=== PATIENT | male | born 1985 | race Caucasian/White ===

== ENCOUNTER 2023-05-26 13:08 | Emergency (ER) | payer BC, SELFPAY ==
[2023-05-26 13:09] VITALS: BP 174/105; PULSE 123; RESP 20; TEMP 36.1; O2SAT 97; BMI 29.5
--- NOTE | 2023-05-26 13:13 | EDS_ITS ---
HPI History of Present Illness Chief Complaint: Chest Pain PFSH PFS Medical History no medical history Allergy/AdvReac Type Severity Reaction Status Date / Time No Known Allergies Allergy Verified 05/26/23 13:09 EXAM Physical Exam Const Vital Signs: 05/26/23 13:09 05/26/23 13:15 05/26/23 13:15 Temperature 97 F L Temperature Source Temporal Pulse Rate 123 H 106 H Respiratory Rate 20 H 26 H Respiratory Effort Normal Non-Labored Blood Pressure 174/105 H 155/91 H Blood Pressure Mean 128 112 Pulse Ox 97 99 Oxygen Delivery Method Room Air Room Air 05/26/23 13:50 05/26/23 14:08 05/26/23 15:00 Temperature Temperature Source Pulse Rate 88 95 Respiratory Rate 16 15 Respiratory Effort Blood Pressure 143/97 H 164/96 H Blood Pressure Mean 112 118 Pulse Ox 98 97 96 Oxygen Delivery Method Room Air Room Air Room Air Heart Score History: Slightly/Non-Suspicious ECG: Normal Age: </= 45 years Risk Factors: No Risk Factors Troponin: </= Normal Limit Score: 0 MDM MDM MDM Narrative Medical decision making narrative: HISTORY OF PRESENT ILLNESS: 52-[id number]-[id number]-year-old male presents with chest pain. Notes intermittent chest pain. Notes left arm pain. States has been ongoing for 1 week. Is not exertional. Is not pleuritic. Denies any recent fever. Denies any sick contacts. No recent cough. Notes 4 weeks ago he had self diagnosed bronchitis. Denies any lower extremity edema. Denies any bleeding diathesis. Denies any vomiting or diarrhea. Denies any personal history of methamphetamine or cocaine abuse. Notes he drinks occasionally had about 4 beers last night. Patient denies sudden onset of pain, no tearing sensation, no migratory symptoms, no new numbness, weakness or loss of sensation. Patient denies family history or personal history of Marfan syndrome or Kenroy-Danlos. The patient denies recent surgery in the last 4 weeks or immobilization in the last 3 days, denies previous diagnosis of DVT or PE, hemoptysis, unilateral leg swelling or malignancy with treatment the last 6 months. No estrogen use noted. REVIEW OF SYSTEMS: All other systems reviewed and are negative except as noted in the history of present illness. At least 10 review of systems reviewed and are negative except as noted in history of present illness. PHYSICAL EXAM: Nursing triage notes reviewed, Vital signs reviewed Constitutional: please see [facility] HENT: MMM Eyes: Pupils equal round and reactive to light, Extraocular muscles intact Neck: No stridor, no JVD, full neck ROM Lungs: Clear to auscultation, No wheezing or rales. No increased work of breathing, no conversational dyspnea, no accessory muscle use, no nasal flaring. No respiratory distress noted Heart: Regular rate and rhythm, No murmurs, No rubs and No gallops, 2+ distal pulses (radial, femoral, posterior tibial) in all extremities Abdomen: Soft, there is no tenderness, rigidity, rebound or guarding, no obvious peritoneal signs, no palpable pulsatile abdominal masses, no auscultated abdominal bruit : No CVAT Extremities: No edema Neuro: No focal neurological deficits, cranial nerves II through XII intact, 5/5 strength in all extremities. Intact sensation to light touch in all extremities, 2+ reflexes bilateral patella tendons. Normal gait. No ataxia. Skin: No rash or lesions noted MEDICAL DECISION MAKING: Chief Complaint: Chest pain External records reviewed: No recent advanced imaging of the chest. No recent echocardiograms, stress test Factors affecting care: None Social determinants of health: Occasional alcohol abuse History obtained from others: Patient's Consults: none [facility] Narrative: Patient is initially tachycardic and hypertensive also tachypneic but afebrile. Exam without friction rub. Pulses were symmetric. No focal lung findings. Patient was treated with aspirin normal saline initially. I considered the following differential diagnosis: ACS, arrhythmia, anemia, pericarditis electrolyte abnormality, pneumonia, pneumothorax, GI etiology, PE ALL IMAGES (IF OBTAINED) HAVE BEEN PERSONALLY REVIEWED AND INTERPRETED BY MYSELF. EKG with normal sinus rhythm, left ax deviation, no intervals, no STEMI, no stigmata of pericarditis, no WPW, ARVD or Brugada syndrome noted CBC without leukocytosis, severe anemia, no thrombocytopenia. BMP without evidence of significant electrolyte abnormalities, no anion gap, no acute kidney injury. High-sensitivity troponin is negative, no evidence of myocardial ischemia x 2 I have personally reviewed the patient's chest x-ray. Chest x-ray is unremarkable for pulmonary edema, pneumothorax, pneumonia or focal cardiopulmonary abnormality. The synthesis of the patient's history, physical exam, labs images are not consistent with an acute life or limb threatening etiology. PE less likely given low risk Wells score. Aortic dissection is thought to be less likely given no sudden ripping or tearing pain, migratory pain, palpable pulse inequalities, no focal neurologic deficits concurrent with chest pain. Chance of dissection less than 07/1999. Pericarditis less likely given no pathognomonic EKG changes (no diffuse ST elevations, OH depressions). GI etiology (i.e. Boerhaave syndrome) less likely given no chest or neck crepitus, no vomiting or forced retching. I completed a HEART Score to screen for Major Adverse Cardiac Event (MACE) in this patient. The evidence indicates that the patient is very low risk for MACE and this is consistent with my clinical intuition. The risk of further workup or hospitalization for MACE is likely higher than the risk of the patient having a MACE. It is, therefore, in the patient?s best interest not to do additional emergent testing or to be hospitalized for MACE at this time. Shared Decision-Making No hospitalization indicated I have discussed with the patient my clinical impression and the result of the HEART Score to screen for MACE, as well as the risks of further testing and hospitalization. The HEART Score shows that the risk for MACE is less than 1%. Although the risk of MACE has not been completely eliminated, the risks of further testing or hospitalization for MACE likely exceed any potential benefit, and the patient agrees with not pursuing further emergent evaluation or hospit alization for MACE at this time. The patient and/or family, caregivers express understanding. The patient and/or family, caregivers agrees with the plan. Total critical care time today provided was at least 0 minutes. This excludes separately billable procedures. Critical care time (if documented) is secondary to the patient having high probability of clinically significant/life threatening deterioration in the patient's condition which required my urgent intervention. Felipe Valera, DO Lab Data Labs: Laboratory Results - last 24 hr 05/26/23 05/26/23 13:25 14:46 WBC 4.6 RBC 4.88 Hgb 14.9 Hct 43.0 MCV 88.1 MCH 30.5 MCHC 34.7 RDW Std Deviation 41.3 RDW Coeff of Nelson 12.9 Plt Count 213 MPV 10.4 Immature Gran % (Auto) 0.600 Neut % (Auto) 65.8 Lymph % (Auto) 24.1 [place] % (Auto) 7.1 Eos % (Auto) 1.5 Baso % (Auto) 0.9 Absolute Neuts (auto) 3.1 Absolute Lymphs (auto) 1.12 Nucleated RBC % 0 Sodium 139 Potassium 3.6 Chloride 105 Carbon Dioxide 27.0 Anion Gap 7 BUN 14 Creatinine 0.98 Estim Creat Clear Calc 113.28 Est GFR (MDRD) Af Amer 110 Est GFR (MDRD) Non-Af 91 BUN/Creatinine Ratio 14.3 Glucose 142 H Calcium 8.8 Troponin I High Sens 6 6 Radiography Diagnostic Testing: Clinical Impression(s) from Imaging Studies Chest X-Ray 05/26/23 13:50 IMPRESSION: Normal x-ray examination of the chest. Electronically Signed: Ari Tabor MD at 14:24 EST Reading Location ID and State: [facility] / [place] , Service support , Discharge Plan Triage Chief Complaint: Chest Pain ED Provider: Felipe Valera Dx/Rx/DC Orders Instructions: Chest Pain [facility] Primary Care Provider: Care Physician,No Primary Referrals: Care Physician,No Primary [Primary Care Provider] - Activity Restrictions/Additional Instructions: Thank you for trusting us with your care today! Please take Tylenol (2 pills, 650 mg), ibuprofen (2 pills, 400 mg) every 6 hours as needed for pain and fever control. Please return to the emergency department if your symptoms change or worsen. Specifically if you lose consciousness, develop chest pain, shortness of breath, exertional chest pain. Please follow with your primary care physician for further outpatient evaluation and management. Disposition Disposition: Home, Self Care
[2023-05-26 13:15] VITALS: BP 155/91; PULSE 106; RESP 26; O2SAT 99
--- NOTE | 2023-05-26 13:41 | ED.RN ---
NO OLD EKG
[2023-05-26 13:42] LABS: Absolute Lymphocyte Count 1.12 X10^3/uL (0.83-4.51); Absolute Neutrophil Count 3.1 X10^3/uL (2.0-7.7); Basophil# 0.04 X10^3/uL; Basophil% 0.9 % (0-1); Eosinophil# 0.07 X10^3/uL; Eosinophils% 1.5 % (0-5); Hemoglobin 14.9 g/dL (13.0-16.5); Lymphocyte # 1.12 X10^3/ul (0.83-4.51); Lymphocyte % 24.1 % (19-41); Mean Corp Hgb Conc 34.7 g/dL (32-36); Mean Corpuscular Hgb 30.5 pg (27.0-32.0); Mean Corpuscular Volume 88.1 fL (80-94); Mean Platelet Vol. 10.4 fl (6.2-12.0); Monocyte# 0.33 X10^3/uL; Monocyte% 7.1 % (0-10); NRBC Flagged by Analyzer 0 % (0-5); Neutrophil # 3.05 X10^3/uL (2.7-7.7); Neutrophil % 65.8 % (47-70); Platelet Count 213 K/mm3 (150-450); RBC Distribution Width CV 12.9 % (11.6-14.6); RBC Distribution Width SD 41.3 fl (35.1-43.9); Red Blood Count 4.88 M/mm3 (4.6-6.2); White Blood Count 4.6 K/mm3 (4.4-11.0)
[2023-05-26 13:50] VITALS: O2SAT 98
--- NOTE | 2023-05-26 13:50 | RAD_ITS ---
STUDY: X-RAY CHEST REASON FOR EXAM: Male, 37 years old. Atypical chest pain TECHNIQUE: Single AP portable view of the chest. COMPARISON: None. FINDINGS: EKG leads overlie the chest The lungs are clear and expanded. There is no demonstrated pleural abnormality. Normal size heart. Normal mediastinum and desirae. Normal visualized pulmonary arteries. Normal visualized aortic arch and descending thoracic aorta. Normal visualized thoracic spine. Normal visualized ribs, clavicles, and shoulders. There is no demonstrated abnormality of the visualized soft tissue structures of the upper abdomen. RAD/Chest 1 View (Portable) IMPRESSION: Normal x-ray examination of the chest. Electronically Signed: Ari Tabor MD at 14:24 EST ,
[2023-05-26 14:02] LABS: Anion Gap 7 (5-15); BUN 14 mg/dL (7-18); BUN/Creat Ratio 14.3 RATIO (10-20); Calcium,Total 8.8 mg/dL (8.5-10.1); Chloride 105 mmol/L (98-107); Creatinine, Serum 0.98 mg/dL (0.70-1.30); EST Glomerular Filtration Rate 91 mL/min (>60); Est Glom Filt Rate - Afr Amer 110 mL/min (>60); Estimated Creatinine Clearance 113.28 ml/min; Glucose 142 mg/dL (74-106); Potassium 3.6 mmol/L (3.5-5.1); Sodium Level 139 mmol/L (136-145); Troponin-I HS 6 pg/mL (3.0-78.0)
[2023-05-26 14:08] VITALS: BP 143/97; PULSE 88; RESP 16; O2SAT 97
[2023-05-26] MEDS: 0.9% Normal Saline (1000mL) 1,000 ML 1000 ML IV (14:16)
[2023-05-26] MEDS: Aspirin 81 MG TAB.CHEW 324 MG PO (14:16)
[2023-05-26 15:00] VITALS: BP 164/96; PULSE 95; RESP 15; O2SAT 96
[2023-05-26 15:08] LABS: Troponin-I HS 6 pg/mL (3.0-78.0)
== END 2023-05-26 15:30 | disposition home or self-care (01) ==
PROVIDERS: Emergency Provider Emergency Medicine; Visit Provider Emergency Medicine
DX: R07.9 Chest pain, unspecified (principal)
CPT/HCPCS: 71045; 80048; 84484; 85025; 93005; 96360; 99284; J7030

== ENCOUNTER 2025-01-15 12:24 | Emergency (ER) | payer BC, SELFPAY ==
[2025-01-15 12:25] VITALS: BP 161/117; PULSE 100; RESP 20; TEMP 36.3; O2SAT 98; BMI 30.9
--- NOTE | 2025-01-15 13:41 | CT_ITS ---
EXAM: CT Head Without Intravenous Contrast CLINICAL INDICATION: INTERMITTENT NUMBNESS TECHNIQUE: Axial computed tomography images of the head/brain without intravenous contrast. This CT exam was performed using one or more of the following dose reduction techniques: automated exposure control, adjustment of the mA and/or kV according to patient size, and/or use of iterative reconstruction technique. COMPARISON: No relevant prior studies available. FINDINGS: BRAIN AND EXTRA-AXIAL SPACES: No acute intracranial hemorrhage, midline shift or mass effect. If symptoms persist, further evaluation with MRI is recommended. No significant white matter disease. BONES/JOINTS: Apparent hyperdensity of the right occipital convexity, likely secondary to overlying skull artifacts. No acute fracture. SOFT TISSUES: Unremarkable. SINUSES: Unremarkable as visualized. No acute sinusitis. MASTOID AIR CELLS: Unremarkable as visualized. No mastoid effusion. CT/Brain/Head without Contrast IMPRESSION: No acute intracranial hemorrhage, midline shift or mass effect. If symptoms per sist, further evaluation with MRI is recommended. Reading Location: [facility]
--- NOTE | 2025-01-15 13:41 | CT_ITS ---
EXAM: CT Head Without Intravenous Contrast CLINICAL INDICATION: INTERMITTENT NUMBNESS TECHNIQUE: Axial computed tomography images of the head/brain without intravenous contrast. This CT exam was performed using one or more of the following dose reduction techniques: automated exposure control, adjustment of the mA and/or kV according to patient size, and/or use of iterative reconstruction technique. COMPARISON: No relevant prior studies available. FINDINGS: BRAIN AND EXTRA-AXIAL SPACES: No acute intracranial hemorrhage, midline shift or mass effect. If symptoms persist, further evaluation with MRI is recommended. No significant white matter disease. BONES/JOINTS: Apparent hyperdensity of the right occipital convexity, likely secondary to overlying skull artifacts. No acute fracture. SOFT TISSUES: Unremarkable. SINUSES: Unremarkable as visualized. No acute sinusitis. MASTOID AIR CELLS: Unremarkable as visualized. No mastoid effusion. CT/Brain/Head without Contrast IMPRESSION: No acute intracranial hemorrhage, midline shift or mass effect. If symptoms per sist, further evaluation with MRI is recommended. Reading Location: [facility]
[2025-01-15 14:17] LABS: Hematocrit 42.0 % (40-54); Hemoglobin 15.1 g/dL (13.0-16.5); Immature Granulocytes Count 0.040 X10^3/uL (0.0-0.0); Mean Corp Hgb Conc 36.0 g/dL (32-36); Mean Corpuscular Volume 86.2 fL (80-94); Mean Platelet Vol. 10.5 fl (6.2-12.0); NRBC Flagged by Analyzer 0 % (0-5); Platelet Count 204 K/mm3 (150-450); RBC Distribution Width CV 12.3 % (11.6-14.6); RBC Distribution Width SD 38.5 fl (35.1-43.9); Red Blood Count 4.87 M/mm3 (4.6-6.2); White Blood Count 4.9 K/mm3 (4.4-11.0)
--- NOTE | 2025-01-15 14:50 | EDS_ITS ---
HPI History of Present Illness Chief Complaint: Numb/Ting Narrative Narrative: Chief complaint and HPI: Episodic and migratory numbness/tingling with headache. 39-year-old male with no significant past medical history presents for evaluation of migratory/episodic numbness/tingling with headache. Patient states he had 2 separate episodes recently of central blurry vision. He was worked up outpatient by his PCP as well as ophthalmology. States he had a bilateral carotid ultrasound that was unremarkable. Had an MRI of the brain that was unremarkable except for a cyst. States that the in process inspector felt that he was having ocular migraines. Patient states that for the past couple weeks he has been having episodic and migratory facial numbness/tingling with headache. He states that it can occur on his left cheek, right cheek, neck. States he often gets a mild headache associated with it. States he called his PCPs office today to follow-up for this and was told by staff to come to the emergency department. He currently is denying any numbness or tingling at this time. He states that his left cheek just feels sore. He denies any headache, fever, chills, shortness of breath, chest pain, URI symptoms, weakness, current numbness/tingling, abdominal pain, nausea, vomiting, vision changes, hearing changes, neurological deficit, difficulty speaking. Review of systems: See HPI Medications: As listed on the chart Allergies: As listed on the chart PFSH: Per chart Vital signs: As listed on the chart. Reviewed. Physical exam: Gen: A&O x3, NAD Head: Normocephalic, atraumatic Eyes: No sclera icterus, conjunctiva clear, PERRL, EOMI ENT: Tympanic membranes clear bilaterally, moist mucous membranes, No facial asymmetry, posterior oropharynx unremarkable, uvula midline, no facial tenderness, no reported numbness or tingling with palpation, no temporal artery tenderness bilaterally Neck: Trachea midline, No JVD, full range of motion, nontender CV: RRR, no murmurs, no peripheral edema Resp: Lungs CTA BL, no w/r/c GI: Abd soft, non-distended, non-tender, no r/r/g Musc: Full ROM, no deformity, strength +5/5 in all extremities, no pronator drift, no ataxia Skin: Warm, dry, intact Neuro: Alert, oriented, grossly intact, sensation intact, no focal deficits Psych: Cooperative, appropriate mood and affect PFSH PFSH Medical History no medical history Allergy/AdvReac Type Severity Reaction Status Date / Time No Known Allergies Allergy Verified 01/15/25 12:27 Family History no significant family his Surgical History no surgical history Social History Smoking Status: Never smoker EXAM Physical Exam Const Vital Signs: 01/15/25 12:25 01/15/25 15:00 Temperature 97.4 F L Temperature Source Temporal Pulse Rate 100 78 Respiratory Rate 20 H Blood Pressure 161/117 H 155/90 H Blood Pressure Mean 131 111 Pulse Ox 98 99 Oxygen Delivery Method Room Air MDM MDM MDM Narrative Medical decision making narrative: 39-year-old male with no significant past medical history presents for evaluation of migratory/episodic numbness/tingling with headache. Patient recently had 2 separate episodes of central blurry vision. Had a workup outpatient with bilateral carotid ultrasound and MRI brain. States his bilater al carotid ultrasound was unremarkable. MRI brain was unremarkable except for cyst. States that his in process inspector diagnosed him with ocular migraines. Patient states since then he has been having episodic and migratory facial numbness/tingling with headache. Can occur on multiple areas of the face including the neck. Wanted to follow-up with PCP for this today and staff told him come to the emergency department. Currently denying any numbness or tingling. States his left cheek just feels sore. States he has been under a lot of stress. Physical exam is unremarkable. On presentation, patient no acute distress. He was hypertensive however repeat blood pressure normal. Differential diagnosis includes but is not limited to ocular migraines, atypical migraines, tension headache, stress reaction, electrolyte abnormality. Not consistent with a CVA. On chart review was unable to find the patient's carotid ultrasound as well as MRI brain. I do have a suspicion for any new intracranial abnormality with recent MRI brain however cannot fully rule this out without imaging. With shared decision making with the patient, will obtain basic labs to assess for electrolyte abnormalities as well as CT brain for any acute pathology. CT of the head shows no acute intracranial abnormality. CBC unremarkable. BMP unremarkable. Magnesium mildly elevated at 2.3. At this point in time, no clear etiology for patient's symptoms. He is currently asymptomatic at this time. May be secondary to ocular versus atypical migraines. Recommend following up with PCP and neurology. Return precautions explained. He confirmed understand the plan. Patient will discharge home. Impression: 1. Episodic and migratory facial numbness/tingling 2. Episodic headaches 3. Recent diagnosis of ocular migraines Lab Data Labs: Laboratory Results - last 24 hr 01/15/25 14:11 WBC 4.9 RBC 4.87 Hgb 15.1 Hct 42.0 MCV 86.2 MCH 31.0 MCHC 36.0 RDW Std Deviation 38.5 RDW Coeff of Nelson 12.3 Plt Count 204 MPV 10.5 Immature Gran % (Auto) 0.800 Neut % (Auto) 74.9 H Lymph % (Auto) 17.6 L [place] % (Auto) 5.5 Eos % (Auto) 0.6 Baso % (Auto) 0.6 Absolute Neuts (auto) 3.7 Absolute Lymphs (auto) 0.86 Nucleated RBC % 0 Sodium 140 Potassium 4.4 Chloride 104 Carbon Dioxide 24.5 Anion Gap 11 BUN 13 Creatinine 0.94 Estim Creat Clear Calc 131.24 Est GFR (MDRD) Non-Af 106 BUN/Creatinine Ratio 13.5 Glucose 120 H Calcium 9.8 Magnesium 2.3 H Radiography Diagnostic Testing: Clinical Impression(s) from Imaging Studies Brain CT 01/15/25 13:41 IMPRESSION: No acute intracranial hemorrhage, midline shift or mass effect. If symptoms persist, further evaluation with MRI is recommended. Reading Location[facility] Discharge Plan Triage Chief Complaint: Numb/Ting ED Provider: Joshua Wright Dx/Rx/DC Orders Primary Care Provider: Esteban Muniz Referrals: Esteban Muniz MD [Primary Care Provider] - Print Language: Malay
[2025-01-15 15:00] VITALS: BP 155/90; PULSE 78; O2SAT 99
[2025-01-15 15:13] LABS: Anion Gap 11 (5-15); BUN 13 mg/dL (4-19); BUN/Creat Ratio 13.5 RATIO (10-20); Calcium,Total 9.8 mg/dL (7.6-11.0); Carbon Dioxide 24.5 mmol/L (21.0-32.0); Chloride 104 mmol/L (98-108); Estimated Creatinine Clearance 131.24 ml/min (50-250); Glucose 120 mg/dL (70-99); Magnesium 2.3 mg/dL (1.5-2.2); Potassium 4.4 mmol/L (3.3-5.1)
[2025-01-15 15:39] VITALS: BP 144/96; PULSE 85; RESP 20; TEMP 36.8; O2SAT 100
--- OUTSIDE RECORDS SUMMARY | 2025-01-15 21:55 | XMS RPT_ITS | CCD ---
Author Organization [facility] Care Team Providers Care Pre Certification Specialist Name Role Phone Alex Muniz MD Primary Care Provider Felipe Valera Attending Unavailable Care Physician, No Primary Primary Care Unava ilable ALEX MUNIZ Primary Care Unavailab le AYDIN, KIM Referring Unavailable JASSON LION Attending Unavailable JASSON LION Admitting Unavailable ALEX MUNIZ Primary Care Unavailab Alex Ivory MD Primary Care Provider VALERIE FRANCO Referring Unavailable ALEX MUNIZ Primary Care Unavailab le Podlogar INSPECTOR POISING.Kim SANDOVAL Unavailable eSsar INSPECTOR POISING.Lashae SANDOVAL Unavailable ALEX MUNIZ Primary Care Unavailab ALEX Ivory Referring Unavailab ALEX Ivory Referring Unavailab ALEX Ivory Primary Care Unavailab JOSE ANTONIO Ruano Attending Unavailable ALEX MUNIZ Referring Unavailab ALEX Ivory Primary Care Unavailab ALEX Ivory Referring Unavailab ALEX Ivory Primary Care Unavailab ALEX Ivory Referring Unavailab ALEX Ivory Primary Care Unavailab ALEX Ivory Referring Unavailab ALEX Ivory Primary Care Unavailab ALEX Ivory Referring Unavailab ALEX Ivory Primary Care Unavailab ALEX Ivory Attending Unavailab ALEX Ivory Primary Care Unavailab ALEX Ivory Referring Unavailab ASHU Ahn Attending Unavailable ALEX MUNIZ Primary Care Unavailab ALEX Ivory Referring Unavailab ALEX Ivory Primary Care Unavailab ALEX Ivory Attending Unavailab ALEX Ivory Primary Care Unavailab ALEX Ivory Attending Unavailab ALEX Ivory Referring Unavailab ALEX Ivory Primary Care Unavailab ALEX Ivory Primary Care Unavailab ALEX Ivory Referring Unavailab ALEX Ivory Primary Care Unavailab ALEX Ivory Primary Care Unavailab le ALLAN FLORES Referring Unavailable ALEX MUNIZ Attending Unavailab ALEX Ivory Primary Care Unavailab ALEX Ivory Attending Unavailab ALEX Ivory Primary Care Unavailab ALEX Ivory Referring Unavailab ALEX Ivory Primary Care Unavailab anneliese CARL, JOSE ANTONIO Attending Unavailable ALEX MUNIZ Primary Care Unavailab ALEX Ivory Referring Unavailab ALEX Ivory Primary Care Unavailab ALEX Ivory Referring Unavailab Dr. Joshua Smith DO Emergency Provider Dr. Esteban Muniz MD Primary Care Provider Medications Current Medications Medication Drug Class(es) Dates Sig (Normalized) Sig (Original) amoxicillin 875 mg / clavulanate 125 mg oral tablet (1 source) Penicillin-class Antibacterial Start: 07-23-2024 End: 07-28-2024 take 1 tablet by mouth twice daily amoxicillin-clavul anate potassium (AUGMENTIN) 875-125 mg per tablet Indications: Bacterial pneumonia Take 1 tablet by mouth two times a day for 5 days. 10 tablet 07/23/2024 07/28/2024 Active azithromycin 250 mg oral tablet (1 source) Macrolide Antimicrobial Start: 07-23-2024 End: 07-28-2024 take 2 tablets by mouth once daily, then take 1 tablet by mouth once daily azithromycin (ZITHROMAX) 250 mg tablet Indications: Bacterial pneumonia Take 2 tablets by mouth once daily for 1 day, THEN 1 tablet once daily for 4 days. 6 tablet 07/23/2024 07/28/2024 Active benoxinate hydrochloride 4 mg/ml / fluorescein sodium 3 mg/ml ophthalmic solution (2 sources) Diagnostic Dye Start: 01-11-2025 End: 01-11-2025 fluorescein-benoxi brock 0.3-0.4 % 1 drop (FLURESS) Start: 01-11-2025 End: 01-11-2025 1 drop, BOTH EYES, DIRECT ED, Starting on Tue01/11/25 at 1100, Until Tue01/11/25 at 2259, Administer for applanation tonometry. In the event of a Fluress shortage, administer Wandy-Fluor 1 drop into both eyes as directed for applanation tonometry Lactobacillus acidophilus (20 sources) Lactobacillus ac idophilus (PROBIOTIC ORAL) Take by mouth. Active Lactobacillus ac idophilus (PROBIOTIC ORAL) Take by mouth. 0 Active Comment on above: Take by mouth. meloxicam 15 mg oral tablet (9 sources) Nonsteroidal Anti-inflammatory Drug Start: 07-16-19 End: 09-15-19 take 1 tablet by mouth once daily at mealtime meloxicam (MOBIC) 15 mg tablet Indications: Chronic upper back pain Take 1 tablet by mouth once daily. With food. 30 tablet 1 07/16/2024 09/14/2024 Active multivit-min/folic/vi t K/lycop (MEN'S MULTIVITAMIN ORAL) (20 sources) multivit-min/fol ic/v it K/lycop (MEN'S MULTIVITAMIN ORAL) Take by mouth. Active multivit-min/fol ic/vit K/lycop (MEN'S MULTIVITAMIN ORAL) Take by mouth. 0 Active naproxen 500 mg oral tablet (1 source) Nonsteroidal Anti-inflammatory Drug Start: 02-09-2024 End: 03-10-2024 take 1 tablet by mouth twice daily as needed naproxen (NAPROSYN) 500 mg tablet Indications: Left flank pain Take 1 tablet by mouth two times a day as needed. Take with food. 60 tablet 0 02/09/2024 03/10/2024 Active omeprazole 40 mg delayed release oral capsule (20 sources) Proton Pump Inhibitor Start: 07-19-2023 End: 07-16-2024 take 1 capsule by mouth once daily in the morning omeprazole (PRILOSEC) 40 mg capsule Take 1 capsule by mouth every morning. 90 capsule 1 07/16/2024 Active Start: 06-29-2023 End: 07-19-2023 take 1 capsule by mouth once daily before breakfast omeprazole (PRILOSEC) 20 mg capsule Take 1 capsule by mouth daily before breakfast. 1/2 hr before meal. 42 capsule 06/29/2023 07/19/2023 Discontinued Comment on above: Take 1 capsule by [facility] once daily. phenylephrine hydrochloride 25 mg/ml ophthalmic solution (2 sources) alpha-1 Adrenergic Agonist Start: 01-11-2025 End: 01-11-2025 PHENYLephrine 2.5 % 1 drop (AK-DILATE, GLENIS-SYNEPHRINE) Start: 01-11-2025 End: 01-11-2025 1 drop, BOTH EYES, DIRECT ED, Starting on Tue01/11/25 at 1100, Until Tue01/11/25 at 2259, Administer for dilation PROTECT FROM LIGHT proparacaine hydrochloride 5 mg/ml ophthalmic solution (2 sources) Local Anesthetic Start: 01-11-2025 End: 01-11-2025 proparacaine 0.5 % 1 drop (ALCAINE) Start: 01-11-2025 End: 01-11-2025 1 drop, BOTH EYES, DIRECT ED, Starting on Tue01/11/25 at 1100, Until Tue01/11/25 at 2259, Administer for pneumo tonometry, tonopen tonometry, or pachymetry. In the event of a proparacaine shortage, administer tetracaine 0.5% ophthalmic drops 1 drop in the left eye as directed for pneumo tonometry, tonopen tonometry, or pachymetry tropicamide 10 mg/ml ophthalmic solution (2 sources) Anticholinergic Start: 01-11-2025 End: 01-11-2025 tropicamide 1 % 1 drop (MYDRIACYL) Start: 01-11-2025 End: 01-11-2025 1 drop, BOTH EYES, DIRECT ED, Starting on Tue01/11/25 at 1100, Until Tue01/11/25 at 2259, Administer for dilation Completed/Discontinued Medications Medication Drug Class(es) Dates Sig (Normalized) Sig (Original) calcium phosphate dibas/vit D3 (VITAMIN D, WITH CALCIUM, ORAL) (10 sources) calcium phosphat e dibas/vit D3 (VITAMIN D, WITH CALCIUM, ORAL) Take by mouth. 0 Active Comment on above: Take by mouth. cholecalciferol 0.05 mg oral tablet (7 sources) Vitamin D End: 12-29-2023 take 1 tablet by mouth once daily cholecalciferol (VITAMIN D-3) 50 mcg (2,000 unit) tablet Take 2,000 Units by mouth once daily. 12/29/2023 Discontinued Comment on above: Take 2,000 Units by mouth once daily. famotidine 20 mg oral tablet (6 sources) Histamine-2 Receptor Antagonist Start: 05-30-2023 take 1 tablet by mouth twice daily famotidine (PEPCID) 20 mg tablet Indications: Chest pain, unspecified type Take 1 tablet by mouth two times a day. 60 tablet 1 05/30/2023 Active Comment on above: Take 1 tablet by justyn th two times a day. perflutren lipid microspheres 1.3 mL in NaCl (PF) 0.9% 10 mL injection (DEFINITY) (1 source) Start: 07-15-2023 End: 07-22-2023 perflutren lipid microspheres 1.3 mL in NaCl (PF) 0.9% 10 mL injection (DEFINITY) 125 ml sodium chloride 9 mg/ml prefilled syringe (1 source) Start: 07-15-2023 End: 07-22-2023 sodium chloride 0.9 % (flush) 10 mL (BD POSIFLUSH) Problems Active Problems Problem Classification Problem Date Documented Da te Episodic/Chronic Alcohol-related disorders (17 sources) Binge drinker; Translations: [Alcohol abuse, uncomplicated] 07-16-2024 Chronic Blindness and vision defects (6 sources) Transient visual loss, bilateral; Translations: [Transient visual loss] Onset: 01-10-2025 Episodic Esophageal disorders (17 sources) Gastroesophageal reflux disease without esophagitis; Translations: [Gastro-esophageal reflux disease without esophagitis] 07-16-2024 Chronic Headache; including migraine (1 source) Headache; Translations: [Headache] 01-15-2025 Episodic Other acquired deformities (1 source) Disorder of finger; Translations: [Unspecified deformity of right finger(s)] Episodic Other acquired deformities (1 source) Deformity of hand; Translations: [Unspecified deformity of right finger(s)] 06-01-2022 Episodic Other circulatory disease (1 source) Elevated blood-pressure reading without diagnosis of hypertension; Translations: [Elevated blood-pressure reading, without diagnosis of hypertension] 08-01-2024 Episodic Other gastrointestinal disorders (4 sources) Diarrhea; Translations: [Diarrhea, unspecified] 08-15-2023 Episodic Other gastrointestinal disorders (3 sources) Abdominal bloating; Translations: [Abdominal distension (gaseous)] 08-16-2023 Episodic Other gastrointestinal disorders (1 source) Stool finding; Translations: [Other fecal abnormalities] 08-23-2023 Episodic Other lower respiratory disease (2 sources) Cough; Translations: [Acute cough] 07-23-2024 Episodic Other male genital disorders (2 sources) Swelling of testicle; Translations: [Other specified disorders of the male genital organs] 12-29-2023 Episodic Other male genital disorders (2 sources) Finding of sensation of testes; Translations: [Testicular pain, unspecified] 12-29-2023 Episodic Other male genital disorders (1 source) Other specified disorders of the male genital organs; Translations: [Testicular swelling, right] Onset: Episodic Other male genital disorders (1 source) Testicular pain, unspecified; Translations: [Testicular discomfort] Onset: 4 Episodic Other nervous system disorders (1 source) Other chronic pain; Translations: [Chronic upper back pain] Onset: Chronic Other nervous system disorders (1 source) Facial paresthesia; Translations: [Paresthesia of skin] 01-15-2025 Episodic Other screening for suspected conditions (not mental disorders or infectious disease) (1 source) Patient encounter status; Translations: [Encounter for screening for lipoid disorders] 05-30-2023 Episodic Other skin disorders (7 sources) Lump on finger; Translations: [Localized swelling, mass and lump, right upper limb] Episodic Pneumonia (except that caused by tuberculosis or sexually transmitted disease) (1 source) Bacterial pneumonia; Translations: [Unspecified bacterial pneumonia] 07-23-2024 Episodic Transient cerebral ischemia (7 sources) Amaurosis fugax; 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] Onset: 5 01-10-2025 Chronic Unclassified (1 source) Acute cough; Translations: [Acute cough] Onset: 5 Urinary tract infections (1 source) Urinary tract infectious disease; Translations: [Urinary tract infection, site not specified] 12-29-2023 Episodic Past or Other Problems Problem Classification Problem Date Documented Da te Episodic/Chronic Abdominal pain (9 sources) Left upper quadrant pain; Translations: [Left upper quadrant pain] Onset: 02-09-2024 08-15-2023 Episodic Genitourinary symptoms and ill-defined conditions (5 sources) Microscopic hematuria; Translations: [Other microscopic hematuria] Onset: 02-22-2024 01-14-2024 Episodic Nonspecific chest pain (9 sources) Chest pain; Translations: [Chest pain, unspecified] Onset: 05-31-2023 05-30-2023 Episodic Other skin disorders (1 source) Localized swelling, mass and lump, right upper limb; Translations: [Mass of finger of right hand] Onset: 03-02-2023 Episodic Spondylosis; intervertebral disc disorders; other back problems (8 sources) Backache; Translations: [Dorsalgia, unspecified] Onset: 02-09-2024 02-09-2024 Episodic Results Test Name Value Interpretation Reference Range Facility Absolute lymphocyte countOrd ered By: Joshua Wright on 01-15-2025 Lymphocytes Auto (Unsp spec) [#/Vol] 0.86 10*3/uL 0.83-4.51 [facility] Absolute neutrophil countOrd ered By: Joshua Wright on 01-15-2025 Neutrophils (Bld) [#/Vol] 3.7 10*3/uL 2.0-7.7 [facility] Anion gap in Serum or Plasma Ordered By: Joshua Wright on 01-15-2025 Anion gap [Moles/Vol] 11 mmol/L 11-15 [facility] Automated lymphocyte count a s percentage of total leukocytesOrdered By: Joshua Wright on 01-15-2025 Lymphocytes/100 WBC Auto (Unsp spec) 17.6 % Low - [facility] BUN/creatinine ratioOrdered By: Joshua Wright on 01-15-2025 Urea nitrogen/Creatinine [Mass ratio] 13.5 mg/mg 10- [facility] Basophil percentageOrdered B y: Joshua Wright on 01-15-2025 Basophils/100 WBC (Bld) 0.6 % 0-1 [facility] Carbon dioxide, total [Moles /volume] in Central venous bloodOrdered By: Joshua Wright on 01-15-2025 CO2 [Moles/Vol] 24.5 mmol/L 21.0-32.0 [facility] Chloride assayOrdered By: Gera Wright on 01-15-2025 Chloride [Moles/Vol] 104 mmol/L 98-108 [facility] Eosinophil percentageOrdered By: Joshua Wright on 01-15-2025 Eosinophils/100 WBC (Bld) 0.6 % 0-5 [facility] Erythrocyte distribution wid th ratioOrdered By: Joshua Wright on 01-15-2025 Erythrocyte distribution width (RBC) [Ratio] 12.3 % 11.6-14.6 [facility] Erythrocyte distribution wid th standard deviationOrdered By: Joshua Beauchamp on 01-15-2025 Erythrocyte distribution width (RBC) [Ratio] 38.5 fl 35.1-43.9 [facility] Glomerular filtration rate ( GFR) estimation/1.73 sq m using serum, plasma, or whole bOrdered By: Joshua Wright on 01-15-2025 GFR/1.73 sq M.predicted among non-blacks MDRD (S/P/Bld) [Vol rate/Area] 106 mL/min/{1.73_m2} >60 [facility] Comment on above: mL/min/1.73m2 CKD-EP I Creatinine Equation (2020) Hematocrit Auto (Bld) [Volum e fraction]Ordered By: Joshua Wright on 01-15-2025 Hematocrit (Bld) [Volume fraction] 42.0 % 40-54 [facility] Hemoglobin measurementOrdere d By: Joshau Wright on 01-15-2025 Hemoglobin (Bld) [Mass/Vol] 15.1 g/dL 13.0-16.5 [facility] Immature granulocytes/100 WB C Auto (Bld)Ordered By: Joshua Wright on 01-15-2025 Immature granulocytes/100 WBC (Bld) 0.800 % 0.0-0.9 [facility] Comment on above: IG% - Immature Granu locytes (promyelocytes, myelocytes and metamyelocytes) > 1% indicates that a LEFT SHIFT is Present. MCV (mean corpuscular volume ) determinationOrdered By: Joshua Wright on 01-15-2025 MCV (RBC) [Entitic vol] 86.2 fL 80-94 [facility] Magnesium measurement (mass/ volume)Ordered By: Joshua Wright on 01-15-2025 Magnesium (Unsp spec) [Mass/Vol] 2.3 mg/dL High 1.5-2.2 [facility] Mean corpuscular hemoglobin (MCH) determinationOrdered By: Joshua Wright on 01-15-2025 MCH (RBC) [Entitic mass] 31.0 pg 27.0-32.0 [facility] Mean corpuscular hemoglobin concentration (MCHC) determinationOrdered By: Joshua Wright on 01-15-2025 MCHC (RBC) [Mass/Vol] 36.0 g/dL 32-36 [facility] Mean platelet volume determi nationOrdered By: Joshua Wright on 01-15-2025 Platelet mean volume (Bld) [Entitic vol] 10.5 fL 6.2-12.0 [facility] Monocyte percentageOrdered B y: Joshua Wright on 01-15-2025 Monocytes/100 WBC (Bld) 5.5 % 0-10 [facility] Neutrophil percentageOrdered By: Joshua Wright on 01-15-2025 Neutrophils/100 WBC (Bld) 74.9 % High 47-70 [facility] Nucleated red blood cell per centageOrdered By: Joshua Wright on 01-15-2025 Nucleated RBC/100 WBC (Bld) [Ratio] 0 % 0-5 [facility] Platelet countOrdered By: Gera Wright on 01-15-2025 Platelets (Bld) [#/Vol] 204 10*3/uL 150-450 [facility] Potassium measurement (mass/ volume)Ordered By: Joshua Wright on 01-15-2025 Potassium (Unsp spec) [Mass/Vol] 4.4 mmol/L 3.3-5.1 [facility] RBC Auto (Bld) [#/Vol]Ordere d By: Joshua Wright on 01-15-2025 RBC (Bld) [#/Vol] 4.87 10*6/uL 4.6-6.2 [facility] Serum creatinine measurement (mass/volume)Ordered By: Joshua Wright on 01-15-2025 Creatinine [Mass/Vol] 0.94 mg/dL 0.70-1.20 [facility] Serum glucose measurement (m ass/volume)Ordered By: Joshua Wright on 01-15-2025 Glucose [Mass/Vol] 120 mg/dL High 70-99 [facility] Serum or plasma calcium cece urement (mass/volume)Ordered By: Joshua Beauchamp on 01-15-2025 Calcium [Mass/Vol] 9.8 mg/dL 7.6-11.0 [facility] Serum or plasma urea nitroge n measurement (mass/volume)Ordered By: Joshua Wright on 01-15-2025 Urea nitrogen [Mass/Vol] 13 mg/dL 4-19 [facility] Sodium levelOrdered By: Evan Wright on 01-15-2025 Sodium [Moles/Vol] 140 mmol/L 133-145 [facility] White blood cell (WBC) count Ordered By: Joshua Wright on 01-15-2025 WBC (Bld) [#/Vol] 4.9 10*3/uL 4.4-11.0 [facility] CBC W Auto Differential pane l (Bld)on 01-11-2025 Basophils (Bld) [#/Vol] 0.05 10*3/uL Normal <0.11 [facility] Comment on above: Order Comment: Speci men Type: BLOOD SPECIMEN Ordering Facility: [facility] Address: [address] [place] [address] Performed By: #### 4 537-7 #### [facility] CLIA [id number] [address] [place] [address] [place] Basophils/100 WBC (Bld) 0.9 % Normal [facility] Comment on above: Order Comment: Speci men Type: BLOOD SPECIMEN Ordering Facility: [facility] Address: [address] [place] [address] Performed By: #### 4 537-7 #### [facility] CLIA [id number] [address] [place] [address] [place] Differential cell count method Nom (Bld) Auto Normal [facility] Comment on above: Order Comment: Speci men Type: BLOOD SPECIMEN Ordering Facility: [facility] Address: [address] [place] [address] Performed By: #### 4 537-7 #### [facility] CLIA [id number] [address] [place] [address] [place] Eosinophils (Bld) [#/Vol] 0.08 10*3/uL Normal <0.46 [facility] Comment on above: Order Comment: Speci men Type: BLOOD SPECIMEN Ordering Facility: [facility] Address: [address] [place] [address] Performed By: #### 4 537-7 #### [facility] CLIA [id number] [address] [place] [address] [place] Eosinophils/100 WBC (Bld) 1.5 % Normal [facility] Comment on above: Order Comment: Speci men Type: BLOOD SPECIMEN Ordering Facility: [facility] Address: [address] [place] [address] Performed By: #### 4 537-7 #### [facility] CLIA [id number] [address] [place] [address] [place] Erythrocyte distribution width (RBC) [Ratio] 12.5 % Normal 11.5-15.0 [facility] Comment on above: Order Comment: Speci men Type: BLOOD SPECIMEN Ordering Facility: [facility] Address: [address] [place] [address] Performed By: #### 4 537-7 #### [facility] CLIA [id number] [address] [place] [address] [place] Hematocrit (Bld) [Volume fraction] 44.0 % Normal 39.0-51.0 [facility] Comment on above: Order Comment: Speci men Type: BLOOD SPECIMEN Ordering Facility: [facility] Address: [address] [place] [address] Performed By: #### 4 537-7 #### [facility] CLIA [id number] [address] [place] [address] [place] Hemoglobin (Bld) [Mass/Vol] 15.2 g/dL Normal 13.0-17.0 [facility] Comment on above: Order Comment: Speci men Type: BLOOD SPECIMEN Ordering Facility: [facility] Address: [address] [place] [address] Performed By: #### 4 537-7 #### [facility] CLIA [id number] [address] [place] [address] [place] Immature granulocytes (Bld) [#/Vol] 0.07 10*3/uL Normal <0.10 [facility] Comment on above: Order Comment: Speci men Type: BLOOD SPECIMEN Ordering Facility: [facility] Address: [address] [place] [address] Performed By: #### 4 537-7 #### [facility] CLIA [id number] [address] [place] [address] [place] Immature granulocytes/100 WBC (Bld) 1.3 % Normal [facility] Comment on above: Order Comment: Speci men Type: BLOOD SPECIMEN Ordering Facility: [facility] Address: [address] [place] [address] Performed By: #### 4 537-7 #### [facility] CLIA [id number] [address] [place] [address] [place] Lymphocytes (Bld) [#/Vol] 1.51 10*3/uL Normal 1.00-4.00 [facility] Comment on above: Order Comment: Speci men Type: BLOOD SPECIMEN Ordering Facility: [facility] Address: [address] [place] [address] Performed By: #### 4 537-7 #### [facility] CLIA [id number] [address] [place] [address] [place] Lymphocytes/100 WBC (Bld) 28.3 % Normal [facility] Comment on above: Order Comment: Speci men Type: BLOOD SPECIMEN Ordering Facility: [facility] Address: [address] [place] [address] Performed By: #### 4 537-7 #### [facility] CLIA [id number] [address] [place] [address] [place] MCH (RBC) [Entitic mass] 30.6 pg Normal 26.0-34.0 [facility] Comment on above: Order Comment: Speci men Type: BLOOD SPECIMEN Ordering Facility: [facility] Address: [address] [place] [address] Performed By: #### 4 537-7 #### [facility] CLIA [id number] [address] [place] [address] [place] MCHC (RBC) [Mass/Vol] 34.5 g/dL Normal 30.5-36.0 [facility] Comment on above: Order Comment: Speci men Type: BLOOD SPECIMEN Ordering Facility: [facility] Address: [address] [place] [address] Performed By: #### 4 537-7 #### [facility] CLIA [id number] [address] [place] [address] [place] MCV (RBC) [Entitic vol] 88.7 fL Normal 80.0-100.0 [facility] Comment on above: Order Comment: Speci men Type: BLOOD SPECIMEN Ordering Facility: [facility] Address: [address] [place] [address] Performed By: #### 4 537-7 #### [facility] CLIA [id number] [address] [place] [address] [place] Monocytes (Bld) [#/Vol] 0.36 10*3/uL Normal <0.87 [facility] Comment on above: Order Comment: Speci men Type: BLOOD SPECIMEN Ordering Facility: [facility] Address: [address] [place] [address] Performed By: #### 4 537-7 #### [facility] CLIA [id number] [address] [place] [address] [place] Monocytes/100 WBC (Bld) 6.7 % Normal [facility] Comment on above: Order Comment: Speci men Type: BLOOD SPECIMEN Ordering Facility: [facility] Address: [address] [place] [address] Performed By: #### 4 537-7 #### [facility] CLIA [id number] [address] [place] [address] [place] Neutrophils (Bld) [#/Vol] 3.27 10*3/uL Normal 1.45-7.50 [facility] Comment on above: Order Comment: Speci men Type: BLOOD SPECIMEN Ordering Facility: [facility] Address: [address] [place] [address] Performed By: #### 4 537-7 #### [facility] CLIA [id number] [address] [place] [address] [place] [place] Neutrophils/100 WBC (Bld) 61.3 % Normal [facility] Comment on above: Order Comment: Speci men Type: BLOOD SPECIMEN Ordering Facility: [facility] Address: [address] [place] [address] Performed By: #### 4 537-7 #### [facility] CLIA [id number] [address] [place] [address] [place] Nucleated RBC (Bld) [#/Vol] 10*3/uL Normal <0.01 [facility] Comment on above: Order Comment: Speci men Type: BLOOD SPECIMEN Ordering Facility: [facility] Address: [address] [place] [address] Performed By: #### 4 537-7 #### [facility] CLIA [id number] [address] [place] [address] [place] Nucleated RBC/100 WBC (Bld) [Ratio] 0.0 /100 WBC Normal [facility] Comment on above: Order Comment: Speci men Type: BLOOD SPECIMEN Ordering Facility: [facility] Address: [address] [place] [address] Performed By: #### 4 537-7 #### [facility] CLIA [id number] [address] [place] [address] [place] Platelet mean volume (Bld) [Entitic vol] 11.9 fL Normal 9.0-12.7 [facility] Comment on above: Order Comment: Speci men Type: BLOOD SPECIMEN Ordering Facility: [facility] Address: [address] [place] [address] Performed By: #### 4 537-7 #### [facility] CLIA [id number] [address] [place] [address] [place] Platelets (Bld) [#/Vol] 205 10*3/uL Normal 150-400 [facility] Comment on above: Order Comment: Speci men Type: BLOOD SPECIMEN Ordering Facility: [facility] Address: [address] [place] [address] Performed By: #### 4 537-7 #### [facility] CLIA [id number] [address] [place] [address] [place] RBC (Bld) [#/Vol] 4.96 10*6/uL Normal 4.20-6.00 [facility] Comment on above: Order Comment: Speci men Type: BLOOD SPECIMEN Ordering Facility: [facility] Address: [address] [place] [address] Performed By: #### 4 537-7 #### [facility] CLIA [id number] [address] [place] [address] [place] WBC (Bld) [#/Vol] 5.34 10*3/uL Normal 3.70-11.00 [facility] Comment on above: Order Comment: Speci men Type: BLOOD SPECIMEN Ordering Facility: [facility] Address: [address] [place] [address] Performed By: #### 4 537-7 #### [facility] CLIA [id number] [address] [place] [address] [place] Comprehensive metabolic 2000 panelon 01-11-2025 Albumin [Mass/Vol] 4.7 g/dL Normal 3.9-4.9 [facility] Comment on above: Order Comment: Speci men Type: BLOOD SPECIMEN Ordering Facility: [facility] Address: [address] [place] [address] Performed By: #### 2 4323-8 #### [facility] CLIA [id number] [address] [place] [address] [place] ALP [Catalytic activity/Vol] 66 U/L Normal 38-113 [facility] Comment on above: Order Comment: Speci men Type: BLOOD SPECIMEN Ordering Facility: [facility] Address: [address] [place] [address] Performed By: #### 2 4323-8 #### [facility] CLIA [id number] [address] [place] [address] [place] ALT [Catalytic activity/Vol] 38 U/L Normal 10-54 [facility] Comment on above: Order Comment: Speci men Type: BLOOD SPECIMEN Ordering Facility: [facility] Address: [address] [place] [address] Performed By: #### 2 4323-8 #### [facility] CLIA [id number] [address] [place] [address] [place] Anion gap [Moles/Vol] 14 mmol/L Normal 8-15 [facility] Comment on above: Order Comment: Speci men Type: BLOOD SPECIMEN Ordering Facility: [facility] Address: [address] [place] [address] Performed By: #### 2 4323-8 #### [facility] CLIA [id number] [address] [place] [address] [place] AST [Catalytic activity/Vol] 27 U/L Normal 14-40 [facility] Comment on above: Order Comment: Speci men Type: BLOOD SPECIMEN Ordering Facility: [facility] Address: [address] [place] [address] Performed By: #### 2 4323-8 #### [facility] CLIA [id number] [address] [place] [address] [place] Bilirubin [Mass/Vol] 0.7 mg/dL Normal 0.2-1.3 [facility] Comment on above: Order Comment: Speci men Type: BLOOD SPECIMEN Ordering Facility: [facility] Address: [address] [place], [place] [id number] Performed By: #### 2 4323-8 #### [facility] CLIA [id number] [address] [place], [place] [id number] [place] Calcium [Mass/Vol] 9.6 mg/dL Normal 8.5-10.2 [facility] Comment on above: Order Comment: Speci men Type: BLOOD SPECIMEN Ordering Facility: [facility] Address: [address] [place], [place] [id number] Performed By: #### 2 4323-8 #### [facility] CLIA [id number] [address] [place] [address] [place] Chloride [Moles/Vol] 103 mmol/L Normal 98-107 [facility] Comment on above: Order Comment: Speci men Type: BLOOD SPECIMEN Ordering Facility: [facility] Address: [address] [place] [address] Performed By: #### 2 4323-8 #### [facility] CLIA [id number] [address] [place] [address] [place] CO2 [Moles/Vol] 23 mmol/L Normal 22-30 [facility] Comment on above: Order Comment: Speci men Type: BLOOD SPECIMEN Ordering Facility: [facility] Address: [address] [place] [address] Performed By: #### 2 4323-8 #### [facility] CLIA [id number] [address] [place] [address] [place] Creatinine [Mass/Vol] 0.86 mg/dL Normal 0.73-1.22 [facility] Comment on above: Order Comment: Speci men Type: BLOOD SPECIMEN Ordering Facility: [facility] Address: [address] [place] [address] Performed By: #### 2 4323-8 #### [facility] CLIA [id number] [address] [place] [address] [place] [facility] [place] Creatinine and Glomerular filtration rate.predicted panel (S/P/Bld) 113 mL/min/1.73m??? Normal >=60 [facility] Comment on above: Order Comment: Speci men Type: BLOOD SPECIMEN Ordering Facility: [facility] Address: [address] [place] [address] Result Comment: Olinda mated Glomerular Filtration Rate (eGFR) is calculated using the 2020 CKD-EPI creatinine equation. This equation utilizes serum creatinine, sex, and age as parameters. The creatinine assay has traceable calibration to isotope dilution-mass spectrometry. Refer to KDIGO guidelines for clinical interpretation. In patients with unstable renal function, e.g. those with acute kidney injury, the eGFR may not accurately reflect actual GFR. Performed By: #### 2 4323-8 #### [facility] CLIA [id number] [address] [place] [address] [place] Glucose [Mass/Vol] 116 mg/dL High 74-99 [facility] Comment on above: Order Comment: Yulia belcher Type: BLOOD SPECIMEN Ordering Facility: [facility] Address: [address] [place] [address] Result Comment: The [place] Diabetes Association (ADA) provides guidance for cutoff values for fasting glucose and random glucose. The ADA defines fasting as no caloric intake for at least 8 hours. Fasting plasma glucose results between 100 to 125 mg/dL indicate increased risk for diabetes (prediabetes). Fasting plasma glucose results greater than or equal to 126 mg/dL meet the criteria for diagnosis of diabetes. In the absence of unequivocal hyperglycemia, results should be confirmed by repeat testing. In a patient with classic symptoms of hyperglycemia or hyperglycemic crisis, random plasma glucose results greater than or equal to 200 mg/dL meet the criteria for diagnosis of diabetes. Reference: Standards of Medical Care in Diabetes 2016, [place] Diabetes Association. Diabetes Care. 2016.39(Suppl 1). Performed By: #### 2 4323-8 #### [facility] CLIA [id number] [address] [place] [address] [place] Potassium [Moles/Vol] 3.9 mmol/L Normal 3.7-5.1 [facility] Comment on above: Order Comment: Yulia belcher Type: BLOOD SPECIMEN Ordering Facility: [facility] Address: [address] [place] [address] Performed By: #### 2 4323-8 #### [facility] CLIA [id number] [address] [place] [address] [place] Protein [Mass/Vol] 7.1 g/dL Normal 6.3-8.0 [facility] Comment on above: Order Comment: Yulia belcher Type: BLOOD SPECIMEN Ordering Facility: [facility] Address: [address] [place] [address] Performed By: #### 2 4323-8 #### [facility] CLIA [id number] [address] [place] [address] [place] Sodium [Moles/Vol] 140 mmol/L Normal 136-144 [facility] Comment on above: Order Comment: Speci men Type: BLOOD SPECIMEN Ordering Facility: [facility] Address: [address] [place] [address] Performed By: #### 2 4323-8 #### [facility] CLIA [id number] [address] [place] [address] [place] Urea nitrogen [Mass/Vol] 12 mg/dL Normal 9-24 [facility] Comment on above: Order Comment: Speci men Type: BLOOD SPECIMEN Ordering Facility: [facility] Address: [address] [place] [address] Performed By: #### 2 4323-8 #### [facility] CLIA [id number] [address] [place] [address] [place] OCT MACULA CIRRUS OU (BOTH E YES)on 01-11-2025 [facility] Radiology Study observation (narrative) Juan amaya [facility] CNOVon 01-10-2025 CNOV Office Visit (FAMPWS ) TORREY CAMPOS ([id number]) 1985 M Date Time Provider Department 01/10/25 8:20 AM ALEX MUNIZWS During your visit today, we recorded the following information about you: Pulse Blood pressure Weight Height 91/minute 131/85 105.7 kg 1.822 m Alex Muniz MD 01/10/2025 9:19 AM Addendum Chief Complaint Patient presents with: Sudden Vision Loss Both Eyes: Two episodes in the last month. Last episode was about a week ago. Denies any other symptoms. No headaches. Episodes last about 10-15 minutes. Still has peripheral vision. Looses focus in center of eye and can see streaks or wavy lines. Refers to looking like he's looking through a Kaleidoscope. Recording using [employer] software for draft documentation of the visit was discussed with the patient/authorized sales representative sales manager; all questions welcomed and answered. Patient/authorized sales representative sales manager agreed to proceed HPI Torrey Campos is a 39 year old male who presents here today for Above Complaints. Visual Disturbances: - Two episodes of transient central blurred vision over the past month. - Describes vision loss as like a finger coming from the center going up with a light spot with a bunch of triangles in it. - Episodes lasted 10-15 minutes, with preserved peripheral vision. - First episode occurred while showering; second episode occurred while walking in a museum. - Affected both eyes, more pronounced in the left eye. - No associated headaches, slurred speech, facial droop, numbness, or tingling. - No chest pain or palpitations during episodes. - No eye pain, redness, or drainage today. - Denies pain with eye movement. - Denies pain over the temples. - History of capillary leakage in the left eye under high stress, managed with rest and self-care. - Torrey has not seen an eye doctor recently. Past medical history, appointments, medications, allergies reviewed. 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 Infectious mononucleosis 2006 w/Hepatitis Overweight (BMI 25.0-29.9) Vitamin D deficiency Previous Surgical History PAST SURGICAL HISTORY Procedure Laterality Date COLONOSCOPY 07/15/2023 Diverticulosis, tubular adenoma EGD W/O BRSH SPEC VARICIES INJ 07/15/2023 Normal EXC LESION TDN SHTH/JT CAPSL HAND/FNGR Right 03/02/2023 Excision ganglion cyst right middle finger HYDROCELE RIGHT, FLUID Right 2002 Family History FAMILY HISTORY Problem Relation Age of Onset Hypertension Mother Hyperlipidemia Mother Heart Father arrhythmia No Known Problems Daughter Colon Cancer No Family History Patient Allergies ALLERGIES No Known Allergies Current Medications Current Outpatient Medications on File Prior to Visit Medication Sig omeprazole (PRILOSEC) 40 mg capsule Take 1 capsule by mouth every morning. multivit-min/folic/vi t K/lycop (MEN'S MULTIVITAMIN ORAL) Take by mouth. Lactobacillus acidophilus (PROBIOTIC ORAL) Take by mouth. No current facility-administered medications on file prior to visit. Social History Social History Tobacco Use Smoking status: Never Smokeless tobacco: Never Vaping Use Vaping status: Never Used Substance Use Topics Alcohol use: Yes Alcohol/week: 10.0 standard drinks of alcohol Types: 10 Cans of Beer (12oz) per week Comment: 2-3 times per week, varies- admits to binge drinking Drug use: Not Currently Comment: history of marijuana use in college Review of Symptoms REVIEW OF SYSTEMS See HPI EXAM: BP 131/85 Pulse 91 Ht 182.2 cm (5' 11.75) Wt 105.7 kg (233 lb) BMI 31.82 kg/m? General Appearance: Well appearing, alert, in no acute distress, well-hydrated, well nourished.. Skin: Skin color, texture, turgor normal, no suspicious rashes or lesions. Eyes: PERRLA, EOMI. Fundoscopic exam grossly normal without dilation. Neck: Supple, no adenopathy; thyroid symmetric, normal size, no bruits. Lungs: Lungs clear to auscultation. No wheezing, rhonchi, rales.. Heart: RRR without murmur, gallop, or rubs. No ectopy. Neurologic: Negative findings: speech normal, mental status intact, cranial nerves 2-12 intact, muscle tone normal, muscle strength normal, sensation to light touch and pinprick normal, reflexes normal and symmetric. Health Maintenance List Depression Screening Never done Anxiety Screening due on 07/16/2025 Influenza Vaccine(1) due on 03/04/2025 DTaP,Tdap,Td Vaccine(2 - Td or Tdap) due on 03/27/2028 Colorectal Cancer Screening due on 07/15/2028 Lipid Screening due on 07/16/2029 Hepatitis C Screening Completed Covid-19 Vaccine Completed Hepatitis B Vaccine Discontinued HIV Screen (more content not included)... Normal [facility] MR Brain WO contraston 01-10 IMPRESSION: No acute intracranial process. Mild chronic changes slightly greater than expected given patient's age, as detailed. Hris Manager: RANDY Transcribe Date/Time: Jan 10 2025 12:44P Dictated by : VICTORIANO MCMILLAN MD This examination was interpreted and the report reviewed and electronically signed by: VICTORIANO MCMILLAN MD on Jan 10 2025 12:46PM [facility] DIVISION OF RADIOLOGY * * *Final Report* * * DATE OF EXAM: Jan 10 2025 12:35PM [facility] 0294 - MRI BRAIN WO IVCON / PROCEDURE REASON: Amaurosis fugax * * * * Physician Interpretation * * * * EXAMINATION: MRI BRAIN WO IVCON CLINICAL HISTORY: Amaurosis fugax - 2 EPISODES OF CENTRAL VISION LOSS TECHNIQUE: Routine noncontrast MRI protocol including diffusion images. MQ: MRBWO_2 COMPARISON: None. RESULT: Limitations: Evaluation limited secondary to motion artifact. Acute Change: There is no evidence of restricted diffusion to suggest an acute infarct. Hemorrhage: No evidence of prior parenchymal hemorrhage on the susceptibility weighted images. Mass Lesion/ Mass Effect: No evidence of an intracranial mass or extra-axial fluid collection. No significant mass effect. Chronic Change: Scattered punctate foci of increased T2 and FLAIR signal are noted in the supratentorial white matter which is a nonspecific finding, but likely represents minimal chronic microvascular ischemia. Parenchyma: No significant volume loss for age. The brain parenchyma is otherwise within normal limits of signal intensity and morphology. Ventricles: Normal caliber and morphology. Skull Base: Hypothalamic and pituitary region are grossly normal. Craniocervical junction is normal. No significant marrow replacement process. Vasculature: Major intracranial arterial structures, and dural venous sinuses show typical flow void, suggesting patency by spin echo criteria. Other: Mucous retention cyst in the inferior LEFT maxillary sinus. Scattered mild mucosal thickening in the ethmoidal air cells. Mastoid air cells appear clear. The orbits appear unremarkable. The skull base appears unremarkable. Extracranial soft tissues appear within normal limits. DIVISION OF RADIOLOGY Provider, [facility] Abimael [facility] - 01/10/2025 * * *Final Report* * * DATE OF EXAM: Jan 10 2025 12:35PM [facility] 0294 - MRI BRAIN WO IVCON / PROCEDURE REASON: Amaurosis fugax * * * * Physician Interpretation * * * * EXAMINATION: MRI BRAIN WO IVCON CLINICAL HISTORY: Amaurosis fugax - 2 EPISODES OF CENTRAL VISION LOSS TECHNIQUE: Routine noncontrast MRI protocol including diffusion images. MQ: MRBWO_2 COMPARISON: None. RESULT: Limitations: Evaluation limited secondary to motion artifact. Acute Change: There is no evidence of restricted diffusion to suggest an acute infarct. Hemorrhage: No evidence of prior parenchymal hemorrhage on the susceptibility weighted images. Mass Lesion/ Mass Effect: No evidence of an intracranial mass or extra-axial fluid collection. No significant mass effect. Chronic Change: Scattered punctate foci of increased T2 and FLAIR signal are noted in the supratentorial white matter which is a nonspecific finding, but likely represents minimal chronic microvascular ischemia. Parenchyma: No significant volume loss for age. The brain parenchyma is otherwise within normal limits of signal intensity and morphology. Ventricles: Normal caliber and morphology. Skull Base: Hypothalamic and pituitary region are grossly normal. Craniocervical junction is normal. No significant marrow replacement process. Vasculature: Major intracranial arterial structures, and dural venous sinuses show typical flow void, suggesting patency by spin echo criteria. Other: Mucous retention cyst in the inferior LEFT maxillary sinus. Scattered mild mucosal thickening in the ethmoidal air cells. Mastoid air cells appear clear. The orbits appear unremarkable. The skull base appears unremarkable. Extracranial soft tissues appear within normal limits. IMPRESSION IMPRESSION: No acute intracranial process. Mild chronic changes slightly greater than expected given patient's age, as detailed. Hris Manager: RANDY Transcribe Date/Time: Jan 10 2025 12:44P Dictated by : VICTORIANO MCMILLAN MD This examination was interpreted and the report reviewed and electronically signed by: VICTORIANO MCMILLAN MD on Jan 10 2025 12:46PM [facility] Radiology Study observation (narrative) [facility] MR Brain WO contrastOrdered By: [facility] Provider on 01-10-2025 [facility] MRI BRAIN WO IVCONon 025 MRI BRAIN WO IVCON * * *Final Report* * * DATE OF EXAM: Jan 10 2025 12:35PM [facility] 0294 - MRI BRAIN WO IVCON / PROCEDURE REASON: Amaurosis fugax * * * * Physician Interpretation * * * * EXAMINATION: MRI BRAIN WO IVCON CLINICAL HISTORY: Amaurosis fugax - 2 EPISODES OF CENTRAL VISION LOSS TECHNIQUE: Routine noncontrast MRI protocol including diffusion images. MQ: MRBWO_2 COMPARISON: None. RESULT: Limitations: Evaluation limited secondary to motion artifact. Acute Change: There is no evidence of restricted diffusion to suggest an acute infarct. Hemorrhage: No evidence of prior parenchymal hemorrhage on the susceptibility weighted images. Mass Lesion/ Mass Effect: No evidence of an intracranial mass or extra-axial fluid collection. No significant mass effect. Chronic Change: Scattered punctate foci of increased T2 and FLAIR signal are noted in the supratentorial white matter which is a nonspecific finding, but likely represents minimal chronic microvascular ischemia. Parenchyma: No significant volume loss for age. The brain parenchyma is otherwise within normal limits of signal intensity and morphology. Ventricles: Normal caliber and morphology. Skull Base: Hypothalamic and pituitary region are grossly normal. Craniocervical junction is normal. No significant marrow replacement process. Vasculature: Major intracranial arterial structures, and dural venous sinuses show typical flow void, suggesting patency by spin echo criteria. Other: Mucous retention cyst in the inferior LEFT maxillary sinus. Scattered mild mucosal thickening in the ethmoidal air cells. Mastoid air cells appear clear. The orbits appear unremarkable. The skull base appears unremarkable. Extracranial soft tissues appear within normal limits. IMPRESSION: No acute intracranial process. Mild chronic changes slightly greater than expected given patient's age, as detailed. Hris Manager: PSCB Transcribe Date/Time: Jan 10 2025 12:44P Dictated by : VICTORIANO MCMILLAN MD This examination was interpreted and the report reviewed and electronically signed by: VICTORIANO MCMILLAN MD on Jan 10 2025 12:46PM EST [id number] Normal [facility] CAROTID ARTERIES [facility] LABon 01-10-2025 [facility] CAROTID ARTERIES [facility] Non-Invasive Vascular Laboratory [facility] Carotid Duplex Bilateral/Complete Date of service/time: 01/10/2025 10:40:38 AM Name: MR. TORREY CAMPOS Date of : 1985 Age: 39 years Gender: M Clinical Indication Transient loss of vision. TECHNIQUE -------- A carotid duplex ultrasound examination was performed, including grayscale imaging and color Doppler and spectral Doppler examination of the below mentioned arteries. FINDINGS -------- RIGHT SIDE Common carotid artery: Origin: PSV: 169 cm/s. EDV: 40 cm/s. Proximal: PSV: 149 cm/s. EDV: 38 cm/s. Mid: PSV: 148 cm/s. EDV: 33 cm/s. Distal: PSV: 112 cm/s. EDV: 25 cm/s. Internal carotid artery: Origin: PSV: 70 cm/s. EDV: 26 cm/s. Proximal: PSV: 81 cm/s. EDV: 32 cm/s. Mid: PSV: 106 cm/s. EDV: 44 cm/s. Distal: PSV: 78 cm/s. EDV: 40 cm/s. ICA/CCA Ratio: 0.7 External carotid artery: Proximal: PSV: 129 cm/s. EDV: 35 cm/s. Subclavian artery: Proximal: PSV: 143 cm/s. EDV: 13 cm/s. Innominate artery: PSV: 111 cm/s. EDV: 13 cm/s. Vertebral artery: PSV: 52 cm/s. EDV: 22 cm/s. LEFT SIDE Common carotid artery: Proximal: PSV: 147 cm/s. EDV: 33 cm/s. Mid: PSV: 135 cm/s. EDV: 34 cm/s. Distal: PSV: 135 cm/s. EDV: 36 cm/s. Internal carotid artery: Origin: PSV: 118 cm/s. EDV: 32 cm/s. Proximal: PSV: 101 cm/s. EDV: 36 cm/s. Mid: PSV: 107 cm/s. EDV: 42 cm/s. Distal: PSV: 101 cm/s. EDV: 45 cm/s. ICA/CCA Ratio: 0.9 External carotid artery: Proximal: PSV: 146 cm/s. EDV: 31 cm/s. Subclavian artery: Proximal: PSV: 338 cm/s. EDV: 22 cm/s. Vertebral artery: PSV: 61 cm/s. EDV: 19 cm/s. IMPRESSION Please note: the new carotid interpretation criteria are used as recommended by Intersocietal Accreditation Commission. RIGHT SIDE Common carotid artery: Patent. Internal carotid artery: Normal study. External carotid artery: Patent. Vertebral artery: Patent and antegrade flow noted. Innominate artery: Patent. Subclavian artery: Patent. LEFT SIDE Common carotid artery: Patent. Internal carotid artery: Normal study. External carotid artery: Patent. Vertebral artery: Patent and antegrade flow noted. Subclavian artery: Patent. Technologist: Michelle Mcgraw T Ordering physician: ALEX MUNIZ Interpreting physician: KEDAR Sequeira MD Final CC [employer] [facility] Image : [id number] amicsSISUID See Link below for Image Normal [facility] Carotid arteries - darek eckert 01-10-2025 Non-Invasive Vascular Laboratory [facility] Carotid Duplex Bilateral/Complete Date of service/time: 01/10/2025 10:40:38 AM Name: MR. TORREY CAMPOS Date of : 1985 Age: 39 years Gender: M Clinical Indication Transient loss of vision. TECHNIQUE -------- A carotid duplex ultrasound examination was performed, including grayscale imaging and color Doppler and spectral Doppler examination of the below mentioned arteries. FINDINGS -------- RIGHT SIDE Common carotid artery: Origin: PSV: 169 cm/s. EDV: 40 cm/s. Proximal: PSV: 149 cm/s. EDV: 38 cm/s. Mid: PSV: 148 cm/s. EDV: 33 cm/s. Distal: PSV: 112 cm/s. EDV: 25 cm/s. Internal carotid artery: Origin: PSV: 70 cm/s. EDV: 26 cm/s. Proximal: PSV: 81 cm/s. EDV: 32 cm/s. Mid: PSV: 106 cm/s. EDV: 44 cm/s. Distal: PSV: 78 cm/s. EDV: 40 cm/s. ICA/CCA Ratio: 0.7 External carotid artery: Proximal: PSV: 129 cm/s. EDV: 35 cm/s. Subclavian artery: Proximal: PSV: 143 cm/s. EDV: 13 cm/s. Innominate artery: PSV: 111 cm/s. EDV: 13 cm/s. Vertebral artery: PSV: 52 cm/s. EDV: 22 cm/s. LEFT SIDE Common carotid artery: Proximal: PSV: 147 cm/s. EDV: 33 cm/s. Mid: PSV: 135 cm/s. EDV: 34 cm/s. Distal: PSV: 135 cm/s. EDV: 36 cm/s. Internal carotid artery: Origin: PSV: 118 cm/s. EDV: 32 cm/s. Proximal: PSV: 101 cm/s. EDV: 36 cm/s. Mid: PSV: 107 cm/s. EDV: 42 cm/s. Distal: PSV: 101 cm/s. EDV: 45 cm/s. ICA/CCA Ratio: 0.9 External carotid artery: Proximal: PSV: 146 cm/s. EDV: 31 cm/s. Subclavian artery: Proximal: PSV: 338 cm/s. EDV: 22 cm/s. Vertebral artery: PSV: 61 cm/s. EDV: 19 cm/s. IMPRESSION Please note: the new carotid interpretation criteria are used as recommended by Intersocietal Accreditation Commission. RIGHT SIDE Common carotid artery: Patent. Internal carotid artery: Normal study. External carotid artery: Patent. Vertebral artery: Patent and antegrade flow noted. Innominate artery: Patent. Subclavian artery: Patent. LEFT SIDE Common carotid artery: Patent. Internal carotid artery: Normal study. External carotid artery: Patent. Vertebral artery: Patent and antegrade flow noted. Subclavian artery: Patent. Technologist: Michelle Mcgraw T Ordering physician: ALEX MUNIZ Interpreting physician: KEDAR Sequeira MD Final See Link below [facility] Image [facility] CNTHERAPYon 08-27-2024 CNTHERAPY OT/PT/Speech Visit (PTWS) BETHAMBIKAS Stan ([id number]) 1985 M Date Time Provider Department 08/27/24 7:45 AM JOSE ANTONIO CARL PTWS Date Time Provider Department Center 08/27/2024 7:45 AM [id number], BRENT PTWS Rowan Ding Reason for Visit: Physical Therapy [503] PT Discharge [752] Primary Visit Diagnosis:Chronic upper back pain [M54.9, G89.29] Allergies As of Date: 08/27/2024 (No Known Allergies) Date Reviewed: 08/01/2024 Reviewed by: Emma Mccracken LPN - Fully Assessed Prescriptions as of 08/27/2024 - omeprazole (PRILOSEC) 40 mg capsule Take 1 capsule by mouth every morning. - meloxicam (MOBIC) 15 mg tablet Take 1 tablet by mouth once daily. With food. - multivit-min/folic/vi t K/lycop (MEN'S MULTIVITAMIN ORAL) Take by mouth. - Lactobacillus acidophilus (PROBIOTIC ORAL) Take by mouth. Boom Operator: Therapy (PT/OT/Speech/Resp) ID: [id number] 08/27/2024 8:16 AM Author: JOSE ANTONIO CARL Signed by JOSE ANTONIO CARL PT on 08/27/2024 at 8:16 AM Document text: Program_ID:[id number] Access Code: [email or web address] URL: [email or web address] Date: 08-27-2024 Prepared By: Jose Antonio Carl Program Notes Exercises - Corner Pec Major Stretch - 3 x daily - 7 x weekly - sets - 3 reps - Doorway Rhomboid Stretch - 2-3 x daily - 7 x weekly - sets - 3 reps - Scapular Retraction with Resistance - 2 x daily - 7 x weekly - 2 sets - 10 reps - Standing Shoulder Horizontal Abduction with Resistance - 2 x daily - 7 x weekly - 2 sets - 10 reps - Shoulder External Rotation and Scapular Retraction with Resistance - 2 x daily - 7 x weekly - 2 sets - 10 reps - Seated Thoracic Extension with Hands Behind Neck - 2 x daily - 7 x weekly - 2 sets - 10 reps - Latissimus Dorsi Stretch at Wall - 2 x daily - 7 x weekly - sets - 3 reps Patient Education - cc Posture Training Slouch Overcorrect ----- Normal [facility] THERAPY NTon 08-27-2024 THERAPY NT HNO ID: [id number] Author: JOSE ANTONIO CARL PT Service: ? Author Type: Physical Therapist Type: Therapy (PT/OT/Speech/Resp) Filed: 08/27/2024 08:16 Note Text: Program_ID:[id number] Access Code: [email or web address] URL: [email or web address] Date: 08-27-2024 Prepared By: Jose Antonio Carl Program Notes Exercises - Corner Pec Major Stretch - 3 x daily - 7 x weekly - sets - 3 reps - Doorway Rhomboid Stretch - 2-3 x daily - 7 x weekly - sets - 3 reps - Scapular Retraction with Resistance - 2 x daily - 7 x weekly - 2 sets - 10 reps - Standing Shoulder Horizontal Abduction with Resistance - 2 x daily - 7 x weekly - 2 sets - 10 reps - Shoulder External Rotation and Scapular Retraction with Resistance - 2 x daily - 7 x weekly - 2 sets - 10 reps - Seated Thoracic Extension with Hands Behind Neck - 2 x daily - 7 x weekly - 2 sets - 10 reps - Latissimus Dorsi Stretch at Wall - 2 x daily - 7 x weekly - sets - 3 reps Patient Education - cc Posture Training Slouch Overcorrect Normal [facility] CNTHERAPYon 08-13-2024 CNTHERAPY OT/PT/Speech Visit (PTWS) TORREY CAMPOS ([id number]) 1985 M Date Time Provider Department 08/13/24 9:30 AM YOLANDA ALVES PTWS Date Time Provider Department Center 08/13/2024 9:30 AM [id number], MARIAH PTWS Rowan Ding Reason for Visit: Physical Therapy [503] Primary Visit Diagnosis:Chronic upper back pain [M54.9, G89.29] Allergies As of Date: 08/13/2024 (No Known Allergies) Date Reviewed: 08/01/2024 Reviewed by: Emma Mccracken LPN - Fully Assessed Prescriptions as of 08/13/2024 - omeprazole (PRILOSEC) 40 mg capsule Take 1 capsule by mouth every morning. - meloxicam (MOBIC) 15 mg tablet Take 1 tablet by mouth once daily. With food. - multivit-min/folic/vi t K/lycop (MEN'S MULTIVITAMIN ORAL) Take by mouth. - Lactobacillus acidophilus (PROBIOTIC ORAL) Take by mouth. Boom Operator: Therapy (PT/OT/Speech/Resp) ID: [id number] 08/13/2024 10:01 AM Author: YOLANDA ALVES Signed by YOLANDA ALVES [employer] on 08/13/2024 at 10:01 AM Document text: Program_ID:[id number] Access Code: [email or web address] URL: [email or web address] Date: 08-13-2024 Prepared By: Jose Antonio Carl Program Notes Exercises - Corner Pec Major Stretch - 3 x daily - 7 x weekly - sets - 3 reps - Doorway Rhomboid Stretch - 2-3 x daily - 7 x weekly - sets - 3 reps - Scapular Retraction with Resistance - 2 x daily - 7 x weekly - 2 sets - 10 reps - Standing Shoulder Horizontal Abduction with Resistance - 2 x daily - 7 x weekly - 2 sets - 10 reps - Shoulder External Rotation and Scapular Retraction with Resistance - 2 x daily - 7 x weekly - 2 sets - 10 reps Patient Education - cc Posture Training Slouch Overcorrect ----- Normal [facility] THERAPY NTon 08-13-2024 THERAPY NT HNO ID: [id number] Author: YOLANDA ALVES PTA Service: ? Author Type: Bicycle Fitter Type: Therapy (PT/OT/Speech/Resp) Filed: 08/13/2024 10:01 Note Text: Program_ID:[id number] Access Code: [email or web address] URL: [email or web address] Date: 08-13-2024 Prepared By: Jose Antonio Carl Program Notes Exercises - Corner Pec Major Stretch - 3 x daily - 7 x weekly - sets - 3 reps - Doorway Rhomboid Stretch - 2-3 x daily - 7 x weekly - sets - 3 reps - Scapular Retraction with Resistance - 2 x daily - 7 x weekly - 2 sets - 10 reps - Standing Shoulder Horizontal Abduction with Resistance - 2 x daily - 7 x weekly - 2 sets - 10 reps - Shoulder External Rotation and Scapular Retraction with Resistance - 2 x daily - 7 x weekly - 2 sets - 10 reps Patient Education - cc Posture Training Slouch Overcorrect Normal [facility] CNTHERAPYon 08-06-2024 CNTHERAPY OT/PT/Speech Visit (PTWS) TORREY CAMPOS ([id number]) 1985 M Date Time Provider Department 2/3/25 8:00 AM YOLANDA ALVES PTWS Date Time Provider Department Center 08/06/2024 8:00 AM [id number], MARIAH PTJUAN Ding Reason for Visit: Physical Therapy [503] Primary Visit Diagnosis:Chronic upper back pain [M54.9, G89.29] Allergies As of Date: 08/06/2024 (No Known Allergies) Date Reviewed: 08/01/2024 Reviewed by: Emma Mccracken LPN - Fully Assessed Prescriptions as of 08/06/2024 - omeprazole (PRILOSEC) 40 mg capsule Take 1 capsule by mouth every morning. - meloxicam (MOBIC) 15 mg tablet Take 1 tablet by mouth once daily. With food. - multivit-min/folic/vi t K/lycop (MEN'S MULTIVITAMIN ORAL) Take by mouth. - Lactobacillus acidophilus (PROBIOTIC ORAL) Take by mouth. Normal [facility] CNOVon 08-01-2024 CNOV Office Visit (FAMPWS ) TORREY CAMPOS ([id number]) 1985 M Date Time Provider Department 08/01/24 7:20 AM ALEX MUNIZ During your visit today, we recorded the following information about you: Pulse Respiration Blood pressure Weight 104/minute 16/minute 114/78 99.1 kg Alex Muniz MD 08/05/2024 1:55 PM Signed Chief Complaint Patient presents with: Blood Pressure HPI Torrey Pierce Beth is a 39 year old male who presents here today for Above Complaints.. Patient notes that his blood pressure was high at physical therapy 153/108 and was 160/100 at home last night. Notes that he has had pneumonia starting 07/23 which he is being treated for. Was nervous at PT. Has been under more stress being back at work. Had 2 diet cokes yesterday. Limits his sodium intake. Past medical history, appointments, medications, allergies reviewed. 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 Infectious mononucleosis 2006 w/Hepatitis Overweight (BMI 25.0-29.9) Vitamin D deficiency Previous Surgical History PAST SURGICAL HISTORY Procedure Laterality Date COLONOSCOPY 07/15/2023 Diverticulosis, tubular adenoma EGD W/O BRSH SPEC VARICIES INJ 07/15/2023 Normal EXC LESION TDN SHTH/JT CAPSL HAND/FNGR Right 03/02/2023 Excision ganglion cyst right middle finger HYDROCELE RIGHT, FLUID Right 2002 Family History FAMILY HISTORY Problem Relation Age of Onset Hypertension Mother Hyperlipidemia Mother Heart Father arrhythmia No Known Problems Daughter Colon Cancer No Family History Patient Allergies ALLERGIES No Known Allergies Current Medications Current Outpatient Medications on File Prior to Visit Medication Sig omeprazole (PRILOSEC) 40 mg capsule Take 1 capsule by mouth every morning. meloxicam (MOBIC) 15 mg tablet Take 1 tablet by mouth once daily. With food. multivit-min/folic/vi t K/lycop (MEN'S MULTIVITAMIN ORAL) Take by mouth. Lactobacillus acidophilus (PROBIOTIC ORAL) Take by mouth. No current facility-administered medications on file prior to visit. Social History Social History Tobacco Use Smoking status: Never Smokeless tobacco: Never Vaping Use Vaping status: Never Used Substance Use Topics Alcohol use: Yes Alcohol/week: 10.0 standard drinks of alcohol Types: 10 Cans of Beer (12oz) per week Comment: 2-3 times per week, varies- admits to binge drinking Drug use: Not Currently Comment: history of marijuana use in college Review of Symptoms REVIEW OF SYSTEMS GENERAL: No weight loss, malaise or fevers RESPIRATORY: Negative for cough, hemoptysis, wheezing, COPD, dyspnea or shortness of breath CARDIOVASCULAR: Negative for chest pain, leg swelling, hypertension, CHF or palpitations GI: No nausea, vomiting, or diarrhea SKIN: Negative for lesions, rash, and itching EXAM: BP 114/78 Pulse 104 Resp 16 Wt 99.1 kg (218 lb 6.4 oz) SpO2 98% BMI 29.83 kg/m? General Appearance: Well appearing, alert, in no acute distress, well-hydrated, well nourished.. Skin: Skin color, texture, turgor normal, no suspicious rashes or lesions. Lungs: Lungs clear to auscultation. No wheezing, rhonchi, rales.. Heart: RRR without murmur, gallop, or rubs. No ectopy. Abdomen: Normal abdominal exam, Abdomen soft, non-tender. Bowel sounds normal. No masses, organomegaly. Extremities: No deformities, edema, skin discoloration, clubbing or cyanosis. Good capillary refill. Health Maintenance List Depression Screening Never done Anxiety Screening due on 07/16/2025 DTaP,Tdap,Td Vaccine(2 - Td or Tdap) due on 03/27/2028 Colorectal Cancer Screening due on 07/15/2028 Lipid Screening due on 07/16/2029 Influenza Vaccine Completed Hepatitis C Screening Completed Covid-19 Vaccine Completed HPV Vaccine Aged Out Hepatitis B Vaccine Discontinued HIV Screening Discontinued ASSESSMENT/PLAN: 1. Elevated BP without diagnosis of hypertension - ICD9: 796.2, ICD10: R03.0 - Encouraged dietary sodium restriction/DASH diet - Recommended regular aerobic exercise. - Recommend home blood pressure monitoring, to bring results in on next visit - Goal of BP <140/90 Alex Muniz MD Allergies As of Date: 08/01/2024 (No Known Allergies) Date Reviewed: 08/01/2024 Reviewed by: Emma Mccracken LPN - Fully Assessed Reason for Visit: Blood Pressure [15] Primary Visit Diagnosis:Elevated BP without diagnosis of hypertension [R03.0] Prescriptions as of 08/05/2024 - omeprazole (PRILOSEC) 40 mg capsule Take 1 capsule by mouth every morning. - meloxicam (MOBIC) 15 mg tablet Take 1 tablet by mouth once daily. With food. - multivit-min/folic/vi t K/lyc (more content not included)... Normal [facility] CNTHERAPYon 07-30-2024 CNTHERAPY OT/PT/Speech Visit (PTWS) TORREY CAMPOS ([id number]) 1985 M Date Time Provider Department 07/30/24 8:30 AM JOSE ANTONIO CARL PTWS Date Time Provider Department Center 07/30/2024 8:30 AM [id number], BRENT PTWS Rowan Ding Reason for Visit: PT Eval [747] Physical Therapy [503] Visit Diagnosis:Chronic upper back pain [M54.9, G89.29] Allergies As of Date: 07/30/2024 (No Known Allergies) Date Reviewed: 07/23/2024 Reviewed by: Kay Merlos MA - Fully Assessed Prescriptions as of 07/30/2024 - omeprazole (PRILOSEC) 40 mg capsule Take 1 capsule by mouth every morning. - meloxicam (MOBIC) 15 mg tablet Take 1 tablet by mouth once daily. With food. - multivit-min/folic/vi t K/lycop (MEN'S MULTIVITAMIN ORAL) Take by mouth. - Lactobacillus acidophilus (PROBIOTIC ORAL) Take by mouth. Boom Operator: Therapy (PT/OT/Speech/Resp) ID: [id number] 07/30/2024 9:10 AM Author: JOSE ANTONIO CARL Signed by JOSE ANTONIO CARL PT on 07/30/2024 at 9:10 AM Document text: Program_ID:[id number] Access Code: [email or web address] URL: [email or web address] Date: 07-30-2024 Prepared By: Jose Antonio Carl Program Notes Exercises - Corner Pec Major Stretch - 3 x daily - 7 x weekly - sets - 3 reps - Doorway Rhomboid Stretch - 2-3 x daily - 7 x weekly - sets - 3 reps Patient Education - cc Posture Training Slouch Overcorrect ----- Normal [facility] THERAPY NTon 07-30-2024 THERAPY NT HNO ID: [id number] Author: JOSE ANTONIO CARL PT Service: ? Author Type: Physical Therapist Type: Therapy (PT/OT/Speech/Resp) Filed: 07/30/2024 09:10 Note Text: Program_ID:[id number] Access Code: [email or web address] URL: [email or web address]/ Date: 07-30-2024 Prepared By: Jose Antonio Carl Program Notes Exercises - Corner Pec Major Stretch - 3 x daily - 7 x weekly - sets - 3 reps - Doorway Rhomboid Stretch - 2-3 x daily - 7 x weekly - sets - 3 reps Patient Education - cc Posture Training Slouch Overcorrect Normal [facility] CNOVon 07-23-2024 CNOV Office Visit (UCWSTR ) BETHTORREY Stan ([id number]) 1985 M Date Time Provider Department 07/23/24 11:30 AM [facility] During your visit today, we recorded the following information about you: Temperature Pulse Respiration Blood pressure 98.6 degrees 102/minute 16/minute 142/74 Weight 99.6 kg Flores Beltran, RIANA.AERODYNAMIC CONSULTANT 07/23/2024 12:15 PM Signed Subjective Nasal Congestion Associated symptoms include congestion, coughing, headaches, shortness of breath and a sore throat. Pertinent negatives include no chills or ear pain. Torrey Campos is a 39 year old male who presents with cough, nasal congestion, body aches, fever for the past 4 days. Cough is productive and he has had some shortness of breath. Had a fever at home of 101.5-102 degrees F. He has been taking Mobic due to chronic pain and fever was present despite using Mobic. Review of Systems Constitutional: Positive for fever. Negative for chills and malaise/fatigue. HENT: Positive for congestion and sore throat. Negative for ear pain. Respiratory: Positive for cough, sputum production and shortness of breath. Cardiovascular: Negative for chest pain. Gastrointestinal: Negative for diarrhea, nausea and vomiting. Musculoskeletal: Positive for myalgias. Neurological: Positive for headaches. BP 142/74 Pulse 102 Temp 37 ?C (98.6 ?F) Resp 16 Wt 99.6 kg (219 lb 9.3 oz) SpO2 96% BMI 29.99 kg/m? 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 MEDICATIONS omeprazole (PRILOSEC) 40 mg capsule Take 1 capsule by mouth every morning. meloxicam (MOBIC) 15 mg tablet Take 1 tablet by mouth once daily. With food. multivit-min/folic/vi t K/lycop (MEN'S MULTIVITAMIN ORAL) Take by mouth. Lactobacillus acidophilus (PROBIOTIC ORAL) Take by mouth. FAMILY HISTORY Problem Relation Age of Onset Hypertension Mother Hyperlipidemia Mother Heart Father arrhythmia No Known Problems Daughter Colon Cancer No Family History Social History Tobacco Use Smoking status: Never Smokeless tobacco: Never Vaping Use Vaping status: Never Used Substance Use Topics Alcohol use: Yes Alcohol/week: 10.0 standard drinks of alcohol Types: 10 Cans of Beer (12oz) per week Comment: 2-3 times per week, varies- admits to binge drinking Drug use: Not Currently Comment: history of marijuana use in college Objective Physical Exam Vitals and nursing note reviewed. HENT: Right Ear: Tympanic membrane, ear canal and external ear normal. Left Ear: Tympanic membrane, ear canal and external ear normal. Nose: Nose normal. Mouth/Throat: Pharynx: Uvula midline. No oropharyngeal exudate or posterior oropharyngeal erythema. Cardiovascular: Rate and Rhythm: Normal rate and regular rhythm. Heart sounds: Normal heart sounds. Pulmonary: Effort: Pulmonary effort is normal. No respiratory distress. Breath sounds: Normal breath sounds. No wheezing or rales. Musculoskeletal: Cervical back: Neck supple. Lymphadenopathy: Cervical: No cervical adenopathy. Skin: General: Skin is warm and dry. Findings: No erythema or rash. Neurological: Mental Status: He is alert. ASSESSMENT/PLAN: 1. Acute cough - ICD9: 786.2, ICD10: R05.1 (primary diagnosis) - XR CHEST 2V FRONTAL/LAT IMPRESSION: Right upper lobe pneumonia Hris Manager: RANDY Transcribe Date/Time: Jul 23 2024 11:55A Dictated by : WOLF DHALIWAL MD 2. Bacterial pneumonia - ICD9: 482.9, ICD10: J15.9 - AZITHROMYCIN 250 MG TABLET - AMOXICILLIN 875 MG-POTASSIUM CLAVULANATE 125 MG TABLET - Follow-up with your PCP in 3-5 days if symptoms have not improved or sooner if symptoms worsen - Discussed red flags and need for immediate medical evaluation if any occur. - Discussed supportive care treatment with fluids, rest and analgesia. - Discussed expected course of illness Flores Beltran APRN.Flores Clark APRN.CNP 07/23/2024 12:15 PM Addendum ASSESSMENT/PLAN: 1. Acute cough - ICD9: 786.2, ICD10: R05.1 (primary diagnosis) - XR CHEST 2V FRONTAL/LAT IMPRESSION: Right upper lobe pneumonia Hris Manager: RANDY Transcribe Date/Time: Jul 23 2024 11:55A Dictated by : WOLF DHALIWAL MD 2. Bacterial pneumonia - ICD9: 482.9, ICD10: J15.9 - LYNETTE (more content not included)... Normal [facility] XR CHEST 2V FRONTAL/LATon XR CHEST 2V FRONTAL/LAT * * *Final Repor t* * * DATE OF EXAM: Jul 23 2024 11:46AM WOX [id number] - XR CHEST 2V FRONTAL/LAT / PROCEDURE REASON: Acute cough * * * * Physician Interpretation * * * * EXAMINATION: CHEST RADIOGRAPH (2 VIEW FRONTAL and LATERAL) CLINICAL HISTORY: Acute cough MQ: XC2_6 EXAM DATE/TIME: 07/23/2024 11:46 AM COMPARISON: No relevant prior studies available. RESULT: Lines, tubes, and devices: None. Lungs and pleura: Patchy reticulonodular opacity in the right upper lobe. No pleural effusion. No pneumothorax. Cardiomediastinal silhouette: Normal cardiomediastinal silhouette. Bones and soft tissues: Unremarkable. IMPRESSION: Right upper lobe pneumonia Hris Manager: PSCB Transcribe Date/Time: Jul 23 2024 11:55A Dictated by : WOLF DHALIWAL MD This examination was interpreted and the report reviewed and electronically signed by: WOLF DHALIWAL MD on Jul 23 2024 11:56AM EST [id number] Normal [facility] XR Chest PA and Lateralon IMPRESSION: Right upper lobe pneumonia Hris Manager: PSC Transcribe Date/Time: Jul 23 2024 11:55A Dictated by : WOLF DHALIWAL MD This examination was interpreted and the report reviewed and electronically signed by: WOLF DHALIWAL MD on Jul 23 2024 11:56AM EST DIVISION OF RADIOLOGY * * *Final Report* * * DATE OF EXAM: Jul 23 2024 11:46AM WOX [id number] - XR CHEST 2V FRONTAL/LAT / PROCEDURE REASON: Acute cough * * * * Physician Interpretation * * * * EXAMINATION: CHEST RADIOGRAPH (2 VIEW FRONTAL & LATERAL) CLINICAL HISTORY: Acute cough MQ: XC2_6 EXAM DATE/TIME: 07/23/2024 11:46 AM COMPARISON: No relevant prior studies available. RESULT: Lines, tubes, and devices: None. Lungs and pleura: Patchy reticulonodular opacity in the right upper lobe. No pleural effusion. No pneumothorax. Cardiomediastinal silhouette: Normal cardiomediastinal silhouette. Bones and soft tissues: Unremarkable. DIVISION OF RADIOLOGY Provider, [facility] - 07/23/2024 * * *Final Report* * * DATE OF EXAM: Jul 23 2024 11:46AM WOX [id number] - XR CHEST 2V FRONTAL/LAT / PROCEDURE REASON: Acute cough * * * * Physician Interpretation * * * * EXAMINATION: CHEST RADIOGRAPH (2 VIEW FRONTAL & LATERAL) CLINICAL HISTORY: Acute cough MQ: XC2_6 EXAM DATE/TIME: 07/23/2024 11:46 AM COMPARISON: No relevant prior studies available. RESULT: Lines, tubes, and devices: None. Lungs and pleura: Patchy reticulonodular opacity in the right upper lobe. No pleural effusion. No pneumothorax. Cardiomediastinal silhouette: Normal cardiomediastinal silhouette. Bones and soft tissues: Unremarkable. IMPRESSION IMPRESSION: Right upper lobe pneumonia Hris Manager: PSCB Transcribe Date/Time: Jul 23 2024 11:55A Dictated by : WOLF DHALIWAL MD This examination was interpreted and the report reviewed and electronically signed by: WOLF DHALIWAL MD on Jul 23 2024 11:56AM EST [facility] Radiology Study observation (narrative) Juan amaya [facility] XR Chest PA and LateralOrder ed By: Ccf Provider on 07-23-2024 [facility] 07-17-2024 [facility] Telephone (FAMPWS) TORREY CAMPOS ([id number]) 1985 M Date Time Provider Department 07/17/24 [facility] During your visit today, we recorded the following information about you: Emma Mccracken LPN 07/17/2024 7:40 AM Signed ----- Message from Alex Muniz MD sent at 07/17/2024 7:03 AM EST ----- Normal labs. No change in regimen. Allergies As of Date: 07/17/2024 (No Known Allergies) Date Reviewed: 07/16/2024 Reviewed by: Emma Mccracken LPN - Fully Assessed Reason for Visit: Results [95] Prescriptions as of 07/24/2024 - azithromycin (ZITHROMAX) 250 mg tablet Take 2 tablets by mouth once daily for 1 day, THEN 1 tablet once daily for 4 days. - amoxicillin-clavulana te potassium (AUGMENTIN) 875-125 mg per tablet Take 1 tablet by mouth two times a day for 5 days. - omeprazole (PRILOSEC) 40 mg capsule Take 1 capsule by mouth every morning. - meloxicam (MOBIC) 15 mg tablet Take 1 tablet by mouth once daily. With food. - multivit-min/folic/vi t K/lycop (MEN'S MULTIVITAMIN ORAL) Take by mouth. - Lactobacillus acidophilus (PROBIOTIC ORAL) Take by mouth. Problem List As Of Date 07/17/2024 Noted Resolved Alcohol consumption binge drinking [F10.10] GERD (gastroesophageal reflux disease) [K21.9] Encounter Status:Closed by EMMA MCCRACKEN on 07/24/24 Normal [facility] CBC W Auto Differential pane l (Bld)on 07-16-2024 Basophils (Bld) [#/Vol] 0.04 10*3/uL Normal <0.11 [facility] Comment on above: Order Comment: Speci men Type: BLOOD SPECIMENOrdering Facility: [facility] Address: [address] [place] [address] Performed By: #### 5 7021-8 ####[facility] LABCLIA [id number] [place] [address] [place] Basophils/100 WBC (Bld) 1.0 % Normal [facility] Comment on above: Order Comment: Speci men Type: BLOOD SPECIMENOrdering Facility: [facility] Address: [address] [place] [address] Performed By: #### 5 7021-8 ####[facility] LABCLIA [id number] [place] [address] [place] Differential cell count method Nom (Bld) Auto Normal [facility] Comment on above: Order Comment: Speci men Type: BLOOD SPECIMENOrdering Facility: [facility] Address: [address] [place] [address] Performed By: #### 5 7021-8 ####[facility] LABCLIA [id number] [place] [address] [place] Eosinophils (Bld) [#/Vol] 0.09 10*3/uL Normal <0.46 [facility] Comment on above: Order Comment: Speci men Type: BLOOD SPECIMENOrdering Facility: [facility] Address: [address] [place] [address] Performed By: #### 5 7021-8 ####[facility] LABCLIA [id number] [place] [address] [place] Eosinophils/100 WBC (Bld) 2.2 % Normal [facility] Comment on above: Order Comment: Speci men Type: BLOOD SPECIMENOrdering Facility: [facility] Address: [address] [place] [address] Performed By: #### 5 7021-8 ####[facility] LABIA [id number] [place] [address] [place] Erythrocyte distribution width (RBC) [Ratio] 12.3 % Normal 11.5-15.0 [facility] Comment on above: Order Comment: Speci men Type: BLOOD SPECIMENOrdering Facility: [facility] Address: [address] [place] [address] Performed By: #### 5 7021-8 ####[facility] LABIA [id number] [place] [address] [place] Hematocrit (Bld) [Volume fraction] 43.9 % Normal 39.0-51.0 [facility] Comment on above: Order Comment: Speci men Type: BLOOD SPECIMENOrdering Facility: [facility] Address: [address] [place] [address] Performed By: #### 5 7021-8 ####[facility] LABCLIA [id number] [place] [address] [place] Hemoglobin (Bld) [Mass/Vol] 15.2 g/dL Normal 13.0-17.0 [facility] Comment on above: Order Comment: Speci men Type: BLOOD SPECIMENOrdering Facility: [facility] Address: [address] [place] [address] Performed By: #### 5 7021-8 ####[facility] LABCLIA [id number] [place] [address] [place] Immature granulocytes (Bld) [#/Vol] 0.03 10*3/uL Normal <0.10 [facility] Comment on above: Order Comment: Speci men Type: BLOOD SPECIMENOrdering Facility: [facility] Address: [address] [place] [address] Performed By: #### 5 7021-8 ####[facility] LABCLIA [id number] [place] [address] [place] Immature granulocytes/100 WBC (Bld) 0.7 % Normal [facility] Comment on above: Order Comment: Speci men Type: BLOOD SPECIMENOrdering Facility: [facility] Address: [address] [place] [address] Performed By: #### 5 7021-8 ####[facility] LABCLIA [id number] [place] [address] [place] Lymphocytes (Bld) [#/Vol] 1.34 10*3/uL Normal 1.00-4.00 [facility] Comment on above: Order Comment: Speci men Type: BLOOD SPECIMENOrdering Facility: [facility] Address: [address] [place] [address] Performed By: #### 5 7021-8 ####[facility] LABCLIA [id number] [place] [address] [place] Lymphocytes/100 WBC (Bld) 32.3 % Normal [facility] Comment on above: Order Comment: Speci men Type: BLOOD SPECIMENOrdering Facility: [facility] Address: [address] [place] [address] Performed By: #### 5 7021-8 ####[facility] [id number] [place] [address] [place] MCH (RBC) [Entitic mass] 30.7 pg Normal 26.0-34.0 [facility] Comment on above: Order Comment: Speci men Type: BLOOD SPECIMENOrdering Facility: [facility] Address: [address] [place] [address] Performed By: #### 5 7021-8 ####[facility] [id number] [place] [address] [place] MCHC (RBC) [Mass/Vol] 34.6 g/dL Normal 30.5-36.0 [facility] Comment on above: Order Comment: Speci men Type: BLOOD SPECIMENOrdering Facility: [facility] Address: [address] [place] [address] Performed By: #### 5 7021-8 ####[facility] [id number] [place] [address] [place] MCV (RBC) [Entitic vol] 88.7 fL Normal 80.0-100.0 [facility] Comment on above: Order Comment: Speci men Type: BLOOD SPECIMENOrdering Facility: [facility] Address: [address] [place] [address] Performed By: #### 5 7021-8 ####[facility] [id number] [place] [address] [place] Monocytes (Bld) [#/Vol] 0.28 10*3/uL Normal <0.87 [facility] Comment on above: Order Comment: Speci men Type: BLOOD SPECIMENOrdering Facility: [facility] Address: [address] [place] [address] Performed By: #### 5 7021-8 ####[facility] [id number] [id number] [address] [place] Monocytes/100 WBC (Bld) 6.7 % Normal [facility] Comment on above: Order Comment: Speci men Type: BLOOD SPECIMENOrdering Facility: [facility] Address: [address] [place] [address] Performed By: #### 5 7021-8 ####[facility] LABCLIA [id number] [place] [address] [place] Neutrophils (Bld) [#/Vol] 2.37 10*3/uL Normal 1.45-7.50 [facility] Comment on above: Order Comment: Speci men Type: BLOOD SPECIMENOrdering Facility: [facility] Address: [address] [place] [address] Performed By: #### 5 7021-8 ####[facility] LABCLIA [id number] [place] [address] [place] Neutrophils/100 WBC (Bld) 57.1 % Normal [facility] Comment on above: Order Comment: Speci men Type: BLOOD SPECIMENOrdering Facility: [facility] Address: [address] [place] [address] Performed By: #### 5 7021-8 ####[facility] LABCLIA [id number] [place] [address] [place] Nucleated RBC (Bld) [#/Vol] 10*3/uL Normal <0.01 [facility] Comment on above: Order Comment: Speci men Type: BLOOD SPECIMENOrdering Facility: [facility] Address: [address] [place] [address] Performed By: #### 5 7021-8 ####[facility] LABCLIA [id number] [place] [address] [place] Nucleated RBC/100 WBC (Bld) [Ratio] 0.0 /100 WBC Normal [facility] Comment on above: Order Comment: Speci men Type: BLOOD SPECIMENOrdering Facility: [facility] Address: [address] [place] [address] Performed By: #### 5 7021-8 ####[facility] LABCLIA [id number] [place] [address] [place] Platelet mean volume (Bld) [Entitic vol] 11.3 fL Normal 9.0-12.7 [facility] Comment on above: Order Comment: Speci men Type: BLOOD SPECIMENOrdering Facility: [facility] Address: [address] [place] [address] Performed By: #### 5 7021-8 ####[facility] LABCLIA [id number] [place] [address] [place] Platelets (Bld) [#/Vol] 206 10*3/uL Normal 150-400 [facility] Comment on above: Order Comment: Speci men Type: BLOOD SPECIMENOrdering Facility: [facility] Address: [address] [place] [address] Performed By: #### 5 7021-8 ####[facility] LABCLIA [id number] [place] [address] [place] RBC (Bld) [#/Vol] 4.95 10*6/uL Normal 4.20-6.00 [facility] Comment on above: Order Comment: Speci men Type: BLOOD SPECIMENOrdering Facility: [facility] Address: [address] [place] [address] Performed By: #### 5 7021-8 ####[facility] LABCLIA [id number] [place] [address] [place] WBC (Bld) [#/Vol] 4.15 10*3/uL Normal 3.70-11.00 [facility] Comment on above: Order Comment: Speci men Type: BLOOD SPECIMENOrdering Facility: [facility] Address: [address] [place] [address] Performed By: #### 5 7021-8 ####[facility] LABCLIA [id number] [address] [address] [place] [facility] CNOVon 07-16-2024 CNOV Office Visit (FAMPWS ) AMBIKA CAMPOSS Stan ([id number]) 1985 M Date Time Provider Department 07/16/24 8:00 AM [facility] During your visit today, we recorded the following information about you: Pulse Respiration Blood pressure Weight 85/minute 16/minute 130/72 99.8 kg Alex Muniz MD 07/16/2024 8:43 AM Signed Chief Complaint Patient presents with: Physical HPI Torrey Pierce Beth is a 39 year old male who presents here today for Above Complaints. Patient states that he continues to get some left flank, upper back, and chest pain for more than 1 year now. Described as constant sharp pain, currently 1/10. Exacerbated with lying down. Not taking anything OTC for pain. Tried naproxen briefly for pain but did not help. Has had previous cardiac workup for this which was negative. Also evaluated for kidney stones and autoimmune disease which was negative. Denies fall/injury, fever/chills, dysuria, hematuria, frequency, urgency, nausea, vomiting, diarrhea, constipation, hematochezia, melena, saddle anesthesia, LE weakness, loss of bowel/bladder control. Drinking 2 times per week with up to 6-8 drinks at a time. We have discussed binge drinking and he is aware of the risks. Not wanting help with cessation at this time. Needs refill on omeprazole for GERD. Taking daily without side effects. Symptoms well controlled. Past medical history, appointments, medications, allergies reviewed. 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 Infectious mononucleosis 2006 w/Hepatitis Overweight (BMI 25.0-29.9) Vitamin D deficiency Previous Surgical History PAST SURGICAL HISTORY Procedure Laterality Date COLONOSCOPY 07/15/2023 Diverticulosis, tubular adenoma EGD W/O BRSH SPEC VARICIES INJ 07/15/2023 Normal EXC LESION TDN SHTH/JT CAPSL HAND/FNGR Right 03/02/2023 Excision ganglion cyst right middle finger HYDROCELE RIGHT, FLUID Right 2002 Family History FAMILY HISTORY Problem Relation Age of Onset Hypertension Mother Hyperlipidemia Mother Heart Father arrhythmia Colon Cancer No Family History Patient Allergies ALLERGIES No Known Allergies Current Medications Current Outpatient Medications on File Prior to Visit Medication Sig omeprazole (PRILOSEC) 40 mg capsule take 1 capsule by mouth every morning multivit-min/folic/vi t K/lycop (MEN'S MULTIVITAMIN ORAL) Take by mouth. Lactobacillus acidophilus (PROBIOTIC ORAL) Take by mouth. No current facility-administered medications on file prior to visit. Social History Social History Tobacco Use Smoking status: Never Smokeless tobacco: Never Vaping Use Vaping status: Never Used Substance Use Topics Alcohol use: Yes Alcohol/week: 10.0 standard drinks of alcohol Types: 10 Cans of Beer (12oz) per week Comment: 2-3 times per week, varies- admits to binge drinking Drug use: Not Currently Comment: history of marijuana use in [employer] Review of Symptoms REVIEW OF SYSTEMS GENERAL: No weight loss, malaise or fevers HEENT: Negative for frequent or significant headaches, No changes in hearing or vision, no nose bleeds or other nasal problems NECK: Negative for lumps, goiter, pain and significant neck swelling RESPIRATORY: Negative for cough, hemoptysis, wheezing, COPD, dyspnea or shortness of breath CARDIOVASCULAR: Negative for chest pain, leg swelling, hypertension, CHF or palpitations GI: No nausea, vomiting, or diarrhea : See HPI MUSCULOSKELETAL: See HPI SKIN: Negative for lesions, rash, and itching PSYCH: Negative for sleep disturbance, mood disorder and recent psychosocial stressors HEMATOLOGY/LYMPHOLOGY : Negative for prolonged bleeding, bruising easily or swollen nodes ENDOCRINE: Negative for cold or heat intolerance, polyuria, polydipsia and goiter NEURO: No history of headaches, syncope, paralysis, seizures or tremors EXAM: BP 130/72 Pulse 85 Resp 16 Wt 99.8 kg (220 lb) SpO2 99% BMI 30.05 kg/m? General Appearance: Well appearing, alert, in no acute distress, well-hydrated, well nourished.. Skin: Skin color, texture, turgor normal, no suspicious rashes or lesions. Head: Normocephalic, no masses, lesions, tenderness or abnormalities. Eyes: Anicteric sclera. Pupils are equally round and reactive to light. Extraocular movements are intact. . Ears: External ears normal, canals clear. Nose/Sinuses: Nares normal, septum midline, mucosa normal, no drainage or sinus tenderness. Oropharynx: Lips, mucosa, and tongue normal, teeth and gums normal, oropharynx normal. Neck: Supple, no adenopathy; thyroid symmetric, normal size, no bruits. Back:no pain to palpation of vertebrae, good flexion and extension, good range of motion, no muscle tenderness, no evidence of s (more content not included)... Normal [facility] Comprehensive metabolic 2000 panelon 07-16-2024 Albumin [Mass/Vol] 4.6 g/dL Normal 3.9-4.9 [facility] Comment on above: Order Comment: Speci men Type: BLOOD SPECIMENOrdering Facility: [facility] Address: [address] [place] [address] Performed By: #### 3 016-3, , ####[facility] LABCLIA [id number] [place] [address] [place] ALP [Catalytic activity/Vol] 65 U/L Normal 38-113 [facility] Comment on above: Order Comment: Speci men Type: BLOOD SPECIMENOrdering Facility: [facility] Address: [address] [place] [address] Performed By: #### 3 016-3, 86437-2, ####[facility] LABCLIA [id number] [place] [id number] [place] ALT [Catalytic activity/Vol] 23 U/L Normal 10-54 [facility] Comment on above: Order Comment: Speci men Type: BLOOD SPECIMENOrdering Facility: [facility] Address: [address] [place] [address] Performed By: #### 3 016-3, 17191-2, 92831-0 ####[facility] LABCLIA [id number] [place] [id number] [place] Anion gap [Moles/Vol] 12 mmol/L Normal 8-15 [facility] Comment on above: Order Comment: Speci men Type: BLOOD SPECIMENOrdering Facility: [facility] Address: [address] [place] [address] Performed By: #### 3 016-3, 85621-6, 78114-9 ####[facility] LABCLIA [id number] [place] [address] [place] AST [Catalytic activity/Vol] 19 U/L Normal 14-40 [facility] Comment on above: Order Comment: Speci men Type: BLOOD SPECIMENOrdering Facility: [facility] Address: [address] [place] [address] Performed By: #### 3 016-3, 50853-3, 11004-3 ####[facility] LABCLIA [id number] [place] [address] [place] Bilirubin [Mass/Vol] 0.8 mg/dL Normal 0.2-1.3 [facility] Comment on above: Order Comment: Speci men Type: BLOOD SPECIMENOrdering Facility: [facility] Address: [address] [place] [address] Performed By: #### 3 016-3, 02999-7, 29889-9 ####[facility] LABCLIA [id number] [place] [address] [place] Calcium [Mass/Vol] 9.7 mg/dL Normal 8.5-10.2 [facility] Comment on above: Order Comment: Speci men Type: BLOOD SPECIMENOrdering Facility: [facility] Address: [address] [place] [address] Performed By: #### 3 016-3, 21153-0, 87399-2 ####[facility] LABCLIA [id number] [place] [address] [place] Chloride [Moles/Vol] 106 mmol/L Normal 98-107 [facility] Comment on above: Order Comment: Speci men Type: BLOOD SPECIMENOrdering Facility: [facility] Address: [address] [place] [address] Performed By: #### 3 016-3, 85937-3, 47900-7 ####[facility] LABIA [id number] [place] [address] [place] CO2 [Moles/Vol] 25 mmol/L Normal 22-30 [facility] Comment on above: Order Comment: Speci men Type: BLOOD SPECIMENOrdering Facility: [facility] Address: [address] [place] [address] Performed By: #### 3 016-3, 89890-8, 82724-5 ####[facility] LABIA [id number] [place] [address] [place] Creatinine [Mass/Vol] 0.91 mg/dL Normal 0.73-1.22 [facility] Comment on above: Order Comment: Speci men Type: BLOOD SPECIMENOrdering Facility: [facility] Address: [address] [place] [address] Performed By: #### 3 016-3, 07000-9, 31377-4 ####[facility] LABIA [id number] [place] [address] [place] Creatinine and Glomerular filtration rate.predicted panel (S/P/Bld) 110 mL/min/1.73m??? Normal >=60 [facility] Comment on above: Order Comment: Speci men Type: BLOOD SPECIMENOrdering Facility: [facility] Address: [address] [place] [address] Result Comment: Olinda mated Glomerular Filtration Rate (eGFR) is calculated using the 2020 CKD-EPI creatinine equation. This equation utilizes serum creatinine, sex, and age as parameters. The creatinine assay has traceable calibration to isotope dilution-mass spectrometry. Refer to KDIGO guidelines for clinical interpretation. In patients with unstable renal function, e.g. those with acute kidney injury, the eGFR may not accurately reflect actual GFR. Performed By: #### 3 016-3, 04873-9, ####[facility] LABCLIA [id number] [address] [address] [place] Glucose [Mass/Vol] 98 mg/dL Normal 74-99 [facility] Comment on above: Order Comment: Speci men Type: BLOOD SPECIMENOrdering Facility: [facility] Address: [address] [place] [address] Result Comment: The [place] Diabetes Association (ADA) provides guidance for cutoff values for fasting glucose and random glucose. The ADA defines fasting as no caloric intake for at least 8 hours. Fasting plasma glucose results between 100 to 125 mg/dL indicate increased risk for diabetes (prediabetes). Fasting plasma glucose results greater than or equal to 126 mg/dL meet the criteria for diagnosis of diabetes. In the absence of unequivocal hyperglycemia, results should be confirmed by repeat testing. In a patient with classic symptoms of hyperglycemia or hyperglycemic crisis, random plasma glucose results greater than or equal to 200 mg/dL meet the criteria for diagnosis of diabetes. Reference: Standards of Medical Care in Diabetes 2016, [place] Diabetes Association. Diabetes Care. 2016.39(Suppl 1). Performed By: #### 3 016-3, , ####[facility] LABCLIA [id number] [place] [id number] [place] Potassium [Moles/Vol] 3.8 mmol/L Normal 3.7-5.1 [facility] Comment on above: Order Comment: Speci men Type: BLOOD SPECIMENOrdering Facility: [facility] Address: [address] [place] [address] Performed By: #### 3 016-3, 46497-5, ####[facility] LABCLIA [id number] [address] [address] [place] Protein [Mass/Vol] 7.3 g/dL Normal 6.3-8.0 [facility] Comment on above: Order Comment: Speci men Type: BLOOD SPECIMENOrdering Facility: [facility] Address: [address] [place] [address] Performed By: #### 3 016-3, 32821-2, ####[facility] LABCLIA [id number] [address] [address] [place] Sodium [Moles/Vol] 143 mmol/L Normal 136-144 [facility] Comment on above: Order Comment: Speci men Type: BLOOD SPECIMENOrdering Facility: [facility] Address: [address] [place] [address] Performed By: #### 3 016-3, 00031-6, ####[facility] LABIA [id number] [place] [address] [place] Urea nitrogen [Mass/Vol] 13 mg/dL Normal 9-24 [facility] Comment on above: Order Comment: Speci men Type: BLOOD SPECIMENOrdering Facility: [facility] Address: [address] [place] [address] Performed By: #### 3 016-3, 94260-4, ####[facility] LABIA [id number] [place] [address] [place] HbA1c (Bld)on 07-16-2024 Average glucose Estimated from glycated hemoglobin (Bld) [Mass/Vol] 77 mg/dL Normal [facility] Comment on above: Order Comment: Speci men Type: BLOOD SPECIMENOrdering Facility: [facility] Address: [address] [place] [address] Result Comment: eAG: (Estimated average glucose) is a calculated value from HgbA1c and is sales representative sales manager of the average blood glucose level in the last 2-3 month period. Performed By: #### 5 5454-3 ####[facility] LABIA [id number] [place] [address] [place] HbA1c (Bld) [Mass fraction] 4.3 % Normal 4.3-5.6 [facility] Comment on above: Order Comment: Yulia ye Type: BLOOD SPECIMENOrdering Facility: [facility] Address: [address] [place] [address] Result Comment: [place] Diabetes Association guidelines indicate that patients with HgbA1c in the range 5.7-6.4% are at increased risk for development of diabetes, and intervention by lifestyle modification may be beneficial. HgbA1c greater or equal to 6.5% is considered diagnostic of diabetes. Performed By: #### 5 5454-3 ####[facility] LABCLIA [id number] [place] [address] [place] Lipid 1996 panelon 5 Cholesterol [Mass/Vol] 182 mg/dL Normal <200 [facility] Comment on above: Order Comment: Yulia ye Type: BLOOD SPECIMENOrdering Facility: [facility] Address: [address] [place] [address] Result Comment: <200 mg/dL, Desirable 200-239 mg/dL, Borderline high >239 mg/dL, High Performed By: #### 3 016-3, 59748-8, 55145-2 ####[facility] LABCLIA [id number] [address] [place] Cholesterol in HDL [Mass/Vol] 42 mg/dL Normal >39 [facility] Comment on above: Order Comment: Yulia ye Type: BLOOD SPECIMENOrdering Facility: [facility] Address: [address] [place] [address] Result Comment: 40-5 9 mg/dL, Acceptable >59 mg/dL, High: Negative risk factor for coronary heart disease <40 mg/dL, Low: Positive risk factor for coronary heart disease Performed By: #### 3 016-3, 32925-5, 93506-9 ####[facility] LABCLIA [id number] [address] [place] Cholesterol in LDL [Mass/Vol] 124 mg/dL High <100 [facility] Comment on above: Order Comment: Speci men Type: BLOOD SPECIMENOrdering Facility: [facility] Address: [address] [place] [address] Result Comment: <100 mg/dL, Optimal 100-129 mg/dL, Near optimal/above optimal 130-159 mg/dL, Borderline high 160-189 mg/dL, High >189 mg/dL, Very high Secondary prevention optimal LDL Cholesterol levels are recommended to be < 70 mg/dL Performed By: #### 3 016-3, 46768-1, ####[facility] LABCLIA [id number] [place] [address] [place] Cholesterol in LDL/Cholesterol in HDL [Mass ratio] 2.95 {ratio} High <2.54 [facility] Comment on above: Order Comment: Yulia men Type: BLOOD SPECIMENOrdering Facility: [facility] Address: [address] [place] [address] Result Comment: Aida fritz: 1. National Cholesterol Education Program ATP III Guideline At-A-Glance Quick Desk Reference: National Heart, Lung, and Blood [place]. National Institutes of Health. 2001: NIH Publication No. 01-3305. 2. An International Atherosclerosis Society position paper: global recommendations for the management of dyslipidemia: executive summary, Atherosclerosis. 2014: 232(2):410-413. Performed By: #### 3 016-3, 86178-2, ####[facility] LABCLIA [id number] [place] [address] [place] Cholesterol in VLDL [Mass/Vol] 16 mg/dL Normal <30 [facility] Comment on above: Order Comment: Raji ye Type: BLOOD SPECIMENOrdering Facility: [facility] Address: [address] [place] [address] Performed By: #### 3 016-3, 30749-3, ####[facility] LABCLIA [id number] [address] [address] [place] Cholesterol non HDL [Mass/Vol] 140 mg/dL High <130 [facility] Comment on above: Order Comment: Speci men Type: BLOOD SPECIMENOrdering Facility: [facility] Address: [address] [place] [address] Result Comment: <130 mg/dL, Optimal 130-159 mg/dL, Near optimal/above optimal 160-189 mg/dL, Borderline high 190-219 mg/dL, High >219 mg/dL, Very high Secondary prevention optimal non HDL Cholesterol levels are recommended to be <100 mg/dL Performed By: #### 3 016-3, 45777-1, ####[facility] LABCLIA [id number] [place] [address] [place] Cholesterol.total/Choles terol in HDL [Mass ratio] 4.33 {ratio} Normal <5.10 [facility] Comment on above: Order Comment: Speci men Type: BLOOD SPECIMENOrdering Facility: [facility] Address: [address] [place] [address] Performed By: #### 3 016-3, 93828-5, ####[facility] LABCLIA [id number] [place] [address] [place] FASTING TIME 10 hrs Normal [facility] Comment on above: Order Comment: Speci men Type: BLOOD SPECIMENOrdering Facility: [facility] Address: [address] [place] [address] Performed By: #### 3 016-3, 66426-3, ####[facility] LABCLIA [id number] [place] [address] [place] Triglyceride [Mass/Vol] 82 mg/dL Normal <150 [facility] Comment on above: Order Comment: Speci men Type: BLOOD SPECIMENOrdering Facility: [facility] Address: [address] [place] [address] Result Comment: <150 mg/dL, Normal 150-199 mg/dL, Borderline high 200-499 mg/dL, High >499 mg/dL, Very high Performed By: #### 3 016-3, 17439-0, ####[facility] LABCLIA [id number] [place] [id number] [place] TSH SerPl-aCncon 07-16-2024 TSH Qn 2.180 m[IU]/L Normal 0.270-4.200 [facility] Comment on above: Order Comment: Speci men Type: BLOOD SPECIMENOrdering Facility: [facility] Address: [address] [place] [address] Performed By: #### 3 016-3, 45692-9, 03992-1 ####[facility] LABIA [id number] [address] [place] Jose 06-11-2024 [facility] TORREY CAMPOS ([id number]) 1985 Date Time Provider Department 06/11/24 ALEX MUNIZ [facility] During your visit today, we recorded the following information about you: Allergies As of Date: 06/11/2024 (No Known Allergies) Date Reviewed: 02/09/2024 Reviewed by: Emma Mccracken LPN - Fully Assessed Prescriptions as of 07/24/2024 - azithromycin (ZITHROMAX) 250 mg tablet Take 2 tablets by mouth once daily for 1 day, THEN 1 tablet once daily for 4 days. - amoxicillin-clavulana te potassium (AUGMENTIN) 875-125 mg per tablet Take 1 tablet by mouth two times a day for 5 days. - omeprazole (PRILOSEC) 40 mg capsule Take 1 capsule by mouth every morning. - meloxicam (MOBIC) 15 mg tablet Take 1 tablet by mouth once daily. With food. - multivit-min/folic/vi t K/lycop (MEN'S MULTIVITAMIN ORAL) Take by mouth. - Lactobacillus acidophilus (PROBIOTIC ORAL) Take by mouth. Problem List As Of Date: 06/11/2024 (None) Encounter Status:Closed by EMMA MCCRACKEN on 07/24/24 [facility] Telephone ([facility]) TORREY CAMPOS ([id number]) 1985 M Date Time Provider Department 02/23/24 ALEX MUNIZ [facility] During your visit today, we recorded the following information about you: Emma Mccracken LPN 02/23/2024 12:59 PM Signed ----- Message from Alex Muniz MD sent at 02/23/2024 10:20 AM EDT ----- Repeat UA normal. Protein has cleared up. Emma Mccracken LPN 02/23/2024 12:59 PM Signed ----- Message from Alex Muniz MD sent at 02/23/2024 10:20 AM EDT ----- No further workup needed. Emma Mccracken LPN 02/23/2024 1:00 PM Signed Please review both messages with patient. Emma Mccracken LPN Allergies As of Date: 02/23/2024 (No Known Allergies) Date Reviewed: 02/09/2024 Reviewed by: Emma Mccracken LPN - Fully Assessed Reason for Visit: Results [95] Prescriptions as of 07/24/2024 - azithromycin (ZITHROMAX) 250 mg tablet Take 2 tablets by mouth once daily for 1 day, THEN 1 tablet once daily for 4 days. - amoxicillin-clavulana te potassium (AUGMENTIN) 875-125 mg per tablet Take 1 tablet by mouth two times a day for 5 days. - omeprazole (PRILOSEC) 40 mg capsule Take 1 capsule by mouth every morning. - meloxicam (MOBIC) 15 mg tablet Take 1 tablet by mouth once daily. With food. - multivit-min/folic/vi t K/lycop (MEN'S MULTIVITAMIN ORAL) Take by mouth. - Lactobacillus acidophilus (PROBIOTIC ORAL) Take by mouth. Problem List As Of Date: 02/23/2024 (None) Encounter Status:Closed by EMMA MCCRACKEN on 07/24/24 Normal [facility] Urinalysis complete panel (U )on 02-22-2024 Bacteria LM.HPF (Urine sed) [#/Area] Negative Normal Negative [facility] Comment on above: Order Comment: Speci men Type: URINE SPECIMENOrdering Facility: [facility] Address: [address] [place] [address] Performed By: #### 2 4356-8 ####[facility] LABCLIA [id number] [place] [address] [place] Bilirubin Ql (U) Negative Normal Negative [facility] Comment on above: Order Comment: Speci men Type: URINE SPECIMENOrdering Facility: [facility] Address: [address] [place] [address] Performed By: #### 2 4356-8 ####[facility] LABCLIA [id number] [place] [address] [place] Clarity (Unsp spec) Clear Normal Clear [facility] Comment on above: Order Comment: Speci men Type: URINE SPECIMENOrdering Facility: [facility] Address: [address] [place] [address] Performed By: #### 2 4356-8 ####[facility] LABCLIA [id number] [place] [address] [place] Color (U) Yellow Normal Yellow [facility] Comment on above: Order Comment: Speci men Type: URINE SPECIMENOrdering Facility: [facility] Address: [address] [place] [address] Performed By: #### 2 4356-8 ####[facility] LABCLIA [id number] [place] [address] [place] Epithelial cells LM.HPF (Urine sed) [#/Area] None Seen Normal [facility] Comment on above: Order Comment: Speci men Type: URINE SPECIMENOrdering Facility: [facility] Address: [address] [place] [address] Performed By: #### 2 4356-8 ####[facility] LABCLIA [id number] [place] [address] [place] Glucose Test strip (U) [Mass/Vol] Negative Normal Negative [facility] Comment on above: Order Comment: Speci men Type: URINE SPECIMENOrdering Facility: [facility] Address: [address] [place] [address] Performed By: #### 2 4356-8 ####[facility] LABCLIA [id number] [place] [address] [place] Hemoglobin Ql (U) Negative Normal Negative [facility] Comment on above: Order Comment: Speci men Type: URINE SPECIMENOrdering Facility: [facility] Address: [address] [place] [address] Performed By: #### 2 4356-8 ####[facility] LABCLIA [id number] [place] [address] [place] Hyaline casts (Urine sed) [#/Area] 0 /[LPF] Normal 0 /LPF [facility] Comment on above: Order Comment: Speci men Type: URINE SPECIMENOrdering Facility: [facility] Address: [address] [place] [address] Performed By: #### 2 4356-8 ####[facility] LABCLIA [id number] [place] [address] [place] Ketones Ql (U) Negative Normal Negative [facility] Comment on above: Order Comment: Speci men Type: URINE SPECIMENOrdering Facility: [facility] Address: [address] [place] [address] Performed By: #### 2 4356-8 ####[facility] LABCLIA [id number] [place] [address] [place] Leukocyte esterase Test strip Ql (U) Negative Normal Negative [facility] Comment on above: Order Comment: Speci men Type: URINE SPECIMENOrdering Facility: [facility] Address: [address] [place] [address] Performed By: #### 2 4356-8 ####[facility] LABCLIA [id number] [place] [address] [place] Nitrite Ql (U) Negative Normal Negative [facility] Comment on above: Order Comment: Speci men Type: URINE SPECIMENOrdering Facility: [facility] Address: [address] [place] [address] Performed By: #### 2 4356-8 ####[facility] LABCLIA [id number] [place] [address] [place] pH (U) 6.5 [pH] Normal <8.5 [facility] Comment on above: Order Comment: Speci men Type: URINE SPECIMENOrdering Facility: [facility] Address: [address] [place] [address] Performed By: #### 2 4356-8 ####[facility] LABCLIA [id number] [place] [address] [place] Protein (U) [Mass/Vol] Negative Normal Negative [facility] Comment on above: Order Comment: Speci men Type: URINE SPECIMENOrdering Facility: [facility] Address: [address] [place] [address] Performed By: #### 2 4356-8 ####[facility] LABCLIA [id number] [place] [address] [place] RBC LM.HPF (Urine sed) [#/Area] 0-2 /HPF Normal 0-2 /HPF [facility] Comment on above: Order Comment: Speci men Type: URINE SPECIMENOrdering Facility: [facility] Address: [address] [place] [address] Performed By: #### 2 4356-8 ####[facility] [id number] [place] [address] [place] Specific gravity (U) [Rel density] 1.010 Normal 1.005-1.030 [facility] Comment on above: Order Comment: Speci men Type: URINE SPECIMENOrdering Facility: [facility] Address: [address] [place] [address] Performed By: #### 2 4356-8 ####[facility] [id number] [place] [address] [place] Urobilinogen Ql (U) 0.2 EU/dL Normal 0.2-1.0 EU/dL Cl [facility] Comment on above: Order Comment: Speci men Type: URINE SPECIMENOrdering Facility: [facility] Address: [address] [place] [address] Performed By: #### 2 4356-8 ####[facility] [id number] [place] [address] [place] WBC LM.HPF (Urine sed) [#/Area] 0-5 /HPF Normal 0-5 /HPF [facility] Comment on above: Order Comment: Speci men Type: URINE SPECIMENOrdering Facility: [facility] Address: [address] [place] [address] Performed By: #### 2 4356-8 ####[facility] [id number] [place] [address] [place] CNOVon 02-09-2024 CNOV Office Visit ([facility] ) TORREY CAMPOS ([id number]) 1985 M Date Time Provider Department 02/09/24 8:40 AM ALEX MUNIZ During your visit today, we recorded the following information about you: Temperature Pulse Respiration Blood pressure 97.8 degrees 91/minute 16/minute 132/74 Weight 96.5 kg Alex Muniz MD 02/09/2024 9:30 AM Signed Chief Complaint Patient presents with: Pain: Left sided pain- patient following up to see where to go from here. Additional testing? HPI Torrey Campos is a 38 year old male who presents here today for Above Complaints. Patient evaluated about 3 weeks ago for complaint of episode of gross hematuria without recurrence and occasional pain in his flanks without other urinary symptoms. CBC and CMP obtained which were normal. Renal US normal. Has repeat UA to recheck for hematuria to be completed in 1-2 weeks. Today, he complains of intermittent sharp pain which can occur over his left flank, chest, axilla, back or abdomen. Right now, pain is on the left flank and is tender to palpation. Usually pain is 1-2/10. This has been going on for several months and he has had workup including CT abd/pelvis, exercise stress test, echo, EGD and colonoscopy which has been normal. CXR in the ER in June for chest pain was normal. Stool studies obtained by GI were also normal. Not taking anything OTC for his pain. No exacerbating factors. Chest pain relieved with belching. Denies fever/chills, erythema, bruising, swelling, fall/injury, joint pain or swelling. 02/08/2024 1309 Last Filed Value NESHA-7 - over the last 2 weeks... Feeling nervous, anxious, or on edge Not at allFeeling nervous, anxious, or on edge. Not at all. Patient-Reported. Taken on 02/08/24 1309 Not at allFeeling nervous, anxious, or on edge. Not at all. Patient-Reported. Last Filed Value Not being able to stop or control worrying Not at allNot being able to stop or control worrying. Not at all. Patient-Reported. Taken on 02/08/24 130 Not at allNot being able to stop or control worrying. Not at all. Patient-Reported. Last Filed Value Worrying too much about different things Not at allWorrying too much about different things. Not at all. Patient-Reported. Taken on 02/08/24 130 Not at allWorrying too much about different things. Not at all. Patient-Reported. Last Filed Value Trouble relaxing Not at allTrouble relaxing. Not at all. Patient-Reported. Taken on 02/08/24 130 Not at allTrouble relaxing. Not at all. Patient-Reported. Last Filed Value Being so restless that it is hard to sit still Not at allBeing so restless that it is hard to sit still. Not at all. Patient-Reported. Taken on 02/08/24 130 Not at allBeing so restless that it is hard to sit still. Not at all. Patient-Reported. Last Filed Value Becoming easily annoyed or irritable Several daysBecoming easily annoyed or irritable. Several days. Patient-Reported. Taken on 02/08/24 130 Several daysBecoming easily annoyed or irritable. Several days. Patient-Reported. Last Filed Value Feeling afraid, as if something awful might happen Not at allFeeling afraid, as if something awful might happen. Not at all. Patient-Reported. Taken on 02/08/24 130 Not at allFeeling afraid, as if something awful might happen. Not at all. Patient-Reported. Last Filed Value How difficult to do work, care for home, get along with people -- -- NESHA-2 Total Score 0 0 NESHA-7 Total Score 1 1 NESHA-7 Score 1 1 02/08/2024 1308 Last Filed Value PHQ-9 Little interest or pleasure in doing things Not at allLittle interest or pleasure in doing things. Not at all. Patient-Reported. Taken on 02/08/24 130 Not at allLittle interest or pleasure in doing things. Not at all. Patient-Reported. Last Filed Value Feeling down, depressed, or hopeless Not at allFeeling down, depressed, or hopeless. Not at all. Patient-Reported. Taken on 02/08/24 1308 Not at allFeeling down, depressed, or hopeless. Not at all. Patient-Reported. Last Filed Value Trouble falling or staying asleep, or sleeping too much More than half the daysTrouble falling or staying asleep, or sleeping too much. More than half the days. Patient-Reported. Taken on 02/08/24 1308 More than half the daysTrouble falling or staying asleep, or sleeping too much. More than half the days. Patient-Reported. Last Filed Value Feeling tired or having little energy Several daysFeeling tired or having little energy. Several days. Patient-Reported. Taken on 02/08/24 1308 Several daysFeeling tired or having little energy. Several days. Patient-Reported. Last Filed Value Poor appetite or overeating Not at allPoor appetite or overeating. Not at all. Patient-Reported. Taken on 02/08/24 1308 Not at allPoor appetite or overeating. Not at all. Patient-Reported. Last Filed Value Feeling bad about yourself - or that you are a f (more content not included)... Normal [facility] CRP [Mass/Vol] 0.6 mg/dL Normal <0.9 [facility] Comment on above: Order Comment: Speci men Type: BLOOD SPECIMENOrdering Facility: [facility] Address: [address] [place] [address] Performed By: #### 1 988-5 ####[facility] LABCLIA [id number] [place] [address] [place] ESR Westergren method (Bld) [Velocity]on 02-09-2024 ESR (Bld) [Velocity] 2 mm/h Normal 0[facility]15 [facility] Comment on above: Order Comment: Speci men Type: BLOOD SPECIMEN Ordering Facility: [facility] Address: [address] [place] [address] Performed By: #### 4 537-7 #### [facility] LAB CLIA [id number] [address] [place] [address] [place] Nuclear Ab IA Ql (S)on 02-08 DEVIN SCR QUAL Negative Normal Negative [facility] Comment on above: Order Comment: Speci men Type: BLOOD SPECIMENOrdering Facility: [facility] Address: [address] [place] [address] Result Comment: The qualitative antinuclear antibody screen test performed using the following antigens: dsDNA, Chromatin, Ribosomal P, SS-A 60, SS-A 52, SS-B, Sm, SmRNP, EVENTS AND PROMOTIONS ASSISTANT A, EVENTS AND PROMOTIONS ASSISTANT 68, Scl-70, Maryan-1, and Centromere B. Methodology: Multiplex flow immunoassay. Performed By: #### 4 7383-5 ####[facility] LABCLIA [id number] [place] [address] [place] CNPNon 01-20-2024 CNPN Telephone ([employer]) TORREY CAMPOS ([id number]) 1985 Date Time Provider Department 01/20/24 ALEX MUNIZ During your visit today, we recorded the following information about you: Briseida Montaño MA 01/20/2024 9:12 AM Signed ----- Message from Alex Muniz MD sent at 01/20/2024 8:05 AM EDT ----- Normal labs to work up blood in the urine. Normal ultrasound of the kidneys and bladder. Recheck UA in 1 month as ordered. Call with recurrent blood in urine. Briseida Montaño MA 01/20/2024 9:13 AM Signed Pt notified of results via [employer]. Briseida Montaño Ma Allergies As of Date: 01/20/2024 (No Known Allergies) Date Reviewed: 01/19/2024 Reviewed by: Laughery, Emma, PLASTICS WORKER - Fully Assessed Reason for Visit: Results [95] Prescriptions as of 01/20/2024 - omeprazole (PRILOSEC) 40 mg capsule take 1 capsule by mouth every morning - multivit-min/folic/vi t K/lycop (MEN'S MULTIVITAMIN ORAL) Take by mouth. - Lactobacillus acidophilus (PROBIOTIC ORAL) Take by mouth. Problem List As Of Date: 01/20/2024 (None) Encounter Status:Closed by BRISEIDA MONTAÑO on 01/20/24 Normal [facility] CBC W Auto Differential pane l (Bld)on 01-19-2024 Basophils (Bld) [#/Vol] 0.03 10*3/uL Normal <0.11 [facility] Comment on above: Order Comment: Speci men Type: BLOOD SPECIMENOrdering Facility: [facility] Address: [address] [place] [address] Performed By: #### 5 7021-8 ####[facility] LABCLIA [id number] [place] [address] [place] Basophils/100 WBC (Bld) 0.7 % Normal [facility] Comment on above: Order Comment: Speci men Type: BLOOD SPECIMENOrdering Facility: [facility] Address: [address] [place] [address] Performed By: #### 5 7021-8 ####[facility] LABCLIA [id number] [place] [address] [place] Differential cell count method Nom (Bld) Auto Normal [facility] Comment on above: Order Comment: Speci men Type: BLOOD SPECIMENOrdering Facility: [facility] Address: [address] [place] [address] Performed By: #### 5 7021-8 ####[facility] LABCLIA [id number] [place] [address] [place] Eosinophils (Bld) [#/Vol] 0.05 10*3/uL Normal <0.46 [facility] Comment on above: Order Comment: Speci men Type: BLOOD SPECIMENOrdering Facility: [facility] Address: [address] [place] [address] Performed By: #### 5 7021-8 ####[facility] LABCLIA [id number] [place] [address] [place] Eosinophils/100 WBC (Bld) 1.2 % Normal [facility] Comment on above: Order Comment: Speci men Type: BLOOD SPECIMENOrdering Facility: [facility] Address: [address] [place] [address] Performed By: #### 5 7021-8 ####[facility] LABCLIA [id number] [place] [address] [place] Erythrocyte distribution width (RBC) [Ratio] 12.2 % Normal 11.5-15.0 [facility] Comment on above: Order Comment: Speci men Type: BLOOD SPECIMENOrdering Facility: [facility] Address: [address] [place] [address] Performed By: #### 5 7021-8 ####[facility] LABIA [id number] [place] [address] [place] Hematocrit (Bld) [Volume fraction] 44.1 % Normal 39.0-51.0 [facility] Comment on above: Order Comment: Speci men Type: BLOOD SPECIMENOrdering Facility: [facility] Address: [address] [place] [address] Performed By: #### 5 7021-8 ####[facility] LABCLIA [id number] [place] [address] [place] Hemoglobin (Bld) [Mass/Vol] 15.5 g/dL Normal 13.0-17.0 [facility] Comment on above: Order Comment: Speci men Type: BLOOD SPECIMENOrdering Facility: [facility] Address: [address] [place] [address] Performed By: #### 5 7021-8 ####[facility] LABCLIA [id number] [place] [address] [place] Immature granulocytes (Bld) [#/Vol] 0.03 10*3/uL Normal <0.10 [facility] Comment on above: Order Comment: Speci men Type: BLOOD SPECIMENOrdering Facility: [facility] Address: [address] [place] [address] Performed By: #### 5 7021-8 ####[facility] LABCLIA [id number] [place] [address] [place] Immature granulocytes/100 WBC (Bld) 0.7 % Normal [facility] Comment on above: Order Comment: Speci men Type: BLOOD SPECIMENOrdering Facility: [facility] Address: [address] [place] [address] Performed By: #### 5 7021-8 ####[facility] LABCLIA [id number] [place] [address] [place] Lymphocytes (Bld) [#/Vol] 1.18 10*3/uL Normal 1.00-4.00 [facility] Comment on above: Order Comment: Speci men Type: BLOOD SPECIMENOrdering Facility: [facility] Address: [address] [place] [address] Performed By: #### 5 7021-8 ####[facility] LABCLIA [id number] [place] [address] [place] Lymphocytes/100 WBC (Bld) 28.6 % Normal [facility] Comment on above: Order Comment: Speci men Type: BLOOD SPECIMENOrdering Facility: [facility] Address: [address] [place] [address] Performed By: #### 5 7021-8 ####[facility] LABCLIA [id number] [place] [address] [place] MCH (RBC) [Entitic mass] 30.8 pg Normal 26.0-34.0 [facility] Comment on above: Order Comment: Speci men Type: BLOOD SPECIMENOrdering Facility: [facility] Address: [address] [place] [address] Performed By: #### 5 7021-8 ####[facility] LABCLIA [id number] [place] [address] [place] MCHC (RBC) [Mass/Vol] 35.1 g/dL Normal 30.5-36.0 [facility] Comment on above: Order Comment: Speci men Type: BLOOD SPECIMENOrdering Facility: [facility] Address: [address] [place] [address] Performed By: #### 5 7021-8 ####[facility] LABCLIA [id number] [place] [address] [place] MCV (RBC) [Entitic vol] 87.7 fL Normal 80.0-100.0 [facility] Comment on above: Order Comment: Speci men Type: BLOOD SPECIMENOrdering Facility: [facility] Address: [address] [place] [address] Performed By: #### 5 7021-8 ####[facility] LABCLIA [id number] [place] [address] [place] Monocytes (Bld) [#/Vol] 0.27 10*3/uL Normal <0.87 [facility] Comment on above: Order Comment: Speci men Type: BLOOD SPECIMENOrdering Facility: [facility] Address: [address] [place] [address] Performed By: #### 5 7021-8 ####[facility] LABCLIA [id number] [place] [address] [place] Monocytes/100 WBC (Bld) 6.6 % Normal [facility] Comment on above: Order Comment: Speci men Type: BLOOD SPECIMENOrdering Facility: [facility] Address: [address] [place] [address] Performed By: #### 5 7021-8 ####[facility] LABCLIA [id number] [place] [address] [place] Neutrophils (Bld) [#/Vol] 2.56 10*3/uL Normal 1.45-7.50 [facility] Comment on above: Order Comment: Speci men Type: BLOOD SPECIMENOrdering Facility: [facility] Address: [address] [place] [address] Performed By: #### 5 7021-8 ####[facility] LABCLIA [id number] [place] [address] [place] Neutrophils/100 WBC (Bld) 62.2 % Normal [facility] Comment on above: Order Comment: Speci men Type: BLOOD SPECIMENOrdering Facility: [facility] Address: [address] [place] [address] Performed By: #### 5 7021-8 ####[facility] LABCLIA [id number] [place] [address] [place] Nucleated RBC (Bld) [#/Vol] 10*3/uL Normal <0.01 [facility] Comment on above: Order Comment: Speci men Type: BLOOD SPECIMENOrdering Facility: [facility] Address: [address] [place] [address] Performed By: #### 5 7021-8 ####[facility] LABCLIA [id number] [place] [address] [place] Nucleated RBC/100 WBC (Bld) [Ratio] 0.0 /100 WBC Normal [facility] Comment on above: Order Comment: Speci men Type: BLOOD SPECIMENOrdering Facility: [facility] Address: [address] [place] [address] Performed By: #### 5 7021-8 ####[facility] LABCLIA [id number] [place] [address] [place] Platelet mean volume (Bld) [Entitic vol] 11.2 fL Normal 9.0-12.7 [facility] Comment on above: Order Comment: Speci men Type: BLOOD SPECIMENOrdering Facility: [facility] Address: [address] [place] [address] Performed By: #### 5 7021-8 ####[facility] LABIA [id number] [place] [address] [place] Platelets (Bld) [#/Vol] 204 10*3/uL Normal 150-400 [facility] Comment on above: Order Comment: Speci men Type: BLOOD SPECIMENOrdering Facility: [facility] Address: [address] [place] [address] Performed By: #### 5 7021-8 ####[facility] LABIA [id number] [place] [address] [place] RBC (Bld) [#/Vol] 5.03 10*6/uL Normal 4.20-6.00 [facility] Comment on above: Order Comment: Speci men Type: BLOOD SPECIMENOrdering Facility: [facility] Address: [address] [place] [address] Performed By: #### 5 7021-8 ####[facility] LABIA [id number] [place] [address] [place] WBC (Bld) [#/Vol] 4.12 10*3/uL Normal 3.70-11.00 [facility] Comment on above: Order Comment: Speci men Type: BLOOD SPECIMENOrdering Facility: [facility] Address: [address] [place] [address] Performed By: #### 5 7021-8 ####[facility] LABIA [id number] [place] [address] [place] CNOVon 01-19-2024 CNOV Office Visit (FAMPWS ) TORREY CAMPOS ([id number]) 1985 M Date Time Provider Department 01/19/24 8:20 AM ALEX MUNIZ During your visit today, we recorded the following information about you: Pulse Respiration Blood pressure Weight 86/minute 16/minute 132/82 98 kg Alex Muniz MD 01/19/2024 9:11 AM Signed Chief Complaint Patient presents with: Follow Up: EC 01/14/24 HPI Torrey Campos is a 38 year old male who presents here today for Above Complaints.. Patient here today for EC f/u from 01/13 with following HPI: HPI Torrey Campos is a 38 year old male who presents today for CC of blood in urine and burning with urination. This started today. Has tried nothing for relief. Symptoms are worsened by nothing. Denies concerns for std. Recently seen urology for testicular pain/subsided now. Denies rash, back pain, n/v/d. .Patient presents with: Urinary Problem: States he has had some Left side pain and blood in urine 30 mins ago UA in the EC showed trace blood, but was normal otherwise. Culture obtained which was negative for infection. Discharged home with recommendation to f/u with our office. Today, he states that he has not had any recurrent gross blood in his urine. Admits to some occasional pain in his flanks and occasional urgency. Denies dysuria, frequency, penile discharge, testicular pain, swelling, rash, urinary hesitancy. Past medical history, appointments, medications, allergies reviewed. 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 Infectious mononucleosis 2006 w/Hepatitis Overweight (BMI 25.0-29.9) Vitamin D deficiency Previous Surgical History PAST SURGICAL HISTORY Procedure Laterality Date COLONOSCOPY 07/15/2023 Diverticulosis, tubular adenoma EGD W/O BRSH SPEC VARICIES INJ 07/15/2023 Normal EXC LESION TDN SHTH/JT CAPSL HAND/FNGR Right 03/02/2023 Excision ganglion cyst right middle finger HYDROCELE RIGHT, FLUID Right 2002 Family History FAMILY HISTORY Problem Relation Age of Onset Hypertension Mother Hyperlipidemia Mother Heart Father arrhythmia Colon Cancer No Family History Patient Allergies ALLERGIES No Known Allergies Current Medications Current Outpatient Medications on File Prior to Visit Medication Sig omeprazole (PRILOSEC) 40 mg capsule take 1 capsule by mouth every morning multivit-min/folic/vi t K/lycop (MEN'S MULTIVITAMIN ORAL) Take by mouth. Lactobacillus acidophilus (PROBIOTIC ORAL) Take by mouth. No current facility-administered medications on file prior to visit. Social History Social History Tobacco Use Smoking status: Never Smokeless tobacco: Never Vaping Use Vaping Use: Never used Substance Use Topics Alcohol use: Yes Alcohol/week: 10.0 standard drinks of alcohol Types: 10 Cans of Beer (12oz) per week Comment: 2-3 times per week, varies- admits to binge drinking Drug use: Not Currently Comment: history of marijuana use in college Review of Symptoms REVIEW OF SYSTEMS See HPI EXAM: BP 140/80 Pulse 86 Resp 16 Wt 98 kg (216 lb) SpO2 97% BMI 29.50 kg/m? General Appearance: Well appearing, alert, in no acute distress, well-hydrated, well nourished.. Skin: Skin color, texture, turgor normal, no suspicious rashes or lesions. Abdomen: Abdomen soft, non-tender. Bowel sounds normal. No masses, organomegaly, Negative CVA tenderness. Health Maintenance List HIV Screening Never done Hepatitis B Vaccine(1 of 3 - 19+ 3-dose series) Never done Behavioral Health Screening Never done Influenza Vaccine(1) due on 03/04/2024 DTaP,Tdap,Td Vaccine(2 - Td or Tdap) due on 03/27/2028 Lipid Screening due on 06/01/2028 Colorectal Cancer Screening due on 07/15/2028 Hepatitis C Screening Completed Covid-19 Vaccine Completed HPV Vaccine Aged Out ASSESSMENT/PLAN: 1. Gross hematuria - ICD9: 599.71, ICD10: R31.0 No recurrent symptoms. Check labs and US of kidneys and bladder to rule out nephrolithiasis and bladder mass. Repeat UA in 1 month. Push PO fluids. Red flags for re-assessment reviewed with patient in detail. - US KIDNEY/BLADDER - URINALYSIS, WITH MICROSCOPIC - COMPLETE BLOOD COUNT AND DIFFERENTIAL - COMPREHENSIVE METABOLIC PANEL Alex Muniz MD Allergies As of Date: 01/19/2024 (No Known Allergies) Date Reviewed: 01/19/2024 Reviewed by: Emma Mccracken LPN - Fully Assessed Reason for Visit: Follow Up [171] Cmt: EC 01/14/24 Primary Visit Diagnosis:Gross hematuria [R31.0] Order(s): KIDNEY/BLADDER [[id number]] Order #: [id number] FUTURE URINALYSIS, WITH MICROSCOPIC [SQUAWMIC] Order #: [id number] FUTURE COMPLETE BLOOD COUNT AND DIFFERENTIAL [SQCBCDIF] Order #: [id number] FUTURE COMPREHENSIVE METABOLIC PANEL [SQCMP] Order #: [id number] (more content not included)... Normal [facility] Comprehensive metabolic 2000 panelon 01-19-2024 Albumin [Mass/Vol] 4.8 g/dL Normal 3.9-4.9 [facility] Comment on above: Order Comment: Speci men Type: BLOOD SPECIMEN [facility]ing Facility: [facility] Address: [address] [place] [address] Performed By: #### 4 537-7 #### [facility] LAB CLIA [id number] [address] [place] [address] [place] ALP [Catalytic activity/Vol] 68 U/L Normal 38-113 [facility] Comment on above: Order Comment: Speci men Type: BLOOD SPECIMEN Ordering Facility: [facility] Address: [address] [place] [address] Performed By: #### 4 537-7 #### [facility] CLIA [id number] [address] [place] [address] [place] ALT [Catalytic activity/Vol] 31 U/L Normal 10-54 [facility] Comment on above: Order Comment: Speci men Type: BLOOD SPECIMEN Ordering Facility: [facility] Address: [address] [place] [address] Performed By: #### 4 537-7 #### [facility] CLIA [id number] [address] [place] [address] [place] Anion gap [Moles/Vol] 11 mmol/L Normal 8-15 [facility] Comment on above: Order Comment: Speci men Type: BLOOD SPECIMEN Ordering Facility: [facility] Address: [address] [place] [address] Performed By: #### 4 537-7 #### [facility] CLIA [id number] [address] [place] [address] [place] AST [Catalytic activity/Vol] 23 U/L Normal 14-40 [facility] Comment on above: Order Comment: Speci men Type: BLOOD SPECIMEN Ordering Facility: [facility] Address: [address] [place] [address] Performed By: #### 4 537-7 #### [facility] CLIA [id number] [address] [place] [address] [place] Bilirubin [Mass/Vol] 0.8 mg/dL Normal 0.2-1.3 [facility] Comment on above: Order Comment: Speci men Type: BLOOD SPECIMEN Ordering Facility: [facility] Address: [address] [place] [address] Performed By: #### 4 537-7 #### [facility] CLIA [id number] [address] [place] [address] [place] Calcium [Mass/Vol] 9.8 mg/dL Normal 8.5-10.2 [facility] Comment on above: Order Comment: Speci men Type: BLOOD SPECIMEN Ordering Facility: [facility] Address: [address] [place] [address] Performed By: #### 4 537-7 #### [facility] CLIA [id number] [address] [place] [address] [place] Chloride [Moles/Vol] 102 mmol/L Normal 98-107 [facility] Comment on above: Order Comment: Speci men Type: BLOOD SPECIMEN Ordering Facility: [facility] Address: [address] [place] [address] Performed By: #### 4 537-7 #### [facility] CLIA [id number] [address] [place] [address] [place] CO2 [Moles/Vol] 25 mmol/L Normal 22-30 [facility] Comment on above: Order Comment: Speci men Type: BLOOD SPECIMEN Ordering Facility: [facility] Address: [address] [place] [address] Performed By: #### 4 537-7 #### [facility] CLIA [id number] [address] [place] [address] [place] Creatinine [Mass/Vol] 0.91 mg/dL Normal 0.73-1.22 [facility] Comment on above: Order Comment: Speci men Type: BLOOD SPECIMEN Ordering Facility: [facility] Address: [address] [place] [address] Performed By: #### 4 537-7 #### [facility] CLIA [id number] [address] [place] [address] [place] Creatinine and Glomerular filtration rate.predicted panel (S/P/Bld) 111 mL/min/1.73m??? Normal >=60 [facility] Comment on above: Order Comment: Speci men Type: BLOOD SPECIMEN Ordering Facility: [facility] Address: [address] [place] [address] Result Comment: Olinda mated Glomerular Filtration Rate (eGFR) is calculated using the 2020 CKD-EPI creatinine equation. This equation utilizes serum creatinine, sex, and age as parameters. The creatinine assay has traceable calibration to isotope dilution-mass spectrometry. Refer to KDIGO guidelines for clinical interpretation. In patients with unstable renal function, e.g. those with acute kidney injury, the eGFR may not accurately reflect actual GFR. Performed By: #### 4 537-7 #### [facility] CLIA [id number] [address] [place] [address] [place] Glucose [Mass/Vol] 90 mg/dL Normal 74-99 [facility] Comment on above: Order Comment: Speci men Type: BLOOD SPECIMEN Ordering Facility: [facility] Address: [address] [place] [address] Result Comment: The [place] Diabetes Association (ADA) provides guidance for cutoff values for fasting glucose and random glucose. The ADA defines fasting as no caloric intake for at least 8 hours. Fasting plasma glucose results between 100 to 125 mg/dL indicate increased risk for diabetes (prediabetes). Fasting plasma glucose results greater than or equal to 126 mg/dL meet the criteria for diagnosis of diabetes. In the absence of unequivocal hyperglycemia, results should be confirmed by repeat testing. In a patient with classic symptoms of hyperglycemia or hyperglycemic crisis, random plasma glucose results greater than or equal to 200 mg/dL meet the criteria for diagnosis of diabetes. Reference: Standards of Medical Care in Diabetes 2016, [place] Diabetes Association. Diabetes Care. 2016.39(Suppl 1). Performed By: #### 4 537-7 #### [facility] CLIA [id number] [address] [place] [address] [place] Potassium [Moles/Vol] 3.9 mmol/L Normal 3.7-5.1 [facility] Comment on above: Order Comment: Speci men Type: BLOOD SPECIMEN Ordering Facility: [facility] Address: [address] [place] [address] Performed By: #### 4 537-7 #### [facility] CLIA [id number] [address] [place] [address] [place] Protein [Mass/Vol] 7.3 g/dL Normal 6.3-8.0 [facility] Comment on above: Order Comment: Speci men Type: BLOOD SPECIMEN Ordering Facility: [facility] Address: [address] [place] [address] Performed By: #### 4 537-7 #### [facility] CLIA [id number] [address] [place] [address] [place] Sodium [Moles/Vol] 138 mmol/L Normal 136-144 [facility] Comment on above: Order Comment: Speci men Type: BLOOD SPECIMEN Ordering Facility: [facility] Address: [address] [place] [address] Performed By: #### 4 537-7 #### [facility] CLIA [id number] [address] [place] [address] [place] Urea nitrogen [Mass/Vol] 12 mg/dL Normal 9-24 [facility] Comment on above: Order Comment: Speci men Type: BLOOD SPECIMEN Ordering Facility: [facility] Address: [address] [place] [address] Performed By: #### 4 537-7 #### [facility] CLIA [id number] [address] [place] [address] [place] US KIDNEY/BLADDERon 01-19-20 US KIDNEY/BLADDER * * *Final Report* * * DATE OF EXAM: Jan 19 2024 1:55PM [id number] - US KIDNEY/BLADDER / PROCEDURE REASON: Gross hematuria * * * * Physician Interpretation * * * * EXAMINATION: ULTRASOUND KIDNEYS/BLADDER CLINICAL HISTORY: Grossly hematuria. TECHNIQUE: Sonography of the kidneys and urinary bladder was performed. Images were obtained and stored in a permanent archive. MQ: UR_1 COMPARISON: CT abdomen pelvis on 07/27/2023 RESULT: Limitations: Large amount of bowel gas. Right Kidney: -Renal length: 12.5 cm -Parenchyma: Normal parenchymal echogenicity. Normal parenchymal thickness. -Collecting system: No hydronephrosis. -Calculus: No echogenic, shadowing calculus. -Lesion: None. Left Kidney: -Renal length: 10.7 cm -Parenchyma: Normal parenchymal echogenicity. Normal parenchymal thickness. -Collecting system: No hydronephrosis. -Calculus: No echogenic, shadowing calculus. -Lesion: None. Bladder: Distended urinary bladder without mass lesion seen. Prevoid volume 249 cc and postvoid volume 30 cc. The bilateral ureter jets were visualized. IMPRESSION: Unremarkable sonographic exam of the kidneys and bladder. Hris Manager: RANDY Transcribe Date/Time: Jan 19 2024 5:03P Dictated by : SOFY PRIETO MD This examination was interpreted and the report reviewed and electronically signed by: SOFY PRIETO MD on Jan 19 2024 5:05PM EST [id number] Normal [facility] US Kidney - bilateral and Ur inary bladderon 01-19-2024 IMPRESSION: Unremarkable sonographic exam of the kidneys and bladder. Hris Manager: RANDY Transcribe Date/Time: Jan 19 2024 5:03P Dictated by : SOFY PRIETO MD This examination was interpreted and the report reviewed and electronically signed by: SOFY PRIETO MD on Jan 19 2024 5:05PM [facility] OF RADIOLOGY * * *Final Report* * * DATE OF EXAM: Jan 19 2024 1:55PM [place] [id number] - US KIDNEY/BLADDER / PROCEDURE REASON: Gross hematuria * * * * Physician Interpretation * * * * EXAMINATION: ULTRASOUND KIDNEYS/BLADDER CLINICAL HISTORY: Grossly hematuria. TECHNIQUE: Sonography of the kidneys and urinary bladder was performed. Images were obtained and stored in a permanent archive. MQ: UR_1 COMPARISON: CT abdomen pelvis on 07/27/2023 RESULT: Limitations: Large amount of bowel gas. Right Kidney: -Renal length: 12.5 cm -Parenchyma: Normal parenchymal echogenicity. Normal parenchymal thickness. -Collecting system: No hydronephrosis. -Calculus: No echogenic, shadowing calculus. -Lesion: None. Left Kidney: -Renal length: 10.7 cm -Parenchyma: Normal parenchymal echogenicity. Normal parenchymal thickness. -Collecting system: No hydronephrosis. -Calculus: No echogenic, shadowing calculus. -Lesion: None. Bladder: Distended urinary bladder without mass lesion seen. Prevoid volume 249 cc and postvoid volume 30 cc. The bilateral ureter jets were visualized. DIVISION OF RADIOLOGY Provider, [facility] - 01/19/2024 * * *Final Report* * * DATE OF EXAM: Jan 19 2024 1:55PM [facility] 1055 - US KIDNEY/BLADDER / PROCEDURE REASON: Gross hematuria * * * * Physician Interpretation * * * * EXAMINATION: ULTRASOUND KIDNEYS/BLADDER CLINICAL HISTORY: Grossly hematuria. TECHNIQUE: Sonography of the kidneys and urinary bladder was performed. Images were obtained and stored in a permanent archive. MQ: UR_1 COMPARISON: CT abdomen pelvis on 07/27/2023 RESULT: Limitations: Large amount of bowel gas. Right Kidney: -Renal length: 12.5 cm -Parenchyma: Normal parenchymal echogenicity. Normal parenchymal thickness. -Collecting system: No hydronephrosis. -Calculus: No echogenic, shadowing calculus. -Lesion: None. Left Kidney: -Renal length: 10.7 cm -Parenchyma: Normal parenchymal echogenicity. Normal parenchymal thickness. -Collecting system: No hydronephrosis. -Calculus: No echogenic, shadowing calculus. -Lesion: None. Bladder: Distended urinary bladder without mass lesion seen. Prevoid volume 249 cc and postvoid volume 30 cc. The bilateral ureter jets were visualized. IMPRESSION IMPRESSION: Unremarkable sonographic exam of the kidneys and bladder. Hris Manager: RANDY Transcribe Date/Time: Jan 19 2024 5:03P Dictated by : SOFY PRIETO MD This examination was interpreted and the report reviewed and electronically signed by: SOFY PRIETO MD on Jan 19 2024 5:05PM EST [facility] Radiology Study observation (narrative) [facility] US Kidney - bilateral and Ur inary bladderOrdered By: Ccf Provider on 01-19-2024 [facility] UA DIP, URINE (POC)on 2023 BILIRUBIN UA (POCT) Negative Negative [facility] CLARITY UA (POCT) Clear [facility] COLOR UA (POCT) Yellow [facility] GLUCOSE UA (POCT) Negative Negative mg/dL [facility] Hemoglobin Ql (U) Trace-intact Abnormal Negative [facility] Interpretation and review of laboratory results Abnormal [facility] KETONE UA (POCT) Negative Negative mg/dL [facility] LEUKOCYTES UA (POCT) Negative [facility] NITRITE UA (POCT) Negative Negative [facility] PH UA (POCT) 6.0 4.5 - 8.0 [facility] Protein Ql (U) Negative Negative mg/dL [facility] SPECIFIC GRAVITY UA (POCT) <=1.005 Abnormal 1.005 - 1.030 [facility] UROBILINOGEN UA (POCT) 0.2 Jeannette l E.U./dL [facility] Location:[address], [place], [place], [id number] [place] [address] POINT OF CARE [facility] US DOPPLER COMPLETEon 2023 US DOPPLER COMPLETE * * *Final Report* * * DATE OF EXAM: Dec 30 2023 4:16PM [facility] 1033 - US DOPPLER COMPLETE / PROCEDURE REASON: multiple diagnoses * * * * Physician Interpretation * * * * EXAMINATION: SCROTAL ULTRASOUND WITH DOPPLER IMAGING CLINICAL HISTORY: Testicular swelling, right Testicular discomfort TECHNIQUE: Sonography of the scrotal contents with color flow and spectral Doppler imaging of the testicular vasculature was performed. Images were obtained and stored in a permanent archive. M: USC_2 COMPARISON: None RESULT: RIGHT SCROTUM: Right testis: 3.6 x 2.8 x 2.2 cm. Homogeneous with no calcifications or mass. Normal intratesticular arterial and venous flow with normal spectral waveforms. Epididymis: 6 mm epididymal cyst. Vascular flow on Color Doppler is symmetric to the contralateral side. Hydrocele: none Varicocele: absent LEFT SCROTUM: Left testis: 3.6 x 3.1 x 2.3 cm. Homogeneous with no calcifications or mass. Normal intratesticular arterial and venous flow with normal spectral waveforms. Epididymis: Normal. Vascular flow on Color Doppler is symmetric to the contralateral side. Hydrocele: none Varicocele: present IMPRESSION: Small left varicocele. Tiny right epididymal cyst. Hris Manager: [facility] Transcribe Date/Time: Jan 01 2024 5:55P Dictated by : ENMANUEL RODRIGUEZ MD This examination was interpreted and the report reviewed and electronically signed by: ENMANUEL RODRIGUEZ MD on Jan 01 2024 5:56PM EST [id number] Normal [facility] US SCROTUM AND CONTENTSon US SCROTUM AND CONTENTS * * *Final Repor t* * * DATE OF EXAM: Dec 30 2023 4:16PM [facility] 1063 - US SCROTUM AND CONTENTS / PROCEDURE REASON: multiple diagnoses * * * * Physician Interpretation * * * * EXAMINATION: SCROTAL ULTRASOUND WITH DOPPLER IMAGING CLINICAL HISTORY: Testicular swelling, right Testicular discomfort TECHNIQUE: Sonography of the scrotal contents with color flow and spectral Doppler imaging of the testicular vasculature was performed. Images were obtained and stored in a permanent archive. M: USC_2 COMPARISON: None RESULT: RIGHT SCROTUM: Right testis: 3.6 x 2.8 x 2.2 cm. Homogeneous with no calcifications or mass. Normal intratesticular arterial and venous flow with normal spectral waveforms. Epididymis: 6 mm epididymal cyst. Vascular flow on Color Doppler is symmetric to the contralateral side. Hydrocele: none Varicocele: absent LEFT SCROTUM: Left testis: 3.6 x 3.1 x 2.3 cm. Homogeneous with no calcifications or mass. Normal intratesticular arterial and venous flow with normal spectral waveforms. Epididymis: Normal. Vascular flow on Color Doppler is symmetric to the contralateral side. Hydrocele: none Varicocele: present IMPRESSION: Small left varicocele. Tiny right epididymal cyst. Hris Manager: [facility] Transcribe Date/Time: Jan 01 2024 5:55P Dictated by : ENMANUEL RODRIGUEZ MD This examination was interpreted and the report reviewed and electronically signed by: ENMANUEL RODRIGUEZ MD on Jan 01 2024 5:56PM EST [id number] Normal [facility] SURGICAL PATHOLOGYOrdered By : Rayshawn Quinn on 07-18-2023 Case Report Surgical Pathology Report Case: [id number] Authorizing Provider: Ashley Melgoza MD Collected: 07/15/2023 01:42 PM Ordering Location: Ambulatory Surgery Received: 07/15/2023 07:53 PM Pathologist: Rayshawn Quinn MD Specimens: A) - DUODENUM BIOPSY, r/o celiac B) - STOMACH BIOPSY, r/o H-pylori C) - ESOPHAGOGASTRIC JUNCTION BIOPSY D) - COLON RIGHT BIOPSY E) - ASCENDING COLON POLYP F) - COLON LEFT BIOPSY [facility] Work Phone: Diagnosis Comment g0sgkUZdURGxmAGfNMVg N DmoarSmQIAzvVViK1Vrjx hsBIwpLA3mDR6sbQzsqDY nbJSmNXTbWcGvs9hql690 yXBre5foXYAQqnhktJl6u XknU05el5T6UbzlQ51peN HrPVL7PPVxHSQzbWCcAMC gYDM7KFRdmRFfW2byGSTl DS1fenytXUdvPDpnFGElr ZK7WTDyyWHoJ0ZxOCCmQP mtCBRdcfi8XwLkJz5kzDC yeTcyMFxwYXJkXHBsYWlu UTZeBlXvRz0pEu5eiRzah j9qpqoaholesFMdjR8umT ittE1gwMBexNx2SZEkqJB vqLrgiRPcj1l2fIYCGMwc C78xNRB1AWVvALgrm2RsR Difm7Ibw1CiIF5dd79oUY FyZSBpZGVudGlmaWVkIGJ 5RXWjpFWllnQbIIHPPHY8 QPwdHTWyh8CymIjnhwRbM HBhciBELEYuIFRoZXJlIG bqFR2vCSO5cCLyrrWgAZ4 kBRPhlCNqRY2lFULlsg7i lLXkD28fbSHpaqirjD6gm FClqF1gTBf8fFLzx2Z7jJ jhYY9kAXVreFiiD5Avo2B tSBLrtNr9fVS0MN0iV3J6 aXZlIGZvciBkeXNwbGFza YIaz8CioKJbxZscIO9afD 5ccGFyfQ== [facility] Work Phone: FINAL DIAGNOSIS v4bduYVqNSMdpSAqNKLn N FbslnRrKAEbrKWwH5Twko ulUHzmRF8iHD4olRftlZG juXHkOLZaPaBsc1qed667 rESvi7gaECHNbtpfvEa1r ObjV35ir8K2TnreG39xsX HsHQX4TYUiJGVipHEaOOD qNGR3GQOeqBPsR8tmJVBj RM1jtnprAWpeHPciLFEcn TA3GSAdyMOjC8XyDQJhVH vfNCJcmrb9WuVhBj5imHI yeTcyMFxwYXJkXHBsYWlu BMXrMvDjGC1xQOK0j4Vsm yOcKCBlmH9bx1p7GQLydc FwDOC4b3JalgKuEF05G46 oMDP5gUByPR3cHSRjtAgr mZ0smCPtZZvsN69hv2GtQ eYbRr4yqh9zhOe4fOqzwe QaGSGzjyDzPh7hEYFceVs hYyBkaXNlYXNlLCBncmFu uHkjuJLkZN0qFJY2c8MzW LNnMT4quUMcPLVmcoUSPi EeM5QmlORpqCkhVtseaZT 1TtguLTHuFGSRRYI9peux HNO1ahJxGsG7sSAwHZ31U 33fPZP7gQGpOV8qUIOebM ejkV0naAEnAAdhN01cq5H xZuOwSe8fjt5ezLg9dFmj u3ApMSXxqS0srrOhFOGho avgABSxLk8zZPQtv0IiQX qdG6FvmFMhLlOfoK7ssJo efdpwBxrpgKZ9VsqbMMTg IKTQnXXqgP28jaDamuKkZ 1QqlMAsVyBncJAny9Jip8 p2vDYdemEtAXLnu8cvH2u pXOIeSBxaw8I5bSKuBDBq e1OdZRvnhYb3XT6fI4A4w XZlIGZvciBpbnRyYWVwaX RkNTsnCSvgNU7qpL2qcSz pbHMsIGludGVzdGluYWwg wSL6DLBxEIAcTNPspgRyl XNwbGFzaWEuXHBhclxwYX YpDL8dQFSruV8kIIUzxRb kwJuxSjrtiXP7AwfzGQAl MKLKx8karlwbWC16G78sS OV4sQFnEK4aZHNjjQcxpH 0muYGvEKsnD32fe0RpQxJ vOg8neo9syHj9cSypq1Cv EEWacW0ehrQdXPGfcvdcF AWoGW8zMWCkW1AdCMtyNm Wus9dkjlMmn5x3aRgpQhg ucRW3RolpOUYeKKFFsZB8 jEBaTLWqPF6qmXBwEEDge dudSJMuLt8hIQZrnO3eQH LpTEJ5MZYcfP7uh0f8PDE tvtFsDWYcrG6lgRNwcFVc n7IrRWrrvJbvrf1lpBF4f F8ps5glSuUdpFIqbr5vkC idLMYcuy2tlTHliKK8ThA dXOYiC19ysTUrsE0izNFp fQ== [facility] Work Phone: Gross Description z2zqgOCzKZVdzVFDRVQ8 M GKuKD2ofThupTk2tRboXX GzkmN3iZJpAPjwx1zbORA 7d7ozerQDKmfpQZCeXQ0m NJgpIUDaXF1tBwTjSRPiZ mYxXHBhcGVydzEyMjQwXH UdgDMfmOI7QULgIT9zdud dLUxhORgrPZSadaH2IPSg hUNwF8TmITNbOX0sgxjpC FV4KBLJTunwIt8cgXHnsG tcZjFcZmNoYXJzZXQwXGZ gkSezVCCkTMo0jJ0HYmcg XQP7PWIPQplfAlutyTuxv 2VjdCBcXHNnIFxcaWQgNT EwMDAgXFxkYiBPVlIgIiA 6KvRlJZU6ATAtEHz0YQwu RiCJEAUmGEydZAE5IEs1Q Xs4DFpfhfjfMEg5HKXuCT jeqBLeEY9ipJkiCjbhvGv zx4WrbMKzVSJqKFybrEHh NTEwMDIgXFxkYiBPVlIgI rI6RuGvJQS7OZLbBZu9YU jgT1NKDJVtPVF7URQuHss 0LcL4LQl8YLCSWh7hCPW2 CSnbJTIuBUarFFC3UCUiM Kw0IHDpIZsdnbMxTYqzNn dqXPyzB73ovGOpVWTQKgl wbGFpblxmczIyIEEuIERV B1RHAnAVFUGNJ6FBWSywl HJjaFxwYXIgDQpccGFyZC ANClxwbGFpblxsdHJjaFx zwwSkNPAlwGDTOIZ9ET1b KOQBDqefxMKmZHPbd7FrF FxlcGljWHNhMzAgDQpcZn MyMCBSZWNlaXZlZCBpbiB hb5LmDFhnlrHbftUfyVPl lSinfXYphPszI6TnBQ3tO MXykh6dui44bhqop54huB R7yILgdUMfEJibwhZlCAQ nigifrN2gNP0mQRczWJ2u VRizNM5wBZFyWjFBt2Vbr Sz8SPA0Gv6myVRtXYGcpm QlalTpM8Xid3I2kNDsDMz lFOQtZ72as9YGw8Hch8ik tVqpk9HprTEkVL8xeLMwT A1Ev6avBSMkqWBqJAB5GC uax5fuBUvtEXP0QOHgQuO xPJYkAM0BFtJcQTDvMKO8 GMb5XiN1QKy4DCYZNuYpF rTeBWM3EVW5OVbyVNk5CF p9EBvEZpYyFJc7ZpL8NSO 5SLT7KTK8MVPwRXIeZmYx DJNlGNHkIEwdiKPgQD6zj WvoEFBeVBUqLRN4CJLzqH QEy7AiLJRhEKueSaVsAyC PRfSPZJ4YENNNCZIYK7XJ WVxwYXIgDQpccGFyZCANC lxwbGFpblxsdHJjaFxmcz VcFQTveRTLVON5CU2sUNS AVmlgaZRwWBQkj4WgYHtc qHlkJPUjReAaj9LdQWers GljWHNhMzAgDQpcZnMyMC TPGNHzaDJyAWDbgvXmd5U tYWxpbiBhcmUgbXVsdGlw gAOszIxfE3UtUC7kVESds mnxg88glYY7qGKhwULdPH qaooDoDTNnzncaiF8wPb9 vDVqiIQ2fMQuqGH3oUTBg JqNUg9CkfPe9WYT2Cc6dm EGvESYwrvLktxGfW6Acx7 J6sFTdBGfvJBKpA20pf3E Iy5Myr8qunTfld0TicXMv DQ7uqNTyXB0Sm4tvLAZik QQlJZG9VCssd6wvAKxjSS N6AZUxKhPsPMBaQP4AWeZ sSRVzZJF0XYa6OeL1CEw7 YBJFGuYvGeEfSGQ4LDL2U dAsXRa0KId1XNmSJjNoVD w1KrU2OQT2VEH3AYH7UFU cXHQgMiBcXHNzIDMgXFxm kUYrET4oyBgwFWPwQZSlA SO6PZSzuPEAq2OqFPXlYF ywEqNiZeCEXrPEG53AHBC DJ2kTM9POIFZeQrTZE2KP W92iHesCSOFQEOSgkkAGD ndaFTIiHU7OTUZxMOhjDN e9beIfBKHiZqJjMLWiZ02 zq4KUp0TuMM2GBJu5ssYc dskvLnMcXEDimPVPb2BfX YqcVCMqMHOixZZAa2RfWS KZCpkmmpUvOQXnL3HdopW eWYkcNISari0tmKqsMJyz ED1sUTIxrXIqNHElFgW7S R2lw2uamEFgSIRlTmTzvQ gwl2MuIC9dGNH8fereNcL wLjUgeCAwLjIgeCAwLjIg C73kGUNkqVDxdNhbw1Fnx Vu5yMElTRwgBJ0oVKKqSU YcJDX7FG1CXwuqtNkuYiG zcWUmEeZ7CQNcyOXjRYX0 HA9roHavJLNjBPw0DUwcU EMxM5EeV9VdVPpyYbZdUG wjEHUaYBVeBWbhYHHwK2M LJCXtSPKiIYm4WYKfNQj3 OOl9CP3VZxSrOFQ1QFEbU wDuHcBlKOf4IJlvWJ7TCL YdPGV0XNR8ZxE6SSF5Pjt gAMkwoTPySNfqv4NtPvUx ELFuBZhlelT9VVEyoiTqj 4WgXRRvXLZjX5wlWcSwIR ANClxmczIyIEQuIENPTE9 TSJGCV6vMZKPZO8ZTHRon YXIgDQpccGFyZCANClxwb GFpblxsdHJjaFxmczIyXG GeqPEJJMP7TH5wOVPURjm heKGtTOTry0NuOWadcCas NGRhWeNfr7YgAZfxlMvyQ HNhMzAgDQpcZnMyMCBSZW QtsLUcCXBbatFcr3HqZUe pbiBhcmUgbXVsdGlwbGUg eHgwV5HnPN2tQFUvioltm 64fuJI8wXRvqSHfZSdnbn UnXAVbcdrlkV0kMK82BDw zFB39JAdwOG4qXPFsTrPO j2TcqRr6NBF9Nf7lxFQwZ QZqzrB2k55dX8Qbq8O5jY RpZr8RCXTelQHAZJJ4UP2 qKIjmCLLoQ3NsV1ZjsyT7 XHBhciANCntcKlxlcGljc 2VjdCBcXHNnIFxcaWQgNT EwMDIgXFxkYiBPVlIgIiA 1SkUoBKS6WBDiGGp0UVrx D4SUUURaTNU5PKIoBiTrF oE4YGh0GJMCPo1mAMA5FA frAYX3KiYmNFA8XCKuXTo 0IDIgXFxzcyAzIFxcZmwg IKuiR09bmWPlJMnvMuXtL MfouGyiUJAhUGC8AA2CTI TxNeFoXW5bVOALLA6JXG3 VPXWYKJ6YYTTXHTuAQILm gmNZDhpjLJZxCY9AVGEvA MorCIu0zgEhJGHkImDgML ZbD18pl4QCh7YvHZ8KBVf 0cnBhclxzYjMwXGVwaWNY e2IkOTqjTBQzTWIxhEDJt 9TdHRDOIebancNdJVAnT6 DuowShREsmCAFrjj4xhEc pPCeqYT7zFXTkjCNwXJDx FzF8CS0tXSKcViGsjMpbp 9RxDE2tPDM6ujxnBcMxFr BgfJOkKpVgnVOwIcKaT63 wUESbyPZtnEufa1RnlOy6 lYEiLGiyFD1dZHLlNBXuQ BI0FX0EQviyzYepFlOybI LsCrG1YPMtmXNfBYY6YU9 ipIjmCKPiGIa8IOnqKUBw H2OoL1OjJQasUrOwFBvlE VYnQHHrJSypEWGdM5IKKQ UiALNbIJy2ZPEwGVm2BZx 5VM9IHuDrALY1BHTnLzm5 UVGtRWe9OAalWD3QVAAkE NP1LQF9RmcwJYO9FrfxWZ tyuUVnRVzsg4ChQmQrMSU eRWlqiaP0ASSlozGfq6Uf QHJfDVNpO8krGlFmHJDDU hwdgtRmNFToITFRWB9FOI xFRlQgQklPUFNZXHBhciA QSrhzWSQkQL3CNMAhFJey DMy7fvQlTEBaVdFiGGBaF 13xp5TYc0NxPG4BZQq0uc TqpomkZdXtHSNjhKQIr7I iCQQGYsqxwiWwYMUoV0Gm aeHwRXwfEYLsix2lsLjyU EMdCMQguCx4iARwAGPxrV HdKAMuu9WzeLFkDWAhf1N 8MAYuz7R5LPGbV7alXFmv dOcmOmJ2utAzGthawBRmK qKstFNgNmXwK90pXZImcC IfoHnjs5TgwCv3jVSwKTj jEZ2xPFSlEQYbTZM2ZN6t SPHgagFWLvauQNPeNVd8x nBhciANClxwYXIgDQpHcm 4hweZprYUtzE7tlDhdzaR iPWVmi6HmKKEhIAJiD0hc mtFzZH5jBNIngO7vHnexU TUwMCBFdWNsaWQgQXZlLi tbY5kahaPtCF6sWSUNIHG 7MPM0PTiaAAHzDKxccGHd WG2VGhYlOWUcOIChQtPjR HN2VbJkCKCJYCCcolYIJk znKPPeWUWewMVSu7QhPGU NClxlcGljTmVzdERvYzB7 NQDzwYObSJI1MJ9aoTmmJ TAjC5PnK7IdayO2OUWako RINhvhZJFlTM0ZGKQeKqV gDQp9 [facility] Work Phone: Performing Lab l7icwSZdHEZplPHgBoZe M NWmTSWjr2gaCVUqzZAtSm EwMzNcZnRuYmpcdWMxXGR mDmUcl1arv073oKZbp3db GGBmMzZ9wPXkOIMrwYAaS 626BWGxSKxfl0okz4KeVM YwwXNtf5G1SOSIyytqcEk 7bGlcQ54ct3K3SewgW4qb SWIkARLdY6KbTO9hODFvI nm5DML4WON2ZBRvKZReK1 GhUZ9wRFNbpJOzCMd4x2f czPozNQVmXKJ4e7owPOpi kpSsEV3jbp5naVc7u6vka zEgRGVmYXVsdCBQYXJhZ3 QtrFsgRi0okPk1zObeFjp vIEY3Jjl6QF5sip26oxh0 yPhtDOFxuoggXiR2UThlF NRsmjahKJs0RZqhTKYwtN Z5NHNghBIxP3JkUCZnUL8 tmvb0IZC4SKbbECVqSsO0 NDBcaGVhZGVyeTcyMFxmb 637KNB4PaBeXR5tD2Sja3 N5iW7mcNUkPCIxzZRgKsE jCMXvxb4kxKTjEHaac4Oa XYM0fpF7dYRtjSQaLPBwN P14Ppuxt5JsLpsxg5KqF6 5xtTJ4WBjvo8mrVQ6dVvC 1mwPnJQrhq5pkpK8pWiG0 UZdqMK7iSL9hFTCyuW5lv mxjXHBnYnJkcmhlYWRccG gglwHlCa6uqDwmKIE7ZDi fY4lqgL2eIuZ2HUadV9gh uN7nXTd8FJwseWC4JCOjs B3oGR1bhfmln3ubZJolZD ntTUPtrpI2dcO1LFFhyUF rS9SmoL1wOZHaWA2cyuuu o2amVKT8BFtzAOPbMPE6M eMhWSWpp2Buelq2UbHvx7 FetVYkPTdqX12zk919RQP fwvCkU1djsYWibyxxeIBq zbwzWCsowuH1VMOzZDMvB WluXGYxXGZzMjJcbGFuZz EwMzNcaGljaFxmMVxkYmN vEIShROcdN7rcUlHtEvDu DjRXkGWxdi6efHmnUKwqq JOozAFtzRZ9oW8kVQCrly Bkrv3mRPRwlSXUiIN6VSr ljwCfL0fhscqlXIJpnODm HQDgwT89RUEUn9WdmQHut CwgMjAwMDAgSGFydmFyZC trE1FbmfRqc5JfkKgjWAq 4kfAPWAD1OXVeHeEbTQNV CAvJXiYuIdDqQlD4LqLbO HBhclxwYXJccGFyZFxwbG OaodydHNazkuN0XVDwAHu uXGYxXGZzMjJcbGFuZzEw MzNcaGljaFxmMVxkYmNoX LXwNKziE4wcDxGnR7XyHJ MdZfFwcLGsE9iuWIAkk1H pxF6pkYCibKrrvO4oOyDf KlQaWpvuPL5lWTGhY3nfk JLyJQIqUEXbI4ypGePctS 9jaFxmMVxmczIyIERpcmV uoS8tWtBUKCPpsFgqM3K9 cmFraWFuLCBNLkQuXHBhc n0= [facility] Work Phone: [facility] Work Phone: EGD Study observation Narrat judah 07-15-2023 [facility] Gastrointestinal Endoscopy Patient Name: Torrey Campos Procedure Date: 07/15/2023 1:29 PM Date of : 1985 Admit Type: Outpatient Age: 38 Room: [place] [address] Gender: Male Note Status: Finalized Attending MD: Ashley Melgoza MD, [id number] Procedure: Upper GI endoscopy Indications: Epigastric abdominal pain Providers: Ashley Melgoza MD Patient Profile: Refer to note in patient chart for documentation of history and physical. Referring Physician: Hansa Miller (Referring MD) Medicines: Monitored Anesthesia Care Complications: No immediate complications. Requesting Provider: Procedure: Pre-Anesthesia Assessment: - Prior to the procedure, a History and Physical was performed, and patient medications and allergies were reviewed. The patient is competent. The risks and benefits of the procedure and the sedation options and risks were discussed with the patient. All questions were answered and informed consent was obtained. Patient identification and proposed procedure were verified by the physician. Mental Status Examination: alert and oriented. Airway Examination: normal oropharyngeal airway and neck mobility. Respiratory Examination: clear to auscultation. CV Examination: normal. Prophylactic Antibiotics: The patient does not require prophylactic antibiotics. Prior Anticoagulants: The patient has taken no anticoagulant or antiplatelet agents. ASA Grade Assessment: I - A normal, healthy patient. After reviewing the risks and benefits, the patient was deemed in satisfactory condition to undergo the procedure. The anesthesia plan was to use monitored anesthesia care (MAC). Immediately prior to administration of medications, the patient was re-assessed for adequacy to receive sedatives. The heart rate, respiratory rate, oxygen saturations, blood pressure, adequacy of pulmonary ventilation, and response to care were monitored throughout the procedure. The physical status of the patient was re-assessed after the procedure. After obtaining informed consent, the endoscope was passed under direct vision. Throughout the procedure, the patient's blood pressure, pulse, and oxygen saturations were monitored continuously. The Endoscope was introduced through the mouth, and advanced to the third part of duodenum. I was present and participated during the entire procedure, including non-chicas portions, and during the administration and monitoring of Moderate Sedation. The upper GI endoscopy was accomplished without difficulty. The patient tolerated the procedure well. Moderate Sedation: MAC anesthesia was administered by the anesthesia team. Findings: The Z-line was irregular and was found 40 cm from the incisors. Biopsies were taken with a cold forceps for histology. The esophagus was normal. The stomach was normal. Biopsies were taken with a cold forceps for histology. The examined duodenum was normal. Biopsies were taken with a cold forceps for histology. Impression: - Z-line irregular, 40 cm from the incisors. Biopsied. - Normal esophagus. - Normal stomach. Biopsied. - Normal examined duodenum. Biopsied. Recommendation: - Patient has a contact number available for emergencies. The signs and symptoms of potential delayed complications were discussed with the patient. Return to normal activities tomorrow. Written discharge instructions were provided to the patient. - Await pathology resu (more content not included)... PROVATION [facility] Radiology Study observation (narrative) [facility] Flexible sigmoidoscopy study on 07-15-2023 [facility] Patient Name: Torrey Campos Procedure Date: 07/15/2023 1:29 PM Date of : 1985 Admit Type: Outpatient Age: 38 Room: [place] [address] Gender: Male Note Status: Finalized Attending MD: Ashley Melgoza MD, [id number] Procedure: Colonoscopy Indications: Change in bowel habits Providers: Ashley Melgoza MD Patient Profile: Refer to note in patient chart for documentation of history and physical. Last Colonoscopy: none. The patient's first colonoscopy is today. Referring Physician: Hansa Miller (Referring MD) Medicines: Monitored Anesthesia Care Complications: No immediate complications. Requesting Provider: Procedure: Pre-Anesthesia Assessment: - Prior to the procedure, a History and Physical was performed, and patient medications and allergies were reviewed. The patient is competent. The risks and benefits of the procedure and the sedation options and risks were discussed with the patient. All questions were answered and informed consent was obtained. Patient identification and proposed procedure were verified by the physician and the nurse. Mental Status Examination: alert and oriented. Airway Examination: normal oropharyngeal airway and neck mobility. Respiratory Examination: clear to auscultation. CV Examination: normal. Prophylactic Antibiotics: The patient does not require prophylactic antibiotics. Prior Anticoagulants: The patient has taken no anticoagulant or antiplatelet agents. ASA Grade Assessment: I - A normal, healthy patient. After reviewing the risks and benefits, the patient was deemed in satisfactory condition to undergo the procedure. The anesthesia plan was to use monitored anesthesia care (MAC). Immediately prior to administration of medications, the patient was re-assessed for adequacy to receive sedatives. The heart rate, respiratory rate, oxygen saturations, blood pressure, adequacy of pulmonary ventilation, and response to care were monitored throughout the procedure. The physical status of the patient was re-assessed after the procedure. After I obtained informed consent, the scope was passed under direct vision. Throughout the procedure, the patient's blood pressure, pulse, and oxygen saturations were monitored continuously. The Colonoscope was introduced through the anus and advanced to the terminal ileum. I was present and participated during the entire procedure, including non-chicas portions, and during the administration and monitoring of Moderate Sedation. The colonoscopy was performed without difficulty. The patient tolerated the procedure well. The quality of the bowel preparation was excellent. The terminal ileum, ileocecal valve, appendiceal orifice, and rectum were photographed. Moderate Sedation: MAC anesthesia was administered by the anesthesia team. MAC anesthesia was administered by the anesthesia team. Findings: The perianal and digital rectal examinations were normal. The terminal ileum appeared normal. A 3 mm polyp was found in the ascending colon. The polyp was sessile. The polyp was removed with a cold biopsy forceps. Resection and retrieval were complete. A few diverticula were found in the entire colon. The exam was otherwise without abnormality on direct and retroflexion views. Biopsies for histology were taken with a cold forceps from the right colon and left colon for evaluation of microscopic colitis. Impression: - The examined portion of the ileum was normal. - One 3 mm polyp in the ascending colon, removed (more content not included)... PR[facility] Radiology Study observation (narrative) [facility] EXERCISE STRESS ECG (WITHOUT IMAGING)on 06-09-2023 EXERCISE STRESS ECG (WITHOUT IMAGING) Stress Manager Bank Report: Exercise Stress ECG (without Imaging) [facility] Date of service: 06/09/2023 12:32:26 PM Supervising physician: Vargas Thakkar DO PATIENT: Name: MR. TORREY CAMPOS Age: 37 years Gender: M The supervising physician was in the department and immediately available. Final -------- Stress ECG Report: Exercise Stress ECG (without Imaging) [facility] Date of service: 06/09/2023 12:32:26 PM Ordering physician: KIM CESPEDES online banking specialist: Svitlana Ferreira Sexual Assault Counsellor: Opal Carey Interpreting physician: Fernando Granados MD Patient name: MR. TORREY CAMPOS Age: 37 years Gender: M Indication: Chest pressure / Chest tightness Stress ECG Conclusion: Conclusion: Normal Stress ECG Summary: The patient's resting heart rate was 98 bpm and blood pressure was 140/92 mmHg. The patient exercised according to the Samm protocol. The estimated end-exercise MET level achieved using the FRIEND equation was 9.8, which is within the 10th to 25th percentile for age and sex. The estimated end-exercise MET level achieved using the previous ACSM equation was 12.4. The test was terminated due to end of protocol and the total exercise time was 11 minutes and 0 seconds. Other symptoms during the test included SOB. The maximum heart rate was 171 bpm, which is 94% of the predicted heart rate for age. Peak blood pressure was 184/84 mmHg. The double product achieved [place] [address]. Medications: Last Used PEPCID Resting ECG: Normal Sinus Rhythm Symptoms at rest: Chest Discomfort Exercise Protocol: Samm Stress Exercise Table: +-----+ +-- ------+ +--- +---+---+----+----+ Stage Speed (MPH) Grade(%) Time (min) HR SYS GERARD RPE METS +-----+ +-- ------+ +--- +---+---+----+----+ 1 1.7 10.0 3.0 137 160 86 13.0 4.2 +-----+ +-- ------+ +--- +---+---+----+----+ 2 2.5 12.0 6.0 146 170 86 13.0 6.1 +-----+ +-- ------+ +--- +---+---+----+----+ 3 3.4 14.0 9.0 160 182 90 15.0 8.3 +-----+ +-- ------+ +--- +---+---+----+----+ +-----+ +-- -------+ +-- -+---+---+----+----+ Speed (MPH) Grade (%) Time (min) HR SYS GERARD RPE METS +-----+ +-- -------+ +-- -+---+---+----+----+ Final 4.2 16.0 11.00 171 184 84 18.0 9.8 +-----+ +-- -------+ +-- -+---+---+----+----+ Recovery Table: +------+ +-- -+---+---+ Stage Time (min) HR SYS GERARD +------+ +-- -+---+---+ 1 1.0 151 176 82 +------+ +-- -+---+---+ 2 2.0 131 148 86 +------+ +-- -+---+---+ 3 3.0 123 142 80 +------+ +-- -+---+---+ 4 5.0 113 136 86 +------+ +-- -+---+---+ Stress Observations: Resting HR: 98 bpm Peak HR: 171 bpm (94% MPHR) Resting BP: 140 / 92 mmHg Peak BP: 184 / 84 mmHg Total Exercise Time: 11 minutes 0 seconds METS achieved: 9.8 Chronotropic response index (CRI): 0.87 Heart rate recovery (HRR): 20 bpm Rate Pressure Product (RPP): 67459 Campbell Treadmill Score: 11.0 Stress Exercise Observations: Reason for test termination: end of protocol, Symptoms during test: Other symptoms during the test included SOB, Heart rate response: Normal CRI (>0.8 Not on B Grant) and Normal HRR (>12 or >[address]/EC), Blood pressure response: Normal BP response, ST segment and T wave changes: No ST changes, Campbell Treadmill Score: Normal Campbell Treadmill Score (>=5) and Arrhythmias: No arrhythmias Comments: Patient started with Chest Tightness of 2 which remained constant throughout stress test. IMPORTANT NOTE REGARDING ESTIMATED MET VALUES: Effective 04/20/2020, the reference equation for determining estimated MET values for [facility] stress tests changed. Comparison of test results before and after that date may show a change in estimated MET values for peak/max exercise despite a test duration that is similar in length. The validity of the new FRIEND equation for exercise METS is endorsed by the [place] Heart Association. Mar P, Keith LA, Teo R, Jose J, Carmela Perez. New Generalized Equation for Predicting Maximal Oxygen Uptake (from the Fitness Registry and the Importance of Exercise National Database). The [place] Journal of Cardiology. 2017;120(4):688-692). Final CC [employer] Medical Image : [id number]. [id number] [id number] See Link below for Image Normal [facility] CNPKatelyn 06-08-2023 CNPN Telephone (CDLBME) TORREY CAMPOS ([id number]) 1985 M Date Time Provider Department 06/08/23 OPAL CAREY CDLBME During your visit today, we recorded the following information about you: Opal Carey RN 06/08/2023 2:07 PM Signed Spoke with patient regarding reminder for stress test tomorrow and given instructions. Allergies As of Date: 06/08/2023 (No Known Allergies) Date Reviewed: 05/30/2023 Reviewed by: Lucia Salgado OCCA - Fully Assessed Reason for Visit: Reminder Call [[id number]] Prescriptions as of 06/08/2023 - famotidine (PEPCID) 20 mg tablet Take 1 tablet by mouth two times a day. - calcium phosphate dibas/vit D3 (VITAMIN D, WITH CALCIUM, ORAL) Take by mouth. Problem List As Of Date: 06/08/2023 (None) Encounter Status:Closed by OPAL CAREY on 06/08/23 [facility] Absolute lymphocyte countOrd ered By: Felipe Valera on 05-26-2023 Lymphocytes Auto (Unsp spec) [#/Vol] 1.12 10*3/uL 0.83-4.51 [facility] Basic Metabolic Profile (BMP )on 05-26-2023 BUN/CRE 14.3 RATIO Normal - [facility] Comment on above: Order Comment: 'TROP ' Serial specimen #1, #2 or #3: 1 Performed By: #### L 501.4020, L100.0100, L500.2500 #### [facility] [address] [place], [address] CA,Total 8.8 mg/dL Normal 8.5-10.1 [facility] Comment on above: Order Comment: 'TROP ' Serial specimen #1, #2 or #3: 1 Performed By: #### L 501.4020, L100.0100, L500.2500 #### [facility] [address] [place], [address] Chloride [Moles/Vol] 105 mmol/L Normal 98-107 [facility] Comment on above: Order Comment: 'TROP ' Serial specimen #1, #2 or #3: 1 Performed By: #### L 501.4020, L100.0100, L500.2500 #### [facility] [address] [place], [address] CO2 [Moles/Vol] 27.0 mmol/L Normal 21.0-32.0 [facility] Comment on above: Order Comment: 'TROP ' Serial specimen #1, #2 or #3: 1 Performed By: #### L 501.4020, L100.0100, L500.2500 #### [facility] [facility] [address] [place], [address] Creatinine [Mass/Vol] 0.98 mg/dL Normal 0.70-1.30 [facility] Comment on above: Order Comment: 'TROP ' Serial specimen #1, #2 or #3: 1 Result Comment: The validity of the calculated GFR GFRAA in patients over 70 years has not been determined. Clinical correlation is essential. Performed By: #### L 501.4020, L100.0100, L500.2500 #### [facility] [address] [place], [address] ECRCL 113.28 ml/min Normal [facility] Comment on above: Order Comment: 'TROP ' Serial specimen #1, #2 or #3: 1 Performed By: #### L 501.4020, L100.0100, L500.2500 #### [facility] [address] [place], [address] EST GFR - AA 110 mL/min Normal >60 [facility] Comment on above: Order Comment: 'TROP ' Serial specimen #1, #2 or #3: 1 Result Comment: Afri can [place] GFR Calc Performed By: #### L 501.4020, L100.0100, L500.2500 #### [facility] [address] [place], [address] GAP 7 Normal 5-15 [facility] Comment on above: Order Comment: 'TROP ' Serial specimen #1, #2 or #3: 1 Performed By: #### L 501.4020, L100.0100, L500.2500 #### [facility] [address] [place], [address] GFR/1.73 sq M.predicted among non-blacks MDRD (S/P/Bld) [Vol rate/Area] 91 mL/min/{1.73_m2} Normal >60 [facility] Comment on above: Order Comment: 'TROP ' Serial specimen #1, #2 or #3: 1 Result Comment: Non- GFR Calc Performed By: #### L 501.4020, L100.0100, L500.2500 #### [facility] [address] [place], [address] Glucose [Mass/Vol] 142 mg/dL High 74-106 [facility] Comment on above: Order Comment: 'TROP ' Serial specimen #1, #2 or #3: 1 Result Comment: Fast ing Glucose result greater than or equal to 126 mg/dL suggests DIABETES MELLITUS per A.D.A. criteria. Performed By: #### L 501.4020, L100.0100, L500.2500 #### [facility] [address] [place], [address] Potassium [Moles/Vol] 3.6 mmol/L Normal 3.5-5.1 [facility] Comment on above: Order Comment: 'TROP ' Serial specimen #1, #2 or #3: 1 Performed By: #### L 501.4020, L100.0100, L500.2500 #### [facility] [address] [place], [address] Sodium [Moles/Vol] 139 mmol/L Normal 136-145 [facility] Comment on above: Order Comment: 'TROP ' Serial specimen #1, #2 or #3: 1 Performed By: #### L 501.4020, L100.0100, L500.2500 #### [facility] [address] [place], [address] Urea nitrogen [Mass/Vol] 14 mg/dL Normal 7-18 [facility] Comment on above: Order Comment: 'TROP ' Serial specimen #1, #2 or #3: 1 Performed By: #### L 501.4020, L100.0100, L500.2500 #### [facility] [address] [place], [address] Basophil percentageOrdered B y: Felipe Valera on 05-26-2023 Basophils/100 WBC (Bld) 0.9 % 0-1 [facility] Chloride [Moles/Vol] 105 mmol/L 98-107 [facility] Eosinophils/100 WBC (Bld) 1.5 % 0-5 [facility] Glucose [Mass/Vol] 142 mg/dL 74-106 [facility] Comment on above: Fasting Glucose resu lt greater than or equal to 126 mg/dL suggests DIABETES MELLITUS per A.D.A. criteria. Neutrophils (Bld) [#/Vol] 3.1 10*3/uL 2.0-7.7 [facility] Neutrophils/100 WBC (Bld) 65.8 % 47-70 [facility] Potassium [Moles/Vol] 3.6 mmol/L 3.5-5.1 [facility] Sodium [Moles/Vol] 139 mmol/L 136-145 [facility] WBC (Bld) [#/Vol] 4.6 10*3/uL 4.4-11.0 [facility] Blood erythrocytes count (nu mber/volume)Ordered By: Felipe Valera on 05-26-2023 RBC (Bld) [#/Vol] 4.88 10*6/uL 4.6-6.2 [facility] Blood hemoglobin measurement (mass/volume)Ordered By: Felipe Valera on 05-26-2023 Hemoglobin (Bld) [Mass/Vol] 14.9 g/dL 13.0-16.5 [facility] Blood lymphocytes/100 leukoc ytesOrdered By: Felipe Valera on 05-26-2023 Lymphocytes/100 WBC (Bld) 24.1 % 19-41 [facility] Blood monocytes/100 leukocyt esOrdered By: Felipe Valera on 05-26-2023 Monocytes/100 WBC (Bld) 7.1 % 0-10 [facility] Blood platelet mean volumeOr dered By: Felipe Valera on 05-26-2023 Platelet mean volume (Bld) [Entitic vol] 10.4 fL 6.2-12.0 [facility] CBC W/Diff, Automatedon 05-05 Absolute Lymph 1.12 X10 3/uL Normal 0.83-4.51 [facility] Comment on above: Performed By: #### L 501.4020, L100.0100, L500.2500 #### [facility] [address] [place], [address] Absolute Neut 3.1 X10 3/uL Normal 2.0-7.7 [facility] Comment on above: Performed By: #### L 501.4020, L100.0100, L500.2500 #### [facility] [address] [place], [address] Basophils/100 WBC (Bld) 0.9 % Normal 0-1 [facility] Comment on above: Performed By: #### L 501.4020, L100.0100, L500.2500 #### [facility] [address] [place], [address] Eosinophils/100 WBC (Bld) 1.5 % Normal 0-5 [facility] Comment on above: Performed By: #### L 501.4020, L100.0100, L500.2500 #### [facility] [address] [place], [address] Erythrocyte distribution width (RBC) [Ratio] 12.9 % Normal 11.6-14.6 [facility] Comment on above: Performed By: #### L 501.4020, L100.0100, L500.2500 #### [facility] [address] [place], [address] Hematocrit (Bld) [Volume fraction] 43.0 % Normal 40-54 [facility] Comment on above: Performed By: #### L 501.4020, L100.0100, L500.2500 #### [facility] [address] [place], [address] Hemoglobin (Bld) [Mass/Vol] 14.9 g/dL Normal 13.0-16.5 [facility] Comment on above: Performed By: #### L 501.4020, L100.0100, L500.2500 #### [facility] [address] [place], [address] IG% 0.600 Normal 0.0-0.9 [facility] Comment on above: Result Comment: IG% - Immature Granulocytes (promyelocytes, myelocytes and metamyelocytes) > 1% indicates that a LEFT SHIFT is Present. Performed By: #### L 501.4020, L100.0100, L500.2500 #### [facility] [address] [place], [address] Lymphocytes/100 WBC (Bld) 24.1 % Normal 19-41 [facility] Comment on above: Performed By: #### L 501.4020, L100.0100, L500.2500 #### [facility] [address] [place], [address] MCH (RBC) [Entitic mass] 30.5 pg Normal 27.0-32.0 [facility] Comment on above: Performed By: #### L 501.4020, L100.0100, L500.2500 #### [facility] [address] [place], [address] MCHC (RBC) [Mass/Vol] 34.7 g/dL Normal 32-36 [facility] Comment on above: Performed By: #### L 501.4020, L100.0100, L500.2500 #### [facility] [address] [place], [address] MCV (RBC) [Entitic vol] 88.1 fL Normal 80-94 [facility] Comment on above: Performed By: #### L 501.4020, L100.0100, L500.2500 #### [facility] [address] [place], [address] Monocytes/100 WBC (Bld) 7.1 % Normal 0-10 [facility] Comment on above: Performed By: #### L 501.4020, L100.0100, L500.2500 #### [facility] [address] [place], [address] Neutrophils/100 WBC (Bld) 65.8 % Normal 47-70 [facility] Comment on above: Performed By: #### L 501.4020, L100.0100, L500.2500 #### [facility] [address] [place], [address] Nucleated RBC (Bld) [#/Vol] 0 10*3/uL Normal 0-5 [facility] Comment on above: Performed By: #### L 501.4020, L100.0100, L500.2500 #### [facility] [address] [place], [address] Platelet mean volume (Bld) [Entitic vol] 10.4 fL Normal 6.2-12.0 [facility] Comment on above: Performed By: #### L 501.4020, L100.0100, L500.2500 #### [facility] [address] [place], [address] Platelets (Bld) [#/Vol] 213 10*3/uL Normal 150-450 [facility] Comment on above: Performed By: #### L 501.4020, L100.0100, L500.2500 #### [facility] [address] [place], [address] RBC (Bld) [#/Vol] 4.88 10*6/uL Normal 4.6-6.2 [facility] Comment on above: Performed By: #### L 501.4020, L100.0100, L500.2500 #### [facility] [address] [place], [address] RDW SD 41.3 fl Normal 35.1-43.9 [facility] Comment on above: Performed By: #### L 501.4020, L100.0100, L500.2500 #### [facility] [address] [place], [address] WBC (Bld) [#/Vol] 4.6 10*3/uL Normal 4.4-11.0 [facility] Comment on above: Performed By: #### L 501.4020, L100.0100, L500.2500 #### [facility] [address] [place], [address] Chest 1 View (Portable)on Chest 1 View (Portable) [facility] [address] [place] [address] Chest 1 View (Portable) MR#: [id number] Acct: [id number] Name: TORREY CAMPOS Rep #: [id number] : 1985 M 37 From: Barak Tabor MD PCP: Care Physician,No Primary Status: REG ER Study: Chest 1 View (Portable) Date of Exam: 05/26/23 Exam# [id number] Ordering Dr: Felipe Valera DO [id number] STUDY: X-RAY CHEST REASON FOR EXAM: Male, 37 years old. Atypical chest pain TECHNIQUE: Single AP portable view of the chest. COMPARISON: None. FINDINGS: EKG leads overlie the chest The lungs are clear and expanded. There is no demonstrated pleural abnormality. Normal size heart. Normal mediastinum and desirae. Normal visualized pulmonary arteries. Normal visualized aortic arch and descending thoracic aorta. Normal visualized thoracic spine. Normal visualized ribs, clavicles, and shoulders. There is no demonstrated abnormality of the visualized soft tissue structures of the upper abdomen. RAD/Chest 1 View (Portable) IMPRESSION: Normal x-ray examination of the chest. Electronically Signed: Ari Tabor MD at 14:24 EST , CC: Dr. Felipe Valera, DO; No Primary Care Physician Hris Manager: Signed Normal [facility] Determination of erythrocyte mean corpuscular volume (MCV)Ordered By: Felipe Valera on 05-26-2023 MCV (RBC) [Entitic vol] 88.1 fL 80-94 [facility] Emergency Department Summary on 05-26-2023 Emergency Department Summary [facility] Medical Records Department [address] [place] [address] Emergency Department Summary 05/26/23 MR#: [id number] Acct: [id number] Name: TORREY CAMPOS Rep #: [id number] : 1985 37 From: Felipe Valera DO PCP: Care Physician,No Primary Status:REG ER Location: ED HPI History of Present Illness Chief Complaint: Chest Pain PFSH PFSH Medical History no medical history Allergy/AdvReac Type Severity Reaction Status Date / Time No Known Allergies Allergy Verified 05/26/23 13:09 EXAM Physical Exam Const Vital Signs: 05/26/23 13:09 05/26/23 13:15 05/26/23 13:15 Temperature 97 F L Temperature Source Temporal Pulse Rate 123 H 106 H Respiratory Rate 20 H 26 H Respiratory Effort Normal Non-Labored Blood Pressure 174/105 H 155/91 H Blood Pressure Mean 128 112 Pulse Ox 97 99 Oxygen Delivery Method Room Air Room Air 05/26/23 13:50 05/26/23 14:08 05/26/23 15:00 Temperature Temperature Source Pulse Rate 88 95 Respiratory Rate 16 15 Respiratory Effort Blood Pressure 143/97 H 164/96 H Blood Pressure Mean 112 118 Pulse Ox 98 97 96 Oxygen Delivery Method Room Air Room Air Room Air Heart Score History: Slightly/Non-Suspicio us ECG: Normal Age: Risk Factors: No Risk Factors Troponin: Score: 0 MDM MDM MDM Narrative Medical decision making narrative: HISTORY OF PRESENT ILLNESS: 60-hvft-mpi-year-old male presents with chest pain. Notes intermittent chest pain. Notes left arm pain. States has been ongoing for 1 week. Is not exertional. Is not pleuritic. Denies any recent fever. Denies any sick contacts. No recent cough. Notes 4 weeks ago he had self diagnosed bronchitis. Denies any lower extremity edema. Denies any bleeding diathesis. Denies any vomiting or diarrhea. Denies any personal history of methamphetamine or cocaine abuse. Notes he drinks occasionally had about 4 beers last night. Patient denies sudden onset of pain, no tearing sensation, no migratory symptoms, no new numbness, weakness or loss of sensation. Patient denies family history or personal history of Marfan syndrome or Kenroy-Danlos. The patient denies recent surgery in the last 4 weeks or immobilization in the last 3 days, denies previous diagnosis of DVT or PE, hemoptysis, unilateral leg swelling or malignancy with treatment the last 6 months. No estrogen use noted. REVIEW OF SYSTEMS: All other systems reviewed and are negative except as noted in the history of present illness. At least 10 review of systems reviewed and are negative except as noted in history of present illness. PHYSICAL EXAM: Nursing triage notes reviewed, Vital signs reviewed Constitutional: please see mdm HENT: MMM Eyes: Pupils equal round and reactive to light, Extraocular muscles intact Neck: No stridor, no JVD, full neck ROM Lungs: Clear to auscultation, No wheezing or rales. No increased work of breathing, no conversational dyspnea, no accessory muscle use, no nasal flaring. No respiratory distress noted Heart: Regular rate and rhythm, No murmurs, No rubs and No gallops, 2+ distal pulses (radial, femoral, posterior tibial) in all extremities Abdomen: Soft, there is no tenderness, rigidity, rebound or guarding, no obvious peritoneal signs, no palpable pulsatile abdominal masses, no auscultated abdominal bruit : No CVAT Extremities: No edema Neuro: No focal neurological deficits, cranial nerves II through XII intact, 5/5 strength in all extremities. Intact sensation to light touch in all extremities, 2+ reflexes bilateral patella tendons. Normal gait. No ataxia. Skin: No rash or lesions noted MEDICAL DECISION MAKING: Chief Complaint: Chest pain External records reviewed: No recent advanced imaging of the chest. No recent echocardiograms, stress test Factors affecting care: None Social determinants of health: Occasional alcohol abuse History obtained from others: Patient's Consults: none MDM Narrative: Patient is initially tachycardic and hypertensive also tachypneic but afebrile. Exam without friction rub. Pulses were symmetric. No focal lung findings. Patient was treated with aspirin normal saline initially. I considered the following differential diagnosis: ACS, arrhythmia, anemia, pericarditis electrolyte abnormality, pneumonia, pneumothorax, GI etiology, PE ALL IMAGES (IF OBTAINED) HAVE BEEN PERSONALLY REVIEWED AND INTERPRETED BY MYSELF. EKG with normal sinus rhythm, left ax deviation, no intervals, no STEMI, no stigmata of pericarditis, no WPW, ARVD or Brugada syndrome noted CBC without leukocytosis, severe anemia, no thrombocytopenia. BMP without evidence of significant electrolyte abnormalities, no anion gap, no acute kidney injury. High-sensit (more content not included)... Normal [facility] Hematocrit Auto (Bld) [Volum e fraction]Ordered By: Felipe Valera on 05-26-2023 Hematocrit (Bld) [Volume fraction] 43.0 % 40-54 [facility] L501.4020on 05-26-2023 TROPONIN-I HS 6 pg/mL Normal 3.0-78.0 [facility] Comment on above: Order Comment: 'TROP ' Serial specimen #1, #2 or #3: 2 Result Comment: Plea se Note: New Test Units and Gender Specific Reference Ranges. For more information see Policy Stat Procedure [place] High Sensitivity Troponin (TNIH) and attachments. Performed By: #### L 501.4020 #### [facility] [address] [place], [place], [address] TROPONIN-I HS 6 pg/mL Normal 3.0-78.0 [facility] Comment on above: Order Comment: 'TROP ' Serial specimen #1, #2 or #3: 1 Result Comment: Plea se Note: New Test Units and Gender Specific Reference Ranges. For more information see Policy Stat Procedure [place] High Sensitivity Troponin (TNIH) and attachments. Performed By: #### L 501.4020, L100.0100, L500.2500 #### [facility] [address] [place], [address] Laboratory - Chemistry and C hemistry - challengeOrdered By: Felipe Valera on 05-26-2023 CO2 [Moles/Vol] 27.0 mmol/L 21.0-32.0 [facility] Urea nitrogen/Creatinine [Mass ratio] 14.3 mg/mg 10-20 [facility] - Hematology and Cell countsOrdered By: Felipe Valera on 05-26-2023 Erythrocyte distribution width (RBC) [Entitic vol] 41.3 fL 35.1-43.9 [facility] Erythrocyte distribution width (RBC) [Ratio] 12.9 % 11.6-14.6 [facility] Immature granulocytes/100 WBC (Bld) 0.600 % 0.0-0.9 [facility] Comment on above: IG% - Immature Granu locytes (promyelocytes, myelocytes and metamyelocytes) > 1% indicates that a LEFT SHIFT is Present. MCH (RBC) [Entitic mass] 30.5 pg 27.0-32.0 [facility] Nucleated RBC/100 WBC (Bld) [Ratio] 0 % 0-5 [facility] MCHC Auto (RBC) [Mass/Vol]Or dered By: Felipe Valera on 05-26-2023 MCHC (RBC) [Mass/Vol] 34.7 g/dL 32-36 [facility] No Panel InformationOrdered By: Felipe Valera on 05-26-2023 Troponin I High Sensitivity 6 pg/mL 3.0-78.0 [facility] Comment on above: Please Note: New Jaida t Units and Gender Specific Reference Ranges. For more information see Policy Stat Procedure [place] High Sensitivity Troponin (TNIH) and attachments. Estimated Creatinine Clearance Calc 113.28 ml/min [facility] Estimated GFR (MDRD) Amer 110 mL/min >60 [facility] Comment on above: GFR Calc Estimated GFR (MDRD) Non-Af Amer 91 mL/min >60 [facility] Comment on above: Non- GFR Calc Platelets bldOrdered By: Radha Valera on 05-26-2023 Platelets (Bld) [#/Vol] 213 10*3/uL 150-450 [facility] Serum or plasma calcium cece urement (mass/volume)Ordered By: Felipe Valera on 05-26-2023 Calcium [Mass/Vol] 8.8 mg/dL 8.5-10.1 [facility] Serum or plasma creatinine m easurement (mass/volume)Ordered By: Felipe Valera on 05-26-2023 Creatinine [Mass/Vol] 0.98 mg/dL 0.70-1.30 [facility] Comment on above: The validity of the calculated GFR & GFRAA in patients over 70 years has not been determined. Clinical correlation is essential. Serum or plasma urea nitroge n measurement (mass/volume)Ordered By: Felipe Valera on 05-26-2023 Urea nitrogen [Mass/Vol] 14 mg/dL 7-18 [facility] Thin prep Papanicolaou smear with manual screeningOrdered By: Felipe Valera on 05-26-2023 Thin prep Papanicolaou smear with manual screening 7 5-15 [facility] NURSING PROGon 03-02-2023 NURSING PROG HNO ID: [id number] Author: Jaycee Tavera RN Service: Nursing Author Type: Registered Nurse Type: Nursing Progress Note Filed: 03/02/2023 2:01 PM Note Text: Dr. Lion at bedside for right middle finger local injection. RN at bedside, pt monitored throughout, BP 151/92 Temp 36.8 ?C (98.2 ?F) (Temporal Artery) Resp 18 SpO2 97% .Pt tolerated procedure without difficulty. [facility] OPERATIVE NOon 03-02-2023 OPERATIVE NO HNO ID: [id number] Author: Jasson Lion MD Service: Orthopaedic Surgery Author Type: Physician Type: Operative Report Filed: 03/11/2023 5:57 PM Note Text: OPERATIVE/PROCEDURE REPORT LOG ID: [id number] SURGERY/PROCEDURE DATE: 03/02/2023 INCISION/PROCEDURE START TIME: 1:58 PM INCISION CLOSE/PROCEDURE END TIME: 2:06 PM SURGEON(S)/PROCEDURAL IST(S) AND RETAIL SHIFT SUPERVISOR(S): Surgeon(s) and Role: * Jasson Lion MD - Primary Physician Sexual Assault Counsellor: Kaylee Soria PA-C Registered Nurse Machine Package Sealer: Ines Bal RN SURGERY/PROCEDURE(S): Excision soft tissue mass, right middle finger. ANESTHESIA: Local SURGERY/PROCEDURE DETAILS: Patient was clearly identified in the preoperative area marked accordingly on the right middle finger by myself. He received 2 and half cc of 1% lidocaine with 1-200,000 epinephrine for local block. No perioperative antibiotics were necessary due to a minor soft tissue procedure. Once the anesthetic was in effect, he was taken the operative suite and placed in a supine position with an armboard on the right. All other bony landmarks were appropriately padded in standard fashion. The right upper extremity was then sterilely prepped and draped in standard fashion. An appropriate timeout was conducted and all in the room were in agreement, signed consent form was on the chart. A turnicot was applied and an incision was made with a 15 blade superficially through the dermis in a longitudinal fashion directly over the soft tissue mass. 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 I was able to bluntly dissect around it to its base and remove it en bloc. Tissue was sent for pathology. Size was approximately 0.6 cm x 0.5 10.5. The turnicot was removed and hemostasis was observed with bipolar electrocautery. Closure was completed with 3-0 nylons in interrupted fashion. Xeroform gauze, a light gauze and Jonas with Coban for final bandages. There were no complications during the procedure. PRE-OP/PRE-PROCEDURE DIAGNOSIS: Right middle finger, soft tissue mass POST-OP/POST-PROCEDUR E DIAGNOSIS: Same as Preop ESTIMATED BLOOD LOSS: 0 ml SPECIMENS: Sent for permanent IMPLANTABLE DEVICES: NONE DRAINS: None COMPLICATIONS: None CLOSURE TECHNIQUE: Primary PARTICIPATION IN SURGERY/PROCEDURE: I/primary surgeon/proceduralist performed the entire procedure. SIGNATURE: Jasson Lion MD PATIENT NAME: Torrey Campos DATE: March 11, 2023 TIME: 5:53 PM [facility] SURGICAL PATHOLOGYon 023 CASE REPORT [facility] Comment on above: Order Comment: Speci men Type: TISSUE SPECIMEN Ordering Facility: [facility] Address: [address] [place] [id number] Result Comment: Surg ica Pathology Report Case: [id number] Authorizing Provider: Jasson Lion MD Collected: 03/02/2023 02:00 PM Ordering Location: [facility] Surgery Received: 03/02/2023 03:04 PM Pathologist: Maria Alejandra Sands MD Specimen: SOFT TISSUE MASS RESECTION, 1. right middle finger mass Performed By: #### S #### [facility] CLIA [id number] [address] [place] [address] [place] CLINICAL HISTORY Normal [facility] Comment on above: Order Comment: Speci men Type: TISSUE SPECIMEN Ordering Facility: [facility] Address: [address] [place] [address] Result Comment: Pre- op diagnosis: Mass of finger of right hand [R22.31] Performed By: #### S #### [facility] CLIA [id number] [address] [place] [address] [place] FINAL DIAGNOSIS Normal [facility] Comment on above: Order Comment: Speci men Type: TISSUE SPECIMEN Ordering Facility: [facility] Address: [address] [place] [address] Result Comment: A. S oft tissue, right middle finger, excision: - Tenosynovial giant cell tumor. Performed By: #### S #### [facility] CLIA [id number] [address] [place] [address] [place] FINAL PERFORMING LAB Normal [facility] Comment on above: Order Comment: Speci men Type: TISSUE SPECIMEN Ordering Facility: [facility] Address: [address] [place] [address] Result Comment: Diag nostic interpretation performed at [facility], [facility] [place] [address] CLIA# [id number] Heater Room Helper: Romel Bess M.D. Performed By: #### S #### [facility] CLIA [id number] [address] [place] [address] [place] GROSS DESCRIPTION Normal [facility] Comment on above: Order Comment: Speci men Type: TISSUE SPECIMEN Ordering Facility: [facility] Address: [address] [place] [address] Result Comment: A. S OFT TISSUE MASS RESECTION Received in formalin designated right middle finger mass is a infante-white nodule measuring 0.6 x 0.5 x 0.4 cm. The specimen is bisected revealing a solid cut surface. The specimen is totally submitted in 1 cassette. BF March 03, 2023 9:54 AM Gross examination performed at [facility], [facility] [place] [address] Performed By: #### S #### [facility] CLIA [id number] [address] [place] [address] [id number] XR Hand - right PA and Later al and Obliqueon 06-01-2022 IMPRESSION: Unremarkable right hand Hris Manager: RANDY Transcribe Date/Time: Jun 01 2022 1:38P Dictated by : VICTORIANO OMALLEY MD This examination was interpreted and the report reviewed and electronically signed by: VICTORIANO OMALLEY MD on Jun 01 2022 1:39PM [facility] DIVISION OF RADIOLOGY * * *Final Report* * * DATE OF EXAM: Jun 01 2022 1:37PM WOX [id number] - XR HAND 3V PA/LAT/OBL RT / PROCEDURE REASON: Deformity of finger of right hand * * * * Physician Interpretation * * * * PROCEDURE: Right hand INDICATION: Deformity of finger of right hand .Right middle finger DIP pain with a lump x several months without injury TECHNIQUE: XR HAND 3V PA/LAT/OBL RT COMPARISON: None FINDINGS: No acute fracture or dislocation. No osseous lesion. Joint spaces are maintained. No focal soft tissue abnormality. DIVISION OF RADIOLOGY Provider, [facility] - 06/01/2022 * * *Final Report* * * DATE OF EXAM: Jun 01 2022 1:37PM WOX [id number] - XR HAND 3V PA/LAT/OBL RT / PROCEDURE REASON: Deformity of finger of right hand * * * * Physician Interpretation * * * * PROCEDURE: Right hand INDICATION: Deformity of finger of right hand .Right middle finger DIP pain with a lump x several months without injury TECHNIQUE: XR HAND 3V PA/LAT/OBL RT COMPARISON: None FINDINGS: No acute fracture or dislocation. No osseous lesion. Joint spaces are maintained. No focal soft tissue abnormality. IMPRESSION IMPRESSION: Unremarkable right hand Hris Manager: PSCB Transcribe Date/Time: Jun 01 2022 1:38P Dictated by : VICTORIANO OMALLEY MD This examination was interpreted and the report reviewed and electronically signed by: VICTORIANO OMALLEY MD on Jun 01 2022 1:39PM EST [facility] Radiology Study [facility] (narrative[facility] XR Hand - right PA and Later al and ObliqueOrdered By: [facility] Provider on 06-01-2022 [facility] Fructose challenge (hydrogen breath test) panel (Exhl gas) [facility] Vital Signs Date Time Vital Sign Value Performing Clinician Facility 01-15-2025 15:39-0400 Body temperature 98.2 [degF] Dr. Joshua Wright DO Work Phone: [facility] 01-15-2025 15:39-0400 Diastolic blood pressure 96 mm[Hg] Dr. Joshua Wright DO Work Phone: [facility] 01-15-2025 15:39-0400 Heart rate 85 /min Dr. Joshua Wright DO Work Phone: [facility] 01-15-2025 15:39-0400 Respiratory rate 20 /min Dr. Joshua Wright DO Work Phone: [facility] 01-15-2025 15:39-0400 SaO2% (BldA) [Mass fraction] 100 % Dr. Joshua Wright DO Work Phone: [facility] 01-15-2025 15:39-0400 Systolic blood pressure 144 mm[Hg] Dr. Joshua Wright DO Work Phone: [facility] 01-15-2025 12:25-0400 Body height 182.[address] Joshua Wright DO Work Phone: [facility] 01-15-2025 12:25-0400 Body mass index (BMI) [Ratio] 30.9 kg/m2 Dr. Joshua Wright DO Work Phone: [facility] 01-15-2025 12:25-0400 Body weight 103.[address] Joshua Wright DO Work Phone: [facility] 01-10-2025 08:46-0400 Diastolic blood pressure 85 mm[Hg] Alex Muniz MD Work Phone: [facility] 01-10-2025 08:46-0400 Systolic blood pressure 131 mm[Hg] Alex Muniz MD Work Phone: [facility] 01-10-2025 08:04-0400 Body height 182.2 cm Alex Muniz MD Work Phone: [facility] 01-10-2025 08:04-0400 Body mass index (BMI) [Ratio] 31.82 kg/m2 Alex Muniz MD Work Phone: [facility] 01-10-2025 08:04-0400 Body weight 105.69 kg Alex Muniz MD Work Phone: [facility] 01-10-2025 08:04-0400 Heart rate 91 /min Alex Muniz MD Work Phone: [facility] 08-01-2024 08:06-0500 Diastolic blood pressure 78 mm[Hg] Alex Muniz MD Work Phone: [facility] Comment on above: Ernesto BP 08-01-2024 08:06-0500 Systolic blood pressure 114 mm[Hg] Alex Muniz MD Work Phone: [facility] Comment on above: Ernesto BP 08-01-2024 07:22-0500 Body mass index (BMI) [Ratio] 29.83 kg/m2 Alex Muniz MD Work Phone: [facility] 08-01-2024 07:22-0500 Body weight 99.07 kg Alex Muniz MD Work Phone: [facility] 08-01-2024 07:22-0500 Heart rate 104 /min Alex Muniz MD Work Phone: [facility] 08-01-2024 07:22-0500 Respiratory rate 16 /min Alex Muniz MD Work Phone: [facility] 08-01-2024 07:22-0500 SaO2% (BldA) [Mass fraction] 98 % Alex Muniz MD Work Phone: [facility] 07-30-2024 08:00-0500 Diastolic blood pressure 108 mm[Hg] Jose Antonio Golias PT Work Phone: [facility] 07-30-2024 08:00-0500 Heart rate 79 /min Jose Antonio Golias PT Work Phone: [facility] 07-30-2024 08:00-0500 Systolic blood pressure 153 mm[Hg] Jose Antonio Golias PT Work Phone: [facility] 07-23-2024 11:31-0500 Body mass index (BMI) [Ratio] 29.99 kg/m2 Flores Praisler-Wood INSPECTOR POISING.AERODYNAMIC CONSULTANT Work Phone: [facility] 07-23-2024 11:31-0500 Body temperature 98.6 [degF] Flores Praisler-Wood INSPECTOR POISING.AERODYNAMIC CONSULTANT Work Phone: [facility] 07-23-2024 11:31-0500 Body weight 99.6 kg Flores Praisler-Wood INSPECTOR POISING.AERODYNAMIC CONSULTANT Work Phone: [facility] 07-23-2024 11:31-0500 Diastolic blood pressure 74 mm[Hg] Flores Praisler-Wood INSPECTOR POISING.AERODYNAMIC CONSULTANT Work Phone: [facility] 07-23-2024 11:31-0500 Heart rate 102 /min Flores Praisler-Wood INSPECTOR POISING.AERODYNAMIC CONSULTANT Work Phone: [facility] 07-23-2024 11:31-0500 Respiratory rate 16 /min Flores Praisler-Wood INSPECTOR POISING.AERODYNAMIC CONSULTANT Work Phone: [facility] 07-23-2024 11:31-0500 SaO2% (BldA) [Mass fraction] 96 % Floresnomi Beltran INSPECTOR POISING.AERODYNAMIC CONSULTANT Work Phone: [facility] 07-23-2024 11:31-0500 Systolic blood pressure 142 mm[Hg] Flores Beltran INSPECTOR POISING.AERODYNAMIC CONSULTANT Work Phone: [facility] 07-16-2024 07:55-0500 Body mass index (BMI) [Ratio] 30.05 kg/m2 Alex Muniz MD Work Phone: [facility] 07-16-2024 07:55-0500 Body weight 99.79 kg Alex Muniz MD Work Phone: [facility] 07-16-2024 07:55-0500 Diastolic blood pressure 72 mm[Hg] Alex Muniz MD Work Phone: [facility] 07-16-2024 07:55-0500 Heart rate 85 /min Alex Muinz MD Work Phone: [facility] 07-16-2024 07:55-0500 Respiratory rate 16 /min Alex Muniz MD Work Phone: [facility] 07-16-2024 07:55-0500 SaO2% (BldA) [Mass fraction] 99 % Alex Muniz MD Work Phone: [facility] 07-16-2024 07:55-0500 Systolic blood pressure 130 mm[Hg] Alex Muniz MD Work Phone: [facility] 02-09-2024 08:26-0400 Body mass index (BMI) [Ratio] 29.05 kg/m2 Alex Muniz MD Work Phone: [facility] 02-09-2024 08:26-0400 Body temperature 97.81 [degF] Alex Muniz MD Work Phone: [facility] 02-09-2024 08:26-0400 Body weight 96.5 kg Alex Muniz MD Work Phone: [facility] 02-09-2024 08:26-0400 Diastolic blood pressure 74 mm[Hg] Aelx Muniz MD Work Phone: [facility] 02-09-2024 08:26-0400 Heart rate 91 /min Alex Muniz MD Work Phone: [facility] 02-09-2024 08:26-0400 Respiratory rate 16 /min Alex Muniz MD Work Phone: [facility] 02-09-2024 08:26-0400 SaO2% (BldA) [Mass fraction] 97 % Alex Muniz MD Work Phone: [facility] 02-09-2024 08:26-0400 Systolic blood pressure 132 mm[Hg] Alex Muniz MD Work Phone: [facility] 01-19-2024 08:59-0400 Diastolic blood pressure 82 mm[Hg] Alex Muniz MD Work Phone: [facility] Comment on above: recheck 01-19-2024 08:59-0400 Systolic blood pressure 132 mm[Hg] Alex Muniz MD Work Phone: [facility] Comment on above: recheck 01-19-2024 08:05-0400 Body mass index (BMI) [Ratio] 29.5 kg/m2 Alex Muniz MD Work Phone: [facility] 01-19-2024 08:05-0400 Body weight 97.98 kg Alex Muniz MD Work Phone: [facility] 01-19-2024 08:05-0400 Heart rate 86 /min Alex Muniz MD Work Phone: [facility] 01-19-2024 08:05-0400 Respiratory rate 16 /min Alex Muniz MD Work Phone: [facility] 01-19-2024 08:05-0400 SaO2% (BldA) [Mass fraction] 97 % Alex Muniz MD Work Phone: [facility] 01-14-2024 12:19-0400 Body mass index (BMI) [Ratio] 29.81 kg/m2 Ad Pollard APRN.AERODYNAMIC CONSULTANT Work Phone: [facility] 01-14-2024 12:19-0400 Body temperature 98.6 [degF] Ad Pollard INSPECTOR POISING.AERODYNAMIC CONSULTANT Work Phone: [facility] 01-14-2024 12:19-0400 Body weight 99 kg Adcarlos Pollard INSPECTOR POISING.AERODYNAMIC CONSULTANT Work Phone: [facility] 01-14-2024 12:19-0400 Diastolic blood pressure 104 mm[Hg] Ad Pollard INSPECTOR POISING.AERODYNAMIC CONSULTANT Work Phone: [facility] Comment on above: checked x 2 whit coat 01-14-2024 12:19-0400 Heart rate 119 /min Ad Pollard INSPECTOR POISING.AERODYNAMIC CONSULTANT Work Phone: [facility] 01-14-2024 12:19-0400 Respiratory rate 20 /min Ad Pollard INSPECTOR POISING.AERODYNAMIC CONSULTANT Work Phone: [facility] 01-14-2024 12:19-0400 SaO2% (BldA) [Mass fraction] 99 % Ad Pollard INSPECTOR POISING.AERODYNAMIC CONSULTANT Work Phone: [facility] 01-14-2024 12:19-0400 Systolic blood pressure 148 mm[Hg] Ad Pollard INSPECTOR POISING.AERODYNAMIC CONSULTANT Work Phone: [facility] Comment on above: checked x 2 whit coat 12-29-2023 14:46-0400 Body mass index (BMI) [Ratio] 28.99 kg/m2 Valerie Franco INSPECTOR POISING.AERODYNAMIC CONSULTANT Work Phone: [facility] 12-29-2023 14:46-0400 Body weight 96.3 kg Valerie Franco INSPECTOR POISING.AERODYNAMIC CONSULTANT Work Phone: [facility] 12-29-2023 14:46-0400 Diastolic blood pressure 97 mm[Hg] Valerie Franco INSPECTOR POISING.AERODYNAMIC CONSULTANT Work Phone: [facility] 12-29-2023 14:46-0400 Heart rate 93 /min Valerie Franoc INSPECTOR POISING.AERODYNAMIC CONSULTANT Work Phone: [facility] 12-29-2023 14:46-0400 Systolic blood pressure 145 mm[Hg] Valerie Franco INSPECTOR POISING.AERODYNAMIC CONSULTANT Work Phone: [facility] 07-15-2023 14:24-0500 Diastolic blood pressure 81 mm[Hg] Ashley Melgoza MD Work Phone: [facility] 07-15-2023 14:24-0500 Heart rate 75 /min Ashley Melgoza MD Work Phone: [facility] 07-15-2023 14:24-0500 Respiratory rate 16 /min Ashley Melgoza MD Work Phone: [facility] 07-15-2023 14:24-0500 SaO2% (BldA) [Mass fraction] 96 % Ashley Melgoza MD Work Phone: [facility] 07-15-2023 14:24-0500 Systolic blood pressure 130 mm[Hg] Ashley Melgoza MD Work Phone: [facility] 07-15-2023 14:10-0500 Body temperature 97.5 [degF] Ashley Melgoza MD Work Phone: [facility] 07-15-2023 13:15-0500 Body height 182.2 cm Ashley Melgoza MD Work Phone: [facility] 07-15-2023 13:15-0500 Body mass index (BMI) [Ratio] 28.68 kg/m2 Ashley Melgoza MD Work Phone: [facility] 07-15-2023 13:15-0500 Body weight 95.25 kg Ashley Melgoza MD Work Phone: [facility] 05-30-2023 08:48-0500 Body weight 96.53 kg Kim Cespedes INSPECTOR POISING.AERODYNAMIC CONSULTANT Work Phone: [facility] 05-30-2023 08:48-0500 Diastolic blood pressure 88 mm[Hg] Kim Podlogar INSPECTOR POISING.AERODYNAMIC CONSULTANT Work Phone: [facility] 05-30-2023 08:48-0500 Heart rate 86 /min Kim Podlogar INSPECTOR POISING.AERODYNAMIC CONSULTANT Work Phone: [facility] 05-30-2023 08:48-0500 Respiratory rate 18 /min Kim Podlogar INSPECTOR POISING.AERODYNAMIC CONSULTANT Work Phone: [facility] 05-30-2023 08:48-0500 SaO2% (BldA) [Mass fraction] 99 % Kim Podlogar INSPECTOR POISING.AERODYNAMIC CONSULTANT Work Phone: [facility] 05-30-2023 08:48-0500 Systolic blood pressure 133 mm[Hg] Kim Podlogar INSPECTOR POISING.AERODYNAMIC CONSULTANT Work Phone: [facility] 05-26-2023 15:00-0500 Diastolic blood pressure 96 mm[Hg] [facility] 05-26-2023 15:00-0500 Heart rate 95 /min [facility] 05-26-2023 15:00-0500 Respiratory rate 15 /min [facility] 05-26-2023 15:00-0500 SaO2% (BldA) [Mass fraction] 96 % [facility] 05-26-2023 15:00-0500 Systolic blood pressure 164 mm[Hg] [facility] 05-26-2023 13:09-0500 Body height 182.88 cm [facility] 05-26-2023 13:09-0500 Body mass index (BMI) [Ratio] 29.5 kg/m2 [facility] 05-26-2023 13:09-0500 Body temperature 97 [degF] [facility] 05-26-2023 13:09-0500 Body weight 98.56 kg [facility] Encounters Encounter Date Encounter Type Care Provider Facility Start: 01-15-2025 End: 01-15-2025 Emergency department patient visit Dr. Joshua Wright DO Work Phone: -Emergency Department Work Phone: Start: 01-14-2025 End: 01-14-2025 ambulatory Alex Muniz MD Work Phone: [facility] Comment on above: making sense of test s results Start: 01-11-2025 End: 01-11-2025 Patient encounter procedure Ashu Eden Mckeer OD Work Phone: Ophthalmology Comment on above: Blurred vision (Prim daljit Dx); Subjective visual disturbance Start: 01-11-2025 End: 01-11-2025 ambulatory ALEX MUNIZ Facility:[facility] Start: 01-10-2025 End: 01-10-2025 Follow-up encounter Alex Muniz MD Work Phone: [facility] Start: 01-10-2025 End: 01-10-2025 ambulatory ALEX MUNIZ Facility:[facility] Start: 01-10-2025 End: 01-10-2025 Subsequent hospital visit by physician [facility] (I-Stat/1.5t) Work Phone: Radiology Comment on above: Amaurosis fugax [G45 .3] Start: 01-10-2025 End: 01-10-2025 Patient encounter procedure Alex Muniz MD Work Phone: [facility] Comment on above: Amaurosis fugax (Alysa jacques Dx); Transient visual loss of both eyes Start: 01-10-2025 End: 01-10-2025 ambulatory ALEX MUNIZ Facility:[facility] Start: 08-27-2024 End: 08-27-2024 ambulatory Jose Antonio Carl PT Work Phone: [facility] Comment on above: Chronic upper back p ain (Primary Dx) Start: 08-13-2024 End: 08-13-2024 ambulatory Yolanda Kashuba [employer] Work Phone: [facility] Comment on above: Chronic upper back p ain (Primary Dx) Start: 08-06-2024 End: 08-06-2024 ambulatory Yolanda Kashuba [employer] Work Phone: [facility] Comment on above: Chronic upper back p ain (Primary Dx) Start: 08-01-2024 End: 08-01-2024 ambulatory ALEX MUNIZ Facility:[facility] Start: 08-01-2024 End: 08-01-2024 Patient encounter procedure Alex Muniz MD Work Phone: [facility] Comment on above: Elevated BP without diagnosis of hypertension (Primary Dx) Start: 07-30-2024 End: 07-30-2024 ambulatory Jose Antonio Carl PT Work Phone: [facility] Comment on above: Chronic upper back p ain Start: 07-23-2024 End: 07-23-2024 Subsequent hospital visit by physician [facility] Work Phone: Radiology Comment on above: Acute cough [R05.1] Start: 07-23-2024 End: 07-23-2024 ambulatory ALEX MUNIZ Facility:[facility] Start: 07-23-2024 End: 07-23-2024 Patient encounter procedure Flores Beltran APRN.CNP Work Phone: [facility] Comment on above: Acute cough (Primary Dx); Bacterial pneumonia Start: 07-17-2024 End: 07-24-2024 Telephone encounter Alex Muniz MD Work Phone: [facility] Comment on above: Results Start: 07-16-2024 End: 07-16-2024 ambulatory ALEX MUNIZ Facility:[facility] Start: 07-16-2024 End: 07-16-2024 Patient encounter procedure Alex Muniz MD Work Phone: [facility] Comment on above: Annual physical exam (Primary Dx); Chronic upper back pain; Gastroesophageal reflux disease without esophagitis; Alcohol consumption binge drinking Start: 07-05-2024 End: 07-05-2024 Refill Hansa Delaney PA-C Work Phone: [facility] Comment on above: Refill Request Start: 06-11-2024 End: 07-24-2024 Telephone encounter Alex Muniz MD Work Phone: [facility] Start: 02-23-2024 End: 07-24-2024 Telephone encounter Alex Muniz MD Work Phone: [facility] Comment on above: Results Start: 02-22-2024 End: 02-22-2024 ambulatory ALEX MUNIZ Facility:[facility] Start: 02-09-2024 End: 02-09-2024 Patient encounter procedure Alex Muniz MD Work Phone: [facility] [place] Comment on above: Left flank pain (Alysa jacques Dx); Upper back pain; Other chest pain; Generalized abdominal pain; Gross hematuria Start: 02-09-2024 End: 02-09-2024 ambulatory ALEX MUNIZ Facility:[facility] Start: 01-20-2024 Telephone encounter Esteban Muniz MD Work Phone: [facility] [place] Comment on above: Results Start: 01-19-2024 End: 01-19-2024 ambulatory ALEX MUNIZ Facility:[facility] Start: 01-19-2024 End: 01-19-2024 Subsequent hospital visit by physician [facility] Work Phone: Radiology Comment on above: Gross hematuria [R31 .0] Start: 01-19-2024 End: 01-19-2024 ambulatory ALEX MUNIZ Facility:[facility] Start: 01-19-2024 End: 01-19-2024 Patient encounter procedure Alex Muniz MD Work Phone: [facility] [place] Comment on above: Gross hematuria (Alysa jacques Dx) Start: 01-19-2024 End: 01-19-2024 ambulatory ALEX MUNIZ Facility:[facility] Start: 01-15-2024 Telephone encounter Logan Francis PA Work Phone: [facility] Comment on above: Results Start: 01-14-2024 End: 01-14-2024 Patient encounter procedure Ad Pollard APRN.CNP Work Phone: [facility] Comment on above: Microscopic hematuri a (Primary Dx) Start: 01-01-2024 Refill Hansa Sourav on PA-C Work Phone: [facility] Comment on above: Refill Request Start: 12-30-2023 ambulatory VALERIEDavid CHOISON Facilit y:[facility] Start: 12-30-2023 End: 12-30-2023 Subsequent hospital visit by physician [facility] Comment on above: Testicular swelling, right [N50.89] Start: 12-29-2023 End: 12-29-2023 Patient encounter procedure Valerie Franco INSPECTOR POISING.AERODYNAMIC CONSULTANT Work Phone: Urology Comment on above: Testicular swelling, right (Primary Dx); Testicular discomfort; Urinary tract infection without hematuria, site unspecified Start: 08-23-2023 End: 08-23-2023 Patient encounter procedure Stoney Farias MD Work Phone: [facility] Start: 08-23-2023 End: 08-23-2023 ambulatory Stoney Farias MD Work Phone: Gastroenterology Comment on above: Gas retest of calprotect in and other tests Start: 08-22-2023 End: 08-22-2023 Nursing evaluation of patient and report Nurse [employer] Work Phone: [facility] Comment on above: LUQ pain; Diarrhea, unspecified type Start: 08-16-2023 End: 08-16-2023 ambulatory Stoney Farias MD Work Phone: Gastroenterology Comment on above: Gas Start: 08-16-2023 End: 08-16-2023 Patient encounter procedure Stoney Farias MD Work Phone: [facility] Start: 08-15-2023 End: 08-15-2023 Nursing evaluation of patient and report Nurse [employer] Work Phone: [facility] Comment on above: LUQ pain; Diarrhea, unspecified type Start: 07-15-2023 End: 07-15-2023 Subsequent hospital visit by physician Ashley Melgoza MD Work Phone: Ambulatory Surgery Comment on above: Other chest pain [R0 7.89] Start: 06-10-2023 Telephone encounter Kim skaggs APRN.AERODYNAMIC CONSULTANT Work Phone: [facility] Comment on above: Patient Update Start: 06-09-2023 ambulatory ALEX MUNIZ Facility:[facility] Start: 06-09-2023 End: 06-09-2023 Subsequent hospital visit by physician [facility] 2 [facility] Work Phone: Cardiology Lab Comment on above: Chest pain, unspecif ied type [R07.9] Start: 06-08-2023 Telephone encounter Opal honeycutt medical practice manager Lab Comment on above: Reminder Call Start: 06-03-2023 ambulatory Kim Cespedes APRN.AERODYNAMIC CONSULTANT Work Phone: [facility] Comment on above: echo test result que stion Start: 06-02-2023 Telephone encounter Esteban Muniz MD Work Phone: [facility] Start: 05-30-2023 End: 05-30-2023 Patient encounter procedure Kim Cespedes APRN.AERODYNAMIC CONSULTANT Work Phone: [facility] Comment on above: Chest pain, unspecif ied type (Primary Dx); Screening for hyperlipidemia Start: 05-26-2023 End: 05-26-2023 Emergency department patient visit Felipe Soto Facility:[facility] Start: 05-26-2023 End: 05-26-2023 Emergency department patient visit [facility] Department Work Phone: Start: 04-11-2023 End: 04-11-2023 Patient encounter procedure Jasson Lion MD Work Phone: Orthopaedics Comment on above: Mass of finger of ri ght hand (Primary Dx) Start: 03-14-2023 End: 03-14-2023 Patient encounter procedure Kaylee Soria PA-C Work Phone: Orthopaedics Comment on above: Mass of finger of ri ght hand (Primary Dx) Start: 03-02-2023 End: 03-02-2023 ambulatory JASSON LION Facility:[facility] Start: 02-21-2023 Telephone encounter Jasson knox MD Work Phone: Orthopaedics Comment on above: Schedule Surgery Start: 02-21-2023 End: 02-21-2023 Patient encounter procedure Jasson Lion MD Work Phone: Orthopaedics Comment on above: Finger mass, right ( Primary Dx) Start: 12-15-2022 End: 12-15-2022 Subsequent hospital visit by physician Kendra Dickerson (1.5t) [facility] Comment on above: Finger mass, right [ R22.31] Start: 12-02-2022 End: 12-02-2022 Patient encounter procedure Codi Dolanmaria luisaermias DO Work Phone: Orthopaedics Comment on above: Finger mass, right Start: 11-30-2022 Telephone encounter Lashae valerio APRN.AERODYNAMIC CONSULTANT Work Phone: Family [facility] [place] Comment on above: Consult Start: 06-27-2022 [facility] (Vis it Summary) Citizen Of [place] [facility] Provider External-Non[facility] Comment on above: COVID-19 Start: 06-27-2022 External Contact Citizen Of [place] [facility] Provider EXTERNAL-NON [facility] Start: 06-11-2022 Telephone encounter Lashae valerio APRN.AERODYNAMIC CONSULTANT Work Phone: Family [facility] [place] Comment on above: Results Start: 06-08-2022 End: 06-08-2022 Subsequent hospital visit by physician [facility] Comment on above: Deformity of finger of right hand [M20.001] Start: 06-01-2022 End: 06-01-2022 Subsequent hospital visit by physician [facility] [place] Work Phone: Radiology Comment on above: Deformity of finger of right hand [M20.001] Procedures Date Procedure Procedure Detail Performing Clinician Start: 01-15-[address] Joshua Wright DO Work Phone: Start: 01-15-2025 CT of head without contrast Dr. Joshua Wright DO Work Phone: Start: 01-11-2025 Computerized ophthalmic imaging retina Ashu Dupree OD Work Phone: Start: 01-10-2025 Mri brain brain stem w/o contrast material Alex Muniz MD Work Phone: Start: 07-23-2024 Radiologic exam chest 2 views Flores Espino INSPECTOR POISING.AERODYNAMIC CONSULTANT Work Phone: Start: 07-16-2024 Lipid 1996 panel - Serum or Plasma Flores Beltran INSPECTOR POISING.AERODYNAMIC CONSULTANT Work Phone: Start: 01-19-2024 Us retroperitoneal real time w/image complete Alex Muniz MD Work Phone: Start: 01-14-2024 Urnls dip stick/tablet rgnt auto w/o microscopy Ad Pollard INSPECTOR POISING.AERODYNAMIC CONSULTANT Work Phone: Start: 08-22-2023 Breath hydrogen/methane test Hansa lai PA-C Work Phone: Start: 08-16-2023 Breath hydrogen/methane test Hansa lai PA-C Work Phone: Start: 07-15-2023 Level iv surg pathology gross&microscopic exam Ashley Melgoza MD Work Phone: Start: 07-15-2023 Esophagogastroduodenoscopy transoral diagnostic Hansa Delaney PA-C Work Phone: Start: 07-15-2023 Colonoscopy flx dx w/collj spec when pfrmd Hansa Delaney PA-C Work Phone: Start: 07-15-2023 Colonoscopy Nurse [facility] Work Phone: Start: 06-09-2023 Cv strs tst xers&/or rx cont ecg trcg only Kim Cespedes INSPECTOR POISING.AERODYNAMIC CONSULTANT Work Phone: Start: 06-01-2023 Lipid 1996 panel - Serum or Plasma Tyrone Muniz MD Work Phone: Start: 05-26-2023 Plain chest X-ray Start: 06-01-2022 Radex hand minimum 3 views Lashae coy APRN.AERODYNAMIC CONSULTANT Work Phone: Plan of Treatment Date Care Activity Detail Author Start: 07-15-2030 Screening for malignant neoplasm of colon [facility] Start: 07-16-2029 Lipid panel Lipid Screening [facility] Start: 07-15-2028 Screening for malignant neoplasm of colon [facility] Start: 06-01-2028 Lipid 1996 panel - Serum or Plasma Lipid Screening [facility] Start: 06-01-2028 Lipid panel Lipid Screening [facility] Start: 03-27-2028 Urine microalbumin profile [facility] Start: 01-13-2026 End: 01-13-2026 Patient encounter procedure 01/13/2026 10:15 AM EDT Office Visit [facility] [address] [place] [address] Ashu Dupree, OD [address] [place] [address] Diagnostics, [facility] [address] [address] 1 yr-complete eye exam. Ophthalmology Comment on above: 1 yr-complete eye exam. Start: 07-16-2025 Anxiety Screening Anxiety Screening [facility] Comment on above: Postponed from 2003 (Declined at t his time) Start: 03-04-2025 Influenza vaccination Influenza Vaccine (#[facility]) [facility] Start: 01-15-2025 [facility] Start: 01-11-2025 End: 01-11-2025 Patient encounter procedure 01/11/2025 10:30 AM EDT Office Visit [facility] [address] [place] [address] Ashu Dupree, OD [address] [place] [address] Diagnostics, [facility] [address] [address] complete eye exam Ophthalmology Comment on above: complete eye exam Start: 01-11-2025 End: 01-11-2025 ambulatory 01/11/2025 9:30 AM EDT Results Only [facility] [address] [place] [address] [facility] Start: 01-10-2025 End: 04-11-2025 CBC W Auto Differential panel - Blood COMPLETE BLOOD COUNT AND DIFFERENTIAL Lab Routine Amaurosis fugax Expected: 01/10/2025, Expires: 04/11/2025 [facility] Work Phone: Comment on above: Expected: 01/10/2025, Expires: Start: 01-10-2025 End: 04-11-2025 Comprehensive metabolic 2000 panel - Serum or Plasma COMPREHENSIVE METABOLIC PANEL Lab Routine Amaurosis fugax Expected: 01/10/2025, Expires: 04/11/2025 [facility] Comment on above: Expected: 01/10/2025, Expires: Start: 08-27-2024 End: 08-27-2024 ambulatory 08/27/2024 7:45 AM EST OT/PT/Speech Visit [facility] [address] [place] [address] Golias, Jose Antonio, PT [address] [place] [address] Chronic upper back pain [M54.9, G89.29] [facility] Comment on above: Chronic upper back pain [M54.9, G89.29] Start: 08-20-2024 End: 08-20-2024 ambulatory 08/20/2024 7:45 AM EST OT/PT/Speech Visit [facility] [address] [place] [address] Golias, Jose Antonio, PT [address] [place] [address] Chronic upper back pain [M54.9, G89.29] [facility] Comment on above: Chronic upper back pain [M54.9, G89.29] Start: 08-13-2024 End: 08-13-2024 ambulatory 08/13/2024 9:30 AM EST OT/PT/Speech Visit [facility] [address] [place] [address] Yolanda Alves, [employer] [address] [place] [address] Chronic upper back pain [M54.9, G89.29] [facility] Comment on above: Chronic upper back pain [M54.9, G89.29] Start: 08-06-2024 End: 08-06-2024 ambulatory 08/06/2024 8:00 AM EST OT/PT/Speech Visit [facility] [address] [place] [address] Yolanda Alves, [employer] [address] [place] [address] Chronic upper back pain [M54.9, G89.29] [facility] Comment on above: Chronic upper back pain [M54.9, G89.29] Start: 07-30-2024 End: 07-30-2024 ambulatory 07/30/2024 8:30 AM EST OT/PT/Speech Visit [facility] [address] [place] [address] Jose Antonio Cral, PT [address] [place] [address] Chronic upper back pain [M54.9, G89.29] [facility] Comment on above: Chronic upper back pain [M54.9, G89.29] Start: 07-16-2024 End: 10-15-2024 CBC W Auto Differential panel - Blood [facility] Comment on above: Expected: 07/16/2024, Expires: Start: 07-16-2024 End: 10-15-2024 Comprehensive metabolic 2000 panel - Serum or Plasma [facility] Work Phone: Comment on above: Expected: 07/16/2024, Expires: Start: 07-16-2024 Depression Screening Depression Screening [facility] Comment on above: Postponed from 2003 (Declined at t his time) Start: 07-16-2024 End: 10-15-2024 Hemoglobin A1c in Blood [facility] Comment on above: Expected: 07/16/2024, Expires: Start: 07-16-2024 End: 10-15-2024 Lipid 1996 panel - Serum or Plasma [facility] Comment on above: Expected: 07/16/2024, Expires: Start: 07-16-2024 End: 10-15-2024 Thyrotropin [Units/volume] in Serum or Plasma [facility] Comment on above: Expected: 07/16/2024, Expires: Start: 07-09-2024 End: 07-09-2024 Patient encounter procedure 07/09/2024 11:20 AM EST Office Visit [facility] [place] [address] [place] [id number] Alex Muniz MD [address] [place] [address] Physical [facility] [place] Comment on above: Physical Start: 06-11-2024 End: 06-11-2024 Patient encounter procedure 06/11/2024 8:40 AM EST Office Visit [facility] [place] [address] [place] [address] Alex Muniz MD [address] [place], [place] [id number] annual physical [facility] [place] Comment on above: annual physical Start: 03-04-2024 Covid-19 Vaccine ( season) Covid-19 Vaccine () [facility] Start: 03-04-2024 Influenza vaccination Influenza Vaccine (#1) [facility] Start: 02-19-2024 End: 04-19-2024 Urinalysis complete panel - Urine URINALYSIS, WITH MICROSCOPIC Lab Routine Gross hematuria Expected: 02/19/2024, Expires: 04/19/2024 [facility] Comment on above: Expected: 02/19/2024, Expires: Start: 02-09-2024 End: 05-10-2024 C reactive protein [Mass/volume] in Serum or Plasma [facility] Comment on above: Expected: 02/09/2024, Expires: Start: 02-09-2024 End: 05-10-2024 Erythrocyte sedimentation rate [facility] Work Phone: Comment on above: Expected: 02/09/2024, Expires: Start: 02-09-2024 End: 05-10-2024 Nuclear Ab [Presence] in Serum by Immunoassay [facility] Comment on above: Expected: 02/09/2024, Expires: Start: 02-09-2024 End: 02-09-2024 Patient encounter procedure 02/09/2024 8:40 AM EDT Office Visit [facility] [place] [address] [facility] [address] Alex Muniz MD [address] [facility] [place] [address] follow up [facility] [place] Comment on above: follow up Start: 01-19-2024 End: 04-19-2024 CBC W Auto Differential panel - Blood [facility] Comment on above: Expected: 01/19/2024, Expires: Start: 01-19-2024 End: 04-19-2024 Comprehensive metabolic 2000 panel - Serum or Plasma [facility] Comment on above: Expected: 01/19/2024, Expires: Start: 01-19-2024 End: 01-19-2024 Patient encounter procedure 01/19/2024 8:20 AM EDT Office Visit [facility] [place] [address] [facility] [address] Alex Muniz MD [address] [facility] [place] [address] er follow up [facility] [place] Comment on above: er follow up Start: 01-06-2024 End: 01-06-2024 Follow-up encounter 01/06/2024 8:[address] [facility] [address] [place] [address] Valerie Franco, INSPECTOR POISING.AERODYNAMIC CONSULTANT [address] [place] [address] follow up Urology Comment on above: follow up Start: 12-30-2023 End: 12-30-2023 Patient encounter procedure 12/30/2023 4:00 PM EDT Appointment [facility] [address] [place] [address] Testicular swelling, right [N50.89] [facility] Comment on above: Testicular swelling, right [N50.89] Start: 12-29-2023 End: 03-29-2024 Bacteria identified in Urine by Culture URINE CULTURE Microbiology Routine Testicular swelling, right Testicular discomfort Urinary tract infection without hematuria, site unspecified Expected: 12/29/2023, Expires: 03/29/2024 [facility] Comment on above: Expected: 12/29/2023, Expires: Start: 12-29-2023 End: 03-29-2024 Urinalysis complete panel - Urine URINALYSIS, WITH MICROSCOPIC Lab Routine Testicular swelling, right Testicular discomfort Urinary tract infection without hematuria, site unspecified Expected: 12/29/2023, Expires: 03/29/2024 [facility] Comment on above: Expected: 12/29/2023, Expires: Start: 08-23-2023 End: 11-22-2023 BILE ACIDS, TOTAL BILE ACIDS, TOTAL Lab Routine Bloating Diarrhea, unspecified type Elevated fecal calprotectin Expected: 08/23/2023, Expires: 11/22/2023 [facility] Work Phone: Comment on above: Expected: 08/23/2023, Expires: 4 Start: 07-04-2023 Behavioral Health Screening Behavioral Health Screening [facility] Start: 07-04-2023 Depression Assessment Depression Assessment [facility] Start: 05-30-2023 End: 08-29-2023 Lipid 1996 panel - Serum or Plasma LIPID PANEL BASIC Lab Routine Screening for hyperlipidemia Expected: 05/30/2023, Expires: 08/29/2023 [facility] Work Phone: Comment on above: Expected: 05/30/2023, Expires: Start: 05-26-2023 [facility] Start: 05-26-2023 [facility] Start: 03-04-2023 Covid-19 Vaccine () Covid-19 Vaccine () [facility] Start: 03-04-2023 Influenza vaccination [facility] Start: 07-04-2022 DEPRESSION ASSESSMENT DEPRESSION ASSESSMENT [facility] Start: 07-04-2021 DEPRESSION ASSESSMENT DEPRESSION ASSESSMENT [facility] Start: 2020 Lipid 1996 panel - Serum or Plasma Lipid Screening [facility] Start: 2020 LIPID SCREEN LIPID SCREEN [facility] Start: 2004 Hepatitis B Vaccine (1 of 3 - 19+ 3-dose series) Hepatitis B Vaccine (1 of 3 - 19+ 3-dose series) [facility] Start: 2003 Anxiety Screening Anxiety Screening [facility] Start: 2003 Depression Screening Depression Screening [facility] Start: 2003 HIV SCREENING HIV SCREENING [facility] Start: 2003 HIV screening HIV Screening [facility] Start: 1985 HEPATITIS B (1 of 3 - 3-dose series) HEPATITIS B (1 of 3 - 3-dose series) [facility] Start: 1985 Hepatitis B Vaccine (1 of 3 - 3-dose series) Hepatitis B Vaccine (1 of 3 - 3-dose series) [facility] Start: 1985 Screening for malignant neoplasm of colon [facility] Bacteria identified in Urine by Culture URINE CULTURE Microbiology Routine Microscopic hematuria Ordered: 01/14/2024 [facility] Work Phone: Comment on above: Ordered: 01/14/2024 Breath hydrogen/meth ane test BREATH TEST - LACTULOSE Procedures Routine LUQ pain Diarrhea, unspecified type 08/22/2023 4:40 PM EST [facility] Work Phone: Calprotectin [Mass/m ass] in Stool CALPROTECTIN,FECAL Lab Routine Bloating Diarrhea, unspecified type Elevated fecal calprotectin Ordered: 08/23/2023 [facility] Work Phone: Comment on above: Ordered: 08/23/2023 End: 05-30-2024 Echocardiography ECHO Cardiology Routine Chest pain, unspecified type 1 Occurrences starting 05/30/2023 until 05/30/2024 [facility] Work Phone: Comment on above: 1 Occurrences starting 05/30/2023 until 05/30/2024 End: 05-30-2024 EXERCISE STRESS ECG (WITHOUT IMAGING) EXERCISE STRESS ECG (WITHOUT IMAGING) Cardiology Routine Chest pain, unspecified type 1 Occurrences starting 05/30/2023 until 05/30/2024 [facility] Work Phone: Comment on above: 1 Occurrences starting 05/30/2023 until 05/30/2024 FAT, FECAL QUAL FAT, FECAL QUAL Lab Routine Bloating Diarrhea, unspecified type Elevated fecal calprotectin Ordered: 08/23/2023 [facility] Work Phone: Comment on above: Ordered: 08/23/2023 End: 01-01-2024 MRI HAND WO IVCON RIGHT MRI HAND WO IVCON RIGHT Radiology Routine Finger mass, right 1 Occurrences starting 12/02/2022 until 01/01/2024 [facility] Work Phone: Comment on above: 1 Occurrences starting 12/02/2022 until 01/01/2024 End: 12-15-2022 MRI HAND WO IVCON RIGHT [facility] Work Phone: Comment on above: 1 Occurrences starting 12/15/2022 until 12/15/2022 Patient Education [facility] Work Phone: Patient referral [facility] Work Phone: End: 02-17-2025 US Kidney - bilateral and Urinary bladder US KIDNEY/BLADDER Radiology Routine Gross hematuria 1 Occurrences starting 01/19/2024 until 02/17/2025 [facility] Work Phone: Comment on above: 1 Occurrences starting 01/19/2024 until 02/17/2025 US Kidney - bilatera l and Urinary bladder US KIDNEY/BLADDER Radiology Routine Gross hematuria 01/19/2024 1:23 PM EDT [facility] End: 06-08-2022 Us lmtd joint/oth nonvasc xtr strux r-t w/img [facility] Work Phone: Comment on above: 1 Occurrences starting 06/08/2022 until 06/08/2022 End: 01-27-2025 US.doppler Scrotum and testicle US SCROTUM AND CONTENTS Radiology Routine Testicular swelling, right Testicular discomfort 1 Occurrences starting 12/29/2023 until 01/27/2025 [facility] Work Phone: Comment on above: 1 Occurrences starting 12/29/2023 until 01/27/2025 US.doppler Scrotum a nd testicle US SCROTUM AND CONTENTS Radiology Routine Testicular swelling, right Testicular discomfort 12/30/2023 4:17 PM EDT [facility] Work Phone: End: 01-27-2025 US.doppler Unspecified body region US DOPPLER COMPLETE Radiology Routine Testicular swelling, right Testicular discomfort 1 Occurrences starting 12/29/2023 until 01/27/2025 [facility] Comment on above: 1 Occurrences starting 12/29/2023 until 01/27/2025 US.doppler Unspecifi ed body region US DOPPLER COMPLETE Radiology Routine Testicular swelling, right Testicular discomfort 12/30/2023 4:17 PM EDT [facility] Immunizations Immunization Date Immunization Notes Care Provider Leticia carlson 05-18-2024 COVID-19 vaccine, ag e 12+ yr (MODERNA) Alex Muniz MD Work Phone: [facility] 05-18-2024 influenza, injectabl e, madin robin canine kidney, preservative free Alex Muniz MD Work Phone: [facility] 05-18-2024 influenza virus vaccine, unspecified formulation Alex Muniz MD Work Phone: [facility] 06-13-2023 COVID-19 vaccine, ag e 12+ yr, season ([email or web address]) Nurse [facility] Work Phone: [facility] 06-13-2023 influenza, injectabl e, quadrivalent, contains preservative Nurse [facility] Work Phone: [facility] 06-13-2023 influenza virus vaccine, unspecified formulation Hansa Delaney PA-C Work Phone: [facility] 04-16-2022 Influenza, injectabl e, Madin Waverly Canine Kidney, preservative free, quadrivalent Alex Muniz MD Work Phone: [facility] 04-16-2022 influenza virus vaccine, unspecified formulation Jasson Lion MD Work Phone: [facility] 03-27-2018 tetanus toxoid, redu shena diphtheria toxoid, and acellular pertussis vaccine, adsorbed [facility] Payers Date Payer Category Payer Self-pay 2021 [employer] [facility] BLUE ACCE PPO [id number] 2021 Unknown ZEINA FABIAN ACCE PPO [id number] 2021-Present [phone] [place], [place] [id number] PPO [id number] 2021 Unknown [id number] Unknown [id number] Social History Date Type Detail Facility Start: 10-19-2017 End: 01-15-2025 Tobacco smoking status NHIS Never smoked tobacco [facility] Start: 10-19-2017 End: 03-14-2023 Tobacco use and exposure Smokeless tobacco non-user [facility] Start: 06-01-2022 End: 01-11-2025 Alcohol intake Current drinker of alcohol (finding) [facility] Start: 06-01-2022 End: 12-02-2022 Alcohol intake [facility] Start: 06-01-2022 History SDOH Alcohol Frequency 4 [facility] Start: 06-01-2022 History SDOH Alcohol Std Drinks 2 [facility] Start: 06-01-2022 History SDOH Alcohol Binge 3 [facility] Start: 06-01-2022 History SDOH Social Connections [facility] 1 [facility] Start: 03-27-2018 Alcohol Comment 2-3 cans at a time [facility] Start: 1985 Sex Assigned At Male [facility] Start: 06-01-2022 End: 12-02-2022 Social connection and isolation panel [facility] Do you belong to any clubs or organizations such as uatsdin groups, unions, fraternal or athletic groups, or school groups? No [facility] Are you now , , , , never or living with a partner? [facility] How often to you hav e a drink containing alcohol? 2-3 time sa week [facility] How many standard dr inks containing alcohol do you have on a typical day? 3 or 4 [facility] How often do you hav e 6 or more drinks on 1 occasion? Monthly [facility] Adult Depression Screening Assessment 0 [facility] Do you feel stress - tense, restless, nervous, or anxious, or unable to sleep at night because your mind is troubled all the time - these days [OSQ] To some extent [facility] (I/We) worried wheth er (my/our) food would run out before (I/we) got money to buy more. Never true [facility] Start: 05-29-2022 Gender identity Identifies as male gender (finding) [facility] How often do you hav e 6 or more drinks on 1 occasion? Monthly [facility] Start: 05-26-2023 Tobacco smoking stat us NHIS Unknown if ever smoked [facility] Do you feel stress - tense, restless, nervous, or anxious, or unable to sleep at night because your mind is troubled all the time - these days [OSQ] Not at all [facility] Start: 06-29-2023 Alcohol Comment 2-3 times per week, varies- admits to binge drinking [facility] Do you feel stress - tense, restless, nervous, or anxious, or unable to sleep at night because your mind is troubled all the time - these days [OSQ] Only a little [facility] Mental Status Date Assessment Result Facility 01-15-2025 Cognitive function Awake;Alert;A ppropriate;Fol lows Commands [facility] Work Phone: 05-26-2023 Cognitive function Awake;Alert;Appropriat e [facility] Work Phone: Clinical Notes 06-01-2022 to 01-15-2025 Note Date & Type Note Facility 01-15-2025 Discharge summary [facility] 01-15-2025 Radiology Diagnostic study note [facility] Imaging Services [address] [place], [place] [address] Brain/Head without Contrast MR#: [id number] Acct: [id number] Name: TORREY CAMPOS Rep #: [id number] : 1985 M 39 From: Dejah Coy MD PCP: Dr. Esteban Muniz MD Status: REG ER Study:Brain/Head without Contrast Date of Exa m: 01/15/25 Exam# [id number] Ordering Dr: Joshua Taylor DO EXAM: CT Head Without Intravenous Contrast CLINICAL INDICATION: INTERMITTENT NUMBNESS TECHNIQUE: Axial computed tomography images of the head/brain without intravenous contrast. This CT exam was performed using one or more of the following dose reduction techniques: automated exposure control, adjustment of the mA and/or kV according to patient size, and/or use of iterative reconstruction technique. COMPARISON: No relevant prior studies available. FINDINGS: BRAIN AND EXTRA-AXIAL SPACES: No acute intracranial hemorrhage, midline shift or mass effect. If symptoms persist, further evaluation with MRI is recommended. No significant white matter disease. BONES/JOINTS: Apparent hyperdensity of the right occipital convexity, likely secondary to overlying skull artifacts. No acute fracture. SOFT TISSUES: Unremarkable. SINUSES: Unremarkable as visualized. No acute sinusitis. MASTOID AIR CELLS: Unremarkable as visualized. No mastoid effusion. CT/Brain/Head without Contrast IMPRESSION: No acute intracranial hemorrhage, midline shift or mass effect. If symptoms persist, further evaluation with MRI is recommended. Reading Location: [facility] CC: Dr. Joshua Wright DO; Dr. Esteban Muniz MD ~ Hris Manager: Signed [facility] 01-15-2025 Discharge summary Note Date/Time January 15, 2025 3:19pm [facility] Medical Records Department [address] [place] [address] Emergency Department Summary 01/15/25 MR#: [id number] Acct: [id number] Name: TORREY CAMPOS Rep #:[id number] : 1985 39 From: Joshua zavala DO PCP: Dr. Esteban Muniz MD Status :REG ER Location: ED HPI History of Present Illness Chief Complaint: Numb/Ting Narrative Narrative: Chief complaint and HPI: Episodic and migratory numbness/tingling with headache. 39-year-old male with no significant past medical history presents for evaluation of migratory/episodic numbness/tingling with headache. Patient states he had 2 separate episodes recently of central blurry vision. He was worked up outpatient by his PCP as well as ophthalmology. States he had a bilateral carotid ultrasound that was unremarkable. Had an MRI of the brain that was unremarkable except for a cyst. 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 Patient states that for the past couple weeks he has been having episodic and migratory facial numbness/tingling with headache. He states that it can occur on his left cheek, right cheek, neck. States he often gets a mild headache associated with it. States he called his PCPs office today to follow-up for this and was told by staff to come to the emergency department. He currently is denying any numbness or tingling at this time. He states that his left cheek just feels sore. He denies any headache, fever, chills, shortness of breath, chest pain, URI symptoms, weakness, current numbness/tingling, abdominal pain, nausea, vomiting, vision changes, hearing changes, neurological deficit, difficulty speaking. Review of systems: See HPI Medications: As listed on the chart Allergies: As listed on the chart PFSH: Per chart Vital signs: As listed on the chart. Reviewed. Physical exam: Gen: A&O x3, NAD Head: Normocephalic, atraumatic Eyes: No sclera icterus, conjunctiva clear, PERRL, EOMI ENT: Tympanic membranes clear bilaterally, moist mucous membranes, No facial asymmetry, posterior oropharynx unremarkable, uvula midline, no facial tenderness, no reported numbness or tingling with palpation, no temporal artery tenderness bilaterally Neck: Trachea midline, No JVD, full range of motion, nontender CV: RRR, no murmurs, no peripheral edema Resp: Lungs CTA BL, no w/r/c GI: Abd soft, non-distended, non-tender, no r/r/g Musc: Full ROM, no deformity, strength +5/5 in all extremities, no pronator drift, no ataxia Skin: Warm, dry, intact Neuro: Alert, oriented, grossly intact, sensation intact, no focal deficits Psych: Cooperative, appropriate mood and affect PFS PFS Medical History no medical history Allergy/AdvReac Type Severity Reaction Status Date / Time No Known Allergies Allergy Verified 01/15/25 12:27 Family History no significant family his Surgical History no surgical history Social History Smoking Status: Never smoker EXAM Physical Exam Const Vital Signs: 01/15/25 12:25 01/15/25 15:00 Temperature 97.4 F L Temperature Source Temporal Pulse Rate 100 78 Respiratory Rate 20 H Blood Pressure 161/117 H 155/90 H Blood Pressure Mean 131 111 Pulse Ox 98 99 Oxygen Delivery Method Room Air MDM MDM MDM Narrative Medical decision making narrative: 39-year-old male with no significant past medical history presents for evaluation of migratory/episodic numbness/tingling with headache. Patient recently had 2 separate episodes of central blurry vision. Had a workup outpatient with bilateral carotid ultrasound and MRI brain. States his bilateral carotid ultrasound was unremarkable. MRI brain was unremarkable except for cyst. States that his mule rider diagnosed him with ocular migraines. Patient states since then he has been having episodic and migratory facial numbness/tingling with headache. Can occur on multiple areas of the faceincluding the neck. Wanted to follow-up with PCP for this today and staff told him come to the emergency department. Currently denying any numbness or tingling. States his left cheek just feels sore. States he has been under a lot of stress. Physical exam is unremarkable. On presentation, patient no acute distress. He was hypertensive however repeat blood pressure normal. Differential diagnosis includes but is not limited to ocular migraines, atypicalmigraines, tension headache, stress reaction, electrolyte abnormality. Not consistent with a CVA. On chart review was unable to find the patient's carotidultrasound as well as MRI brain. I do have a suspicion for any new intracranial abnormality with recent MRI brain however cannot fully rule this out without imaging. With shared decision making with the patient, will obtain basic labs to assess for electrolyte abnormalities as well as CT brain for any acute pathology. CT of the head shows no acute intracranial abnormality. CBC unremarkable. BMP unremarkable. Magnesium mildly elevated at 2.3. At this point in time, no clear etiology for patient's symptoms. He is currently asymptomatic at this time. May be secondary to ocular versus atypical migraines. Recommend following up with PCP and neurology. Return precautions explained. He confirmed understand the plan. Patient will discharge home. Impression: 1. Episodic and migratory facial numbness/tingling 2. Episodic headaches 3. Recent diagnosis of ocular migraines Lab Data Labs: Laboratory Results - last 24 hr 01/15/25 14:11 WBC 4.9 RBC 4.87 Hgb 15.1 Hct 42.0 MCV 86.2 MCH 31.0 MCHC 36.0 RDW Std Deviation 38.5 RDW Coeff of Nelson 12.3 Plt Count 204 MPV 10.5 Immature Gran % (Auto) 0.800 Neut % (Auto) 74.9 H Lymph % (Auto) 17.6 L Bland % (Auto) 5.5 Eos % (Auto) 0.6 Baso % (Auto) 0.6 Absolute Neuts (auto) 3.7 Absolute Lymphs (auto) 0.86 Nucleated RBC % 0 Sodium 140 Potassium 4.4 Chloride 104 Carbon Dioxide 24.5 Anion Gap 11 BUN 13 Creatinine 0.94 Estim Creat Clear Calc 131.24 Est GFR (MDRD) Non-Af 106 BUN/Creatinine Ratio 13.5 Glucose 120 H Calcium 9.8 Magnesium 2.3 H Radiography Diagnostic Testing: Clinical Impression(s) from Imaging Studies Brain CT 01/15/25 13:41 IMPRESSION: No acute intracranial hemorrhage, midline shift or mass effect. If symptoms persist, further evaluation with MRI is recommended. Reading Location: [facility] Discharge Plan Triage Chief Complaint: Numb/Ting ED Provider: Joshua Wright Dx/Rx/DC Orders Primary Care Provider: Esteban Muniz Referrals: Esteban Muniz MD [Primary Care Provider] - Print Language: Swedish What to do if you have Problems For any increased pain, shortness of breath, bleeding, nausea or vomiting, chestpain, or any unexpected problems, contact your Primary Care Provider. Call [facility] ([phone]) or report to the closest Emergency Room. Call 911 if necessary. 01/15/25 [id number] <Electronically signed by Joshua Wright DO> Cosigner Signature (if applicable): CC: Dr. Esteban Muniz MD ~ Signed [facility] Work Phone: [phone]) 881-669307-11-2025 NoteDate of Procedure 01/11/2025. Tanker Service Attendant Information Senior Clinician: BP. Start time: 11:06 AM. OCT Macula Interpretation Right Eye Normal without fluid. Left Eye Normal without fluid. Interval Change Right Eye Initial. Left Eye Initial.[id number] NoteHNO ID: [id number] Author: ASHU DUPREE, OD Service: ? Author Type: HYDRO SPRAYER OPERATOR Type: Progress Notes Filed: 01/11/2025 13:33 Note Text: 1. Blurred vision (Primary) 2. Subjective visual disturbance Good ocular health upon dilated exam Normal Mac OCT (no edema) - +hx of possible [employer] OS (patient notes foveal edema which resolved in past and he has some pigment clumping left eye and a very small blind spot per patient) Normal OCT nerve (no edema, no plaques) Symptoms consistent with ocular migraine with aura, no headache as opposed to amaurosis fugax Patient had MRI done yesterday which showed no acute abnormalities Recommended continue follow-up with PCP Follow-up with me as needed for any new or worsening problem or yearly I have confirmed and edited as necessary the relevant HPI, ophthalmic history, ROS, and the neuro exam findings as obtained by others. I have seen and examined Torrey Campos. I have discussed the case and the management of this patient's care with the Resident/Fellow, if applicable. I also have reviewed and agree with the assessment and plan as stated above and agree with all of its relevant components. Ashu Dupree, AYDIN January 11, 2025 1:27 [facility]07-11-2025 History of Present illness Narrative* Ashu Dupree, OD - 01/11/2025 1:27 PM EDT 1. Blurred vision (Primary) 2. Subjective visual disturbance Good ocular health upon dilated exam Normal Mac OCT (no edema) - +hx of possible [employer] OS (patient notes foveal edema which resolved in past and he has some pigment clumping left eye and a very small blind spot per patient) Normal OCT nerve (no edema, no plaques) Symptoms consistent with ocular migraine with aura, no headache as opposed to amaurosis fugax Patient had MRI done yesterday which showed no acute abnormalities Recommended continue follow-up with PCP Follow-up with me as needed for any new or worsening problem or yearly I have confirmed and edited as necessary the relevant HPI, ophthalmic history, ROS, and the neuro exam findings as obtained by others. I have seen and examined Torrey Campos. I have discussed the case and the management of this patient's care with the Resident/Fellow, if applicable. I also have reviewed and agree with the assessment and plan as stated above and agree withall of its relevant components. Ashu Dupree OD January 11, 2025 1:27 PM documented in [facility] Telephone encounter Note * Telephone Encounter - Fabiola Deng MA - 01/10/2025 1:46 PM EDT ----- Message from Alex Muniz MD sent at 01/10/2025 11:23 AM EDT ----- Patient's carotids are normal bilaterally. [facility]07-10-2025 Miscellaneous Notes* Telephone Encounter - Fabiola Deng MA - 01/10/2025 1:46 PM EDT ----- Message from Alex Muniz MD sent at 01/10/2025 11:23 AM EDT ----- Patient's carotids are normal bilaterally. documented in this encounterK[facility] History of Present illness Narrative* Helena Way RT(Marvin) - 01/10/2025 12:00 PM EDT Radiology Service Progress Note PATIENT NAME: Torrey Campos DATE OF SERVICE: January 10, 2025 TIME: 12:26 PM PATIENT IDENTITY VERIFICATION COMPLETED USING TWO (2) IDENTIFIERS: Name and Date of confirmedby patient verbally. FALL SCREENING: Has the patient had 2 falls in the last year or 1 fall with injury or currently using an Ambulatory Assistive Device (Walker, Cane, Wheelchair, Crutches, etc.)? No PATIENT GENDER DATA: Assigned male at PATIENT RELEVANT IMPLANT DATA REVIEWED: Yes PATIENT PRESENTS WITH AN IMPLANTABLE OR ATTACHED DIRECTOR OF EDUCATION: No RADIOLOGY DEPARTMENT: MR; Exam(s) Completed: Head: Routine Brain. Aromatherapy Administered: No PERIPHERAL IV DATA: Not applicable SIGNED BY: RT Gordo(Marvin) January 10, 2025 12:26 PM documented in this encounterK[facility]07-10-2025 NoteHNO ID: [id number] Author: HELENA WAY RT(R) Service: ? Author Type: Technologist Type: Progress Notes Filed: 01/10/2025 12:26 Note Text: Radiology Service Progress Note PATIENT NAME: Torrey Campos DATE OF SERVICE: January 10, 2025 TIME: 12:26 PM PATIENT IDENTITY VERIFICATION COMPLETED USING TWO (2) IDENTIFIERS: Name and Date of confirmed by patient verbally. FALL SCREENING: Has the patient had 2 falls in the last year or 1 fall with injury or currently using an Ambulatory Assistive Device (Walker, Cane, Wheelchair, Crutches, etc.)? No PATIENT GENDER DATA: Assigned male at PATIENT RELEVANT IMPLANT DATA REVIEWED: Yes PATIENT PRESENTS WITH AN IMPLANTABLE OR ATTACHED DIRECTOR OF EDUCATION: No RADIOLOGY DEPARTMENT: MR; Exam(s) Completed: Head: Routine Brain. Aromatherapy Administered: No PERIPHERAL IV DATA: Not applicable SIGNED BY: CARMINE Caro) January 10, 2025 12:26 [facility]07-10-2025 Instructions* Patient Instructions* Alex Muniz MD - 01/10/2025 8:42 AM EDT - You have a referral for an ophthalmology evaluation at [facility] [address]; pleaseschedule this as soon as possible. - Get a stat carotid ultrasound to check for any narrowing in your neck arteries. - Obtain a stat brain MRI to look for any areas of concern. - Have blood drawn for a complete blood count and platelet check; you may complete this tomorrow. - If you experience another episode of vision change or develop any stroke-like symptoms (severe headache, slurred speech, facial droop, numbness, tingling, or weakness), go to the emergency department immediately. documented in this encounterK[facility]07-10-2025 NoteHNO ID: [id number] Author: ALEX MUNIZ MD Service: ? Author Type: Physician Type: Progress Notes Filed: 01/10/2025 09:19 Note Text: Chief Complaint Patient presents with: Sudden Vision Loss Both Eyes: Two episodes in the last month. Last episode was about a week ago. Denies any other symptoms. No headaches. Episodes last about 10-15 minutes. Still has peripheral vision. Looses focus in center of eye and can see streaks or wavy lines. Refers to looking like he's looking through a Kaleidoscope. Recording using [employer] software for draft documentation of the visit was discussed with the patient/authorized sales representative sales manager; all questions welcomed and answered. Patient/authorized sales representative sales manager agreed to proceed HPI Torrey Campos is a 39 year old male who presents here today for Above Complaints. Visual Disturbances: - Two episodes of transient central blurred vision over the past month. - Describes vision loss as like a finger coming from the center going up with a light spot with a bunch of triangles in it. - Episodes lasted 10-15 minutes, with preserved peripheral vision. - First episode occurred while showering; second episode occurred while walking in a museum. - Affected both eyes, more pronounced in the left eye. - No associated headaches, slurred speech, facial droop, numbness, or tingling. - No chest pain or palpitations during episodes. - No eye pain, redness, or drainage today. - Denies pain with eye movement. - Denies pain over the temples. - History of capillary leakage in the left eye under high stress, managed with rest and self-care. - Torrey has not seen an eye doctor recently. Past medical history, appointments, medications, allergies reviewed. 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 Infectious mononucleosis 2007 w/Hepatitis Overweight (BMI 25.0-29.9) Vitamin D deficiency Previous Surgical History PAST SURGICAL HISTORY Procedure Laterality Date COLONOSCOPY 07/15/2023 Diverticulosis, tubular adenoma EGD W/O BRSH SPEC VARICIES INJ 07/15/2023 Normal EXC LESION TDN SHTH/JT CAPSL HAND/FNGR Right 03/02/2023 Excision ganglion cyst right middle finger HYDROCELE RIGHT, FLUID Right 2002 Family History FAMILY HISTORY Problem Relation Age of Onset Hypertension Mother Hyperlipidemia Mother Heart Father arrhythmia No Known Problems Daughter Colon Cancer No Family History Patient Allergies ALLERGIES No Known Allergies Current Medications Current Outpatient Medications on File Prior to Visit Medication Sig omeprazole (PRILOSEC) 40 mg capsule Take 1 capsule by mouth every morning. multivit-min/folic/vit K/lycop (MEN'S MULTIVITAMIN ORAL) Take by mouth. Lactobacillus acidophilus (PROBIOTIC ORAL) Take by mouth. No current facility-administered medications on file prior to visit. Social History Social History Tobacco Use Smoking status: Never Smokeless tobacco: Never Vaping Use Vaping status: Never Used Substance Use Topics Alcohol use: Yes Alcohol/week: 10.0 standard drinks of alcohol Types: 10 Cans of Beer (12oz) per week Comment: 2-3 times per week, varies- admits to binge drinking Drug use: Not Currently Comment: history of marijuana use in college Review of Symptoms REVIEW OF SYSTEMS See HPI EXAM: BP 131/85 Pulse 91 Ht 182.2 cm (5' 11.75) Wt 105.7 kg (233 lb) BMI 31.82 kg/m? General Appearance: Well appearing, alert, in no acute distress, well-hydrated, well nourished.. Skin: Skin color, texture, turgor normal, no suspicious rashes or lesions. Eyes: PERRLA, EOMI. Fundoscopic exam grossly normal without dilation. Neck: Supple, no adenopathy; thyroid symmetric, normal size, no bruits. Lungs: Lungs clear to auscultation. No wheezing, rhonchi, rales.. Heart: RRR without murmur, gallop, or rubs. No ectopy. Neurologic: Negative findings: speech normal, mental status intact, cranial nerves 2-12 intact, muscle tone normal, muscle strength normal, sensation to light touch and pinprick normal, reflexes normal and symmetric. Health Maintenance List Depression Screening Never done Anxiety Screening due on 07/16/2025 Influenza Vaccine(1) due on 03/04/2025 DTaP,Tdap,Td Vaccine(2 - Td or Tdap) due on 03/27/2028 Colorectal Cancer Screening due on 07/15/2028 Lipid Screening due on 07/16/2029 Hepatitis C Screening Completed Covid-19 Vaccine Completed Hepatitis B Vaccine Discontinued HIV Screening Discontinued 1. Amaurosis fugax (G45.3) 2. Transient visual loss of both eyes (H53.123) - Patient experienced two episodes of transient central blurred vision in both eyes, lasting 10-15 minutes, without complete vision loss. No associated headaches, slurred speech, (more content not included)...[facility]07-10-2025 History of Present illness Narrative* Alex Muniz MD - 01/10/2025 8:07 AM EDT Chief Complaint Patient presents with: Sudden Vision Loss Both Eyes: Two episodes in the last month. Last episode was about a week ago. Denies any other symptoms. No headaches. Episodes last about 10-15 minutes. Still has peripheral vision. Looses focus in center of eye and can see streaks or wavy lines. Refers to looking like he's looking through a Kaleidoscope. Recording using [employer] software for draft documentation of the visit was discussed with the patient/authorized sales representative sales manager; all questions welcomed and answered. Patient/authorized sales representative sales manager agreed to proceed HPI Torrey Campos is a 39 year old male who presents here today for Above Complaints. Visual Disturbances: - Two episodes of transient central blurred vision over the past month. - Describes vision loss as like a finger coming from the center going up with a light spot with a bunch of triangles in it. - Episodes lasted 10-15 minutes, with preserved peripheral vision. - First episode occurred while showering; second episode occurred while walking in a museum. - Affected both eyes, more pronounced in the left eye. - No associated headaches, slurred speech, facial droop, numbness, or tingling. - No chest pain or palpitations during episodes. - No eye pain, redness, or drainage today. - Denies pain with eye movement. - Denies pain over the temples. - History of capillary leakage in the left eye under high stress, managed with rest and self-care. - Torrey has not seen an eye doctor recently. Past medical history, appointments, medications, allergies reviewed. 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 Infectious mononucleosis 2006 w/Hepatitis Overweight (BMI 25.0-29.9) Vitamin D deficiency Previous Surgical History PAST SURGICAL HISTORY Procedure Laterality Date COLONOSCOPY 07/15/2023 Diverticulosis, tubular adenoma EGD W/O BRSH SPEC VARICIES INJ 07/15/2023 Normal EXC LESION TDN SHTH/JT CAPSL HAND/FNGR Right 03/02/2023 Excision ganglion cyst right middle finger HYDROCELE RIGHT, FLUID Right 2002 Family History FAMILY HISTORY Problem Relation Age of Onset Hypertension Mother Hyperlipidemia Mother Heart Father arrhythmia No Known Problems Daughter Colon Cancer No Family History Patient Allergies ALLERGIES No Known Allergies Current Medications Current Outpatient Medications on File Prior to Visit Medication Sig omeprazole (PRILOSEC) 40 mg capsule Take 1 capsule by mouth every morning. multivit-min/folic/vit K/lycop (MEN'S MULTIVITAMIN ORAL) Take by mouth. Lactobacillus acidophilus (PROBIOTIC ORAL) Take by mouth. No current facility-administered medications on file prior to visit. Social History Social History Tobacco Use Smoking status: Never Smokeless tobacco: Never Vaping Use Vaping status: Never Used Substance Use Topics Alcohol use: Yes Alcohol/week: 10.0 standard drinks of alcohol Types: 10 Cans of Beer (12oz) per week Comment: 2-3 times per week, varies- admits to binge drinking Drug use: Not Currently Comment: history of marijuana use in college Review of Symptoms REVIEW OF SYSTEMS See HPI EXAM: BP 131/85 Pulse 91 Ht 182.2 cm (5' 11.75) Wt 105.7 kg (233 lb) BMI 31.82 kg/m General Appearance: Well appearing, alert, in no acute distress, well-hydrated, well nourished.. Skin: Skin color, texture, turgor normal, no suspicious rashes or lesions. Eyes: PERRLA, EOMI. Fundoscopic exam grossly normal without dilation. Neck: Supple, no adenopathy; thyroid symmetric, normal size, no bruits. Lungs: Lungs clear to auscultation. No wheezing, rhonchi, rales.. Heart: RRR without murmur, gallop, or rubs. No ectopy. Neurologic: Negative findings: speech normal, mental status intact, cranial nerves 2-12 intact, muscle tone normal, muscle strength normal, sensation to light touch and pinprick normal, reflexes normal and symmetric. Health Maintenance List Depression Screening Never done Anxiety Screening due on 07/16/2025 Influenza Vaccine(1) due on 03/04/2025 DTaP,Tdap,Td Vaccine(2 - Td or Tdap) due on 03/27/2028 Colorectal Cancer Screening due on 07/15/2028 Lipid Screening due on 07/16/2029 Hepatitis C Screening Completed Covid-19 Vaccine Completed Hepatitis B Vaccine Discontinued HIV Screening Discontinued 1. Amaurosis fugax (G45.3) 2. Transient visual loss of both eyes (H53.123) - Patient experienced two episodes of transient central blurred vision in both eyes, lasting 10-15 minutes, without complete vision loss. No associated headaches, slurred speech, facial droop, or unilateral numbness/tingling. - Neurological exam, including strength, reflexes, and sensation, is normal. Eye exam is unremarkable, but limited without dilation. - Differential diagnosis includes ocular migraines, but no accompanying headache, nausea, or photophobia reported. - Ordered stat MRI of the brain and carotid ultrasound to rule out vascular causes. - Referral to ophthalmology for comprehensive eye examination. - Ordered blood work to evaluate blood counts and platelets. - Advised patient to seek emergency care if episodes recur or if signs of stroke (severe headache, slurred speech, facial droop, unilateral weakness) develop. Alex Muniz MD documented [facility]25 NoteHNO ID: [id number] Author: JOSE ANTONIO CARL PT Service: ? Author Type: Physical Therapist Type: Progress Notes Filed: 08/27/2024 08:35 Note Text: Episode Visit Count: 4 Therapist That Will Accept/Oversee The Plan Of Care: Jose Antonio Carl PT Start of Care Date: 07/30/24 Onset Date: 05/30/23 Patient Identified by Name and Date of : Yes REHABILITATION AND SPORTS THERAPY PHYSICAL THERAPY DISCONTINUANCE OF CARE PLAN OF CARE UPDATE: Assessment: Torrey Campos is discontinued from Physical Therapy services due to goal achievement and maximal benefit. and Patient/Clinician mutual decision to discontinue current plan of care.. Patient was seen for 4 visits from Start of Care Date: 07/30/24 to 08/27/2024 and treatment included: Therapeutic exercise, Manual therapy, Self-senior care management, Patient/Family/Caregiver Education, and Body mechanics training. Updated: 08/27/24 Goals for Episode of Care: established 07/30/24 Independent in home exercises. - MET Patient will decrease pain to 0/10 at rest and with functional activities to allow patient to improve exercise and sleeping. - Mostly MET Sleep through night without pain/symptoms. - MET Patient will be able to tolerate exercise and all work tasks without increased symptoms. - Partially MET Patient will be able to correct postural deviations independently in order to improve postural alignment of trunk during sitting, allow for normal mechanics, to decrease current pain , and prevent future recurrence. - Partially MET Patient will increase strength of postural muscles to WFL to allow for improved postural maintenance at work. - Partially MET Patient Goals: eliminate pain without medication - Partially MET SUBJECTIVE: Pt reports that overall he is feeling better than he did at evaluation. He reports that he has not taken pain medication for 3 weeks. He reports that his pain is not gone but decreased, even without medication. He reports slight pain currently at lateral border of L scapula. He reports compliance with HEP 2x day. He reports intermittent pain in the mornings but that overall he is sleeping better. He reports that he has not fully tested his tolerance for exercising. He reports increased postural awareness but that it is still poor. He is confident that he can continue with HEP independently and does not require attendance in PT. Pain: Pain Pain Level: (1-2/10) Pain Location: Shoulder - Left, Scapula - Left, Thoracic Spine - Left, Chest - Left Description: Sharp Frequency: Intermittent (varies in location) PROMIS Scales 08/26/2024 08/05/2024 07/29/2024 Higher is Better Phys Func - T Score 51 (within normal limits) Phys Func - Percentile 54 Self-Eff Symptom - T Score 48 (Average) 41 (Average) Self-Eff Symptom - Percentile 42 18 07/29/2024 Lower is Better Pain Interference - T Score 54 (within normal limits) Pain Interference - Percentile 34 T-scores: mean of general population = 50. 5 points is clinically meaningfully difference Percentiles provide an indication of how the patient's score ranks in relation to the general population. Higher percentile rankings indicate better function/quality of life. 50th percentile is the average of the general population and indicates half of respondents had a worse score. OBJECTIVE MEASURES WITH LEVEL OF FUNCTION: Posture / Alignment Posture: Forward head, Increased thoracic kyphosis, Rounded shoulders, Decreased lumbar lordosis, Poor LE Strength Trunk Strength: Pt has just recently started a strengthening program but has not been doing this long enough to receive benefit. He is independent with HEP. TREATMENT: Therapeutic Exercise: 1: Entire HEP was thoroughly reviewed and continuation encouraged. He practiced all exercises while therapist provided verbal cues and updated his exercise list in [employer]. He has 7 exercises on his HEP list in [employer] that he is able to access. 2: *L lat stretch 3x30 seconds added to HEP. 3: All of his questiosn were answered and he verbalized understanding of all instructions 4: He was educated on how and when to progress strengthening HEP. Skilled Intervention: Patient was educated in proper exercise technique and purpose for exercises. Reviewed and educated patient on additions/changes for home exercise program as above (*). Skilled judgment was used in selection of appropriate interventions. Provided written instruction for home exercise program to facilitate proper performance and compliance. Correct performance of therapeutic exercises was facilitated with verbal, visual, and tactile cuing. Patient education as noted. Self-Group Home Management: 1: Postural correction was reviewed and emphasized. Recommendations were made on how to correct posture at work and with leisure activities. His questions about etiology of symptoms were answered and recommendations made. Skilled Intervention: (more content not included)...[facility] 08-27-2024 History of Present illness Narrative* Jose Antonio Carl, PT - 08/27/2024 8:34 AM EST Episode Visit Count: 4 Therapist That Will Accept/Oversee The Plan Of Care: Jose Antonio Carl PT Start of Care Date: 07/30/24 Onset Date: 05/30/23 Patient Identified by Name and Date of : Yes REHABILITATION AND SPORTS THERAPY PHYSICAL THERAPY DISCONTINUANCE OF CARE PLAN OF CARE UPDATE: Assessment: Torrey Campos is discontinued from Physical Therapy services due to goal achievement and maximal benefit. and Patient/Clinician mutual decision to discontinue current plan of care..Patient was seen for 4 visits from Start of Care Date: 07/30/24 to 08/27/2024 and treatment included: Therapeutic exercise, Manual therapy, Self-senior care management, Patient/Family/Caregiver Education, and Body mechanics training. Updated: 08/27/24 Goals for Episode of Care: established 07/30/24 Independent in home exercises. - MET Patient will decrease pain to 0/10 at rest and with functional activities to allow patient to improve exercise and sleeping. - Mostly MET Sleep through night without pain/symptoms. - MET Patient will be able to tolerate exercise and all work tasks without increased symptoms. - Partially MET Patient will be able to correct postural deviations independently in order to improve postural alignment of trunk during sitting, allow for normal mechanics, to decrease current pain , and prevent future recurrence. - Partially MET Patient will increase strength of postural muscles to WFL to allow for improved postural maintenance at work. - Partially MET Patient Goals: eliminate pain without medication - Partially MET SUBJECTIVE: Pt reports that overall he is feeling better than he did at evaluation. He reports thathe has not taken pain medication for 3 weeks. He reports that his pain is not gone but decreased, even without medication. He reports slight pain currently at lateral border of L scapula. He reports c ompliance with HEP 2x day. He reports intermittent pain in the mornings but that overall he is sleeping better. He reports that he has not fully tested his tolerance for exercising. He reports increased postural awareness but that it is still poor. He is confident that he can continue with HEP independently and does not require attendance in PT. Pain: Pain Pain Level: (1-2/10) Pain Location: Shoulder - Left, Scapula - Left, Thoracic Spine - Left, Chest - Left Description: Sharp Frequency: Intermittent (varies in location) PROMIS Scales 08/26/2024 08/05/2024 07/29/2024 Higher is Better Phys Func - T Score 51 (within normal limits) Phys Func - Percentile 54 Self-Eff Symptom - T Score 48 (Average) 41 (Average) Self-Eff Symptom - Percentile 42 18 07/29/2024 Lower is Better Pain Interference - T Score 54 (within normal limits) Pain Interference - Percentile 34 T-scores: mean of general population = 50. 5 points is clinically meaningfully difference Percentiles provide an indication of how the patient's score ranks in relation to the general population. Higher percentile rankings indicate better function/quality of life. 50th percentile is the average of the general population and indicates half of respondents had a worse score. OBJECTIVE MEASURES WITH LEVEL OF FUNCTION: Posture / Alignment Posture: Forward head, Increased thoracic kyphosis, Rounded shoulders, Decreased lumbar lordosis, Poor LE Strength Trunk Strength: Pt has just recently started a strengthening program but has not been doing this long enough to receive benefit. He is independent with HEP. TREATMENT: Therapeutic Exercise: 1: Entire HEP was thoroughly reviewed and continuation encouraged. He practiced all exercises whiletherapist provided verbal cues and updated his exercise list in [facility]. He has 7 exercises on his HEP list in [facility] that he is able to access. 2: *L lat stretch 3x30 seconds added to HEP. 3: All of his questiosn were answered and he verbalized understanding of all instructions 4: He was educated on how and when to progress strengthening HEP. Skilled Intervention: Patient was educated in proper exercise technique and purpose for exercises. Reviewed and educated patient on additions/changes for home exercise program as above (*). Skilled judgment was used in selection of appropriate interventions. Provided written instruction for home exercise program to facilitate proper performance and compliance. Correct performance of therapeutic exercises was facilitated with verbal, visual, and tactile cuing. Patient education as noted. Self-Group Home Management: 1: Postural correction was reviewed and emphasized. Recommendations were made on how to correct posture at work and with leisure activities. His questions about etiology of symptoms were answered andrecommendations made. Skilled Intervention: Skilled judgment in the selection of proper modification for activity of daily living/home management based on clinical presentation, deficits, and needs. Provided written instruction for activities of daily living techniques to facilitate proper performance and compliance. Reviewed patient specific diagnosis in relation to activities of daily living/home management. Instructed on proper lifting and carrying techniques with importance of core activation. Billing Therapeutic Exercise Treatment Minutes: 20 Self-Care/Home Management Treatment Minutes: 13 Skilled Treatment Time Minutes (timed and untimed codes): 33 Total Session Time (minutes): 33 Session Start Time : 746 Session Stop Time : 819 Jose Antonio Carl PT * Jose Antonio Carl PT - 08/27/2024 8:16 AM EST Program_ID:[id number] Access Code: [email or web address] URL: [email or web address] Date: 08-27-2024 Prepared By: Jose Antonio Carl Program Notes Exercises - Corner Pec Major Stretch - 3 x daily - 7 x weekly - sets - 3 reps - Doorway Rhomboid Stretch - 2-3 x daily - 7 x weekly - sets - 3 reps - Scapular Retraction with Resistance - 2 x daily - 7 x weekly - 2 sets - 10 reps - Standing Shoulder Horizontal Abduction with Resistance - 2 x daily - 7 x weekly - 2 sets - 10 reps - Shoulder External Rotation and Scapular Retraction with Resistance - 2 x daily - 7 x weekly - 2 sets - 10 reps - Seated Thoracic Extension with Hands Behind Neck - 2 x daily - 7 x weekly - 2 sets - 10 reps - Latissimus Dorsi Stretch at Wall - 2 x daily - 7 x weekly - sets - 3 reps Patient Education - cc Posture Training Slouch Overcorrect documented in this [facility]02-10-2025 History of Present illness Narrative* Yolanda Alves PTA - 08/13/2024 10:01 AM EST Program_ID:[id number] Access Code: [email or web address] URL: [email or web address] Date: 08-13-2024 Prepared By: Jose Antonio Carl Program Notes Exercises - Corner Pec Major Stretch - 3 x daily - 7 x weekly - sets - 3 reps - Doorway Rhomboid Stretch - 2-3 x daily - 7 x weekly - sets - 3 reps - Scapular Retraction with Resistance - 2 x daily - 7 x weekly - 2 sets - 10 reps - Standing Shoulder Horizontal Abduction with Resistance - 2 x daily - 7 x weekly - 2 sets - 10 reps - Shoulder External Rotation and Scapular Retraction with Resistance - 2 x daily - 7 x weekly - 2 sets - 10 reps Patient Education - cc Posture Training Slouch Overcorrect * Jose Antonio Carl, PT - 08/13/2024 9:31 AM EST Episode Visit Count: 3 Therapist That Will Accept/Oversee The Plan Of Care: Jose Antonio Carl PT Start of Care Date: 07/30/24 Onset Date: 05/30/23 Patient Identified by Name and Date of : Yes REHABILITATION AND SPORTS THERAPY PHYSICAL THERAPY TREATMENT NOTE ASSESSMENT: Torrey Campos tolerated the session with fatigue and expected muscle soreness. Hedemonstrated improvements in tolerance to scapular strengthening. The patient will continue to benefit from ongoing skilled physical therapy to progress toward set goals. PLAN FOR NEXT VISIT: Asses response to t-band strenghtening. SUBJECTIVE: Pt reports that he is off of the pain killers now. Pt reports that in the past he has had something similar to pressure hives and thinks that maybe using the foam roller flared things up after last visit. Since taking away QL stretch and letting his body rest after last session, pain had been a 1/10 at the most. Most of the pain right now is in the back of the L shoulder and down intorhomboid region. Pain: Pain Pain Level: (very slight) Pain Location: Shoulder - Left, Scapula - Left, Thoracic Spine - Left, Chest - Left Post Treatment Pain Post Treatment Pain Level: No Change OBJECTIVE MEASURES WITH LEVEL OF FUNCTION: Difficulty with seated TA activation technique TREATMENT: Therapeutic Exercise: 1: door knob L rhomboid stretch x30 seconds (discontinued, felt like skin was stretched nad caused itching sensation) 2: Seated rhomboid stretch with fingers laced 3x30 seconds 3: Corener pect stretch 3x30 seconds 4: *Scapular retractions with BTB x10, PuTB 2x10 (PuTB issued for HEP.) 5: *Seated horizontal abduction with GTB 2x10 6: *Seated banded W's with GTB 2x10 7: Seated TA activation 2x10 with 2-3 second holds (difficulty not holding his breath) Skilled Intervention: Patient was educated in proper exercise technique and purpose for exercises. Reviewed and educated patient on additions/changes for home exercise program as above (*). Skilled judgment was used in selection of appropriate interventions. Provided written instruction for home exercise program to facilitate proper performance and compliance. Correct performance of therapeutic exercises was facilitated with verbal and visual cuing. Billing Therapeutic Exercise Treatment Minutes: 31 Skilled Treatment Time Minutes (timed and untimed codes): 31 Total Session Time (minutes): 31 Session Start Time : 929 Session Stop Time : 100 Yolanda Alves, [employer] Jose Antonio Carl PT documented in this encounterK[facility]02-10-2025 NoteHNO ID: [id number] Author: JOSE ANTONIO CARL PT Service: ? Author Type: Physical Therapist Type: Progress Notes Filed: 08/13/2024 12:01 Note Text: Episode Visit Count: 3 Therapist That Will Accept/Oversee The Plan Of Care: Jose Antonio Carl PT Start of Care Date: 07/30/24 Onset Date: 05/30/23 Patient Identified by Name and Date of : Yes REHABILITATION AND SPORTS THERAPY PHYSICAL THERAPY TREATMENT NOTE ASSESSMENT: Torrey Campos tolerated the session with fatigue and expected muscle soreness. He demonstrated improvements in tolerance to scapular strengthening. The patient will continue to benefit from ongoing skilled physical therapy to progress toward set goals. PLAN FOR NEXT VISIT: Asses response to t-band strenghtening. SUBJECTIVE: Pt reports that he is off of the pain killers now. Pt reports that in the past he has had something similar to pressure hives and thinks that maybe using the foam roller flared things up after last visit. Since taking away QL stretch and letting his body rest after last session, pain had been a 1/10 at the most. Most of the pain right now is in the back of the L shoulder and down into rhomboid region. Pain: Pain Pain Level: (very slight) Pain Location: Shoulder - Left, Scapula - Left, Thoracic Spine - Left, Chest - Left Post Treatment Pain Post Treatment Pain Level: No Change OBJECTIVE MEASURES WITH LEVEL OF FUNCTION: Difficulty with seated TA activation technique TREATMENT: Therapeutic Exercise: 1: door knob L rhomboid stretch x30 seconds (discontinued, felt like skin was stretched nad caused itching sensation) 2: Seated rhomboid stretch with fingers laced 3x30 seconds 3: Corener pect stretch 3x30 seconds 4: *Scapular retractions with BTB x10, PuTB 2x10 (PuTB issued for HEP.) 5: *Seated horizontal abduction with GTB 2x10 6: *Seated banded W's with GTB 2x10 7: Seated TA activation 2x10 with 2-3 second holds (difficulty not holding his breath) Skilled Intervention: Patient was educated in proper exercise technique and purpose for exercises. Reviewed and educated patient on additions/changes for home exercise program as above (*). Skilled judgment was used in selection of appropriate interventions. Provided written instruction for home exercise program to facilitate proper performance and compliance. Correct performance of therapeutic exercises was facilitated with verbal and visual cuing. Billing Therapeutic Exercise Treatment Minutes: 31 Skilled Treatment Time Minutes (timed and untimed codes): 31 Total Session Time (minutes): 31 Session Start Time : 929 Session Stop Time : 100 Yolandaadelita Alves, JODI Carl, [facility]02-03-2025 NoteHNO ID: [id number] Author: JOSE ANTONIO CARL, CASI Service: ? Author Type: Physical Therapist Type: Progress Notes Filed: 08/06/2024 09:28 Note Text: Episode Visit Count: 2 Therapist That Will Accept/Oversee The Plan Of Care: Jose Antonio Carl PT Start of Care Date: 07/30/24 Onset Date: 05/30/23 Patient Identified by Name and Date of : Yes REHABILITATION AND SPORTS THERAPY PHYSICAL THERAPY TREATMENT NOTE ASSESSMENT: Torrey Campos tolerated the session with fatigue and expected muscle soreness. He demonstrated difficulty with tightness throughout thoracic spine. The patient will continue to benefit from ongoing skilled physical therapy to progress toward set goals. PLAN FOR NEXT VISIT: Consider t-band for scapular retractions, Asses prolonged response to use of foam roller and continue prn. SUBJECTIVE: Pt reports that he has been doing all of the stretches. Pain has been worse this week and has been a little bit lower on his back. Pain: Pain Pain Level: 2 Pain Location: Shoulder - Left, Scapula - Left, Thoracic Spine - Left, Chest - Left Post Treatment Pain Post Treatment Pain Level: No Change OBJECTIVE MEASURES WITH LEVEL OF FUNCTION: Soft tissue restrictions felt throughout L rhomboid with STM with foam roller TREATMENT: Therapeutic Exercise: 1: corner pectoral stretch 3x30 seconds 2: door knob L rhomboid stretch 3x30 seconds 3: *Standing QL stretch with arm overhead 3x30 seconds L 4: *Seated horizontal abduction AROM x10 5: *Seated scapular retractions 2x10 6: *Seated thoracic extension over back of chair x 3, chair height too low but has higher chairs at home Skilled Intervention: Patient was educated in proper exercise technique and purpose for exercises. Reviewed and educated patient on additions/changes for home exercise program as above (*). Skilled judgment was used in selection of appropriate interventions. Correct performance of therapeutic exercises was facilitated with verbal and visual cuing. Manual Therapy: 1: STM with foam roller over L thoracic paraspinals and rhomboids x 10 minutes Skilled Intervention: Manual skills to improve joint mobility, ROM, and decrease pain. Utilized anatomy knowledge of the therapist, and assessment of patient's response to intervention. Billing Therapeutic Exercise Treatment Minutes: 28 Manual TherapyTreatment Minutes: 10 Skilled Treatment Time Minutes (timed and untimed codes): 38 Total Session Time (minutes): 38 Session Start Time : 0800 Session Stop Time : 08 Yolanda Macduc, [employer] Jose Antonio Carl, [facility]02-03-2025 History of Present illness Narrative* Jose Antonio Carl, PT - 08/06/2024 8:03 AM EST Episode Visit Count: 2 Therapist That Will Accept/Oversee The Plan Of Care: Jose Antonio Carl PT Start of Care Date: 07/30/24 Onset Date: 05/30/23 Patient Identified by Name and Date of : Yes REHABILITATION AND SPORTS THERAPY PHYSICAL THERAPY TREATMENT NOTE ASSESSMENT: Torrey Stan Benjamingeni tolerated the session with fatigue and expected muscle soreness. Hedemonstrated difficulty with tightness throughout thoracic spine. The patient will continue to benefit from ongoing skilled physical therapy to progress toward set goals. PLAN FOR NEXT VISIT: Consider t-band for scapular retractions, Asses prolonged response to use of foam roller and continue prn. SUBJECTIVE: Pt reports that he has been doing all of the stretches. Pain has been worse this week and has been a little bit lower on his back. Pain: Pain Pain Level: 2 Pain Location: Shoulder - Left, Scapula - Left, Thoracic Spine - Left, Chest - Left Post Treatment Pain Post Treatment Pain Level: No Change OBJECTIVE MEASURES WITH LEVEL OF FUNCTION: Soft tissue restrictions felt throughout L rhomboid with STM with foam roller TREATMENT: Therapeutic Exercise: 1: corner pectoral stretch 3x30 seconds 2: door knob L rhomboid stretch 3x30 seconds 3: *Standing QL stretch with arm overhead 3x30 seconds L 4: *Seated horizontal abduction AROM x10 5: *Seated scapular retractions 2x10 6: *Seated thoracic extension over back of chair x 3, chair height too low but has higher chairs athome Skilled Intervention: Patient was educated in proper exercise technique and purpose for exercises. Reviewed and educated patient on additions/changes for home exercise program as above (*). Skilled judgment was used in selection of appropriate interventions. Correct performance of therapeutic exercises was facilitated with verbal and visual cuing. Manual Therapy: 1: STM with foam roller over L thoracic paraspinals and rhomboids x 10 minutes Skilled Intervention: Manual skills to improve joint mobility, ROM, and decrease pain. Utilized anatomy knowledge of the therapist, and assessment of patient's response to intervention. Billing Therapeutic Exercise Treatment Minutes: 28 Manual TherapyTreatment Minutes: 10 Skilled Treatment Time Minutes (timed and untimed codes): 38 Total Session Time (minutes): 38 Session Start Time : 08 Session Stop Time : 837 JODI Mcdaniel PT documented [facility] NoteHNO ID: [id number] Author: ALEX MUNIZ MD Service: ? Author Type: Physician Type: Progress Notes Filed: 08/05/2024 13:55 Note Text: Chief Complaint Patient presents with: Blood Pressure HPI Torrey Campos is a 39 year old male who presents here today for Above Complaints.. Patient notes that his blood pressure was high at physical therapy 153/108 and was 160/100 at home last night. Notes that he has had pneumonia starting 07/23 which he is being treated for. Was nervous at PT. Has been under more stress being back at work. Had 2 diet cokes yesterday. Limits his sodium intake. Past medical history, appointments, medications, allergies reviewed. 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 Infectious mononucleosis 2006 w/Hepatitis Overweight (BMI 25.0-29.9) Vitamin D deficiency Previous Surgical History PAST SURGICAL HISTORY Procedure Laterality Date COLONOSCOPY 07/15/2023 Diverticulosis, tubular adenoma EGD W/O BRSH SPEC VARICIES INJ 07/15/2023 Normal EXC LESION TDN SHTH/JT CAPSL HAND/FNGR Right 03/02/2023 Excision ganglion cyst right middle finger HYDROCELE RIGHT, FLUID Right 2002 Family History FAMILY HISTORY Problem Relation Age of Onset Hypertension Mother Hyperlipidemia Mother Heart Father arrhythmia No Known Problems Daughter Colon Cancer No Family History Patient Allergies ALLERGIES No Known Allergies Current Medications Current Outpatient Medications on File Prior to Visit Medication Sig omeprazole (PRILOSEC) 40 mg capsule Take 1 capsule by mouth every morning. meloxicam (MOBIC) 15 mg tablet Take 1 tablet by mouth once daily. With food. multivit-min/folic/vit K/lycop (MEN'S MULTIVITAMIN ORAL) Take by mouth. Lactobacillus acidophilus (PROBIOTIC ORAL) Take by mouth. No current facility-administered medications on file prior to visit. Social History Social History Tobacco Use Smoking status: Never Smokeless tobacco: Never Vaping Use Vaping status: Never Used Substance Use Topics Alcohol use: Yes Alcohol/week: 10.0 standard drinks of alcohol Types: 10 Cans of Beer (12oz) per week Comment: 2-3 times per week, varies- admits to binge drinking Drug use: Not Currently Comment: history of marijuana use in college Review of Symptoms REVIEW OF SYSTEMS GENERAL: No weight loss, malaise or fevers RESPIRATORY: Negative for cough, hemoptysis, wheezing, COPD, dyspnea or shortness of breath CARDIOVASCULAR: Negative for chest pain, leg swelling, hypertension, CHF or palpitations GI: No nausea, vomiting, or diarrhea SKIN: Negative for lesions, rash, and itching EXAM: BP 114/78 Pulse 104 Resp 16 Wt 99.1 kg (218 lb 6.4 oz) SpO2 98% BMI 29.83 kg/m? General Appearance: Well appearing, alert, in no acute distress, well-hydrated, well nourished.. Skin: Skin color, texture, turgor normal, no suspicious rashes or lesions. Lungs: Lungs clear to auscultation. No wheezing, rhonchi, rales.. Heart: RRR without murmur, gallop, or rubs. No ectopy. Abdomen: Normal abdominal exam, Abdomen soft, non-tender. Bowel sounds normal. No masses, organomegaly. Extremities: No deformities, edema, skin discoloration, clubbing or cyanosis. Good capillary refill. Health Maintenance List Depression Screening Never done Anxiety Screening due on 07/16/2025 DTaP,Tdap,Td Vaccine(2 - Td or Tdap) due on 03/27/2028 Colorectal Cancer Screening due on 07/15/2028 Lipid Screening due on 07/16/2029 Influenza Vaccine Completed Hepatitis C Screening Completed Covid-19 Vaccine Completed HPV Vaccine Aged Out Hepatitis B Vaccine Discontinued HIV Screening Discontinued ASSESSMENT/PLAN: 1. Elevated BP without diagnosis of hypertension - ICD9: 796.2, ICD10: R03.0 - Encouraged dietary sodium restriction/DASH diet - Recommended regular aerobic exercise. - Recommend home blood pressure monitoring, to bring results in on next visit - Goal of BP <140/90 Alex Muniz [facility]01-29-2025 History of Present illness Narrative* Alex Muniz MD - 08/01/2024 7:53 AM EST Chief Complaint Patient presents with: Blood Pressure HPI Torrey Campos is a 39 year old male who presents here today for Above Complaints.. Patient notes that his blood pressure was high at physical therapy 153/108 and was 160/100 at home last night. Notes that he has had pneumonia starting 07/23 which he is being treated for. Was nervousat PT. Has been under more stress being back at work. Had 2 diet cokes yesterday. Limits his sodiumintake. Past medical history, appointments, medications, allergies reviewed. 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 Infectious mononucleosis 2006 w/Hepatitis Overweight (BMI 25.0-29.9) Vitamin D deficiency Previous Surgical History PAST SURGICAL HISTORY Procedure Laterality Date COLONOSCOPY 07/15/2023 Diverticulosis, tubular adenoma EGD W/O BRSH SPEC VARICIES INJ 07/15/2023 Normal EXC LESION TDN SHTH/JT CAPSL HAND/FNGR Right 03/02/2023 Excision ganglion cyst right middle finger HYDROCELE RIGHT, FLUID Right 2002 Family History FAMILY HISTORY Problem Relation Age of Onset Hypertension Mother Hyperlipidemia Mother Heart Father arrhythmia No Known Problems Daughter Colon Cancer No Family History Patient Allergies ALLERGIES No Known Allergies Current Medications Current Outpatient Medications on File Prior to Visit Medication Sig omeprazole (PRILOSEC) 40 mg capsule Take 1 capsule by mouth every morning. meloxicam (MOBIC) 15 mg tablet Take 1 tablet by mouth once daily. With food. multivit-min/folic/vit K/lycop (MEN'S MULTIVITAMIN ORAL) Take by mouth. Lactobacillus acidophilus (PROBIOTIC ORAL) Take by mouth. No current facility-administered medications on file prior to visit. Social History Social History Tobacco Use Smoking status: Never Smokeless tobacco: Never Vaping Use Vaping status: Never Used Substance Use Topics Alcohol use: Yes Alcohol/week: 10.0 standard drinks of alcohol Types: 10 Cans of Beer (12oz) per week Comment: 2-3 times per week, varies- admits to binge drinking Drug use: Not Currently Comment: history of marijuana use in [employer] Review of Symptoms REVIEW OF SYSTEMS GENERAL: No weight loss, malaise or fevers RESPIRATORY: Negative for cough, hemoptysis, wheezing, COPD, dyspnea or shortness of breath CARDIOVASCULAR: Negative for chest pain, leg swelling, hypertension, CHF or palpitations GI: No nausea, vomiting, or diarrhea SKIN: Negative for lesions, rash, and itching EXAM: BP 114/78 Pulse 104 Resp 16 Wt 99.1 kg (218 lb 6.4 oz) SpO2 98% BMI 29.83 kg/m General Appearance: Well appearing, alert, in no acute distress, well-hydrated, well nourished.. Skin: Skin color, texture, turgor normal, no suspicious rashes or lesions. Lungs: Lungs clear to auscultation. No wheezing, rhonchi, rales.. Heart: RRR without murmur, gallop, or rubs. No ectopy. Abdomen: Normal abdominal exam, Abdomen soft, non-tender. Bowel sounds normal. No masses, organomegaly. Extremities: No deformities, edema, skin discoloration, clubbing or cyanosis. Good capillary refill. Health Maintenance List Depression Screening Never done Anxiety Screening due on 07/16/2025 DTaP,Tdap,Td Vaccine(2 - Td or Tdap) due on 03/27/2028 Colorectal Cancer Screening due on 07/15/2028 Lipid Screening due on 07/16/2029 Influenza Vaccine Completed Hepatitis C Screening Completed Covid-19 Vaccine Completed HPV Vaccine Aged Out Hepatitis B Vaccine Discontinued HIV Screening Discontinued ASSESSMENT/PLAN: 1. Elevated BP without diagnosis of hypertension - ICD9: 796.2, ICD10: R03.0 - Encouraged dietary sodium restriction/DASH diet - Recommended regular aerobic exercise. - Recommend home blood pressure monitoring, to bring results in on next visit - Goal of BP <140/90 Alex Muniz MD documented [facility]25 NoteHNO ID: [id number] Author: JOSE ANTONIO CARL PT Service: ? Author Type: Physical Therapist Type: Progress Notes Filed: 07/30/2024 17:49 Note Text: Episode Visit Count: 1 Therapist That Will Accept/Oversee The Plan Of Care: Jose Antonio Carl PT Start of Care Date: 07/30/24 Onset Date: 05/30/23 Patient Identified by Name and Date of : Yes REHABILITATION AND SPORTS THERAPY PHYSICAL THERAPY EVALUATION PLAN OF CARE: Assessment: Torrey Campos presents with chief complaint of L upper back, scapula, shoulder and chest pain that interferes with sleeping (exercising) . The patient presents with impairments in ADL's, independence in exercise, overall function, patient reported outcome measures, posture, strength, symptom management, and tissue tenderness. PROMIS? (Patient-Reported Outcomes Measurement Information System) scores were reviewed and identified as within normal limits. Prognosis for therapy is Good due to: current objective clinical presentation, good overall health status, good support system/ coping skills. The patient will benefit from skilled therapy services to meet the goals established for this plan of care as noted below. Goals for Episode of Care: established 07/30/24 Independent in home exercises. Patient will decrease pain to 0/10 at rest and with functional activities to allow patient to improve exercise and sleeping. Sleep through night without pain/symptoms. Patient will be able to tolerate exercise and all work tasks without increased symptoms. Patient will be able to correct postural deviations independently in order to improve postural alignment of trunk during sitting, allow for normal mechanics, to decrease current pain , and prevent future recurrence. Patient will increase strength of postural muscles to WFL to allow for improved postural maintenance at work. Patient Goals: eliminate pain without medication Time Frame for Goals and Treatment : 09/10/24 Planned Interventions, Frequency, and Duration: Current Frequency: 1x/week Duration: 6 weeks Total Number of Visits Planned: 6 Planned Treatment Interventions: Therapeutic exercise (62345), Neuromuscular re-education (65006), Manual therapy (09266), Self-senior care management (37242), Patient/Family/Caregiver Education, Body Mechanics Training PLAN FOR NEXT VISIT: Review, correct and progress HEP to tolerance. Continue with emphasis on postural correction, stretching and strengthening. Use foam rollers prn and manual therapy/rib mobilization prn. Patient demonstrates good understanding of plan of care and treatment. The above goals and plan of care were discussed and agreed upon by patient/family. SUBJECTIVE: Pt reports constant pain that varies in location and intensity. He reports that pain is in L upper back, L scapula, L shoulder and L chest. He reports that all cardiac work up was negative. He reports that he started meloxicam medication several weeks ago that has helped significantly. He has not had any treatment except for meloxicam. He was given back exercises but he has not started these yet. He reports that he has had chronically poor posture. 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 Cancer Clinical Reasoning: No identified risk factors. Infection Clinical Reasoning: No identified risk factors. Cauda Equina Syndrome Clinical Reasoning: No identified risk factors. Cervical Arterial Dysfunction Clinical Reasoning: No identified risk factors Red Flags - Cervical Cancer Clinical Reasoning: No identified risk factors. Infection Clinical Reasoning: No identified risk factors. Cervical Arterial Dysfunction Clinical Reasoning: No identified risk factors Spine History Symptoms Location at Onset: Back (started in anterior L chest then moved to upper back where it is focused currently) Symptoms Since Onset: Unchanging (improved dramatically with meloxicam) Pain is Worse Always: No position (no pattern) Pain is Better Always: No position (meloxicam) Previous Episodes: No Sleeping Position: Side lying right, Side lying left Pain: Pain Pain Level: 4 (0-1/10 with meloxicam, 4/10 at worst) Pain Location: Shoulder - Left, Scapula - Left, Thoracic Spine - Left, Chest - Left Description: Sharp Frequency: Continuous (constant but varies in intensity and location) Post Treatment Pain Post Treatment Pain Level: No Change PROMIS Scales 1 (more content not included)...[facility]01-27-2025 History of Present illness Narrative* Jose Antonio Carl, PT - 07/30/2024 5:44 PM EST Episode Visit Count: 1 Therapist That Will Accept/Oversee The Plan Of Care: Jose Antonio Carl PT Start of Care Date: 07/30/24 Onset Date: 05/30/23 Patient Identified by Name and Date of : Yes REHABILITATION AND SPORTS THERAPY PHYSICAL THERAPY EVALUATION PLAN OF CARE: Assessment: Torrey Campos presents with chief complaint of L upper back, scapula, shoulder and chest pain that interferes with sleeping (exercising) . The patient presents with impairments in ADL's, independence in exercise, overall function, patient reported outcome measures, posture, strength, symptom management, and tissue tenderness. PROMIS (Patient-Reported Outcomes Measurement Information System) scores were reviewed and identified as within normal limits. Prognosis for therapy is Good due to: current objective clinical presentation, good overall health status, good support system/ coping skills. The patient will benefit from skilled therapy services to meet the goals established for this plan of care as noted below. Goals for Episode of Care: established 07/30/24 Independent in home exercises. Patient will decrease pain to 0/10 at rest and with functional activities to allow patient to improve exercise and sleeping. Sleep through night without pain/symptoms. Patient will be able to tolerate exercise and all work tasks without increased symptoms. Patient will be able to correct postural deviations independently in order to improve postural alignment of trunk during sitting, allow for normal mechanics, to decrease current pain , and prevent future recurrence. Patient will increase strength of postural muscles to WFL to allow for improved postural maintenance at work. Patient Goals: eliminate pain without medication Time Frame for Goals and Treatment : 09/10/24 Planned Interventions, Frequency, and Duration: Current Frequency: 1x/week Duration: 6 weeks Total Number of Visits Planned: 6 Planned Treatment Interventions: Therapeutic exercise (13471), Neuromuscular re- education (78070), Manual therapy (75003), Self-senior care management (44702), Patient/Family/Caregiver Education, Body Mechanics Training PLAN FOR NEXT VISIT: Review, correct and progress HEP to tolerance. Continue with emphasis on postural correction, stretching and strengthening. Use foam rollers prn and manual therapy/rib mobilization prn. Patient demonstrates good understanding of plan of care and treatment. The above goals and plan of care were discussed and agreed upon by patient/family. SUBJECTIVE: Pt reports constant pain that varies in location and intensity. He reports that pain is in L upper back, L scapula, L shoulder and L chest. He reports that all cardiac work up was negative. He reports that he started meloxicam medication several weeks ago that has helped significantly. He has not had any treatment except for meloxicam. He was given back exercises but he has not started these yet.He reports that he has had chronically poor posture. 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 Cancer Clinical Reasoning: No identified risk factors. Infection Clinical Reasoning: No identified risk factors. Cauda Equina Syndrome Clinical Reasoning: No identified risk factors. Cervical Arterial Dysfunction Clinical Reasoning: No identified risk factors Red Flags - Cervical Cancer Clinical Reasoning: No identified risk factors. Infection Clinical Reasoning: No identified risk factors. Cervical Arterial Dysfunction Clinical Reasoning: No identified risk factors Spine History Symptoms Location at Onset: Back (started in anterior L chest then moved to upper back where it is focused currently) Symptoms Since Onset: Unchanging (improved dramatically with meloxicam) Pain is Worse Always: No position (no pattern) Pain is Better Always: No position (meloxicam) Previous Episodes: No Sleeping Position: Side lying right, Side lying left Pain: Pain Pain Level: 4 (0-1/10 with meloxicam, 4/10 at worst) Pain Location: Shoulder - Left, Scapula - Left, Thoracic Spine - Left, Chest - Left Description: Sharp Frequency: Continuous (constant but varies in intensity and location) Post Treatment Pain Post Treatment Pain Level: No Change PROMIS Scales 07/29/2024 Higher is Better Self-Eff Symptom - T Score 41 (Average) Self-Eff Symptom - Percentile 18 07/29/2024 Lower is Better Pain Interference - T Score 54 (within normal limits) Pain Interference - Percentile 34 T-scores: mean of general population = 50. 5 points is clinically meaningfully difference Percentiles provide an indication of how the patient's score ranks in relation to the general population. Higher percentile rankings indicate better function/quality of life. 50th percentile is the average of the general population and indicates half of respondents had a worse score. OBJECTIVE MEASURES WITH LEVEL OF FUNCTION: Posture / Alignment Posture: Forward head, Increased thoracic kyphosis, Rounded shoulders, Decreased lumbar lordosis, Poor Spine Observations L Thoracic Spine Palpation Tenderness: Rhomboid (Pectoral muscles) Sensation - Cervical Spine Cervical Spine Sensation: Grossly Intact Cervical Spine ROM Cervical ROM : Limitation AROM Cervical Flexion AROM: Normal Cervical Extension AROM: Normal Cervical Side-Bend Right AROM: Normal Cervical Side-Bend Left AROM: Normal Cervical Rotation Right AROM: Normal Cervical Rotation Left AROM: Normal LE Strength Trunk Strength: Pt's postural deficits, reported chronicity of symptoms and job demands for prolonged sitting and desk work indicate that he will benefit from increased core and postural strength. Special Tests - Cervical Cervical Special Tests: Cervical Compression, Cervical Distraction, Spurling Cervical Compression: Negative Cervical Distraction: Negative Spurling: Right Negative, Left Negative Vitals BP: 153/108 Pulse: 79 Education: Education Learning Preferences: Demonstration, Explanation, Performance, Printed Materials Barriers: None Learning/educational needs: Home exercise program, Plan of Care, Posture, Body Mechanics Education Provided: Yes, see treatment interventions for education provided Education Provided To: Patient Education Mode/Type: Demonstration, Explanation/Discussion, Literature/Printed Materials, Performance Response to Education/Teach Back: States/Identifies, Return Demonstration, Requires Review/Additional Education TREATMENT: PT Treatment Interventions: Therapeutic Exercise, Self-Group Home Management Evaluation Therapeutic Exercise: 1: Pt was educated on the proper intensity of all therex and the importance of backing off or stopping any exercise that causes increased pain. 2: *corner pectoral stretch 3x30 seconds 3: *door knob L rhomboid stretch 3x30 seconds Skilled Intervention: Patient was educated in proper exercise technique and purpose for exercises. Reviewed and educated patient on additions/changes for home exercise program as above (*). Skilled judgment was used in selection of appropriate interventions. Provided written instruction for home exercise program to facilitate proper performance and compliance. Correct performance of therapeutic exercises was facilitated with verbal, visual, and tactile cuing. Patient education as noted. Self-Group Home Management: 1: Pt was educated extensively on the anatomy of symptomatic areas, likely etiology of symptoms andrationale for recommended PT plan of care. Postural correction was emphasized as well as work station ergonomics. The possible connection between his symptoms and postural deficits was explained. A handout on postural correction provided. He was educated on proper sleeping position and how to use atowel roll in his pillow case to support his cervical lordosis. Skilled Intervention: Skilled judgment in the selection of proper modification for activity of daily living/home management based on clinical presentation, deficits, and needs. Educated the patient regarding recommendations and provided written instruction to facilitate compliance. Reviewed patient specific diagnosis in relation to activities of daily living/home management. Billing * Evaluation Low Complexity: 1 Unit Therapeutic Exercise Treatment Minutes: 10 Self-Care/Home Management Treatment Minutes: 15 Skilled Treatment Time Minutes (timed and untimed codes): 45 Total Session Time (minutes): 45 Session Start Time : 830 Session Stop Time : 915 Jose Antonio Carl PT * Jose Antonio Carl PT - 07/30/2024 9:10 AM EST Program_ID:[id number] Access Code: [email or web address] URL: [email or web address] Date: 07-30-2024 Prepared By: Jose Antonio Carl Program Notes Exercises - Corner Pec Major Stretch - 3 x daily - 7 x weekly - sets - 3 reps - Doorway Rhomboid Stretch - 2-3 x daily - 7 x weekly - sets - 3 reps Patient Education - cc Posture Training Slouch Overcorrect documented in this [facility]20-[facility]25 Instructions* Patient Instructions* Flores Beltran APRN.AERODYNAMIC CONSULTANT - 07/23/2024 12:14 PM EST ASSESSMENT/PLAN: 1. Acute cough - ICD9: 786.2, ICD10: R05.1 (primary diagnosis) - XR CHEST 2V FRONTAL/LAT IMPRESSION: Right upper lobe pneumonia Hris Manager: RANDY Transcribe Date/Time: Jul 23 2024 11:55A Dictated by : WOLF DHALIWAL MD 2. Bacterial pneumonia - ICD9: 482.9, ICD10: J15.9 - AZITHROMYCIN 250 MG TABLET - AMOXICILLIN 875 MG-POTASSIUM CLAVULANATE 125 MG TABLET - may take tylenol for fever. - Follow-up with your PCP in 3-5 days if symptoms have not improved or sooner if symptoms worsen - Discussed red flags and need for immediate medical evaluation if any occur. - Discussed supportive care treatment with fluids, rest and analgesia. - Discussed expected course of illness Flores Beltran APRN.[facility] PATIENT INFO PNEUMONIA OVERVIEW Pneumonia is an infection of the lungs. It is a serious illness that can affect people of any age, although it is most serious in the very young, people over the age of 65, and those with underlying medical problems such as congestive heart disease, diabetes, and chronic lung disease. It is most common during the winter months, and occurs more often in smokers and men. This article will focus on community-acquired pneumonia (CAP), which refers to pneumonia that develops in people in the community, rather than in a hospital, retirement, or assisted-living facility. About four million cases of CAP occur each year in the [place], and approximately 20 percentof people require hospitalization. LUNG FUNCTION As we breathe, air is inhaled through the nose and mouth, and travels through the trachea and the bronchi to the bronchioles. At the end of the bronchioles, there are tiny air sacs, called alveoli. Alveoli have thin, porous lora that contain capillaries. The mouth and respiratory tract are constantly exposed to microorganisms as air is inhaled through the nose and mouth. However, the body's defenses are usually able prevent microorganisms from entering and infecting the lungs. These defenses include the immune system, the specialized shape of the nose and pharynx, the ability to cough, and fine hair-like structures called cilia located on the bronchi. Pneumonia can develop if your defenses are not adequate or the microorganism is particularly strong. As microorganisms multiply, the alveoli become inflamed and accumulate fluid. These changes lead tothe symptoms of pneumonia. HIGH-RISK GROUPS Some groups of adults are at a greater risk of developing pneumonia. These include people who: Are greater than 65 years old Are cigarette smokers Are malnourished due to health conditions or lack of access to food Have underlying lung disease, including cystic fibrosis, asthma, or chronic obstructive pulmonary disease (emphysema) Have other underlying medical problems, including diabetes or heart disease Have a weakened immune system due to HIV, organ transplant, chemotherapy, or chronic steroid use Have difficulty coughing due to stroke, sedating drugs or alcohol, or limited mobility Have had a recent viral upper respiratory tract infection including influenza PNEUMONIA CAUSES Pneumonia can be caused by a variety of microorganisms, including viruses, bacteria, and less commonly, fungi. The most common cause of pneumonia in the [place] is the bacterium Streptococcus pneumoniae, or pneumococcus. Viruses are estimated to be the cause of adult CAP in at least 20 percent of cases. Fungi rarely cause pneumonia in people who are generally healthy; people with a weakened immune system (those with HIV, organ transplant patients, or those on chemotherapy) are at higher risk of fungal infection. Other organisms, such as Mycoplasma, are a common cause of mild pneumonia but can occasionally cause serious disease. PNEUMONIA SYMPTOMS Common symptoms of pneumonia include shortness of breath, pain with breathing, a rapid heart and breathing rate, nausea, vomiting, diarrhea, and a cough that often produces green or yellow sputum; occasionally the sputum is rust colored. Most people have a fever (temperature greater than 100.5 F or38 C), although elderly people have fever less often. Shaking chills (called rigors) and a change in mental status (confusion, unclear thinking) can occur. The characteristics of pneumonia are different than those of a more common infection, acute viral bronchitis, which does not usually cause fever and does not require treatment with an antibiotic. PNEUMONIA DIAGNOSIS Pneumonia is usually diagnosed with a medical history and physical examination, and sometimes a chest x-ray. The need for further testing depends upon the severity of the illness and the person's risk of complications. Blood oxygen measurement -- Pneumonia can decrease the amount of oxygen available in the blood. As a result, a blood oxygen level is often measured by attaching a small clip to the finger or ear thatuses infrared light. In those who are sicker, the oxygen level may be measured by withdrawing a sample of blood from an artery. PNEUMONIA TREATMENT The goal of treatment for patients with CAP is to treat the infection and prevent complications. Initial treatment of CAP is based upon the organism that is likely to be causing pneumonia (called empiric treatment). Most patients improve with empiric treatment. Hospital versus home care -- Most patients are treated for CAP at home with oral antibiotics. People who are seriously ill or are at increased risk for complications may be hospitalized. Hospital monitoring usually includes measurement of heart and breathing rate, temperature, and oxygen levels. Hos pitalized patients are usually given intravenous (IV) antibiotics initially. The number of days spent in the hospital is variable, and depends upon how a person responds to treatment and if there areunderlying medical problems. Some patients, including people with previous lung damage or disease, a weakened immune system, or infection in more than one lobe of the lungs (called multilobar pneumonia), may be slow to recover and require a longer hospitalization. Antibiotic choice -- A number of antibiotic treatment regimens exist for treatment of CAP. The choice of which antibiotic to use is based upon several factors, including the person's underlying medical problems and the likelihood of being infected with a bacteria that is resistant to specific drugs. People with certain underlying medical problems and those who have used antibiotics in the past three months have a higher risk of infection with drug resistant bacteria. For all antibiotic regimens,it is important to finish the entire course of medication and take it exactly as directed. EXPECTED RECOVERY FROM PNEUMONIA A person with pneumonia usually begins to improve after three to five days of antibiotic treatment.Improvement may be defined as feeling better or having fewer symptoms, such as cough and fever. Fatigue and a persistent, but milder, cough can last for up to one month, although most people are ableto resume their usual activities within seven days. Patients treated in the hospital may require three weeks or more to resume normal activities. All patients, whether treated at home or in the hospital, should take special care of themselves during the recovery period. This includes getting adequate rest at night and taking naps during the day if needed. Patients should drink fluids to avoid becoming dehydrated; there is no specific amount of fluid recommended, but thirst is a good indicator of the need to drink more fluids. Patients should be sure to finish all of their antibiotic medication, even if they feel better after a few days. WHEN TO SEEK HELP Anyone who suspects that they have pneumonia should seek medical care as soon as possible. Pneumonia is a serious illness that can be life-threatening if not treated, especially for people who are older than 65 years, alcoholic, have underlying medical problems, or a weakened immune system. People with the following symptoms should see their healthcare provider promptly: Fever and cough with phlegm that does not improve or worsens New shortness of breath with normal daily activities Chest pain with breathing Feeling suddenly worse after a cold or the flu PREVENTION The pneumococcal vaccine is one of the most effective ways to prevent pneumonia. Smoking cessation is another important way to prevent pneumonia. Infection control -- Infection control measures can help to prevent the spread of any type of infection, including pneumonia. Infection control is most commonly practiced in healthcare settings, but is useful in the community as well. Simple practices such as frequent hand washing with soap and water or alcohol-based hand rubs can be effective. Because pneumonia is spread by contact with infected respiratory secretions, people with pneumonia should limit [id number] contact with uninfected family and friends. The mouth and nose should be covered while coughing or sneezing, and tissues should be disposed of immediately. Sneezing/coughing into the sleeve of one's clothing (at the inner elbow) is another means of containing sprays of saliva and secretions and has the advantage of not contaminating the hands. [facility] History of Present illness Narrative* Casandra Smalls RT(R) - 07/23/2024 11:50 AM EST Radiology Service Progress Note PATIENT NAME: Torrey Campos DATE OF SERVICE: July 23, 2024 TIME: 11:42 AM PATIENT IDENTITY VERIFICATION COMPLETED USING TWO (2) IDENTIFIERS: Name and Date of confirmedby patient verbally. FALL SCREENING: Has the patient had 2 falls in the last year or 1 fall with injury or currently using an Ambulatory Assistive Device (Walker, Cane, Wheelchair, Crutches, etc.)? No PATIENT GENDER DATA: Assigned male at PATIENT RELEVANT IMPLANT DATA REVIEWED: Not Applicable PATIENT PRESENTS WITH AN IMPLANTABLE OR ATTACHED DIRECTOR OF EDUCATION: No RADIOLOGY DEPARTMENT: General X-ray: Exam(s) Completed: Chest X-Ray PERIPHERAL IV DATA: Not applicable SIGNED BY: RT Latasha(R) July 23, 2024 11:42 AM documented in this encounterK[facility]25 NoteHNO ID: [id number] Author: CASANDRA SMALLS RT(R) Service: Radiology Author Type: Technologist Type: Progress Notes Filed: 07/23/2024 11:46 Note Text: Radiology Service Progress Note PATIENT NAME: Torrey Campos DATE OF SERVICE: July 23, 2024 TIME: 11:42 AM PATIENT IDENTITY VERIFICATION COMPLETED USING TWO (2) IDENTIFIERS: Name and Date of confirmed by patient verbally. FALL SCREENING: Has the patient had 2 falls in the last year or 1 fall with injury or currently using an Ambulatory Assistive Device (Walker, Cane, Wheelchair, Crutches, etc.)? No PATIENT GENDER DATA: Assigned male at PATIENT RELEVANT IMPLANT DATA REVIEWED: Not Applicable PATIENT PRESENTS WITH AN IMPLANTABLE OR ATTACHED DIRECTOR OF EDUCATION: No RADIOLOGY DEPARTMENT: General X-ray: Exam(s) Completed: Chest X-Ray PERIPHERAL IV DATA: Not applicable SIGNED BY: RT Latasha(R) July 23, 2024 11:42 [facility]01-20[facility]25 NoteHNO ID: [id number] Author: FLORES BELTRAN APRN.AERODYNAMIC CONSULTANT Service: ? Author Type: Nurse Practitioner Type: Progress Notes Filed: 07/23/2024 12:15 Note Text: Subjective Nasal Congestion Associated symptoms include congestion, coughing, headaches, shortness of breath and a sore throat. Pertinent negatives include no chills or ear pain. Torrey Campos is a 39 year old male who presents with cough, nasal congestion, body aches, fever for the past 4 days. Cough is productive and he has had some shortness of breath. Had a fever at home of 101.5-102 degrees F. He has been taking Mobic due to chronic pain and fever was present despite using Mobic. Review of Systems Constitutional: Positive for fever. Negative for chills and malaise/fatigue. HENT: Positive for congestion and sore throat. Negative for ear pain. Respiratory: Positive for cough, sputum production and shortness of breath. Cardiovascular: Negative for chest pain. Gastrointestinal: Negative for diarrhea, nausea and vomiting. Musculoskeletal: Positive for myalgias. Neurological: Positive for headaches. BP 142/74 Pulse 102 Temp 37 ?C (98.6 ?F) Resp 16 Wt 99.6 kg (219 lb 9.3 oz) SpO2 96% BMI 29.99 kg/m? 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 MEDICATIONS omeprazole (PRILOSEC) 40 mg capsule Take 1 capsule by mouth every morning. meloxicam (MOBIC) 15 mg tablet Take 1 tablet by mouth once daily. With food. multivit-min/folic/vit K/lycop (MEN'S MULTIVITAMIN ORAL) Take by mouth. Lactobacillus acidophilus (PROBIOTIC ORAL) Take by mouth. FAMILY HISTORY Problem Relation Age of Onset Hypertension Mother Hyperlipidemia Mother Heart Father arrhythmia No Known Problems Daughter Colon Cancer No Family History Social History Tobacco Use Smoking status: Never Smokeless tobacco: Never Vaping Use Vaping status: Never Used Substance Use Topics Alcohol use: Yes Alcohol/week: 10.0 standard drinks of alcohol Types: 10 Cans of Beer (12oz) per week Comment: 2-3 times per week, varies- admits to binge drinking Drug use: Not Currently Comment: history of marijuana use in college Objective Physical Exam Vitals and nursing note reviewed. HENT: Right Ear: Tympanic membrane, ear canal and external ear normal. Left Ear: Tympanic membrane, ear canal and external ear normal. Nose: Nose normal. Mouth/Throat: Pharynx: Uvula midline. No oropharyngeal exudate or posterior oropharyngeal erythema. Cardiovascular: Rate and Rhythm: Normal rate and regular rhythm. Heart sounds: Normal heart sounds. Pulmonary: Effort: Pulmonary effort is normal. No respiratory distress. Breath sounds: Normal breath sounds. No wheezing or rales. Musculoskeletal: Cervical back: Neck supple. Lymphadenopathy: Cervical: No cervical adenopathy. Skin: General: Skin is warm and dry. Findings: No erythema or rash. Neurological: Mental Status: He is alert. ASSESSMENT/PLAN: 1. Acute cough - ICD9: 786.2, ICD10: R05.1 (primary diagnosis) - XR CHEST 2V FRONTAL/LAT IMPRESSION: Right upper lobe pneumonia Hris Manager: RANDY Transcribe Date/Time: Jul 23 2024 11:55A Dictated by : WOLF DHALIWAL MD 2. Bacterial pneumonia - ICD9: 482.9, ICD10: J15.9 - AZITHROMYCIN 250 MG TABLET - AMOXICILLIN 875 MG-POTASSIUM CLAVULANATE 125 MG TABLET - Follow-up with your PCP in 3-5 days if symptoms have not improved or sooner if symptoms worsen - Discussed red flags and need for immediate medical evaluation if any occur. - Discussed supportive care treatment with fluids, rest and analgesia. - Discussed expected course of illness Flores Beltran APRN.[facility]01-20-2025 History of Present illness Narrative* Flores Beltran APRN.[facility] - 07/23/2024 11:47 AM EST Subjective Nasal Congestion Associated symptoms include congestion, coughing, headaches, shortness of breath and a sore throat.Pertinent negatives include no chills or ear pain. Torrey Campos is a 39 year old male who presents with cough, nasal congestion, body aches, fever for the past 4 days. Cough is productive and he has had some shortness of breath. Had a fever at home of 101.5-102 degrees F. He has been taking Mobic due to chronic pain and fever was present despite using Mobic. Review of Systems Constitutional: Positive for fever. Negative for chills and malaise/fatigue. HENT: Positive for congestion and sore throat. Negative for ear pain. Respiratory: Positive for cough, sputum production and shortness of breath. Cardiovascular: Negative for chest pain. Gastrointestinal: Negative for diarrhea, nausea and vomiting. Musculoskeletal: Positive for myalgias. Neurological: Positive for headaches. 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 MEDICATIONS omeprazole (PRILOSEC) 40 mg capsule Take 1 capsule by mouth every morning. meloxicam (MOBIC) 15 mg tablet Take 1 tablet by mouth once daily. With food. multivit-min/folic/vit K/lycop (MEN'S MULTIVITAMIN ORAL) Take by mouth. Lactobacillus acidophilus (PROBIOTIC ORAL) Take by mouth. FAMILY HISTORY Problem Relation Age of Onset Hypertension Mother Hyperlipidemia Mother Heart Father arrhythmia No Known Problems Daughter Colon Cancer No Family History Social History Tobacco Use Smoking status: Never Smokeless tobacco: Never Vaping Use Vaping status: Never Used Substance Use Topics Alcohol use: Yes Alcohol/week: 10.0 standard drinks of alcohol Types: 10 Cans of Beer (12oz) per week Comment: 2-3 times per week, varies- admits to binge drinking Drug use: Not Currently Comment: history of marijuana use in college Objective Physical Exam Vitals and nursing note reviewed. HENT: Right Ear: Tympanic membrane, ear canal and external ear normal. Left Ear: Tympanic membrane, ear canal and external ear normal. Nose: Nose normal. Mouth/Throat: Pharynx: Uvula midline. No oropharyngeal exudate or posterior oropharyngeal erythema. Cardiovascular: Rate and Rhythm: Normal rate and regular rhythm. Heart sounds: Normal heart sounds. Pulmonary: Effort: Pulmonary effort is normal. No respiratory distress. Breath sounds: Normal breath sounds. No wheezing or rales. Musculoskeletal: Cervical back: Neck supple. Lymphadenopathy: Cervical: No cervical adenopathy. Skin: General: Skin is warm and dry. Findings: No erythema or rash. Neurological: Mental Status: He is alert. ASSESSMENT/PLAN: 1. Acute cough - ICD9: 786.2, ICD10: R05.1 (primary diagnosis) - XR CHEST 2V FRONTAL/LAT IMPRESSION: Right upper lobe pneumonia Hris Manager: RANDY Transcribe Date/Time: Jul 23 2024 11:55A Dictated by : WOLF DHALIWAL MD 2. Bacterial pneumonia - ICD9: 482.9, ICD10: J15.9 - AZITHROMYCIN 250 MG TABLET - AMOXICILLIN 875 MG-POTASSIUM CLAVULANATE 125 MG TABLET - Follow-up with your PCP in 3-5 days if symptoms have not improved or sooner if symptoms worsen - Discussed red flags and need for immediate medical evaluation if any occur. - Discussed supportive care treatment with fluids, rest and analgesia. - Discussed expected course of illness Flores Beltran APRN.AERODYNAMIC CONSULTANT documented in this encounterK[facility] Telephone encounter Note * Telephone Encounter - Emma Mccracken LPN - 07/17/2024 7:40 AM EST ----- Message from Alex Muniz MD sent at 07/17/2024 7:03 AM EST ----- Normal labs. No change in regimen. [facility]01-14-2025 Miscellaneous Notes* Telephone Encounter - Emma Mccracken LPN - 07/17/2024 7:40 AM EST ----- Message from Alex Muniz MD sent at 07/17/2024 7:03 AM EST ----- Normal labs. No change in regimen. documented in this encounterK[facility]01-13-2025 NoteHNO ID: [id number] Author: ALEX MUNIZ MD Service: ? Author Type: Physician Type: Progress Notes Filed: 07/16/2024 08:43 Note Text: Chief Complaint Patient presents with: Physical HPI Torrey Campos is a 39 year old male who presents here today for Above Complaints. Patient states that he continues to get some left flank, upper back, and chest pain for more than 1 year now. Described as constant sharp pain, currently 1/10. Exacerbated with lying down. Not taking anything OTC for pain. Tried naproxen briefly for pain but did not help. Has had previous cardiac workup for this which was negative. Also evaluated for kidney stones and autoimmune disease which was negative. Denies fall/injury, fever/chills, dysuria, hematuria, frequency, urgency, nausea, vomiting, diarrhea, constipation, hematochezia, melena, saddle anesthesia, LE weakness, loss of bowel/bladder control. Drinking 2 times per week with up to 6-8 drinks at a time. We have discussed binge drinking and he is aware of the risks. Not wanting help with cessation at this time. Needs refill on omeprazole for GERD. Taking daily without side effects. Symptoms well controlled. Past medical history, appointments, medications, allergies reviewed. 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 Infectious mononucleosis 2006 w/Hepatitis Overweight (BMI 25.0-29.9) Vitamin D deficiency Previous Surgical History PAST SURGICAL HISTORY Procedure Laterality Date COLONOSCOPY 07/15/2023 Diverticulosis, tubular adenoma EGD W/O BRSH SPEC VARICIES INJ 07/15/2023 Normal EXC LESION TDN SHTH/JT CAPSL HAND/FNGR Right 03/02/2023 Excision ganglion cyst right middle finger HYDROCELE RIGHT, FLUID Right 2002 Family History FAMILY HISTORY Problem Relation Age of Onset Hypertension Mother Hyperlipidemia Mother Heart Father arrhythmia Colon Cancer No Family History Patient Allergies ALLERGIES No Known Allergies Current Medications Current Outpatient Medications on File Prior to Visit Medication Sig omeprazole (PRILOSEC) 40 mg capsule take 1 capsule by mouth every morning multivit-min/folic/vit K/lycop (MEN'S MULTIVITAMIN ORAL) Take by mouth. Lactobacillus acidophilus (PROBIOTIC ORAL) Take by mouth. No current facility-administered medications on file prior to visit. Social History Social History Tobacco Use Smoking status: Never Smokeless tobacco: Never Vaping Use Vaping status: Never Used Substance Use Topics Alcohol use: Yes Alcohol/week: 10.0 standard drinks of alcohol Types: 10 Cans of Beer (12oz) per week Comment: 2-3 times per week, varies- admits to binge drinking Drug use: Not Currently Comment: history of marijuana use in college Review of Symptoms REVIEW OF SYSTEMS GENERAL: No weight loss, malaise or fevers HEENT: Negative for frequent or significant headaches, No changes in hearing or vision, no nose bleeds or other nasal problems NECK: Negative for lumps, goiter, pain and significant neck swelling RESPIRATORY: Negative for cough, hemoptysis, wheezing, COPD, dyspnea or shortness of breath CARDIOVASCULAR: Negative for chest pain, leg swelling, hypertension, CHF or palpitations GI: No nausea, vomiting, or diarrhea : See HPI MUSCULOSKELETAL: See HPI SKIN: Negative for lesions, rash, and itching PSYCH: Negative for sleep disturbance, mood disorder and recent psychosocial stressors HEMATOLOGY/LYMPHOLOGY: Negative for prolonged bleeding, bruising easily or swollen nodes ENDOCRINE: Negative for cold or heat intolerance, polyuria, polydipsia and goiter NEURO: No history of headaches, syncope, paralysis, seizures or tremors EXAM: BP 130/72 Pulse 85 Resp 16 Wt 99.8 kg (220 lb) SpO2 99% BMI 30.05 kg/m? General Appearance: Well appearing, alert, in no acute distress, well-hydrated, well nourished.. Skin: Skin color, texture, turgor normal, no suspicious rashes or lesions. Head: Normocephalic, no masses, lesions, tenderness or abnormalities. Eyes: Anicteric sclera. Pupils are equally round and reactive to light. Extraocular movements are intact. . Ears: External ears normal, canals clear. Nose/Sinuses: Nares normal, septum midline, mucosa normal, no drainage or sinus tenderness. Oropharynx: Lips, mucosa, and tongue normal, teeth and gums normal, oropharynx normal. Neck: Supple, no adenopathy; thyroid symmetric, normal size, no bruits. Back:no pain to palpation of vertebrae, good flexion and extension, good range of motion, no muscle tenderness, no evidence of scoliosis. Pain reproducible with twisting. Lungs: Lungs clear to auscultation. No wheezing, rhonchi, rales.. Heart: RRR without murmur, gallop, or rubs. No ectopy. Abdomen: Normal abdominal exam, Abdomen soft, non-tender. Bowel sounds normal. No masses, organomegaly. Extremi (more content not included)...[facility]01-13-2025 History of Present illness Narrative* Alex Muniz MD - 07/16/2024 8:02 AM EST Chief Complaint Patient presents with: Physical HPI Torrey Campos is a 39 year old male who presents here today for Above Complaints. Patient states that he continues to get some left flank, upper back, and chest pain for more than 1year now. Described as constant sharp pain, currently 1/10. Exacerbated with lying down. Not takinganything OTC for pain. Tried naproxen briefly for pain but did not help. Has had previous cardiac workup for this which was negative. Also evaluated for kidney stones and autoimmune disease which wasnegative. Denies fall/injury, fever/chills, dysuria, hematuria, frequency, urgency, nausea, vomiting, diarrhea, constipation, hematochezia, melena, saddle anesthesia, LE weakness, loss of bowel/bladder control. Drinking 2 times per week with up to 6-8 drinks at a time. We have discussed binge drinking and he is aware of the risks. Not wanting help with cessation at this time. Needs refill on omeprazole for GERD. Taking daily without side effects. Symptoms well controlled. Past medical history, appointments, medications, allergies reviewed. 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 Infectious mononucleosis 2006 w/Hepatitis Overweight (BMI 25.0-29.9) Vitamin D deficiency Previous Surgical History PAST SURGICAL HISTORY Procedure Laterality Date COLONOSCOPY 07/15/2023 Diverticulosis, tubular adenoma EGD W/O BRSH SPEC VARICIES INJ 07/15/2023 Normal EXC LESION TDN SHTH/JT CAPSL HAND/FNGR Right 03/02/2023 Excision ganglion cyst right middle finger HYDROCELE RIGHT, FLUID Right 2002 Family History FAMILY HISTORY Problem Relation Age of Onset Hypertension Mother Hyperlipidemia Mother Heart Father arrhythmia Colon Cancer No Family History Patient Allergies ALLERGIES No Known Allergies Current Medications Current Outpatient Medications on File Prior to Visit Medication Sig omeprazole (PRILOSEC) 40 mg capsule take 1 capsule by mouth every morning multivit-min/folic/vit K/lycop (MEN'S MULTIVITAMIN ORAL) Take by mouth. Lactobacillus acidophilus (PROBIOTIC ORAL) Take by mouth. No current facility-administered medications on file prior to visit. Social History Social History Tobacco Use Smoking status: Never Smokeless tobacco: Never Vaping Use Vaping status: Never Used Substance Use Topics Alcohol use: Yes Alcohol/week: 10.0 standard drinks of alcohol Types: 10 Cans of Beer (12oz) per week Comment: 2-3 times per week, varies- admits to binge drinking Drug use: Not Currently Comment: history of marijuana use in college Review of Symptoms REVIEW OF SYSTEMS GENERAL: No weight loss, malaise or fevers HEENT: Negative for frequent or significant headaches, No changes in hearing or vision, no nose bleeds or other nasal problems NECK: Negative for lumps, goiter, pain and significant neck swelling RESPIRATORY: Negative for cough, hemoptysis, wheezing, COPD, dyspnea or shortness of breath CARDIOVASCULAR: Negative for chest pain, leg swelling, hypertension, CHF or palpitations GI: No nausea, vomiting, or diarrhea : See HPI MUSCULOSKELETAL: See HPI SKIN: Negative for lesions, rash, and itching PSYCH: Negative for sleep disturbance, mood disorder and recent psychosocial stressors HEMATOLOGY/LYMPHOLOGY: Negative for prolonged bleeding, bruising easily or swollen nodes ENDOCRINE: Negative for cold or heat intolerance, polyuria, polydipsia and goiter NEURO: No history of headaches, syncope, paralysis, seizures or tremors EXAM: BP 130/72 Pulse 85 Resp 16 Wt 99.8 kg (220 lb) SpO2 99% BMI 30.05 kg/m General Appearance: Well appearing, alert, in no acute distress, well-hydrated, well nourished.. Skin: Skin color, texture, turgor normal, no suspicious rashes or lesions. Head: Normocephalic, no masses, lesions, tenderness or abnormalities. Eyes: Anicteric sclera. Pupils are equally round and reactive to light. Extraocular movements are intact. . Ears: External ears normal, canals clear. Nose/Sinuses: Nares normal, septum midline, mucosa normal, no drainage or sinus tenderness. Oropharynx: Lips, mucosa, and tongue normal, teeth and gums normal, oropharynx normal. Neck: Supple, no adenopathy; thyroid symmetric, normal size, no bruits. Back:no pain to palpation of vertebrae, good flexion and extension, good range of motion, no muscletenderness, no evidence of scoliosis. Pain reproducible with twisting. Lungs: Lungs clear to auscultation. No wheezing, rhonchi, rales.. Heart: RRR without murmur, gallop, or rubs. No ectopy. Abdomen: Normal abdominal exam, Abdomen soft, non-tender. Bowel sounds normal. No masses, organomegaly. Extremities: No deformities, edema, skin discoloration, clubbing or cyanosis. Good capillary refill. . Peripheral Pulses: Normal. Neurologic: CN II-XII grossly intact. Lymph Nodes: No cervical lymphadenopathy and No supraclavicular lymphadenopathy. Health Maintenance List Depression Screening Never done Anxiety Screening Never done HIV Screening Never done Hepatitis B Vaccine(1 of 3 - 19+ 3-dose series) Never done DTaP,Tdap,Td Vaccine(2 - Td or Tdap) due on 03/27/2028 Lipid Screening due on 06/01/2028 Colorectal Cancer Screening due on 07/15/2028 Influenza Vaccine Completed Hepatitis C Screening Completed Covid-19 Vaccine Completed HPV Vaccine Aged Out Data reviewed Latest Ref Rng 01/19/2024 02/09/2024 02/22/2024 WBC 3.70 - 11.00 k/uL 4.12 RBC 4.20 - 6.00 m/uL 5.03 Hemoglobin 13.0 - 17.0 g/dL 15.5 Hematocrit 39.0 - 51.0 % 44.1 MCV 80.0 - 100.0 fL 87.7 MCH 26.0 - 34.0 pg 30.8 MCHC 30.5 - 36.0 g/dL 35.1 RDW-CV 11.5 - 15.0 % 12.2 Platelet Count 150 - 400 k/uL 204 MPV 9.0 - 12.7 fL 11.2 Neut% % 62.2 Abs Neut (ANC) 1.45 - 7.50 k/uL 2.56 Lymph% % 28.6 Abs Lymph 1.00 - 4.00 k/uL 1.18 Bland% % 6.6 Abs Bland <0.87 k/uL 0.27 Eosin% % 1.2 Abs Eosin <0.46 k/uL 0.05 Baso% % 0.7 Abs Baso <0.11 k/uL 0.03 Immature Gran % % 0.7 IMMATURE GRANS (ABS) <0.10 k/uL 0.03 NRBC /100 WBC 0.0 Absolute nRBC <0.01 k/uL <0.01 DTYPE Auto Color Yellow Yellow Clarity Clear Clear Glucose, Urine Negative Negative Bilirubin, Urine Negative Negative Ketones, Urine Negative Negative Specific E[place]ar, Ur 1.005 - 1.030 1.010 Hemoglobin/Blood,Ur Negative Negative pH, Urine <8.5 6.5 Protein, Urine Negative Negative Urobilinogen 0.2-1.0 EU/dL 0.2 EU/dL Nitrites Negative Negative Leukest Negative Negative WBC, Urine 0-5 /HPF 0-5 /HPF RBC, Urine 0-2 /HPF 0-2 /HPF Bacteria Negative /HPF Negative Epithelial Cells /HPF None Seen Hyaline Cast 0 /LPF 0 /LPF Protein, Total 6.3 - 8.0 g/dL 7.3 Albumin 3.9 - 4.9 g/dL 4.8 Calcium 8.5 - 10.2 mg/dL 9.8 Bilirubin, Total 0.2 - 1.3 mg/dL 0.8 Alkaline Phosphatase 38 - 113 U/L 68 AST 14 - 40 U/L 23 ALT 10 - 54 U/L 31 Glucose 74 - 99 mg/dL 90 BUN 9 - 24 mg/dL 12 Creatinine 0.73 - 1.22 mg/dL 0.91 Sodium 136 - 144 mmol/L 138 Potassium 3.7 - 5.1 mmol/L 3.9 Chloride 98 - 107 mmol/L 102 CO2 22 - 30 mmol/L 25 Anion Gap 8 - 15 mmol/L 11 eGFR >=60 mL/min/1.73m 111 WSR 0 - 15 mm/hr 2 CRP <0.9 mg/dL 0.6 DEVIN Scr Qual Negative Negative ASSESSMENT/PLAN: 1. Annual physical exam - ICD9: V70.0, ICD10: Z00.00 (primary diagnosis) - Counseled on healthy diet and regular exercise - Discussed need for and benefit of weight loss. BMI 30.05 kg/(m^2) - Counseled on alcohol intake and health risks, no more than 2 drinks per day - Follow up for annual exam in one year - COMPREHENSIVE METABOLIC PANEL - COMPLETE BLOOD COUNT AND DIFFERENTIAL - LIPID PANEL BASIC - THYROID STIMULATING HORMONE - HEMOGLOBIN A1C 2. Chronic upper back pain - ICD9: 724.5, 338.29, ICD10: M54.9, G89.29 Suspect musculoskeletal etiology. Will start Meloxicam and refer to PT. Given exercises for home. May use ice/heat PRN. - Ice for localized tenderness - Warm moist heat for 20 min three times a day - NSAIDS- see orders - PT consult - Patient given instructions use of medications as ordered, intermittent rest, back care exercise program, weight loss, improved posture, proper lifting techniques, and intermittent use of heat - MELOXICAM 15 MG TABLET - CONSULT TO PHYSICAL THERAPY 3. Gastroesophageal reflux disease without esophagitis - ICD9: 530.81, ICD10: K21.9 - Continue treatment with Prilosec 40 mg QD 4. Alcohol consumption binge drinking - ICD9: 305.00, ICD10: F10.10 Discussed cutting back. Not wanting help today. Obtain labs as ordered. Will call with results. Alex Muniz MD [facility] Tele[facility] encounter Note * Telephone Encounter - Emma Mccracken LPN - 02/23/2024 12:59 PM EDT Please review both messages with patient. Emma Mccracken LPN [facility]08-22-[facility]24 Telephone encounter Note* Telephone Encounter - Emma Mccracken LPN - 02/23/2024 12:59 PM EDT ----- Message from Alex Muniz MD sent at 02/23/2024 10:20 AM EDT ----- No further workup needed. [facility]08-22-2024 Telephone encounter Note* Telephone Encounter - Emma Mccracken LPN - 02/23/2024 12:59 PM EDT ----- Message from Alex Muniz MD sent at 02/23/2024 10:20 AM EDT ----- Repeat UA normal. Protein has cleared up. [facility]08-22-2024 Miscellaneous Notes* Telephone Encounter - Emma Mccracken LPN - 02/23/2024 12:59 PM EDT Please review both messages with patient. Emma Mccracken LPN * Telephone Encounter - Emma Mccracken LPN - 02/23/2024 12:59 PM EDT ----- Message from Alex Muniz MD sent at 02/23/2024 10:20 AM EDT ----- No further workup needed. * Telephone Encounter - Emma Mccracken LPN - 02/23/2024 12:59 PM EDT ----- Message from Alex Muniz MD sent at 02/23/2024 10:20 AM EDT ----- Repeat UA normal. Protein has cleared up. [facility]24 NoteHNO ID: [id number] Author: ALEX MUNIZ MD Service: ? Author Type: Physician Type: Progress Notes Filed: 02/09/2024 09:30 Note Text: Chief Complaint Patient presents with: Pain: Left sided pain- patient following up to see where to go from here. Additional testing? HPI Torrey Campos is a 38 year old male who presents here today for Above Complaints. Patient evaluated about 3 weeks ago for complaint of episode of gross hematuria without recurrence and occasional pain in his flanks without other urinary symptoms. CBC and CMP obtained which were normal. Renal US normal. Has repeat UA to recheck for hematuria to be completed in 1-2 weeks. Today, he complains of intermittent sharp pain which can occur over his left flank, chest, axilla, back or abdomen. Right now, pain is on the left flank and is tender to palpation. Usually pain is 1-2/10. This has been going on for several months and he has had workup including CT abd/pelvis, exercise stress test, echo, EGD and colonoscopy which has been normal. CXR in the ER in June for chest pain was normal. Stool studies obtained by GI were also normal. Not taking anything OTC for his pain. No exacerbating factors. Chest pain relieved with belching. Denies fever/chills, erythema, bruising, swelling, fall/injury, joint pain or swelling. 02/08/2024 1309 Last Filed Value NESHA-7 - over the last 2 weeks... Feeling nervous, anxious, or on edge Not at allFeeling nervous, anxious, or on edge. Not at all. Patient-Reported. Taken on 02/08/24 1309 Not at allFeeling nervous, anxious, or on edge. Not at all. Patient-Reported. Last Filed Value Not being able to stop or control worrying Not at allNot being able to stop or control worrying. Not at all. Patient-Reported. Taken on 02/08/24 1309 Not at allNot being able to stop or control worrying. Not at all. Patient-Reported. Last Filed Value Worrying too much about different things Not at allWorrying too much about different things. Not at all. Patient-Reported. Taken on 02/08/24 1309 Not at allWorrying too much about different things. Not at all. Patient-Reported. Last Filed Value Trouble relaxing Not at allTrouble relaxing. Not at all. Patient-Reported. Taken on 02/08/24 1309 Not at allTrouble relaxing. Not at all. Patient-Reported. Last Filed Value Being so restless that it is hard to sit still Not at allBeing so restless that it is hard to sit still. Not at all. Patient-Reported. Taken on 02/08/24 1309 Not at allBeing so restless that it is hard to sit still. Not at all. Patient-Reported. Last Filed Value Becoming easily annoyed or irritable Several daysBecoming easily annoyed or irritable. Several days. Patient-Reported. Taken on 02/08/24 1309 Several daysBecoming easily annoyed or irritable. Several days. Patient-Reported. Last Filed Value Feeling afraid, as if something awful might happen Not at allFeeling afraid, as if something awful might happen. Not at all. Patient-Reported. Taken on 02/08/24 1309 Not at allFeeling afraid, as if something awful might happen. Not at all. Patient-Reported. Last Filed Value How difficult to do work, care for home, get along with people -- -- NESHA-2 Total Score 0 0 NESHA-7 Total Score 1 1 NESHA-7 Score 1 1 02/08/2024 1308 Last Filed Value PHQ-9 Little interest or pleasure in doing things Not at allLittle interest or pleasure in doing things. Not at all. Patient-Reported. Taken on 02/08/241307 Not at allLittle interest or pleasure in doing things. Not at all. Patient-Reported. Last Filed Value Feeling down, depressed, or hopeless Not at allFeeling down, depressed, or hopeless. Not at all. Patient-Reported. Taken on 02/08/241307 Not at allFeeling down, depressed, or hopeless. Not at all. Patient-Reported. Last Filed Value Trouble falling or staying asleep, or sleeping too much More than half the daysTrouble falling or staying asleep, or sleeping too much. More than half the days. Patient-Reported. Taken on 02/08/241307 More than half the daysTrouble falling or staying asleep, or sleeping too much. More than half the days. Patient-Reported. Last Filed Value Feeling tired or having little energy Several daysFeeling tired or having little energy. Several days. Patient-Reported. Taken on 02/08/241307 Several daysFeeling tired or having little energy. Several days. Patient-Reported. Last Filed Value Poor appetite or overeating Not at allPoor appetite or overeating. Not at all. Patient-Reported. Taken on 02/08/241307 Not at allPoor appetite or overeating. Not at all. Patient-Reported. Last Filed Value Feeling bad about yourself - or that you are a failure or have let yourself or your family down Not at allFeeling bad about yourself - or that you are a failure or have let yourself or your family down. Not at all. Patient-Reported. Taken on 02/08/24 1308 Not at allFeeling bad about yourself - or that you are a failure or have let yourself or your family (more content not included)... [facility]08[facility] History of Present illness Narrative* Alex Muniz MD - 02/09/2024 8:28 AM EDT Chief Complaint Patient presents with: Pain: Left sided pain- patient following up to see where to go from here. Additional testing? HPI Torrey aCmpos is a 38 year old male who presents here today for Above Complaints. Patient evaluated about 3 weeks ago for complaint of episode of gross hematuria without recurrence and occasional pain in his flanks without other urinary symptoms. CBC and CMP obtained which were normal. Renal US normal. Has repeat UA to recheck for hematuria to be completed in 1-2 weeks. Today, he complains of intermittent sharp pain which can occur over his left flank, chest, axilla, back or abdomen. Right now, pain is on the left flank and is tender to palpation. Usually pain is 1-2/10. This has been going on for several months and he has had workup including CT abd/pelvis, exercise stress test, echo, EGD and colonoscopy which has been normal. CXR in the ER in June for chest pain was normal. Stool studies obtained by GI were also normal. Not taking anything OTC for his pain. No exacerbating factors. Chest pain relieved with belching. Denies fever/chills, erythema, bruising, swelling, fall/injury, joint pain or swelling. 02/08/2024 1309 Last Filed Value NESHA-7 - over the last 2 weeks... Feeling nervous, anxious, or on edge Not at allFeeling nervous, anxious, or on edge. Not at all. Patient-Reported. Taken on 02/08/24 1309 Not at allFeeling nervous, anxious, or on edge. Not at all. Patient-Reported. Last Filed Value Not being able to stop or control worrying Not at allNot being able to stop or control worrying. Not at all. Patient-Reported. Taken on 02/08/24 1309 Not at allNot being able to stop or control worrying. Not at all. Patient-Reported. Last Filed Value Worrying too much about different things Not at allWorrying too much about different things. Not atall. Patient-Reported. Taken on 02/08/24 130 Not at allWorrying too much about different things. Notat all. Patient-Reported. Last Filed Value Trouble relaxing Not at allTrouble relaxing. Not at all. Patient-Reported. Taken on 02/08/24 130 Notat allTrouble relaxing. Not at all. Patient-Reported. Last Filed Value Being so restless that it is hard to sit still Not at allBeing so restless that it is hard to sit still. Not at all. Patient-Reported. Taken on 02/08/24 130 Not at allBeing so restless that it is hardto sit still. Not at all. Patient- Reported. Last Filed Value Becoming easily annoyed or irritable Several daysBecoming easily annoyed or irritable. Several days. Patient-Reported. Taken on 02/08/24 130 Several daysBecoming easily annoyed or irritable. Several days. Patient-Reported. Last Filed Value Feeling afraid, as if something awful might happen Not at allFeeling afraid, as if something awful might happen. Not at all. Patient-Reported. Taken on 02/08/24 130 Not at allFeeling afraid, as if something awful might happen. Not at all. Patient-Reported. Last Filed Value How difficult to do work, care for home, get along with people -- -- NESHA-2 Total Score 0 0 NESHA-7 Total Score 1 1 NESHA-7 Score 1 1 02/08/2024 1308 Last Filed Value PHQ-9 Little interest or pleasure in doing things Not at allLittle interest or pleasure in doing things. Not at all. Patient-Reported. Taken on 02/08/24 130 Not at allLittle interest or pleasure in doing things. Not at all. Patient-Reported. Last Filed Value Feeling down, depressed, or hopeless Not at allFeeling down, depressed, or hopeless. Not at all. Patient-Reported. Taken on 02/08/24 130 Not at allFeeling down, depressed, or hopeless. Not at all. Patient-Reported. Last Filed Value Trouble falling or staying asleep, or sleeping too much More than half the daysTrouble falling or staying asleep, or sleeping too much. More than half the days. Patient-Reported. Taken on 02/08/241307More than half the daysTrouble falling or staying asleep, or sleeping too much. More than half the days. Patient-Reported. Last Filed Value Feeling tired or having little energy Several daysFeeling tired or having little energy. Several days. Patient-Reported. Taken on 02/08/241307 Several daysFeeling tired or having little energy. Several days. Patient-Reported. Last Filed Value Poor appetite or overeating Not at allPoor appetite or overeating. Not at all. Patient-Reported. Taken on 02/08/241307 Not at allPoor appetite or overeating. Not at all. Patient-Reported. Last Filed Value Feeling bad about yourself - or that you are a failure or have let yourself or your family down Notat allFeeling bad about yourself - or that you are a failure or have let yourself or your family down. Not at all. Patient-Reported. Taken on 02/08/241307 Not at allFeeling bad about yourself - or that you are a failure or have let yourself or your family down. Not at all. Patient-Reported. Last Filed Value Trouble concentrating on things, such as reading the newspaper or watching television Not at allTrouble concentrating on things, such as reading the newspaper or watching television. Not at all. Patient-Reported. Taken on 02/08/241307 Not at allTrouble concentrating on things, such as reading the newspaper or watching television. Not at all. Patient-Reported. Last Filed Value Moving or speaking so slowly that other people could have noticed. Or the opposite - being so fidgety or restless that you have been moving around a lot more than usual Not at allMoving or speaking so slowly that other people could have noticed. Or the opposite - being so fidgety or restless that you have been moving around a lot more than usual. Not at all. Patient-Reported. Taken on 02/08/241307Not at allMoving or speaking so slowly that other people could have noticed. Or the opposite - being so fidgety or restless that you have been moving around a lot more than usual. Not at all. Patient-Reported. Last Filed Value Thoughts that you would be better off , or of hurting yourself in some way Not at allThoughts that you would be better off , or of hurting yourself in some way. Not at all. Patient-Reported. Taken on 02/08/24 1308 Not at allThoughts that you would be better off , or of hurting yourself insome way. Not at all. Patient-Reported. Last Filed Value If you checked off any problems, how difficult have these problems made it for you to do your work,take care of things at home, or get along with other people? Not difficult at allIf you checked offany problems, how difficult have these problems made it for you to do your work, take care of things at home, or get along with other people?. Not difficult at all. Patient-Reported. Taken on 02/08/24 1308 Not difficult at allIf you checked off any problems, how difficult have these problems made it for you to do your work, take care of things at home, or get along with other people?. Not difficultat all. Patient-Reported. Last Filed Value PHQ-9 score 3 3 PHQ-9 Score 3 3 PHQ-2 score 0 0 PHQ-2 Score 0 0 Past medical history, appointments, medications, allergies reviewed. 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 2007: Infectious mononucleosis Comment: w/Hepatitis No date: Overweight (BMI 25.0-29.9) No date: Vitamin D deficiency Previous Surgical History PAST SURGICAL HISTORY 07/15/2023: COLONOSCOPY Comment: Diverticulosis, tubular adenoma 07/15/2023: EGD W/O BRSH SPEC VARICIES INJ Comment: Normal 03/02/2023: EXC LESION TDN SHTH/JT CAPSL HAND/FNGR; Right Comment: Excision ganglion cyst right middle finger 2003: HYDROCELE RIGHT, FLUID; Right Family History FAMILY HISTORY Problem Relation Age of Onset Hypertension Mother Hyperlipidemia Mother Heart Father arrhythmia Colon Cancer No Family History Patient Allergies ALLERGIES No Known Allergies Current Medications Current Outpatient Medications on File Prior to Visit Medication Sig omeprazole (PRILOSEC) 40 mg capsule take 1 capsule by mouth every morning multivit-min/folic/vit K/lycop (MEN'S MULTIVITAMIN ORAL) Take by mouth. Lactobacillus acidophilus (PROBIOTIC ORAL) Take by mouth. No current facility-administered medications on file prior to visit. Social History Social History Tobacco Use Smoking status: Never Smokeless tobacco: Never Vaping Use Vaping Use: Never used Substance Use Topics Alcohol use: Yes Alcohol/week: 10.0 standard drinks of alcohol Types: 10 Cans of Beer (12oz) per week Comment: 2-3 times per week, varies- admits to binge drinking Drug use: Not Currently Comment: history of marijuana use in college Review of Symptoms REVIEW OF SYSTEMS GENERAL: No weight loss, malaise or fevers RESPIRATORY: Negative for cough, hemoptysis, wheezing, COPD, dyspnea or shortness of breath CARDIOVASCULAR: Negative for chest pain, leg swelling, hypertension, CHF or palpitations GI: No nausea, vomiting, or diarrhea SKIN: Negative for lesions, rash, and itching EXAM: BP 132/74 Pulse 91 Temp 36.6 C (97.8 F) Resp 16 Wt 96.5 kg (212 lb 11.9 oz) SpO2 97% BMI 29.05 kg/m General Appearance: Well appearing, alert, in no acute distress, well-hydrated, well nourished.. Skin: Skin color, texture, turgor normal, no suspicious rashes or lesions. Lungs: Lungs clear to auscultation. No wheezing, rhonchi, rales.. Heart: RRR without murmur, gallop, or rubs. No ectopy. Abdomen: Normal abdominal exam, Abdomen soft, non-tender. Bowel sounds normal. No masses, organomegaly. Extremities: No deformities, edema, skin discoloration, clubbing or cyanosis. Good capillary refill. . Musculoskeletal: mild TTP over intercostal spaces of left flank. No TTP over chest, back, shoulders, elbows, hips, knees. Health Maintenance List Depression Screening Never done Anxiety Screening Never done HIV Screening Never done Hepatitis B Vaccine(1 of 3 - 19+ 3-dose series) Never done Influenza Vaccine(1) due on 03/04/2024 DTaP,Tdap,Td Vaccine(2 - Td or Tdap) due on 03/27/2028 Lipid Screening due on 06/01/2028 Colorectal Cancer Screening due on 07/15/2028 Hepatitis C Screening Completed Covid-19 Vaccine Completed HPV Vaccine Aged Out Data reviewed Latest Ref Rng 01/19/2024 WBC 3.70 - 11.00 k/uL 4.12 RBC 4.20 - 6.00 m/uL 5.03 Hemoglobin 13.0 - 17.0 g/dL 15.5 Hematocrit 39.0 - 51.0 % 44.1 MCV 80.0 - 100.0 fL 87.7 MCH 26.0 - 34.0 pg 30.8 MCHC 30.5 - 36.0 g/dL 35.1 RDW-CV 11.5 - 15.0 % 12.2 Platelet Count 150 - 400 k/uL 204 MPV 9.0 - 12.7 fL 11.2 Neut% % 62.2 Abs Neut (ANC) 1.45 - 7.50 k/uL 2.56 Lymph% % 28.6 Abs Lymph 1.00 - 4.00 k/uL 1.18 Bland% % 6.6 Abs Bland <0.87 k/uL 0.27 Eosin% % 1.2 Abs Eosin <0.46 k/uL 0.05 Baso% % 0.7 Abs Baso <0.11 k/uL 0.03 Immature Gran % % 0.7 IMMATURE GRANS (ABS) <0.10 k/uL 0.03 NRBC /100 WBC 0.0 Absolute nRBC <0.01 k/uL <0.01 DTYPE Auto Protein, Total 6.3 - 8.0 g/dL 7.3 Albumin 3.9 - 4.9 g/dL 4.8 Calcium 8.5 - 10.2 mg/dL 9.8 Bilirubin, Total 0.2 - 1.3 mg/dL 0.8 Alkaline Phosphatase 38 - 113 U/L 68 AST 14 - 40 U/L 23 ALT 10 - 54 U/L 31 Glucose 74 - 99 mg/dL 90 BUN 9 - 24 mg/dL 12 Creatinine 0.73 - 1.22 mg/dL 0.91 Sodium 136 - 144 mmol/L 138 Potassium 3.7 - 5.1 mmol/L 3.9 Chloride 98 - 107 mmol/L 102 CO2 22 - 30 mmol/L 25 Anion Gap 8 - 15 mmol/L 11 eGFR >=60 mL/min/1.73m 111 US KIDNEY/BLADDER: 01/19/2024: IMPRESSION: Unremarkable sonographic exam of the kidneys and bladder. ASSESSMENT/PLAN: 1. Left flank pain - ICD9: 789.09, ICD10: R10.9 (primary diagnosis) Extensive workup for pain of his chest, flank and abdomen has been negative thus far. Will obtain labs to evaluate for generalized inflammation and look for auto immune diseases. Exam today is not consistent with fibromyalgia. He denies anxiety symptoms as potential cause. Will treat with NSAIDs, ice and heat for 2 weeks and then PRN. Call if symptoms change or worsen. - NAPROXEN 500 MG TABLET - SEDIMENTATION RATE, WESTERGREN - C-REACTIVE PROTEIN - DEVIN BLOOD 2. Upper back pain - ICD9: 724.5, ICD10: M54.9 See above 3. Other chest pain - ICD9: 786.59, ICD10: R07.89 See above 4. Generalized abdominal pain - ICD9: 789.07, ICD10: R10.84 Normal exam today. See above. 5. Gross hematuria - ICD9: 599.71, ICD10: R31.0 Resolved. Repeat UA this month. Alex Muniz MD documented [facility] Telephone encounter Note * Telephone Encounter - Briseida Montaño MA - 01/20/2024 9:13 AM EDT Pt notified of results via [employer]. Briseida Montaño Ma [facility]07-19-2024 Miscellaneous Notes* Telephone Encounter - Briseida Montaño MA - 01/20/2024 9:13 AM EDT Pt notified of results via 911 [employer]. Briseida Montaño Ma * Telephone Encounter - Briseida Montaño MA - 01/20/2024 9:12 AM EDT ----- Message from Alex Muniz MD sent at 01/20/2024 8:05 AM EDT ----- Normal labs to work up blood in the urine. Normal ultrasound of the kidneys and bladder. Recheck UAin 1 month as ordered. Call with recurrent blood in urine. documented in this encounterK[facility]07-[facility]-2024 Telephone encounter Note * Telephone Encounter - Briseida Montaño MA - 01/20/2024 9:12 AM EDT ----- Message from Alex Muniz MD sent at 01/20/2024 8:05 AM EDT ----- Normal labs to work up blood in the urine. Normal ultrasound of the kidneys and bladder. Recheck UAin 1 month as ordered. Call with recurrent blood in urine. [facility]07-18-[facility] History of Present illness Narrative* Nemo Gonzalez RDMS - 01/19/2024 1:45 PM EDT Radiology Service Progress Note PATIENT NAME: Torrey Campos DATE OF SERVICE: January 19, 2024 TIME: 1:56 PM PATIENT IDENTITY VERIFICATION COMPLETED USING TWO (2) IDENTIFIERS: Name and Date of confirmedby patient verbally. FALL SCREENING: Has the patient had 2 falls in the last year or 1 fall with injury or currently using an Ambulatory Assistive Device (Walker, Cane, Wheelchair, Crutches, etc.)? No PATIENT GENDER DATA: Male PATIENT RELEVANT IMPLANT DATA REVIEWED: Not Applicable PATIENT PRESENTS WITH AN IMPLANTABLE OR ATTACHED DIRECTOR OF EDUCATION: No RADIOLOGY DEPARTMENT: Ultrasound PERIPHERAL IV DATA: Not applicable SIGNED BY: Nemo Gonzalez RDMS January 19, 2024 1:56 PM documented in this encounterK[facility]07-18-2024 NoteHNO ID: [id number] Author: NEMO GONZALEZ RDMS Service: ? Author Type: Tanker Service Attendant Type: Progress Notes Filed: 01/19/2024 13:56 Note Text: Radiology Service Progress Note PATIENT NAME: Torrey Campos DATE OF SERVICE: January 19, 2024 TIME: 1:56 PM PATIENT IDENTITY VERIFICATION COMPLETED USING TWO (2) IDENTIFIERS: Name and Date of confirmed by patient verbally. FALL SCREENING: Has the patient had 2 falls in the last year or 1 fall with injury or currently using an Ambulatory Assistive Device (Walker, Cane, Wheelchair, Crutches, etc.)? No PATIENT GENDER DATA: Male PATIENT RELEVANT IMPLANT DATA REVIEWED: Not Applicable PATIENT PRESENTS WITH AN IMPLANTABLE OR ATTACHED DIRECTOR OF EDUCATION: No RADIOLOGY DEPARTMENT: Ultrasound PERIPHERAL IV DATA: Not applicable SIGNED BY: Nemo Gonzalez RDMS January 19, 2024 1:56 [facility]07-18-2024 NoteHNO ID: [id number] Author: ALEX MUNIZ MD Service: ? Author Type: Physician Type: Progress Notes Filed: 01/19/2024 09:11 Note Text: Chief Complaint Patient presents with: Follow Up: EC 01/14/24 HPI Torrey Campos is a 38 year old male who presents here today for Above Complaints.. Patient here today for EC f/u from 01/13 with following HPI: HPI Torrey Campos is a 38 year old male who presents today for CC of blood in urine and burning with urination. This started today. Has tried nothing for relief. Symptoms are worsened by nothing. Denies concerns for std. Recently seen urology for testicular pain/subsided now. Denies rash, back pain, n/v/d. .Patient presents with: Urinary Problem: States he has had some Left side pain and blood in urine 30 mins ago UA in the EC showed trace blood, but was normal otherwise. Culture obtained which was negative for infection. Discharged home with recommendation to f/u with our office. Today, he states that he has not had any recurrent gross blood in his urine. Admits to some occasional pain in his flanks and occasional urgency. Denies dysuria, frequency, penile discharge, testicular pain, swelling, rash, urinary hesitancy. Past medical history, appointments, medications, allergies reviewed. 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 Infectious mononucleosis 2006 w/Hepatitis Overweight (BMI 25.0-29.9) Vitamin D deficiency Previous Surgical History PAST SURGICAL HISTORY Procedure Laterality Date COLONOSCOPY 07/15/2023 Diverticulosis, tubular adenoma EGD W/O BRSH SPEC VARICIES INJ 07/15/2023 Normal EXC LESION TDN SHTH/JT CAPSL HAND/FNGR Right 03/02/2023 Excision ganglion cyst right middle finger HYDROCELE RIGHT, FLUID Right 2002 Family History FAMILY HISTORY Problem Relation Age of Onset Hypertension Mother Hyperlipidemia Mother Heart Father arrhythmia Colon Cancer No Family History Patient Allergies ALLERGIES No Known Allergies Current Medications Current Outpatient Medications on File Prior to Visit Medication Sig omeprazole (PRILOSEC) 40 mg capsule take 1 capsule by mouth every morning multivit-min/folic/vit K/lycop (MEN'S MULTIVITAMIN ORAL) Take by mouth. Lactobacillus acidophilus (PROBIOTIC ORAL) Take by mouth. No current facility-administered medications on file prior to visit. Social History Social History Tobacco Use Smoking status: Never Smokeless tobacco: Never Vaping Use Vaping Use: Never used Substance Use Topics Alcohol use: Yes Alcohol/week: 10.0 standard drinks of alcohol Types: 10 Cans of Beer (12oz) per week Comment: 2-3 times per week, varies- admits to binge drinking Drug use: Not Currently Comment: history of marijuana use in college Review of Symptoms REVIEW OF SYSTEMS See HPI EXAM: BP 140/80 Pulse 86 Resp 16 Wt 98 kg (216 lb) SpO2 97% BMI 29.50 kg/m? General Appearance: Well appearing, alert, in no acute distress, well-hydrated, well nourished.. Skin: Skin color, texture, turgor normal, no suspicious rashes or lesions. Abdomen: Abdomen soft, non-tender. Bowel sounds normal. No masses, organomegaly, Negative CVA tenderness. Health Maintenance List HIV Screening Never done Hepatitis B Vaccine(1 of 3 - 19+ 3-dose series) Never done Behavioral Health Screening Never done Influenza Vaccine(1) due on 03/04/2024 DTaP,Tdap,Td Vaccine(2 - Td or Tdap) due on 03/27/2028 Lipid Screening due on 06/01/2028 Colorectal Cancer Screening due on 07/15/2028 Hepatitis C Screening Completed Covid-19 Vaccine Completed HPV Vaccine Aged Out ASSESSMENT/PLAN: 1. Gross hematuria - ICD9: 599.71, ICD10: R31.0 No recurrent symptoms. Check labs and US of kidneys and bladder to rule out nephrolithiasis and bladder mass. Repeat UA in 1 month. Push PO fluids. Red flags for re-assessment reviewed with patient in detail. - US KIDNEY/BLADDER - URINALYSIS, WITH MICROSCOPIC - COMPLETE BLOOD COUNT AND DIFFERENTIAL - COMPREHENSIVE METABOLIC PANEL Alex Muniz [facility]07-18-2024 History of Present illness Narrative* Alex Muniz MD - 01/19/2024 8:31 AM EDT Chief Complaint Patient presents with: Follow Up: EC 01/14/24 HPI Torrey Campos is a 38 year old male who presents here today for Above Complaints.. Patient here today for EC f/u from 01/13 with following HPI: HPI Torrey Campos is a 38 year old male who presents today for CC of blood in urine and burning with urination. This started today. Has tried nothing for relief. Symptoms are worsened by nothing. Denies concerns for std. Recently seen urology for testicular pain/subsided now. Denies rash, back pain, n/v/d. .Patient presents with: Urinary Problem: States he has had some Left side pain and blood in urine 30 mins ago UA in the EC showed trace blood, but was normal otherwise. Culture obtained which was negative for infection. Discharged home with recommendation to f/u with our office. Today, he states that he has not had any recurrent gross blood in his urine. Admits to some occasional pain in his flanks and occasional urgency. Denies dysuria, frequency, penile discharge, testicular pain, swelling, rash, urinary hesitancy. Past medical history, appointments, medications, allergies reviewed. 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 Infectious mononucleosis 2006 w/Hepatitis Overweight (BMI 25.0-29.9) Vitamin D deficiency Previous Surgical History PAST SURGICAL HISTORY Procedure Laterality Date COLONOSCOPY 07/15/2023 Diverticulosis, tubular adenoma EGD W/O BRSH SPEC VARICIES INJ 07/15/2023 Normal EXC LESION TDN SHTH/JT CAPSL HAND/FNGR Right 03/02/2023 Excision ganglion cyst right middle finger HYDROCELE RIGHT, FLUID Right 2002 Family History FAMILY HISTORY Problem Relation Age of Onset Hypertension Mother Hyperlipidemia Mother Heart Father arrhythmia Colon Cancer No Family History Patient Allergies ALLERGIES No Known Allergies Current Medications Current Outpatient Medications on File Prior to Visit Medication Sig omeprazole (PRILOSEC) 40 mg capsule take 1 capsule by mouth every morning multivit-min/folic/vit K/lycop (MEN'S MULTIVITAMIN ORAL) Take by mouth. Lactobacillus acidophilus (PROBIOTIC ORAL) Take by mouth. No current facility-administered medications on file prior to visit. Social History Social History Tobacco Use Smoking status: Never Smokeless tobacco: Never Vaping Use Vaping Use: Never used Substance Use Topics Alcohol use: Yes Alcohol/week: 10.0 standard drinks of alcohol Types: 10 Cans of Beer (12oz) per week Comment: 2-3 times per week, varies- admits to binge drinking Drug use: Not Currently Comment: history of marijuana use in college Review of Symptoms REVIEW OF SYSTEMS See HPI EXAM: BP 140/80 Pulse 86 Resp 16 Wt 98 kg (216 lb) SpO2 97% BMI 29.50 kg/m General Appearance: Well appearing, alert, in no acute distress, well-hydrated, well nourished.. Skin: Skin color, texture, turgor normal, no suspicious rashes or lesions. Abdomen: Abdomen soft, non-tender. Bowel sounds normal. No masses, organomegaly, Negative CVA tenderness. Health Maintenance List HIV Screening Never done Hepatitis B Vaccine(1 of 3 - 19+ 3-dose series) Never done Behavioral Health Screening Never done Influenza Vaccine(1) due on 03/04/2024 DTaP,Tdap,Td Vaccine(2 - Td or Tdap) due on 03/27/2028 Lipid Screening due on 06/01/2028 Colorectal Cancer Screening due on 07/15/2028 Hepatitis C Screening Completed Covid-19 Vaccine Completed HPV Vaccine Aged Out ASSESSMENT/PLAN: 1. Gross hematuria - ICD9: 599.71, ICD10: R31.0 No recurrent symptoms. Check labs and US of kidneys and bladder to rule out nephrolithiasis and bladder mass. Repeat UA in 1 month. Push PO fluids. Red flags for re-assessment reviewed with patient in detail. - US KIDNEY/BLADDER - URINALYSIS, WITH MICROSCOPIC - COMPLETE BLOOD COUNT AND DIFFERENTIAL - COMPREHENSIVE METABOLIC PANEL Alex Muniz MD documented in this encounterK[facility]07-[facility]24 Telephone encounter Note * Telephone Encounter - Kay Merlos MA - 01/15/2024 12:56 PM EDT Patient given results and verbalized understanding of instructions given. Kay Merlos MA [facility]07-14-2024 Miscellaneous Notes* Telephone Encounter - Kay Merlos MA - 01/15/2024 12:56 PM EDT Patient given results and verbalized understanding of instructions given. Kay Merlos MA * Telephone Encounter - Logan Francis PA - 01/15/2024 12:21 PM EDT Please let patient know urine culture did not reveal UTI. Follow-up with PCP as discussed at visit. documented in this encounterK[facility]07-14-2024 Telephone encounter Note * Telephone Encounter - Logan Francis PA - 01/15/2024 12:21 PM EDT Please let patient know urine culture did not reveal UTI. Follow-up with PCP as discussed at visit. [facility] Work Phone: [phone] History of Present illness Narrative* Ad Pollard APRN.AERODYNAMIC CONSULTANT - 01/14/2024 12:27 PM EDT Subjective HPI HPI Torrey Campos is a 38 year old male who presents today for CC of blood in urine and burning with urination. This started today. Has tried nothing for relief. Symptoms are worsened by nothing. Denies concerns for std. Recently seen urology for testicular pain/subsided now. Denies rash, back pain, n/v/d. 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 MEDICATIONS omeprazole (PRILOSEC) 40 mg capsule take 1 capsule by mouth every morning multivit-min/folic/vit K/lycop (MEN'S MULTIVITAMIN ORAL) Take by mouth. Lactobacillus acidophilus (PROBIOTIC ORAL) Take by mouth. FAMILY HISTORY Problem Relation Age of Onset Hypertension Mother Hyperlipidemia Mother Heart Father arrhythmia Colon Cancer No Family History Social History Tobacco Use Smoking status: Never Smokeless tobacco: Never Vaping Use Vaping Use: Never used Substance Use Topics Alcohol use: Yes Alcohol/week: 10.0 standard drinks of alcohol Types: 10 Cans of Beer (12oz) per week Comment: 2-3 times per week, varies- admits to binge drinking Drug use: Not Currently Comment: history of marijuana use in [employer] Review of Systems Constitutional: Negative for chills, fever and weight loss. Respiratory: Negative for cough, shortness of breath and wheezing. Cardiovascular: Negative for chest pain and palpitations. Gastrointestinal: Negative for abdominal pain, blood in stool, constipation, diarrhea, heartburn, melena, nausea and vomiting. Genitourinary: Positive for dysuria and hematuria. Negative for flank pain, frequency and urgency. Musculoskeletal: Negative for myalgias. Objective Blood pressure 148/104, pulse 119, temperature 37 C (98.6 F), resp. rate 20, weight 99 kg (218 lb 4.1 oz), SpO2 99%. Physical Exam Constitutional: General: He is not in acute distress. Appearance: Normal appearance. He is not toxic-appearing. Cardiovascular: Rate and Rhythm: Normal rate and regular rhythm. Heart sounds: Normal heart sounds. Pulmonary: Effort: Pulmonary effort is normal. Breath sounds: Normal breath sounds. Abdominal: General: Bowel sounds are normal. Palpations: Abdomen is soft. Tenderness: There is no abdominal tenderness. Skin: General: Skin is warm and dry. ASSESSMENT/PLAN: 1. Microscopic hematuria - ICD9: 599.72, ICD10: R31.29 No treatment today Will send for culture, treat per results Will schedule recheck with pcp Urgent f/u for severe or worsening s/s. - UA DIP, URINE (POC) - URINE CULTURE Ad Pollard APRN.AERODYNAMIC CONSULTANT documented in this encounterK[facility]07-01-2024 Telephone encounter Note * Telephone Encounter - Lorie Pino MA - 01/02/2024 8:25 AM EDT Patient phones requesting refills as follows: Requested Prescriptions Pending Prescriptions Disp Refills omeprazole (PRILOSEC) 40 mg capsule [Pharmacy Med Name: OMEPRAZOLE DR 40 MG CAPSULE] 90 capsule 1 Sig: take 1 capsule by mouth every morning Please review and advise. Lorie Pino MA [facility]07-01-2024 Miscellaneous Notes* Telephone Encounter - Lorie Pino MA - 01/02/2024 8:25 AM EDT Patient phones requesting refills as follows: Requested Prescriptions Pending Prescriptions Disp Refills omeprazole (PRILOSEC) 40 mg capsule [Pharmacy Med Name: OMEPRAZOLE DR 40 MG CAPSULE] 90 capsule 1 Sig: take 1 capsule by mouth every morning Please review and advise. Lorie Pino MA documented in this encounterK[facility]06-28-2024 History of Present illness Narrative* Estefany Gonzales TECHNOLOGIST - 12/30/2023 4:00 PM EDT Radiology Service Progress Note PATIENT NAME: Torrey Campos DATE OF SERVICE: December 30, 2023 TIME: 4:17 PM PATIENT IDENTITY VERIFICATION COMPLETED USING TWO (2) IDENTIFIERS: Name and Date of confirmedby patient verbally. FALL SCREENING: Has the patient had 2 falls in the last year or 1 fall with injury or currently using an Ambulatory Assistive Device (Walker, Cane, Wheelchair, Crutches, etc.)? No PATIENT GENDER DATA: Male PATIENT RELEVANT IMPLANT DATA REVIEWED: Yes PATIENT PRESENTS WITH AN IMPLANTABLE OR ATTACHED DIRECTOR OF EDUCATION: No RADIOLOGY DEPARTMENT: Ultrasound PERIPHERAL IV DATA: Not applicable SIGNED BY: TECHNOLOGIST Flores December 30, 2023 4:17 PM documented in this encounterKet[facility]06-28-2024 NoteHNO ID: [id number] Author: ESTEFANY GONZALES TECHNOLOGIST Service: ? Author Type: Technologist Type: Progress Notes Filed: 12/30/2023 16:17 Note Text: Radiology Service Progress Note PATIENT NAME: Torrey Campos DATE OF SERVICE: December 30, 2023 TIME: 4:17 PM PATIENT IDENTITY VERIFICATION COMPLETED USING TWO (2) IDENTIFIERS: Name and Date of confirmed by patient verbally. FALL SCREENING: Has the patient had 2 falls in the last year or 1 fall with injury or currently using an Ambulatory Assistive Device (Walker, Cane, Wheelchair, Crutches, etc.)? No PATIENT GENDER DATA: Male PATIENT RELEVANT IMPLANT DATA REVIEWED: Yes PATIENT PRESENTS WITH AN IMPLANTABLE OR ATTACHED DIRECTOR OF EDUCATION: No RADIOLOGY DEPARTMENT: Ultrasound PERIPHERAL IV DATA: Not applicable SIGNED BY: TECHNOLOGIST Flores December 30, 2023 4:17 [facility]06-27-2024 History of Present illness Narrative* Valerie Franco, RIANA.AERODYNAMIC CONSULTANT - 12/29/2023 3:00 PM EDT Torrey Campos [address] [facility] [address] is a 38 year old male and is here today at the request of No referring provider definedfor this encounter.. My final recommendation will be communicated back to the requesting physician by way of shared medical record or letter. Mr. Campos presents with chief complaints of: Rt testicular swelling HISTORY OF PRESENT ILLNESS: Coming for rt testicular swelling notice symptom about 1 wk ago Pt stated that had hydrocele as a teenager Stated that may be a little tender with touch C/O of clear discharge post ejaculation for years Discomfort 07/13 presently Stated a couple night pain was more intense but got better over time Denies prostatitis Denies epidermitis Pt have one child UA 09/28/23=neg CT abd/pelvic 07/27/23= IMPRESSION: No acute intra-abdominal or pelvic process identified. [facility] SYMPTOMS SCORE. 1. INCOMPLETE EMPTYING 1 2. FREQUENCY 2 3. INTERMITTENCY 0 4. URGENCY 2 5. WEAK STREAM 0 6. STRAINING 0 7. 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 Infectious mononucleosis 2006 w/Hepatitis Overweight (BMI 25.0-29.9) Vitamin D deficiency PAST SURGICAL HISTORY Procedure Laterality Date COLONOSCOPY 07/15/2023 Diverticulosis, tubular adenoma EGD W/O BRSH SPEC VARICIES INJ 07/15/2023 Normal EXC LESION TDN SHTH/JT CAPSL HAND/FNGR Right 03/02/2023 Excision ganglion cyst right middle finger HYDROCELE RIGHT, FLUID Right 2002 FAMILY HISTORY Problem Relation Age of Onset Hypertension Mother Hyperlipidemia Mother Heart Father arrhythmia Colon Cancer No Family History Social History Tobacco Use Smoking status: Never Smokeless tobacco: Never Vaping Use Vaping Use: Never used Substance Use Topics Alcohol use: Yes Alcohol/week: 10.0 standard drinks of alcohol Types: 10 Cans of Beer (12oz) per week Comment: 2-3 times per week, varies- admits to binge drinking Drug use: Not Currently Comment: history of marijuana use in college MEDICATIONS: Current Outpatient Medications Medication Sig multivit-min/folic/vit K/lycop (MEN'S MULTIVITAMIN ORAL) Take by mouth. Lactobacillus acidophilus (PROBIOTIC ORAL) Take by mouth. omeprazole (PRILOSEC) 40 mg capsule Take 1 capsule by mouth once daily. cholecalciferol (VITAMIN D-3) 50 mcg (2,000 unit) tablet Take 2,000 Units by mouth once daily. No current facility-administered medications for this visit. ALLERGY: ALLERGIES No Known Allergies REVIEW OF SYSTEMS GENERAL: No fever, no fatigue and no weight loss. HEAD & NECK: No headache, no blurred vision and no hearing loss. CARDIOVASCULAR: No chest pain, no palpitations and no leg edema. RESPIRATORY: No cough, wheezing and no shortness of breath. : As indicated in HPI. GI: No epigastric discomfort, no blood in stool and no changes in bowel habits. MUSCLOSKELETAL: No neck pain, no back anin and no joint pain. SKIN: No varicose veins, no rash and no abnormal itching. NEUROLOGICAL: No numbness, no seizures and no tremor. BLOOD: No ekimosis, no hematomas or no bleeding from the gums. PHYSICAL EXAM: VITALS: BP 145/97 Pulse 93 Wt 96.3 kg (212 lb 4.9 oz) BMI 28.99 kg/m GENERAL: Alert, oriented and in no distress. HEAD: Conjuctiva: no palor Sclera: no jaundice NECK: No enlarged thyroid, no palpable lymph nodes, and no engorged neck veins. CHEST: Bilateral symetrical, resp easy non labored ABDOMEN: Soft, non tender with no masses or organomegaly. No CVA tenderness. EXTREMITIES: No leg edema, No joint swelling GENITALIA: scrotum rt hydrocele noted IMPRESSION: (Diagnostic Possibilities): Rt testicular swelling Rt Hydrocele (drained once as a teenager) PLAN: (Management Options): AUA, MARIAMA US of scrotum, UA, culture VV with US scrotum, UA culture prior for plan and evaluation Medical Decision Making: Problems: Moderate: New problem with uncertain prognosis Data: Unique test result(s) reviewed: 3+ Unique test(s) ordered: 1 Risk: Low: Low risk from testing/treatment Medical Decision Making Level: 4 - Moderate Valerie Franco APRN.AERODYNAMIC CONSULTANT documented in this encounterK[facility]-20-2024 Miscellaneous Notes* Telephone Encounter - Hansa Delaney PA-C - 08/23/2023 2:17 PM EST Stool testing and bile acid testing orders placed. documented in this encounterK[facility]02-20-2024 History of Present illness Narrative* Stoney Farias MD - 08/23/2023 1:40 PM EST Rev'd documented in this encounterK[facility]02-19-2024 History of Present illness Narrative* Axel Coburn CT - 08/22/2023 4:22 PM EST LACTULOSE HYDROGEN BREATH TEST FOR SMALL BOWEL BACTERIAL OVERGROWTH Date: August 22, 2023 Referring Physician: Hansa Delaney PA-C Chief Complaint Abdominal Pain Bloating Acid Reflux/Heartburn Flatulence/Gas Diarrhea Symptoms prior to start of study: Abdominal pain [] 4 week restrictions [] 72 hour restrictions [] 12 hour fasting [] Followed the special diet Baseline Hydrogen PPM: 1 Methane PPM: 1 NINO Rasmussen Lactulose 15mL given at: 1025am Start time:1030am 20 minutes Hydrogen PPM: 2 Methane PPM: 0 NINO Rasmussen 40 minutes Hydrogen PPM: 0 Methane PPM: 0 Nikkiya Irish, CT 1 hour Hydrogen PPM: 1 Methane PPM: [address] 1 hour 20 minutes Hydrogen PPM: 5 Methane PPM: 3 Axel Coburn, CT 1 hour, 40 minutes Hydrogen PPM: 8 Methane PPM: 4 Axel Coburn, CT 2 hours Hydrogen PPM: 7 Methane PPM: 3 Axel Coburn, CT 2 hours, 20 minutes Hydrogen PPM: 7 Methane PPM: 5 Axel Coburn, CT 2 hours, 40 minutes Hydrogen PPM: 7 Methane PPM: 3 Axel Coburn, CT 3 hours Hydrogen PPM: 8 Methane PPM: 4n/a NINO Rasmussen Symptoms developed during the study period: pending Patient Results Preliminary Test Results (not given to patient): pending NINO Rasmussen documented in this encounterK[facility]02-13-2024 History of Present illness Narrative* Stoney Farias MD - 08/16/2023 10:57 AM EST Rev'd documented in this encounterK[facility]02-13-2024 History of Present illness Narrative* Axel Coburn CT - 08/16/2023 8:52 AM EST FRUCTOSE Hydrogen Breath Test August 16, 2023 Referring Physician: Hansa Delaney PA-C Indication Bloating, Abdominal pain, Diarrhea Prep: 4 weeks followin hour before: No Smoking Day of test - No gum chewing Pain Level:none Baseline Hydrogen: 9 Methane: 3, NINO Rasmussen Time given: 905am 25 grams / 25 grams Clock time start: 910am 20 minutes Hydrogen: 9 Methane: [address] 40 minutes Hydrogen: 8 Methane: [address] 1 hour Hydrogen: 6 Methane: [address] 1 hour, 20 minutes Hydrogen: 7 Methane: [address] 1 hour, 40 minutes Hydrogen: 6 Methane: [address] Symptoms developed during the study: None Patient Results Preliminary Test Results (not given to patient): pending NINO Rasmussen Patient must be = Hydrogen >20 in order to be positive for Fructose Intolerance documented in this encounterK[facility]01-12-2024 Nurse Note* Kaity English RN - 07/15/2023 2:26 PM EST Physician at bedside to disucss procedure/findngs with patient. [facility]12[facility] Nurse Note* Kaity English RN - 07/15/2023 2:26 PM EST Physician at bedside to disucss procedure/findngs with patient. documented in this encounterKet[facility]01-12-2024 History and physical note * Ashley Melgoza MD - 07/15/2023 2:00 PM EST HISTORY AND PHYSICAL Torrey Campos, 38 year old male Current history and physical on file: Yes Is a new History and Physical required for today's visit? Yes Indication for procedure: Abdominal pain and Diarrhea PROCEDURE(S) SCHEDULED FOR: Colonoscopy with or without biopsies and with or without removal of polyps or lesions, dilation (any means), treatment of bleeding (any means), based on clinical findings. and EGD (Esophagogastroduodenoscopy) with or without biopsies, removal of polyps or lesions, dilation ( any means), treatment of bleeding ( any means), Barrx treatment of Terrence's Esophagus, image tube placement or cryo therapytreatment based on clinical findings. BASELINE BEHAVIOR: Calm BASELINE ORIENTATION: A & O x3 All medications and allergies reviewed: Yes Skin Assessment: Warm dry mucus membranes pink Airway/Respiratory Assessment: Airway: visualization of the uvula- Yes Mouth: opening greater than 2 fingerbreadths- Yes Neck: full range of motion- Yes Breath sounds clear/equal- Yes Cardiac Assessment: Regular rate and rhythm without murmur Abdominal Assessment: Abdomen soft, non-tender, no masses or organomegaly. Sedation Plan: MAC Additional Comments: None Aslhey Melgoza MD [facility] Work Phone: [phone] 460-869101-12-2024 History and physical note* Ashley Melgoza MD - 07/15/2023 2:00 PM EST HISTORY AND PHYSICAL Torrey Campos, 38 year old male Current history and physical on file: Yes Is a new History and Physical required for today's visit? Yes Indication for procedure: Abdominal pain and Diarrhea PROCEDURE(S) SCHEDULED FOR: Colonoscopy with or without biopsies and with or without removal of polyps or lesions, dilation (any means), treatment of bleeding (any means), based on clinical findings. and EGD (Esophagogastroduodenoscopy) with or without biopsies, removal of polyps or lesions, dilation ( any means), treatment of bleeding ( any means), Barrx treatment of Terrence's Esophagus, image tube placement or cryo therapytreatment based on clinical findings. BASELINE BEHAVIOR: Calm BASELINE ORIENTATION: A & O x3 All medications and allergies reviewed: Yes Skin Assessment: Warm dry mucus membranes pink Airway/Respiratory Assessment: Airway: visualization of the uvula- Yes Mouth: opening greater than 2 fingerbreadths- Yes Neck: full range of motion- Yes Breath sounds clear/equal- Yes Cardiac Assessment: Regular rate and rhythm without murmur Abdominal Assessment: Abdomen soft, non-tender, no masses or organomegaly. Sedation Plan: MAC Additional Comments: None Ashley Melgoza MD documented in this encounterK[facility]12-08-2023 Miscellaneous Notes* Telephone Encounter - Rut Wang LPN - 06/10/2023 1:31 PM EST Patient scheduled for the upcoming Tuesday06/13/2023. Rut Wang LPN * Telephone Encounter - Kim Cespedes APRN.CNP - 06/10/2023 9:25 AM EST Yes if he has a concern he would need to be seen Kim Cespedes APRN.AERODYNAMIC CONSULTANT * Telephone Encounter - Bridgett Blanco RN - 06/10/2023 9:02 AM EST Called pt to notify of stress test results and pt states he is still having the same symptoms. Plushe states he is having some diarrhea episodes every so often and more stomach rumbling than normal. He is wondering about checking out his digestive systerm. When asking pt about his chest tightness, he states it was all the time but now coming and going and is less painful. Also still having the crackling off and on. Denies any nausea and vomiting. States having some heartburn off and on andstates the Famotidine that Kim put him on is not helping. When he has the diarrhea, he states it is liquidy but has some form in it and maybe occurs twice a day. Has had maybe 3-4 days of diarrhea stools since he saw Kim on 05/30. Pt has a re-establish care on 06/29/23 but is wondering if he needs to see Kim again as he would like to get these symptoms checked out further. documented in this encounterK[facility]12-06-2023 Miscellaneous Notes* Telephone Encounter - Opal Carey RN - 06/08/2023 2:05 PM EST Spoke with patient regarding reminder for stress test tomorrow and given instructions. documented in this encounterK[facility]12-01-2023 Miscellaneous Notes* Telephone Encounter - Beth Joy Ma - 06/03/2023 10:45 AM EST See pt message and advise. Beth Joy Ma documented in this encounterK[facility]12-01-2023 Miscellaneous Notes* Telephone Encounter - Briseida Montaño Ma - 06/03/2023 10:05 AM EST Pt notified of results via [employer]. Briseida Montaño Ma * Telephone Encounter - Emma Mccracken LPN - 06/02/2023 11:13 AM EST Message left for patient to return call to review results and recommendations. * Telephone Encounter - Emma Mccracken LPN - 06/02/2023 11:12 AM EST ----- Message from Kim Cespedes APRN.AERODYNAMIC CONSULTANT sent at 06/02/2023 7:33 AM EST ----- Near optimal LDL ( bad cholesterol). Total cholesterol in normal range.Recommend low saturated fat diet and aim for at least 150 minutes of exercise per week. Kim Cespedes APRN.LORI documented in this encounterK[facility]11-27-2023 History of Present illness Narrative* Kim Cespedes APRN.LORI - 05/30/2023 8:48 AM EST 05/30/2023 Patient presents with: Hospital F/U: Was seen 05/26 at [facility] for consistent chest pain x1 week, hospital ran labs, troponin,EKG and Chest XR, patient states physician said all testing was normal and to follow up with PCP SUBJECTIVE: This is a 37 year old that is here today for Above Complaints. HOSPITAL/ER FOLLOW UP: Reason for visit: chest pain Which facility: [facility] Date of visit: 05/26/2023 Diagnosis: chest pain. Testing done: per patient EKG, CXR, and blood work Treatment given:baby ASA Since ER visit has continued to have intermittent chest tightness. Pain happens several times per day and last a few seconds, Described as sharp. Also reports feeling of crackling in chest. No aggravating features. Does not take anything for pain. Does not feel anxious. Denies accompanying lightheadedness, dizziness, SOB, dyspnea, jaw/back pain, nausea or vomiting. 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 MEDICATIONS Current Outpatient Medications Medication Sig calcium phosphate dibas/vit D3 (VITAMIN D, WITH CALCIUM, ORAL) Take by mouth. No current facility-administered medications for this visit. Medications and allergies reviewed by this provider. SOCIAL HISTORY Social History Tobacco Use Smoking status: Never Smokeless tobacco: Never Vaping Use Vaping Use: Never used Substance Use Topics Alcohol use: Yes Alcohol/week: 10.0 standard drinks of alcohol Types: 10 Cans of Beer (12oz) per week Comment: 2-3 cans at a time Drug use: No Comment: history of marijuana use in college REVIEW OF SYSTEMS All other reviewed and negative other than HPI. OBJECTIVE: BP 133/88 Pulse 86 Resp 18 Wt 96.5 kg (212 lb 12.8 oz) SpO2 99% BMI 29.46 kg/m . Vital signs reviewed by this provider. APPEARANCE Well appearing, alert, in no acute distress, well-hydrated, well nourished. EYES PERRLA, conjunctiva and sclera normal. HEART RRR with normal S1 and S2, no murmurs, no gallops, no JVD appreciated LUNG clear to auscultation. No wheezes, rhonchi or rales Abdomen: soft, nondistended, no hepatosplenomegaly or masses. Adits to mild epigastric tenderness EXTREMITIES Extremities normal, No deformities, No skin discoloration, and No edema SKIN Skin color, texture, turgor normal, no suspicious rashes or lesions to exposed skin Hepatitis B Vaccine(1 of 3 - 3-dose series) Never done HIV Screening Never done Lipid Screening Never done Depression Assessment Never done Influenza Vaccine(1) due on 03/04/2023 Covid-19 Vaccine(2022- season) due on 03/04/2023 DTaP,Tdap,Td Vaccine(2 - Td or Tdap) due on 03/27/2028 Hepatitis C Screening Completed HPV Vaccine Aged Out ASSESSMENT/PLAN: 1. Chest pain, unspecified type - ICD9: 786.50, ICD10: R07.9 (primary diagnosis) - no red flag symptoms or exam findings - red flag symptoms discussed, verbalizes understanding - EXERCISE STRESS ECG (WITHOUT IMAGING) - FAMOTIDINE 20 MG TABLET - ECHO - PERFLUTREN LIPID MICROSPHERES 1.1 MG/ML INJECTION IN NS 10 ML - SODIUM CHLORIDE 0.9 % (FLUSH) INJECTION SYRINGE - needs to follow-up to re establish care 2. Screening for hyperlipidemia - ICD9: V77.91, ICD10: Z13.220 - LIPID PANEL BASIC Kim Cespedes APRN.CNP Prescription instructions reviewed with patient as applicable. Patient advised if symptoms do not improve or if symptoms worsen sooner, to contact their primary care physician. Potential red flag symptoms discussed with the patient. Reviewed appropriate action plan to take if red flag symptoms occur. Patient agreeable to treatment plan. I spent a total of 30 minutes on the date of the service which included preparing to see the patient, isgz-me-rgan patient care, completing clinical documentation, obtaining and/or reviewing separately obtained history, performing a medically appropriate examination, counseling and educating the pat ient/family/caregiver, and ordering medications, tests, or procedures. documented in this encounterK[facility]11-23-2023 Discharge summary Author Felipe Valera [facility] May 26, 2023 3:23pm Note Date/Time May 26, 2023 1:15pm [facility] Medical Records Department [address] [place] [address] Emergency Department Summary 05/26/23 MR#: [id number] Acct: [id number] Name: TORREY CAMPOS Rep #:[id number] : 1985 37 From: Felipe Garrett PCP: Care Physician,No Primary Status :REG ER Location: ED HPI History of Present Illness Chief Complaint: Chest Pain PFSH PFSH Medical History no medical history Allergy/AdvReac Type Severity Reaction Status Date / Time No Known Allergies Allergy Verified 05/26/23 13:09 EXAM Physical Exam Const Vital Signs: 05/26/23 13:09 05/26/23 13:15 05/26/23 13:15 Temperature 97 F L Temperature Source Temporal Pulse Rate 123 H 106 H Respiratory Rate 20 H 26 H Respiratory Effort Normal Non-Labored Blood Pressure 174/105 H 155/91 H Blood Pressure Mean 128 112 Pulse Ox 97 99 Oxygen Delivery Method Room Air Room Air 05/26/23 13:50 05/26/23 14:08 05/26/23 15:00 Temperature Temperature Source Pulse Rate 88 95 Respiratory Rate 16 15 Respiratory Effort Blood Pressure 143/97 H 164/96 H Blood Pressure Mean 112 118 Pulse Ox 98 97 96 Oxygen Delivery Method Room Air Room Air Room Air Heart Score History: Slightly/Non-Suspicious ECG: Normal Age: </= 45 years Risk Factors: No Risk Factors Troponin: </= Normal Limit Score: 0 MDM MDM MDM Narrative Medical decision making narrative: HISTORY OF PRESENT ILLNESS: 23-tfas-wrf-year-old male presents with chest pain. Notes intermittent chest pain. Notes left arm pain. States has been ongoing for 1 week. Is not exertional. Is not pleuritic. Denies any recent fever. Denies any sick contacts. No recent cough. Notes 4 weeks ago he had self diagnosed bronchitis. Denies any lower extremity edema. Denies any bleeding diathesis. Denies any vomiting or diarrhea. Denies any personal history of methamphetamineor cocaine abuse. Notes he drinks occasionally had about 4 beers last night. Patient denies sudden onset of pain, no tearing sensation, no migratory symptoms, no new numbness, weakness or loss of sensation. Patient denies family history or personal history of Marfan syndrome or Kenroy-Danlos. The patient denies recent surgery in the last 4 weeks or immobilization in the last 3 days, denies previous diagnosis of DVT or PE, hemoptysis, unilateral leg swelling or malignancy with treatment the last 6 months. No estrogen use noted. REVIEW OF SYSTEMS: All other systems reviewed and are negative except as noted in the history of present illness. At least 10 review of systems reviewed and are negative except as noted in history of present illness. PHYSICAL EXAM: Nursing triage notes reviewed, Vital signs reviewed Constitutional: please see mdm HENT: MMM Eyes: Pupils equal round and reactive to light, Extraocular muscles intact Neck: No stridor, no JVD, full neck ROM Lungs: Clear to auscultation, No wheezing or rales. No increased work of breathing, no conversational dyspnea, no accessory muscle use, no nasal flaring.No respiratory distress noted Heart: Regular rate and rhythm, No murmurs, No rubs and No gallops, 2+ distal pulses (radial, femoral, posterior tibial) in all extremities Abdomen: Soft, there is no tenderness, rigidity, rebound or guarding, no obviousperitoneal signs, no palpable pulsatile abdominal masses, no auscultated abdominal bruit : No CVAT Extremities: No edema Neuro: No focal neurological deficits, cranial nerves II through XII intact, 5/5strength in all extremities. Intact sensation to light touch in all extremities,2+ reflexes bilateral patella tendons. Normal gait. No ataxia. Skin: No rash or lesions noted MEDICAL DECISION MAKING: Chief Complaint: Chest pain External records reviewed: No recent advanced imaging of the chest. No recent echocardiograms, stress test Factors affecting care: None Social determinants of health: Occasional alcohol abuse History obtained from others: Patient's Consults: none [facility] Narrative: Patient is initially tachycardic and hypertensive also tachypneic but afebrile. Exam without friction rub. Pulses were symmetric. No focal lung findings. Patient was treated with aspirin normal saline initially. I considered the following differential diagnosis: ACS, arrhythmia, anemia, pericarditis electrolyte abnormality, pneumonia, pneumothorax, GI etiology, PE ALL IMAGES (IF OBTAINED) HAVE BEEN PERSONALLY REVIEWED AND INTERPRETED BY MYSELF. EKG with normal sinus rhythm, left ax deviation, no intervals, no STEMI, no stigmata of pericarditis, no WPW, ARVD or Brugada syndrome noted CBC without leukocytosis, severe anemia, no thrombocytopenia. BMP without evidence of significant electrolyte abnormalities, no anion gap, no acute kidney injury. High-sensitivity troponin is negative, no evidence of myocardial ischemia x 2 I have personally reviewed the patient's chest x-ray. Chest x-ray is unremarkable for pulmonary edema, pneumothorax, pneumonia or focal cardiopulmonary abnormality. The synthesis of the patient's history, physical exam, labs images are not consistent with an acute life or limb threatening etiology. PE less likely given low risk Wells score. Aortic dissection is thought to be less likely given no sudden ripping or tearing pain, migratory pain, palpable pulse inequalities, no focal neurologic deficits concurrent with chest pain. Chance of dissection less than 07/1999. Pericarditis less likely given no pathognomonic EKG changes (no diffuse ST elevations, RI depressions). GI etiology (i.e. Boerhaave syndrome) less likely given no chest or neck crepitus, no vomiting or forced retching. I completed a HEART Score to screen for Major Adverse Cardiac Event (MACE) in this patient. The evidence indicates that the patient is very low risk for MACE and this is consistent with my clinical intuition. The risk of further workup or hospitalization for MACE is likely higher than therisk of the patient having a MACE. It is, therefore, in the patient?s best interest not to do additional emergent testing or to be hospitalized for MACE atthis time. Shared Decision-Making No hospitalization indicated I have discussed with the patient my clinical impression and the result of the HEART Score to screen for MACE, as well as the risks of further testing and hospitalization. The HEART Score shows that the risk for MACE is less than 1%. Although the risk of MACE has not been completely eliminated, the risks of further testing or hospitalization for MACE likely exceed any potential benefit,and the patient agrees with not pursuing further emergent evaluation or hospitalization for MACE at this time. The patient and/or family, caregivers express understanding. The patient and/or family, caregivers agrees with the plan. Total critical care time today provided was at least 0 minutes. This excludes separately billable procedures. Critical care time (if documented) is secondary to the patient having high probability of clinically significant/life threatening deterioration in the patient's condition which required my urgent intervention. Felipe Valera, DO Lab Data Labs: Laboratory Results - last 24 hr 05/26/23 05/26/23 13:25 14:46 WBC 4.6 RBC 4.88 Hgb 14.9 Hct 43.0 MCV 88.1 MCH 30.5 MCHC 34.7 RDW Std Deviation 41.3 RDW Coeff of Nelson 12.9 Plt Count 213 MPV 10.4 Immature Gran % (Auto) 0.600 Neut % (Auto) 65.8 Lymph % (Auto) 24.1 Bland % (Auto) 7.1 Eos % (Auto) 1.5 Baso % (Auto) 0.9 Absolute Neuts (auto) 3.1 Absolute Lymphs (auto) 1.12 Nucleated RBC % 0 Sodium 139 Potassium 3.6 Chloride 105 Carbon Dioxide 27.0 Anion Gap 7 BUN 14 Creatinine 0.98 Estim Creat Clear Calc 113.28 Est GFR (MDRD) Af Amer 110 Est GFR (MDRD) Non-Af 91 BUN/Creatinine Ratio 14.3 Glucose 142 H Calcium 8.8 Troponin I High Sens 6 6 Radiography Diagnostic Testing: Clinical Impression(s) from Imaging Studies Chest X-Ray 05/26/23 13:50 IMPRESSION: Normal x-ray examination of the chest. Electronically Signed: Ari Tabor MD at 14:24 EST , Discharge Plan Triage Chief Complaint: Chest Pain ED Provider: Felipe Valera Dx/Rx/DC Orders Instructions: Chest Pain [facility] Primary Care Provider: Care Physician,No Primary Referrals: Care Physician,No Primary [Primary Care Provider] - Activity Restrictions/Additional Instructions: Thank you for trusting us with your care today! Please take Tylenol (2 pills, 650 mg), ibuprofen (2 pills, 400 mg) every 6 hoursas needed for pain and fever control. Please return to the emergency department if your symptoms change or worsen. Specifically if you lose consciousness, develop chest pain, shortness of breath,exertional chest pain. Please follow with your primary care physician for further outpatient evaluationand management. Disposition Disposition: Home, Self Care What to do if you have Problems For any increased pain, shortness of breath, bleeding, nausea or vomiting, chestpain, or any unexpected problems, contact your Primary Care Provider. Call [facility] ([phone]) or report to the closest Emergency Room. Call 911 if necessary. 05/26/23 1523 <Electronically signed by Felipe Valera DO> Cosigner Signature (if applicable): CC: No Primary Care Physician ~ Signed [facility] Work Phone: 1(257) 533-742210-09-2023 History of Present illness Narrative* Jasson Lion MD - 04/11/2023 4:06 PM EDT Jasson Lion MD Department of Orthopaedics Orthopaedics [address] [facility] [address] Dept: [phone] Dept April CHIEF COMPLAINT: Established Patient and Follow Up of the Right Hand (Middle finger cyst removal). HPI Patient presents with: Right Hand - Established Patient, Follow Up: Middle finger cyst removal Pt has no complaints. Finger is doing well. ASSESSMENT: R22.31 Mass of finger of right hand (primary encounter diagnosis) SUMMARY/PLAN: He is doing well after surgery and is having no complaints. Healing nicely. Back to normal activities. Follow-up as needed. Exam: Healed surgical incision. Supporting Information Below: Medications: Current Outpatient Medications Medication Sig calcium phosphate dibas/vit D3 (VITAMIN D, WITH CALCIUM, ORAL) Take by mouth. No current facility-administered medications for this visit. Allergies: Patient has no known allergies. Jasson Lion MD documented in this encounterK[facility]09-11-2023 History of Present illness Narrative* Kaylee Soria PA-C - 03/14/2023 7:57 AM EDT Kaylee Soria PA-C Department of Orthopaedics Orthopaedics [address] [facility] [address] Dept: [phone] Dept March 14, 2023 CHIEF COMPLAINT: Post Op of the Right Middle Finger and 1 week 5 days post op excision ganglion cyst (right middle finger/). ASSESSMENT: R22.31 Mass of finger of right hand (primary encounter diagnosis) SUMMARY/PLAN: Patient presents 1 week and 5 days excision of right middle digit pyogenic granuloma. He is doing very well, denies any pain today. We will remove his sutures. We discussed proper hand washing, no soaking of the operative hand. No heavy lifting, pushing or pulling with the operative hand, encouragegentle motion. We discussed scar massage. Follow up as planned. Exam: Incision sites well approximated without erythema or drainage, there is no edema or erythema noted.Patient has full and active range of motion in the right middle digit. Some subjective hypersensitivity with touch of the pad of the digit. Imaging: Deferred today. Mr. Torrey Campos was advised as to contrast therapies and/or to take analgesics/anti-inflammatories as needed and all contraindications were reviewed. Supporting Information Below: Medications: Current Outpatient Medications Medication Sig calcium phosphate dibas/vit D3 (VITAMIN D, WITH CALCIUM, ORAL) Take by mouth. No current facility-administered medications for this visit. Allergies: Patient has no known allergies. This note was partially generated using [employer] voice recognition system, and there may be some incorrect words, spellings, and punctuation that were not noted in checking the note before saving. Kaylee Soria PA-C * Alida Meredith Ma - 03/14/2023 7:36 AM EDT Patient presents with: Right Middle Finger - Post Op 1 week 5 days post op excision ganglion cyst: right middle finger Patient denies any pain. Sutures intact. No redness or drainage. [facility] Miscellaneous Notes* Telephone Encounter - Tonie Cruz Ma - 02/21/2023 1:51 PM EDT Surgery has been scheduled as requested. * Telephone Encounter - Tonie Cruz Ma - 02/21/2023 11:32 AM EDT Surgical request completed for right middle finger excision soft tissue mass at [facility] on 03/02/2023 with local anesthesia. Post op appointments have been scheduled and mailed to the patient. documented in this encounterK[facility]23 History of Present illness Narrative* Jasson Lion MD - 02/21/2023 10:51 AM EDT Jasson Lion MD Department of Orthopaedics Orthopaedics [address] [place] [id number] Dept: [phone] Dept February 21, 2023 CHIEF COMPLAINT: New and Tumor/Mass of the Right Middle Finger (Xrays taken 06/01/2022, ultrasound 06/08/22, MRI 12/15/2022) HPI Patient presents for second opinion or surgical consultation for a right middle finger mass. It hadgotten a little bit bigger over time and was causing some annoyance certainly with pinching and grasping items. He did have x-ray, ultrasound and MRI suspecting of a giant cell tumor or fibrous nodule. ASSESSMENT: No diagnosis found. PLAN: He would like surgical excision. I discussed with him in the office the risks, benefits, alternatives and potential complications involving both operative and nonoperative care. He understands and wishes to pursue surgery. Mr. Torrey Campos was advised as to contrast therapies and/or to take analgesics/anti-inflammatories as needed and all contraindications were reviewed. OBJECTIVE: Mr. Torrey Campos is a pleasant 37 year old in no apparent distress. Gen:There were no vitals taken for this visit. nl development, non obese, no deformities ENT: Normocephalic, normal hearing, moist mucosa CV: Pulses:Radial= 2+ and symmetric, capillary refill < 2 secs, no peripheral edema/varicosities Skin: no rash, bruising or lesions. Good turgor. Psych: cooperative and appropriate, alert and oriented x 3, good mood and affect. Musculoskeletal: Rubbery nodule over the volar lateral surface of the middle finger on the radial side. Slightly mobile. Nontender. Negative Tinel's. No skin lesions. Imaging: IMPRESSION: Solid 6 x 4 x 5 mm nodule within the volar/lateral subcutaneous fat of the distal third finger at the level of the DIP joint, corresponding to the region of palpable concern. 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 Fibroma is another consideration. If histologic assessment is deferred, follow-up with physical exam and repeat imaging as indicated. Hris Manager: RANDY Transcribe Date/Time: Dec 16 2022 11:09A Dictated by : JOSE SIERRA MD This examination was interpreted and the report reviewed and electronically signed by: JOSE SIERRA MD on Dec 16 2022 11:22AM EST Results-Findings * * *Final Report* * * DATE OF EXAM: Dec 15 2022 8:14AM GRM [id number] - MRI HAND WO IVCSTANISLAV RT / PROCEDURE REASON: Finger mass, right * * * * Physician Interpretation * * * * EXAM TITLE: MRI HAND WO IVCON RT DATE: 12/15/2022 COMPARISON: Radiograph 06/01/2022, ultrasound 06/08/2022 CLINICAL INDICATION/HISTORY: Palpable soft tissue nodule radial side right third finger. TECHNIQUE: Multiplanar, multisequential MR imaging of the right third finger performed without IV contrast. A skin marker was placed at the site of palpable abnormality along the distal radial finger. FINDINGS: Deep to the skin marker and residing within the subcutaneous fat is a small solid nodule which is intermediate in signal intensity on T1 weighted sequences and is intermediate to slightly hyperintense on STIR images. The nodule, which is seen within the volar/lateral subcutaneous fat at the level of the DIP joint, measures approximately 6 x 4 x 5 mm in transverse, AP and craniocaudal dimensions respectively. This is seen best on axial image 7 and coronal image 9. The nodule appears to extend to the bony cortex and resides along the distal aspect of the flexor tendon.. No significant surrounding soft tissue inflammation. There is no associated bony remodeling. No other discrete solid or cystic nodule is identified. No acute bony abnormality. No significant arthritic change. No bone erosion. Supporting Subjective Information Below: Past Surgical History: PAST SURGICAL HISTORY Procedure Laterality Date HYDROCELE RIGHT, FLUID Right 2002 Medications: Current Outpatient Medications Medication Sig calcium phosphate dibas/vit D3 (VITAMIN D, WITH CALCIUM, ORAL) Take by mouth. No current facility-administered medications for this visit. Allergies: Patient has no known allergies. ROS: General (negative for fatigue, malaise, weight loss/gain) HEENT (negative for headache, earache, recent vision changes, sinus pain, sore throat) Respiratory (no recent shortness of breath, hemoptysis) CV (negative for chest tightness, palpitations) Musculoskeletal (see HPI) Psych (no depression, anxiety) Jasson Lion MD documented in this encounterK[facility] History of Present illness Narrative* Codi Oglesby, - 12/02/2022 1:41 PM EDT Reason for Visit/Chief Complaint Torrey Campos is a 37 year old male who presents today for a new evaluation of following complaint: Patient presents with: Right Middle Finger - New Patient, Mass History of Present Illness: PAIN EVALUATION No data found in the last 1 encounters. HPI: Torrey Campos is a 37 year old male presenting today with mass of R middle finger. Pain history is noted as above. Mass present for the past 8 months. Reports that it is not painful, just annoying. Has grown in size from when he first noticed it. He's had an XR on 06/01/22 and US 06/08/22. Previous Treatments: Ice: No Heat: No Brace: No NSAIDs: No Injections: No Surgeries: No Physical Therapy: No Review of Systems: Patient did not have, and does not currently have, any weight loss, malaise, fever, chills, headache, chest pain, chest pressure, palpitations, cough, shortness of breath, orthopnea, paroxsymal nocturnal dyspnea, nausea, vomiting, diarrhea, constipation, melena, hematochezia, urinary difficulties, prolonged bleeding, easily bruising, heat or cold intolerance, new onset joint pain or swelling, newonset extremity weakness or numbness, new onset auditory or visual disturbances, lightheadedness, dizziness, partial loss of consciousness or full loss of consciousness. No current outpatient medications on file prior to visit. No current facility-administered medications on file prior to visit. ALLERGIES No Known Allergies Physical Exam: Vitals: There were no vitals taken for this visit. Psych: Pleasant, good affect and mood General Appearance: Well appearing, alert, in no acute distress, well-hydrated, well nourished.. Skin: Skin color, texture, turgor normal, no suspicious rashes or lesions. Peripheral Pulses: Normal. Neurologic: Gait normal. Reflexes normal and symmetric. Sensation grossly intact.. Lymph Nodes: No cervical lymphadenopathy, No supraclavicular lymphadenopathy, No axillary lymphadenopathy., and No inguinal lymphadenopathy.. Respiratory: No recent pulmonary infection, hemoptysis, chronic cough, or shortness of breath at rest Rheumatologic: Joint deformities: right finger eval Right Hand Exam Right hand exam is normal. Tenderness The patient is experiencing no tenderness. Range of Motion The patient has normal right wrist ROM. Wrist Extension: normal Flexion: normal Pronation: normal Supination: normal Muscle Strength The patient has normal right wrist strength. Tests Phalen s Sign: negative Tinel's sign (median nerve): negative Bart's test: negative Other Erythema: absent Sensation: normal Pulse: present Comments: B/l med/uln/rad/ax nerves intact Mass of middle finger palpable distal volar phalanx Left Hand Exam Left hand exam is normal. Tenderness The patient is experiencing no tenderness. Range of Motion The patient has normal left wrist ROM. Wrist Extension: normal Flexion: normal Pronation: normal Supination: normal Muscle Strength The patient has normal left wrist strength. 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 Findings are nonspecific. Considerations would include fibroma of the tendon sheath or possibly developing fibrosis which might indicate developing Dupuytren's contracture. Correlate clinically. MRI may be helpful to further evaluate. Hris Manager: [employer] Transcribe Date/Time: Jun 11 2022 8:21A Dictated by : ALBERTO HUIZAR MD This examination was interpreted and the report reviewed and electronically signed by: ALBERTO HUIZAR MD on Jun 11 2022 8:23AM EST Assessment and Plan: Impression: Encounter Diagnosis ICD-10-CM 1. Finger mass, right R22.31 Plan: Today, in detail, through a thorough evaluation, we discussed possible etiologies of pain and our plans for further diagnostic and therapeutic interventions. We discussed strategies for decreasing pain and improving strength, stability and motion. Patient's questions were answered in detailed. Patient verbalizes understanding and agrees with the treatment plan as discussed. Mri middle finger for preop plan Codi AyalaP.H. documented in this encounterK[facility]05-30-2023 Miscellaneous Notes* Telephone Encounter - Selam Martin Cma - 11/30/2022 3:14 PM EDT Schedulers please assist patient with setting up ortho consult Selam Matrin Cma * Telephone Encounter - Lashae Kaba APRN.CNP - 11/30/2022 9:16 AM EDT Please let patient know order is placed and have scheduling call to set up appointment. * Telephone Encounter - Eunice Leyva LPN - 11/30/2022 8:51 AM EDT Patient calling asking for referral to hand specialist for the mass right middle finger. He wants to stay with [facility] system, not sure who to see for this. Please advise documented in this encounterK[facility]12-25-2022 History of Present illness Narrative* Citizen Of [place] [facility] Provider - 06/27/2022 4:48 PM EST null ( ) Visit Summary for Torrey Campos - Gender: Male - Date of : 1985 Date: [id number]- Duration: 2 minutes Patient: Torrey Campos Provider: Zehra Gomez Patient Contact Information Address [address] [place] [phone] Visit Topics covid diagnosis, paxlovid because of weight [Added By: Self - 2022-06-27] Triage Questions REQUIRED: Do you have Medicare or Medicaid Insurance?Answer [no] Do you have a cough, shortness of breath, difficulty breathing, fever, chills, headache, sore throat, muscles aches, acute change in smell or taste?Answer [yes] Have you been in contact with anyone confirmed with COVID 19 or suspectedof having COVID 19 within the past 14 days?Answer [yes] Do you have any vulnerable family members in the home (infant, , weak immune system, lung disease, active cancer, elderly)?Answer [yes]Do you have any of the following: weak immune system, asthma or chronic lung disease, kidney problems and on dialysis, active cancer, diabetes or heart disease or high blood pressure, HIV or organ transplant?Answer [no] Are you currently working in a healthcare facility?Answer [no] What is the address where you are currently located? This is important in case of a medical emergency.Answer [[address] [place], [place]] Please enter a number I can contact you in the event we are disconnected.Answer[[phone]] Conversation Transcripts [Notification] You are connected with Zehra Gomez Family Physician.[Notification] AmbikaAdrianna is located in [place].[Notification] Torrey Campos has shared health history...[Notification] Zehra Gomez has added a note.[Notification] Zehra Gomez has added a prescription. Diagnosis COVID-19 Value: U07.1 Code: ICD-10-CM Procedures Value: 08328 Code: CPT-4 OFFICE O/P EST SF 10-19 MIN Value: 60083 Code: CPT-4 OL DIG E/M SVC 11-20 MIN Medications Prescribed Paxlovid (EUA) Strength : 150 mg x 2- 100 mg Route : oral Frequency : 2 times a day. Refills : 0 Instructions to the Pharmacist : Substitutions allowed Provider Notes Mode of Communication: video History: patient with covid positive. Patient wants paxlovid, patient with obesity. He padilla snasal congestion, FatigueAdditional pertinent positives: nasal congestion Pertinent negatives: no shortness of breath Past medical history: obesity Medications: Allergies: noneLast menstrual period/ (if applicable): Exam: Vitals signs (if available): Weight:220lbsGeneral:no acute distressAssessment:Covid 19 Diagnosis code: Plan: Medications: paxlovid Home care: otc meds for cold Referral or follow up: Medical decision making: moderate Antibiotic choice (if applicable): Additional recommendations: If you received a prescription at this visit and you have a question or problem please call [phone] for prescription assistance Please print a copy of this note andsend it to your regular doctor, or take it to your next visit so it may be included in your medicalrecord Please see your primary care provider on an annual basis or more frequently if directed The patient voiced understanding and agreement with plan. Electronically signed by: Zehra Gomez( ) documented in this encounterK[facility]12-09-2022 Miscellaneous Notes* Telephone Encounter - Lashae Kaba APRN.CNP - 06/11/2022 8:31 AM EST Please let patient know that his ultrasound was inconclusive but warrants a referral to orthopedics. Please find out if patient has preference on where he would like to follow up. documented in this encounterK[facility]12-06-2022 History of Present illness Narrative* CARMINE Ballesteros) - 06/08/2022 2:00 PM EST Radiology Service Progress Note PATIENT NAME: Torrey Campos DATE OF SERVICE: June 08, 2022 TIME: 2:16 PM PATIENT IDENTITY VERIFICATION COMPLETED USING TWO (2) IDENTIFIERS: Name and Date of confirmedby patient verbally. FALL SCREENING: Has the patient had 2 falls in the last year or 1 fall with injury or currently using an Ambulatory Assistive Device (Walker, Cane, Wheelchair, Crutches, etc.)? No PATIENT GENDER DATA: Male PATIENT RELEVANT IMPLANT DATA REVIEWED: Not Applicable RADIOLOGY DEPARTMENT: Ultrasound PERIPHERAL IV DATA: Not applicable SIGNED BY: RT Lesli(Marvin) June 08, 2022 2:16 PM documented in this encounterK[facility]11-29-2022 History of Present illness Narrative* Roopa Pierre RT(R) - 06/01/2022 1:10 PM EST Radiology Service Progress Note PATIENT NAME: Torrey Campos DATE OF SERVICE: June 01, 2022 TIME: 1:19 PM PATIENT IDENTITY VERIFICATION COMPLETED USING TWO (2) IDENTIFIERS: Name and Date of confirmedby patient verbally. FALL SCREENING: Has the patient had 2 falls in the last year or 1 fall with injury or currently using an Ambulatory Assistive Device (Walker, Cane, Wheelchair, Crutches, etc.)? No PATIENT GENDER DATA: Male PATIENT RELEVANT IMPLANT DATA REVIEWED: Yes RADIOLOGY DEPARTMENT: General X-ray: Exam(s) Completed: Upper Extremity X- Ray(s): Hand, right PERIPHERAL IV DATA: Not applicable SIGNED BY: RT Garret(R) June 01, 2022 1:19 PM [facility] [place] [facility]* Diagnosis Deformity of finger of right hand Unspecified deformity of finger documented [facility] this encounter [facility] [place] [facility]* Diagnosis Finger mass, right Localized superficial swelling, mass, or lump documented [facility] this encounter [facility] [place] [facility]* Diagnosis Finger mass, right Localized superficial swelling, mass, or lump documented [facility] this encounter [facility] [place] [facility]* Diagnosis Finger mass, right- Primary Localized superficial swelling, mass, or lump documented [facility] this encounter [facility] [place] [facility]* Diagnosis Mass of finger of right hand- Primary Localized superficial swelling, mass, or lump Mass of finger of right hand Localized superficial swelling, mass, or lump documented in this encounter [facility] [place] [facility]* Diagnosis Finger mass, right- Primary Localized superficial swelling, mass, or lump documented [facility] this encounter [facility] [place] [facility]* Diagnosis Mass of finger of right hand- Primary Localized superficial swelling, mass, or lump documented [facility] this encounter [facility] [place] [facility]* Diagnosis Mass of finger of right hand- Primary Localized superficial swelling, mass, or lump documented in this encounter [facility] [place] noteNo assessment information availableWSCCI Hospital [facility] Work Phone: [facility] [place] [facility]* Diagnosis Chest pain, unspecified type- Primary Screening for hyperlipidemia Screening for lipoid disorders documented in this encounter [facility] [place] [facility]* Diagnosis Chest pain, unspecified type documented in this encounter [facility] note* Diagnosis LUQ pain Abdominal pain, left upper quadrant Diarrhea, unspecified type documented [facility] this encounter [facility] [place] [facility]* Diagnosis Bloating- Primary Flatulence, eructation, and gas pain documented [facility] this encounter [facility] [place] [facility]* Diagnosis LUQ pain Abdominal pain, left upper quadrant Diarrhea, unspecified type [facility] this encounter [facility] [place] [facility]* Diagnosis Bloating- Primary Flatulence, eructation, and gas pain Diarrhea, unspecified type Elevated fecal calprotectin documented [facility] this encounter [facility] [place] [facility]* Diagnosis Testicular swelling, right- Primary Edema of male genital organs Testicular discomfort Unspecified disorder of male genital organs Urinary tract infection without hematuria, site unspecified documented in this encounter [facility] note* Diagnosis Testicular swelling, right Edema of male genital organs Testicular discomfort Unspecified disorder of male genital organs documented [facility] encounter [facility] [place] [facility]* Diagnosis LUQ pain Abdominal pain, left upper quadrant Other chest pain documented [facility] this encounter [facility] [place] [facility]* Diagnosis Microscopic hematuria- Primary documented in this encounter [facility] [place] [facility]* Diagnosis Gross hematuria- Primary documented [facility] this encounter [facility] [place] [facility]* Diagnosis Gross hematuria documented in this encounter [facility] [place] [facility]* Diagnosis Left flank pain- Primary Abdominal pain, unspecified site Upper back pain Other chest pain Generalized abdominal pain Abdominal pain, generalized Gross hematuria documented [facility] this encounter [facility] [place] [facility]* Diagnosis Chest pain, unspecified type LUQ pain Abdominal pain, left upper quadrant Diarrhea, unspecified type documented in this encounter [facility] note* Diagnosis Deformity of finger of right hand Unspecified deformity of finger documented [facility] this encounter [facility] [place] [facility]* Diagnosis LUQ pain Abdominal pain, left upper quadrant Other chest pain documented [facility] this encounter [facility] [place] [facility]* Diagnosis Annual physical exam- Primary Routine general medical examination at a health care facility Chronic upper back pain Backache, unspecified Gastroesophageal reflux disease without esophagitis Esophageal reflux Alcohol consumption binge drinking Alcohol abuse, unspecified documented [facility] this encounter [facility] [place] [facility]* Diagnosis Acute cough- Primary Bacterial pneumonia Bacterial pneumonia, unspecified Acute cough documented [facility] this encounter [facility] [place] [facility]* Diagnosis Acute cough documented [facility] this encounter [facility] [place] [facility]* Diagnosis Chronic upper back pain Backache, unspecified documented [facility] this encounter [facility] [place] [facility]* Diagnosis Elevated BP without diagnosis of hypertension- Primary documented [facility] this encounter [facility] [place] [facility]* Diagnosis Chronic upper back pain- Primary Backache, unspecified documented [facility] [place] [facility]* Diagnosis Chronic upper back pain- Primary Backache, unspecified documented [facility] this encounter [facility] [place] [facility]* Diagnosis Chronic upper back pain- Primary Backache, unspecified documented [facility] this encounter [facility] [place] [facility]* Diagnosis 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 Transient visual loss 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 Please take Tylenol (2 pills, 650 mg), ibuprofen (2 pills, 400 mg) every 6 hours as needed for pain and fever control. Please return to the emergency department if your symptoms change or worsen. Specifically if you lose consciousness, develop chest pain, shortness of breath, exertional chest pain. Please follow with your primary care physician for further outpatient evaluation and management.[facility] Work Phone: Hospital Discharge instructionsAdditional Instructions No clear reason for your symptoms at this time. Follow-up with your primary care physician and neurology. Return back to the ED if symptoms change or worsen.[facility] Work Phone: Reason for referral (narrative)* Diagnostic Procedure Only (Routine) - Closed Specialty Diagnoses / Procedures Referred By Daria t Referred To Contact US IMAGING Diagnoses Deformity of finger of right hand Procedures US EXTREMITY MASS/FLUID COLLECTION RT Lashae Kaba APRN.[facility] [address] [place] [address] Us Imaging Referral ID Status Reason Start Date Expiration Date V isits Requested Visits Authorized [id number] Closed Auto-Generate d Referral 06/03/2022 07/03/2023 1 1 [facility] for referral (narrative)* Outpatient Procedure (Routine) - Authorized Specialty Diagnoses / Procedures Referred By Contac t Referred To Contact [facility] Diagnoses Chest pain, unspecified type Procedures ECHO ECHO TTHRC R-T 2D W/WOM-MODE COMPL SPEC&COLR D PodlogKim jaramillo APRN.[employer] [address] [place] [address] [facility] [address] [place] [address] Referral ID Status Reason Start Date Expiration Date Visits Requested Visits Authorized [id number] Authorized Auto-Generat ed Referral 3 05/29/2024 1 1 [facility] for referral (narrative)* Diagnostic Procedure Only (Routine) - Authorized Specialty Diagnoses / Procedures Referred By Contac t Referred To Contact US IMAGING Diagnoses Testicular swelling, right Testicular discomfort Procedures US DOPPLER COMPLETE DUP-SCAN ARTL ROXANA ABDL/PEL/SCROT&/RPR ORGN COM Valerie Franco APRN.[employer] [address] [place] [address] [place] [address] Referral ID Status Reason Start Date Expiration Date Visits Requested Visits Authorized [id number] Authorized Auto-Generat ed Referral 12/29/2023 01/27/2025 1 1 * Diagnostic Procedure Only (Routine) - Authorized Specialty Diagnoses / Procedures Referred By Contac t Referred To Contact US IMAGING Diagnoses Testicular swelling, right Testicular discomfort Procedures US SCROTUM AND CONTENTS US SCROTUM & CONTENTS Valerie Franco, INSPECTOR POISING.AERODYNAMIC CONSULTANT [address] [place] [address] [place] [address] Referral ID Status Reason Start Date Expiration Date Visits Requested Visits Authorized [id number] Authorized Auto-Generat ed Referral 12/29/2023 01/27/2025 1 1 [facility] for referral (narrative)* Diagnostic Procedure Only (Routine) - Closed Specialty Diagnoses / Procedures Referred By Contac t Referred To Contact US IMAGING Diagnoses Gross hematuria Procedures US KIDNEY/BLADDER US RETROPERITONEAL REAL TIME W/IMAGE COMPLETE Alex Muniz MD [facility] [place] [address] [place] [address] Referral ID Status Reason Start Date Expiration Date V isits Requested Visits Authorized [id number] Closed Auto-Generate d Referral 01/19/2024 02/17/2025 1 1 [facility] for referral (narrative)* Diagnostic Procedure Only (Routine) - Closed Specialty Diagnoses / Procedures Referred By Contac t Referred To Contact US IMAGING Diagnoses Gross hematuria Procedures US KIDNEY/BLADDER US RETROPERITONEAL REAL TIME W/IMAGE COMPLETE Alex Muniz MD [address] [place] [address] [place] [address] Referral ID Status Reason Start Date Expiration Date V isits Requested Visits Authorized [id number] Closed Auto-Generate d Referral 01/19/2024 02/17/2025 1 1 [facility] for referral (narrative)* Outpatient Procedure (Routine) - Closed Specialty Diagnoses / Procedures Referred By Contac t Referred To Contact [facility] Diagnoses Diarrhea, unspecified type Procedures COLONOSCOPY DIAGNOSTIC COLONOSCOPY FLX DX W/COLLJ SPEC WHEN Hansa Tello PA-C [address] [place] [address] [facility] [address] [place] [address] Referral ID Status Reason Start Date Expiration Date V isits Requested Visits Authorized [id number] Closed Auto-Generate d Referral 07/12/2023 07/12/2024 1 1 * Outpatient Procedure (Routine) - Closed Specialty Diagnoses / Procedures Referred By Contac t Referred To Contact [facility] Diagnoses Other chest pain LUQ pain Procedures EGD DIAGNOSTIC ESOPHAGOGASTRODUODENOS COPY TRANSORAL DIAGNOSTIC Hansa Delaney PA-C [address] [place] [address] [facility] [address] [place] [address] Referral ID Status Reason Start Date Expiration Date V isits Requested Visits Authorized [id number] Closed Auto-Generate d Referral 07/12/2023 07/12/2024 1 1 [facility] Diagnostic Procedure Only (Urgent) - Closed Specialty Diagnoses / Procedures Referred By Contac t Referred To Contact XR IMAGING Diagnoses Deformity of finger of right hand Procedures XR HAND GENERAL 3V PA/LAT/OBL RIGHT RADEX HAND MINIMUM 3 VIEWS Lashae Kaba APRN.AERODYNAMIC CONSULTANT [address] [place] [address] [place] [address] Referral ID Status Reason Start Date Expiration Date V isits Requested Visits Authorized [id number] Closed Auto-Generate d Referral 06/01/2022 07/01/2023 1 1 [facility] for referral (narrative)No reason for referral information availableWSCCI [facility] Work Phone: Reason for visit Narrative* Diagnostic Procedure Only (Routine) - Closed Specialty Diagnoses / Procedures Referred By Contac t Referred To Contact US IMAGING Diagnoses Deformity of finger of right hand Procedures US EXTREMITY MASS/FLUID COLLECTION RT Lashae Kaba APRN.AERODYNAMIC CONSULTANT [address] [place] [address] Us Imaging Referral ID Status Reason Start Date Expiration Date V isits Requested Visits Authorized [id number] Closed Auto-Generate d Referral 06/03/2022 07/03/2023 1 1 [facility] for visit Narrative* Diagnostic Procedure Only (Routine) - Closed Specialty Diagnoses / Procedures Referred By Contac t Referred To Contact Cardiology / [facility] Diagnoses Chest pain, unspecified EXERCISE STRESS ECG (WITHOUT IMAGING); Chest pain, unspecified type [R07.9]; PT WT 212lbs Procedures CV STRS TST XERS&/OR RX CONT ECG TRCG ONLY STRESS TEST Podlogar, Kim, INSPECTOR POISING.AERODYNAMIC CONSULTANT [address] [place] [address] [facility] [address] [place] [address] Referral ID Status Reason Start Date Expiration Date Visits Re quested Visits Authorized [id number] Closed 05/30/2023 07/03/2023 1 1 [facility] for visit Narrative* Diagnostic Procedure Only (Routine) - Closed Specialty Diagnoses / Procedures Referred By Contac t Referred To Contact US IMAGING Diagnoses Testicular swelling, right Testicular discomfort Procedures US DOPPLER COMPLETE DUP-SCAN ARTL ROXANA ABDL/PEL/SCROT&/RPR ORGN COM Valerie Franco, INSPECTOR POISING.AERODYNAMIC CONSULTANT [address] [place] [address] [place] [address] Referral ID Status Reason Start Date Expiration Date V isits Requested Visits Authorized [id number] Closed Auto-Generate d Referral 12/29/2023 01/27/2025 1 1 [facility] for visit Narrative* Outpatient Procedure (Routine) - Closed Specialty Diagnoses / Procedures Referred By Contac t Referred To Contact [facility] Diagnoses Diarrhea, unspecified type Procedures COLONOSCOPY DIAGNOSTIC COLONOSCOPY FLX DX W/COLLJ SPEC WHEN Hansa Tello PA-C [address] [place] [address] [facility] [address] [place] [address] Referral ID Status Reason Start Date Expiration Date V isits Requested Visits Authorized [id number] Closed Auto-Generate d Referral 07/12/2023 07/12/2024 1 1 [facility] for visit Narrative* Diagnostic Procedure Only (Urgent) - Closed Specialty Diagnoses / Procedures Referred By Contac t Referred To Contact XR IMAGING Diagnoses Deformity of finger of right hand Procedures XR HAND GENERAL 3V PA/LAT/OBL RIGHT RADEX HAND MINIMUM 3 VIEWS Lashae Kaba, RIANA.AERODYNAMIC CONSULTANT [address] [place] [id number] [place] [address] Referral ID Status Reason Start Date Expiration Date V isits Requested Visits Authorized [id number] Closed Auto-Generate d Referral 06/01/2022 07/01/2023 1 1 [facility] for visit Narrative* MRI/CT (Urgent) - Closed Specialty Diagnoses / Procedures Referred By Contac t Referred To Contact MR IMAGING Diagnoses Amaurosis fugax Procedures MRI BRAIN WO IVCON MRI BRAIN BRAIN STEM W/O CONTRAST MATERIAL Alex Muniz MD [address] [place] [id number] Phone: tel: fax: [facility] [place] [address] Referral ID Status Reason Start Date Expiration Date V isits Requested Visits Authorized [id number] Closed Auto-Generate d Referral 01/10/2025 02/09/2026 1 1 [facility] Reason for Referral Specialty Diagnoses / Procedures Referred By Contac t Referred To Contact MR IMAGING Diagnoses Finger mass, right Procedures MRI HAND WO IVCON RIGHT MRI UPPER EXTREMITY OTH THAN JT W/O CONTR Codi Severino, [address] [facility] [address] [place] [id number] [facility] Referral ID Status Reason Start Date Expiration Date Visits Requested Visits Authorized [id number] Authorized Auto-Generat ed Referral 12/02/2022 01/01/2024 1 1 Referral ID Status Reason Start Date Expiration Date V isits Requested Visits Authorized [id number] Closed Auto-Generate d Referral 12/02/2022 01/01/2024 1 1 Specialty Diagnoses / Procedures Referred By Contac t Referred To Contact Orthopedics Diagnoses Finger mass, right Procedures CONSULT TO ORTHOPAEDICS OFFICE/OUTPATIENT [facility] MDM 60-74 MINUTES Lashae Kaba APRN.AERODYNAMIC CONSULTANT [address] [place] [address] Referral ID Status Reason Start Date Expiration Date V isits Requested Visits Authorized [id number] Closed PCP Requested Referral 11/30/2022 11/30/2023 1 1 Specialty Diagnoses / Procedures Referred By Daria t Referred To Contact [facility] Diagnoses Chronic upper back pain Procedures CONSULT TO PHYSICAL THERAPY PHYSICAL THERAPY EVALUATION [facility] COMPLEX 45 MINS Alex Muniz MD [address] [place] [address] [facility] [address] [place] [address] Referral ID Status Reason Start Date Expiration Date Visits Requested Visits Authorized [id number] Pending Review Auto-Generat ed Referral 07/16/2024 07/16/2025 1 1 Chief Complaint and Reason for Visit Chief Complaint CHEST PAIN Chief Complaint Admit Date NUMBNESS January 15, 2025 12:2 4pm Advance Directives Advance Directive Response Recorded Date/ Time Living Will No May 26 023 1:15pm Power of Engineering Aid No May 26, 2023 1:15pm Advance Directive Response Recorded Date/ Time Do you have a Healthcare Power of Engineering Aid? No January 15, 2025 1:08pm Summary Purpose Family History No Family History Records FoundNo Family History Records FoundNo Family History Records FoundNo Family History Records Found Additional Source Comments Source Comments (unrecognize d section and content) In the event this informatio n is protected by the Federal Confidentiality of Alcohol and Drug Abuse Patient Records regulations: The Federal rules restrict any use of the information to criminally investigate or prosecute any alcohol or drug abuse patient.[facility] the event this information is protected by the Federal Confidentiality of Alcohol and Drug Abuse Patient Records regulations: The Federal rules restrict any use of the information to criminally investigate or prosecute any alcohol or drug abuse patient.[facility] the event this information is protected by the Federal Confidentiality of Alcohol and Drug Abuse Patient Records regulations: The Federal rules restrict any use of the information to criminally investigate or prosecute any alcohol or drug abuse patient.[facility] the event this information is protected by the Federal Confidentiality of Alcohol and Drug Abuse Patient Records regulations: The Federal rules restrict any use of the information to criminally investigate or prosecute any alcohol or drug abuse patient.[facility] the event this information is protected by the Federal Confidentiality of Alcohol and Drug Abuse Patient Records regulations: The Federal rules restrict any use of the information to criminally investigate or prosecute any alcohol or drug abuse patient.[facility] the event this information is protected by the Federal Confidentiality of Alcohol and Drug Abuse Patient Records regulations: The Federal rules restrict any use of the information to criminally investigate or prosecute any alcohol or drug abuse patient.[facility] Township[facility] the event this information is protected by the Federal Confidentiality of Alcohol and Drug Abuse Patient Records regulations: The Federal rules restrict any use of the information to criminally investigate or prosecute any alcohol or drug abuse patient.[facility] Township[facility] the event this information is protected by the Federal Confidentiality of Alcohol and Drug Abuse Patient Records regulations: The Federal rules restrict any use of the information to criminally investigate or prosecute any alcohol or drug abuse patient.[facility] Township[facility] the event this information is protected by the Federal Confidentiality of Alcohol and Drug Abuse Patient Records regulations: The Federal rules restrict any use of the information to criminally investigate or prosecute any alcohol or drug abuse patient.[facility] Township[facility] the event this information is protected by the Federal Confidentiality of Alcohol and Drug Abuse Patient Records regulations: The Federal rules restrict any use of the information to criminally investigate or prosecute any alcohol or drug abuse patient.[facility] Township[facility] the event this information is protected by the Federal Confidentiality of Alcohol and Drug Abuse Patient Records regulations: The Federal rules restrict any use of the information to criminally investigate or prosecute any alcohol or drug abuse patient.[facility] Township[facility] the event this information is protected by the Federal Confidentiality of Alcohol and Drug Abuse Patient Records regulations: The Federal rules restrict any use of the information to criminally investigate or prosecute any alcohol or drug abuse patient.[facility] TownshipIn the event this information is protected by the Federal Confidentiality of Alcohol and Drug Abuse Patient Records regulations: The Federal rules restrict any use of the information to criminally investigate or prosecute any alcohol or drug abuse patient.[facility] Township[facility] the event this information is protected by the Federal Confidentiality of Alcohol and Drug Abuse Patient Records regulations: The Federal rules restrict any use of the information to criminally investigate or prosecute any alcohol or drug abuse patient.[facility] Township[facility] the event this information is protected by the Federal Confidentiality of Alcohol and Drug Abuse Patient Records regulations: The Federal rules restrict any use of the information to criminally investigate or prosecute any alcohol or drug abuse patient.[facility] the event this information is protected by the Federal Confidentiality of Alcohol and Drug Abuse Patient Records regulations: The Federal rules restrict any use of the information to criminally investigate or prosecute any alcohol or drug abuse patient.[facility] Township[facility] the event this information is protected by the Federal Confidentiality of Alcohol and Drug Abuse Patient Records regulations: The Federal rules restrict any use of the information to criminally investigate or prosecute any alcohol or drug abuse patient.[facility] Township[facility] the event this information is protected by the Federal Confidentiality of Alcohol and Drug Abuse Patient Records regulations: The Federal rules restrict any use of the information to criminally investigate or prosecute any alcohol or drug abuse patient.[facility] Township[facility] the event this information is protected by the Federal Confidentiality of Alcohol and Drug Abuse Patient Records regulations: The Federal rules restrict any use of the information to criminally investigate or prosecute any alcohol or drug abuse patient.[facility] TownshipIn the event this information is protected by the Federal Confidentiality of Alcohol and Drug Abuse Patient Records regulations: The Federal rules restrict any use of the information to criminally investigate or prosecute any alcohol or drug abuse patient.[facility] Township[facility] the event this information is protected by the Federal Confidentiality of Alcohol and Drug Abuse Patient Records regulations: The Federal rules restrict any use of the information to criminally investigate or prosecute any alcohol or drug abuse patient.[facility] TownshipIn the event this information is protected by the Federal Confidentiality of Alcohol and Drug Abuse Patient Records regulations: The Federal rules restrict any use of the information to criminally investigate or prosecute any alcohol or drug abuse patient.[facility] Township[facility] the event this information is protected by the Federal Confidentiality of Alcohol and Drug Abuse Patient Records regulations: The Federal rules restrict any use of the information to criminally investigate or prosecute any alcohol or drug abuse patient.[facility] TownshipIn the event this information is protected by the Federal Confidentiality of Alcohol and Drug Abuse Patient Records regulations: The Federal rules restrict any use of the information to criminally investigate or prosecute any alcohol or drug abuse patient.[facility] Township[facility] the event this information is protected by the Federal Confidentiality of Alcohol and Drug Abuse Patient Records regulations: The Federal rules restrict any use of the information to criminally investigate or prosecute any alcohol or drug abuse patient.[facility] Township[facility] the event this information is protected by the Federal Confidentiality of Alcohol and Drug Abuse Patient Records regulations: The Federal rules restrict any use of the information to criminally investigate or prosecute any alcohol or drug abuse patient.[facility] TownshipIn the event this information is protected by the Federal Confidentiality of Alcohol and Drug Abuse Patient Records regulations: The Federal rules restrict any use of the information to criminally investigate or prosecute any alcohol or drug abuse patient.[facility] TownshipIn the event this information is protected by the Federal Confidentiality of Alcohol and Drug Abuse Patient Records regulations: The Federal rules restrict any use of the information to criminally investigate or prosecute any alcohol or drug abuse patient.[facility] TownshipIn the event this information is protected by the Federal Confidentiality of Alcohol and Drug Abuse Patient Records regulations: The Federal rules restrict any use of the information to criminally investigate or prosecute any alcohol or drug abuse patient.[facility] Township[facility] the event this information is protected by the Federal Confidentiality of Alcohol and Drug Abuse Patient Records regulations: The Federal rules restrict any use of the information to criminally investigate or prosecute any alcohol or drug abuse patient.[facility] Township[facility] the event this information is protected by the Federal Confidentiality of Alcohol and Drug Abuse Patient Records regulations: The Federal rules restrict any use of the information to criminally investigate or prosecute any alcohol or drug abuse patient.[facility] TownshipIn the event this information is protected by the Federal Confidentiality of Alcohol and Drug Abuse Patient Records regulations: The Federal rules restrict any use of the information to criminally investigate or prosecute any alcohol or drug abuse patient.[facility] TownshipIn the event this information is protected by the Federal Confidentiality of Alcohol and Drug Abuse Patient Records regulations: The Federal rules restrict any use of the information to criminally investigate or prosecute any alcohol or drug abuse patient.[facility] TownshipIn the event this information is protected by the Federal Confidentiality of Alcohol and Drug Abuse Patient Records regulations: The Federal rules restrict any use of the information to criminally investigate or prosecute any alcohol or drug abuse patient.[facility] TownshipIn the event this information is protected by the Federal Confidentiality of Alcohol and Drug Abuse Patient Records regulations: The Federal rules restrict any use of the information to criminally investigate or prosecute any alcohol or drug abuse patient.[facility] TownshipIn the event this information is protected by the Federal Confidentiality of Alcohol and Drug Abuse Patient Records regulations: The Federal rules restrict any use of the information to criminally investigate or prosecute any alcohol or drug abuse patient.[facility] TownshipIn the event this information is protected by the Federal Confidentiality of Alcohol and Drug Abuse Patient Records regulations: The Federal rules restrict any use of the information to criminally investigate or prosecute any alcohol or drug abuse patient.[facility] TownshipIn the event this information is protected by the Federal Confidentiality of Alcohol and Drug Abuse Patient Records regulations: The Federal rules restrict any use of the information to criminally investigate or prosecute any alcohol or drug abuse patient.[facility] TownshipIn the event this information is protected by the Federal Confidentiality of Alcohol and Drug Abuse Patient Records regulations: The Federal rules restrict any use of the information to criminally investigate or prosecute any alcohol or drug abuse patient.[facility] TownshipIn the event this information is protected by the Federal Confidentiality of Alcohol and Drug Abuse Patient Records regulations: The Federal rules restrict any use of the information to criminally investigate or prosecute any alcohol or drug abuse patient.[facility] TownshipIn the event this information is protected by the Federal Confidentiality of Alcohol and Drug Abuse Patient Records regulations: The Federal rules restrict any use of the information to criminally investigate or prosecute any alcohol or drug abuse patient.[facility] TownshipIn the event this information is protected by the Federal Confidentiality of Alcohol and Drug Abuse Patient Records regulations: The Federal rules restrict any use of the information to criminally investigate or prosecute any alcohol or drug abuse patient.[facility] TownshipIn the event this information is protected by the Federal Confidentiality of Alcohol and Drug Abuse Patient Records regulations: The Federal rules restrict any use of the information to criminally investigate or prosecute any alcohol or drug abuse patient.[facility] TownshipIn the event this information is protected by the Federal Confidentiality of Alcohol and Drug Abuse Patient Records regulations: The Federal rules restrict any use of the information to criminally investigate or prosecute any alcohol or drug abuse patient.[facility] TownshipIn the event this information is protected by the Federal Confidentiality of Alcohol and Drug Abuse Patient Records regulations: The Federal rules restrict any use of the information to criminally investigate or prosecute any alcohol or drug abuse patient.[facility] TownshipIn the event this information is protected by the Federal Confidentiality of Alcohol and Drug Abuse Patient Records regulations: The Federal rules restrict any use of the information to criminally investigate or prosecute any alcohol or drug abuse patient.[facility] TownshipIn the event this information is protected by the Federal Confidentiality of Alcohol and Drug Abuse Patient Records regulations: The Federal rules restrict any use of the information to criminally investigate or prosecute any alcohol or drug abuse patient.[facility] TownshipIn the event this information is protected by the Federal Confidentiality of Alcohol and Drug Abuse Patient Records regulations: The Federal rules restrict any use of the information to criminally investigate or prosecute any alcohol or drug abuse patient.[facility] TownshipIn the event this information is protected by the Federal Confidentiality of Alcohol and Drug Abuse Patient Records regulations: The Federal rules restrict any use of the information to criminally investigate or prosecute any alcohol or drug abuse patient.[facility] Care Teams (unrecognized sec tion and content) Pre Certification Specialist Relationship Specialty Start Date End Date Alex Muniz MD [address] [place] [address] PCP - General Family Medicine 11/23/18 Pre Certification Specialist Relationship Specialty Start Date End Date Alex Muniz MD [address] [place] [address] PCP - General Family Medicine 11/23/18 Pre Certification Specialist Relationship Specialty Start Date End Date Alex Muniz MD [address] [place] [address] PCP - General Family Medicine 11/23/18 Pre Certification Specialist Relationship Specialty Start Date End Date Alex Muniz MD [address] [place] [address] PCP - General Family Medicine 11/23/18 Pre Certification Specialist Relationship Specialty Start Date End Date Alex Muniz MD [address] [place] [address] PCP - General Family Medicine 11/23/18 Pre Certification Specialist Relationship Specialty Start Date End Date Alex Muniz MD [address] [facility] [place] [address] PCP - General Family Medicine 11/23/18 Pre Certification Specialist Relationship Specialty Start Date End Date Alex Muniz MD [address] [place] [address] PCP - General Family Medicine 11/23/18 Pre Certification Specialist Relationship Specialty Start Date End Date Alex Muniz MD [address] [place] [address] PCP - General Family Medicine 11/23/18 Pre Certification Specialist Relationship Specialty Start Date End Date Alex Muniz MD [address] [place] [address] PCP - General Family Medicine 11/23/18 Team Status: Active Member Role Status Dates No Primary Care Physician Primary Care Provider Active Team Status: Inactive Member Role Status Dates Dr. Felipe Valera , DO Emergency Provider Active No Primary Care Physician Primary Care Provider Active Pre Certification Specialist Relationship Specialty Start Date End Date Alex Muniz MD [address] [place] [address] PCP - General Family Medicine 11/23/18 Pre Certification Specialist Relationship Specialty Start Date End Date Alex Muniz MD [address] [place] [address] PCP - General Family Medicine 11/23/18 Pre Certification Specialist Relationship Specialty Start Date End Date Alex Muniz MD [address] [place] [address] PCP - General Family Medicine 11/23/18 Pre Certification Specialist Relationship Specialty Start Date End Date Alex Muniz MD [address] [facility] [place] [address] PCP - General Family Medicine 11/23/18 Pre Certification Specialist Relationship Specialty Start Date End Date Alex Muniz MD [address] [facility] [place] [address] PCP - General Family Medicine 11/23/18 Pre Certification Specialist Relationship Specialty Start Date End Date Alex Muniz MD [address] [facility] [place] [address] PCP - General Family Medicine 11/23/18 Pre Certification Specialist Relationship Specialty Start Date End Date Alex Muniz MD [address] [facility] [place] [address] PCP - General Family Medicine 11/23/18 Pre Certification Specialist Relationship Specialty Start Date End Date Alex Muniz MD [address] [facility] [place] [address] PCP - General Family Medicine 11/23/18 Pre Certification Specialist Relationship Specialty Start Date End Date Alex Muniz MD [address] [facility] [place] [address] PCP - General Family Medicine 11/23/18 Pre Certification Specialist Relationship Specialty Start Date End Date Alex Muniz MD [address] [facility] [place] [address] PCP - General Family Medicine 11/23/18 Pre Certification Specialist Relationship Specialty Start Date End Date Alex Muniz MD [address] [facility] [place] [address] PCP - General Family Medicine 11/23/18 Pre Certification Specialist Relationship Specialty Start Date End Date Alex Muniz MD [address] [facility] [place] [address] PCP - General Family Medicine 11/23/18 Pre Certification Specialist Relationship Specialty Start Date End Date Alex Muniz MD [address] [facility] [place] [address] PCP - General Family Medicine 11/23/18 Pre Certification Specialist Relationship Specialty Start Date End Date Alex Muniz MD [address] [facility] [place] [address] PCP - General Family Medicine 11/23/18 Podlogar, Kim, INSPECTOR POISING.AERODYNAMIC CONSULTANT [address] [facility] [place] [address] Servomechanism Designer Family Medicine 06/09/24 Pre Certification Specialist Relationship Specialty Start Date End Date Alex Muniz MD [address] [facility] [place] [address] PCP - General Family Medicine 11/23/18 Podlogar, Kim, INSPECTOR POISING.AERODYNAMIC CONSULTANT [address] [facility] [place] [address] Servomechanism Designer Family Medicine 06/09/24 Pre Certification Specialist Relationship Specialty Start Date End Date Alex Muniz MD [address] [facility] [place] [address] PCP - General Family Medicine 11/23/18 Podlogar, Kim, INSPECTOR POISING.AERODYNAMIC CONSULTANT [address] [place] [address] Servomechanism Designer Family Medicine 06/09/24 Pre Certification Specialist Relationship Specialty Start Date End Date Alex Muniz MD [address] [place] [address] PCP - General Family Medicine 11/23/18 Podlogar, Kim, INSPECTOR POISING.AERODYNAMIC CONSULTANT [address] [place] [address] Servomechanism Designer Family Medicine 06/09/24 Pre Certification Specialist Relationship Specialty Start Date End Date Alex Muniz MD [address] [place] [address] PCP - General Family Medicine 11/23/18 Podlogar, Kim, INSPECTOR POISING.AERODYNAMIC CONSULTANT [address] [place] [address] Servomechanism Designer Family Medicine 06/09/24 Pre Certification Specialist Relationship Specialty Start Date End Date Alex Muniz MD [address] [place] [address] PCP - General Family Medicine 11/23/18 Podlogar, Kim, INSPECTOR POISING.AERODYNAMIC CONSULTANT [address] [place] [address] Servomechanism Designer Family Medicine 06/09/24 Pre Certification Specialist Relationship Specialty Start Date End Date Alex Muniz MD [address] [place] [address] PCP - General Family Medicine 11/23/18 Podlogar, Kim, INSPECTOR POISING.AERODYNAMIC CONSULTANT [address] [facility] [place] [address] [facility] 06/09/24 Pre Certification Specialist Relationship Specialty Start Date End Date Alex Muniz MD [address] [facility], [place] [address] PCP - General Family Medicine 11/23/18 Podlogar, Kim INSPECTOR POISING.AERODYNAMIC CONSULTANT [address] [place] [address] [facility] Medicine 06/09/24 Pre Certification Specialist Relationship Specialty Start Date End Date Alex Muniz MD [address] [facility] [place] [address] PCP - General Family Medicine 11/23/18 Podlogar, Kim, INSPECTOR POISING.AERODYNAMIC CONSULTANT [address] [facility] [place] [address] [facility] Medicine 06/09/24 Lashae Kaba INSPECTOR POISING.AERODYNAMIC CONSULTANT [address] [place], [place] [address] [facility] 12/13/24 Pre Certification Specialist Relationship Specialty Start Date End Date Alex Muniz MD [address] [facility], [place] [address] PCP - General Family Medicine 11/23/18 Podlogar, Kim, INSPECTOR POISING.AERODYNAMIC CONSULTANT [address] [facility] [place] [address] [facility] Family Medicine 06/09/24 Lashae Kaba INSPECTOR POISING.AERODYNAMIC CONSULTANT [address] [place] [address] Servomechanism Designer Family Medicine 12/13/24 Pre Certification Specialist Relationship Specialty Start Date End Date Alex Muniz MD [address] [facility] [place] [address] PCP - General Family Medicine 11/23/18 PodlogarKim APRN.AERODYNAMIC CONSULTANT [address] [facility] [place] [address] Servomechanism Designer Family Medicine 06/09/24 Lashae Kaba APRN.AERODYNAMIC CONSULTANT [address] [place] [address] [facility] 12/13/24 Pre Certification Specialist Relationship Specialty Start Date End Date Alex Muniz MD [address] [place] [address] PCP - General Family Medicine 11/23/18 PodlogarKim INSPECTOR POISING.AERODYNAMIC CONSULTANT [address] [facility] [place] [address] Servomechanism Designer Family Medicine 06/09/24 Lashae Kaba APRN.AERODYNAMIC CONSULTANT [address] [place] [address] Servomechanism Designer Family Medicine 12/13/24 Pre Certification Specialist Relationship Specialty Start Date End Date Alex Muniz MD [address] [facility] [place] [address] PCP - General Family Medicine 11/23/18 PodlogarKim INSPECTOR POISING.AERODYNAMIC CONSULTANT [address] [place] [address] Servomechanism Designer Family Medicine 06/09/24 Lashae Kaba APRN.AERODYNAMIC CONSULTANT [address] [place], [place] [id number] Servomechanism Designer Family Medicine 12/13/24 Team Status: Active Member Role/Relationship Status Dates Dr. Esteban Muniz MD Primary Care Provider Acti ve Team Status: Inactive Member Role/Relationship Status Dates Dr. Joshua Wright DO Emergency Provider Activ e Start: January 15, 2025 End: January 15, 2025 Dr. Esteban Muniz MD Primary Care Provider Acti ve Start: January 15, 2025 End: January 15, 2025 Reason for Visit (unrecogniz ed section and content) Reason Comments Physical Therapy Specialty Diagnoses / Procedures Referred By Contac t Referred To Contact [facility] Diagnoses Chronic upper back pain Procedures CONSULT TO PHYSICAL THERAPY PHYSICAL THERAPY EVALUATION HIGH COMPLEX 45 MINS Alex Muniz MD [address] [place], [place] [id number] [facility] [address] [place] [address] Referral ID Status Reason Start Date Expiration Date Visits Requested Visits Authorized [id number] Authorized Auto-Generat ed Referral 07/04/2024 07/03/2025 99 99 Reason Comments Results Reason Comments New Patient Mass Specialty Diagnoses / Procedures Referred By Contac t Referred To Contact Orthopedics Diagnoses Finger mass, right Procedures CONSULT TO ORTHOPAEDICS OFFICE/OUTPATIENT [facility] MDM 60-74 MINUTES Lashae Kaba, INSPECTOR POISING.AERODYNAMIC CONSULTANT [address] [place] [address] Referral ID Status Reason Start Date Expiration Date V isits Requested Visits Authorized [id number] Closed PCP Requested Referral 11/30/2022 11/30/2023 1 1 Specialty Diagnoses / Procedures Referred By Contac t Referred To Contact MR IMAGING Diagnoses Finger mass, right Procedures MRI HAND WO IVCON RIGHT MRI UPPER EXTREMITY OTH THAN JT W/O CONTR MATRL Codi Oglesbye, DO [address] [facility] [address] [place] [address] Mr Imaging Referral ID Status Reason Start Date Expiration Date V isits Requested Visits Authorized [id number] Closed Auto-Generate d Referral 12/02/2022 01/01/2024 1 1 Reason Comments Consult Reason Comments Schedule Surgery Reason Comments New Xrays taken 06/01/20, ultrasound 06/08/22, MRI 12/15/2022 Tumor/Mass Xrays taken 06/01/20, ultrasound 06/08/22, MRI 12/15/2022 Reason Comments Post Op 1 week 5 days post op excision ganglion cyst right middle finger Reason Comments Established Patient Middle finger cyst r emoval Follow Up Middle finger cyst r emoval Reason Comments Hospital F/U Was seen 05/26 at [facility] for consistent chest pain x1 week, hospital ran labs, troponin, EKG and Chest XR, patient states physician said all testing was normal and to follow up with PCP Reason Comments Reminder Call Reason Comments Patient Update Reason Comments Breath Hydrogen Test Reason Comments Gas Reason Comments Testicle Reason Comments Refill Request Reason Comments Urinary Problem States he has had so me Left side pain and blood in urine 30 mins ago Reason Comments Follow Up EC 01/14/24 Reason Comments Radiology US Specialty Diagnoses / Procedures Referred By Fabricioac t Referred To Contact US IMAGING Diagnoses Gross hematuria Procedures US KIDNEY/BLADDER US RETROPERITONEAL REAL TIME W/IMAGE COMPLETE Alex Muniz MD [address] [place] [address] [place] [address] Referral ID Status Reason Start Date Expiration Date V isits Requested Visits Authorized [id number] Closed Auto-Generate d Referral 01/19/2024 02/17/2025 1 1 Reason Comments Pain Left sided pain- pat ient following up to see where to go from here. Additional testing? Reason Comments Physical Reason Comments Nasal Congestion cough, fever, bodyac hes and headache x 4 days Reason Comments PT Eval Physical Therapy Reason Comments Blood Pressure Specialty Diagnoses / Procedures Referred By Contac t Referred To Contact [facility] Diagnoses Chronic upper back pain Procedures CONSULT TO PHYSICAL THERAPY PHYSICAL THERAPY EVALUATION HIGH COMPLEX 45 MINS Alex Muniz MD [address] [place] [address] Phone: tel: fax: [facility] [address] [place] [address] Referral ID Status Reason Start Date Expiration Date Visits Requested Visits Authorized [id number] Authorized Auto-Generat ed Referral 07/04/2024 07/03/2025 99 99 Reason Comments Physical Therapy PT Discharge Specialty Diagnoses / Procedures Referred By Daria t Referred To Contact [facility] Diagnoses Chronic upper back pain Procedures CONSULT TO PHYSICAL THERAPY PHYSICAL THERAPY EVALUATION HIGH COMPLEX 45 MINS Alex Muniz MD [address] [place] [address] Phone: tel: fax: [facility] [address] [place] [address] Referral ID Status Reason Start Date Expiration Date Visits Requested Visits Authorized [id number] Authorized Auto-Generat ed Referral 07/04/2024 07/03/2025 99 99 Reason Comments Sudden Vision Loss Both Eyes Two episode s in the last month. Last episode was about a week ago. Denies any other symptoms. No headaches. Episodes last about 10-15 minutes. Still has peripheral vision. Looses focus in center of eye and can see streaks or wavy lines. Refers to looking like he's looking through a Kaleidoscope. Reason Comments Blurred Vision Both Eyes Floaters Both Eyes Specialty Diagnoses / Procedures Referred By Daria pollard Referred To Contact Ophthalmology Diagnoses Amaurosis fugax Procedures CONSULT TO OPHTHALMOLOGY OFFICE/OUTPATIENT [facility] MDM 60 MINUTES Alex Muniz MD [address] [place] [address] Phone: tel: fax: Referral ID Status Reason Start Date Expiration Date V isits Requested Visits Authorized [id number] Closed PCP Requested Referral 01/10/2025 01/10/2026 1 1 Goals (unrecognized section and content) Goals may be documented in a n alternate sectionGoals may be documented in an alternate section (unrecognized sect ion and content) No Status Records FoundNo Status Records FoundNo Status Records FoundNo Status Records Found INFORMATION SOURCE (unrecogn ized section and content) DATE CREATED AUTHOR 06/02/2023 [facility] DATE CREATED AUTHOR AUTHOR'S ORGANIZ ATION 06/10/2023 [facility] DATE CREATED AUTHOR AUTHOR'S ORGANIZ ATION 01/02/2024 [facility] DATE CREATED AUTHOR AUTHOR'S ORGANIZ ATION 01/14/2025 [facility] FOR RECORDS PERTAINING TO PATIENTS WHO ARE OR HAVE BEEN ENROLLED IN A CHEMICAL DEPENDENCY/SUBSTANCEABUSE PROGRAM, SOME INFORMATION MAY BE OMITTED. This clinical summary was aggregated from multiple sources. Caution should be exercised in using it in the provision of clinical care. This summary normalizes information from multiple sources, and as a consequence, information in this document may materially change the coding, format and clinical context of patient data. In addition, data may be omitted in some cases. CLINICAL DECISIONS SHOULD BE BASED ON THE PRIMARY CLINICAL RECORDS. [facility] [employer] provides no warranty or guarantee of the accuracy or completeness of information in this document.
--- OUTSIDE RECORDS SUMMARY | 2025-01-15 21:55 | XMS RPT_ITS | CCD ---
Author Organization [facility] ion Partnership [facility] Care Team Providers Care Senior Mortgage Underwriter Name Role Phone Alex Muniz MD Primary Care Provider Felipe Valera Attending Unavailable Care Physician, No Primary Primary Care Unava ilable ALEX MUNIZ Primary Care Unavailab le AYDIN, KIM Referring Unavailable JASSON LION Attending Unavailable JASSON LION Admitting Unavailable ALEX MUNIZ Primary Care Unavailab Alex Ivory MD Primary Care Provider VALERIE FRANCO Referring Unavailable ALEX MUNIZ Primary Care Unavailab le Podlogar X RAY INSPECTOR.Kim SANDOVAL Unavailable Sesar X RAY INSPECTOR.Lashae SANDOVAL Unavailable ALEX MUNIZ Primary Care Unavailab [...] Comment on above: Take 1 capsule by [facility] once daily. phenylephrine hydrochloride 25 mg/ml ophthalmic [...] Auto (Unsp spec) [#/Vol] 0.86 10*3/uL 0.83-4.51 [facility] Absolute neutrophil countOrd ered By: Joshua Wright on 01-15-2025 Neutrophils (Bld) [#/Vol] 3.7 10*3/uL 2.0-7.7 [facility] Anion gap in Serum or Plasma Ordered By: Joshua Wright on 01-15-2025 Anion gap [Moles/Vol] 11 mmol/L 11-15 [facility] Automated lymphocyte count a s percentage of total leukocytesOrdered By: Joshua Wright on 01-15-2025 Lymphocytes/100 WBC Auto (Unsp spec) 17.6 % Low - [facility] BUN/creatinine ratioOrdered By: Joshua Wright on 01-15-2025 Urea nitrogen/Creatinine [Mass ratio] 13.5 mg/mg 10- [facility] Basophil percentageOrdered B y: Joshua Wright on 01-15-2025 Basophils/100 WBC (Bld) 0.6 % 0-1 [facility] Carbon dioxide, total [Moles /volume] in Central venous bloodOrdered By: Joshua Wright on 01-15-2025 CO2 [Moles/Vol] 24.5 mmol/L 21.0-32.0 [facility] Chloride assayOrdered By: Gera Wright on 01-15-2025 Chloride [Moles/Vol] 104 mmol/L 98-108 [facility] Eosinophil percentageOrdered By: Joshua Wright on 01-15-2025 Eosinophils/100 WBC (Bld) 0.6 % 0-5 [facility] Erythrocyte distribution wid th ratioOrdered By: Joshua Wright on 01-15-2025 Erythrocyte distribution width (RBC) [Ratio] 12.3 % 11.6-14.6 [facility] Erythrocyte distribution wid th standard deviationOrdered By: Joshua Beauchamp on 01-15-2025 Erythrocyte distribution width (RBC) [Ratio] 38.5 fl 35.1-43.9 [facility] Glomerular filtration rate ( GFR) estimation/1.73 sq m using serum, plasma, or whole bOrdered By: Joshua Wright on 01-15-2025 GFR/1.73 sq M.predicted among non-blacks MDRD (S/P/Bld) [Vol rate/Area] 106 mL/min/{1.73_m2} >60 [facility] Comment on above: mL/min/1.73m2 CKD-EP I Creatinine Equation (2020) Hematocrit Auto (Bld) [Volum e fraction]Ordered By: Joshua Wright on 01-15-2025 Hematocrit (Bld) [Volume fraction] 42.0 % 40-54 [facility] Hemoglobin measurementOrdere d By: Joshua Wright on 01-15-2025 Hemoglobin (Bld) [Mass/Vol] 15.1 g/dL 13.0-16.5 [facility] Immature granulocytes/100 WB C Auto (Bld)Ordered By: Joshua Wright on 01-15-2025 Immature granulocytes/100 WBC (Bld) 0.800 % 0.0-0.9 [facility] Comment on above: IG% - Immature Granu locytes (promyelocytes, myelocytes and metamyelocytes) > 1% indicates that a LEFT SHIFT is Present. MCV (mean corpuscular volume ) determinationOrdered By: Joshua Wright on 01-15-2025 MCV (RBC) [Entitic vol] 86.2 fL 80-94 [facility] Magnesium measurement (mass/ volume)Ordered By: Joshua Wright on 01-15-2025 Magnesium (Unsp spec) [Mass/Vol] 2.3 mg/dL High 1.5-2.2 [facility] Mean corpuscular hemoglobin (MCH) determinationOrdered By: Joshua Wright on 01-15-2025 MCH (RBC) [Entitic mass] 31.0 pg 27.0-32.0 [facility] Mean corpuscular hemoglobin concentration (MCHC) determinationOrdered By: Joshua Wright on 01-15-2025 MCHC (RBC) [Mass/Vol] 36.0 g/dL 32-36 [facility] Mean platelet volume determi nationOrdered By: Joshua Wright on 01-15-2025 Platelet mean volume (Bld) [Entitic vol] 10.5 fL 6.2-12.0 [facility] Monocyte percentageOrdered B y: Joshua Wright on 01-15-2025 Monocytes/100 WBC (Bld) 5.5 % 0-10 [facility] Neutrophil percentageOrdered By: Joshua Wright on 01-15-2025 Neutrophils/100 WBC (Bld) 74.9 % High 47-70 [facility] Nucleated red blood cell per centageOrdered By: Joshua Wright on 01-15-2025 Nucleated RBC/100 WBC (Bld) [Ratio] 0 % 0-5 [facility] Platelet countOrdered By: Gera Wright on 01-15-2025 Platelets (Bld) [#/Vol] 204 10*3/uL 150-450 [facility] Potassium measurement (mass/ volume)Ordered By: Joshua Wright on 01-15-2025 Potassium (Unsp spec) [Mass/Vol] 4.4 mmol/L 3.3-5.1 [facility] RBC Auto (Bld) [#/Vol]Ordere d By: Joshua Wright on 01-15-2025 RBC (Bld) [#/Vol] 4.87 10*6/uL 4.6-6.2 [facility] Serum creatinine measurement (mass/volume)Ordered By: Joshua Wright on 01-15-2025 Creatinine [Mass/Vol] 0.94 mg/dL 0.70-1.20 [facility] Serum glucose measurement (m ass/volume)Ordered By: Joshua Wright on 01-15-2025 Glucose [Mass/Vol] 120 mg/dL High 70-99 [facility] Serum or plasma calcium cece urement (mass/volume)Ordered By: Joshua Beauchamp on 01-15-2025 Calcium [Mass/Vol] 9.8 mg/dL 7.6-11.0 [facility] Serum or plasma urea nitroge n measurement (mass/volume)Ordered By: Joshua Wright on 01-15-2025 Urea nitrogen [Mass/Vol] 13 mg/dL 4-19 [facility] Sodium levelOrdered By: Evan Wright on 01-15-2025 Sodium [Moles/Vol] 140 mmol/L 133-145 [facility] White blood cell (WBC) count Ordered By: Joshua Wright on 01-15-2025 WBC (Bld) [#/Vol] 4.9 10*3/uL 4.4-11.0 [facility] CBC W Auto Differential pane l (Bld)on 01-11-2025 Basophils (Bld) [#/Vol] 0.05 10*3/uL Normal <0.11 [facility] Comment on above: Order Comment: Speci men Type: BLOOD SPECIMEN Ordering Facility: [facility] Address: [address] [place] [address] Performed By: #### 4 537-7 #### [facility] CLIA [id number] [address] [place] [address] [place] Basophils/100 WBC (Bld) 0.9 % Normal [facility] Comment on above: Order Comment: Speci men Type: BLOOD SPECIMEN Ordering Facility: [facility] Address: [address] [place] [address] Performed By: #### 4 537-7 #### [facility] CLIA [id number] [address] [place] [address] [place] Differential cell count method Nom (Bld) Auto Normal [facility] Comment on above: Order Comment: Speci men Type: BLOOD SPECIMEN Ordering Facility: [facility] Address: [address] [place] [address] Performed By: #### 4 537-7 #### [facility] CLIA [id number] [address] [place] [address] [place] Eosinophils (Bld) [#/Vol] 0.08 10*3/uL Normal <0.46 [facility] Comment on above: Order Comment: Speci men Type: BLOOD SPECIMEN Ordering Facility: [facility] Address: [address] [place] [address] Performed By: #### 4 537-7 #### [facility] CLIA [id number] [address] [place] [address] [place] Eosinophils/100 WBC (Bld) 1.5 % Normal [facility] Comment on above: Order Comment: Speci men Type: BLOOD SPECIMEN Ordering Facility: [facility] Address: [address] [place] [address] Performed By: #### 4 537-7 #### [facility] CLIA [id number] [address] [place] [address] [place] Erythrocyte distribution width (RBC) [Ratio] 12.5 % Normal 11.5-15.0 [facility] Comment on above: Order Comment: Speci men Type: BLOOD SPECIMEN Ordering Facility: [facility] Address: [address] [place] [address] Performed By: #### 4 537-7 #### [facility] CLIA [id number] [address] [place] [address] [place] Hematocrit (Bld) [Volume fraction] 44.0 % Normal 39.0-51.0 [facility] Comment on above: Order Comment: Speci men Type: BLOOD SPECIMEN Ordering Facility: [facility] Address: [address] [place] [address] Performed By: #### 4 537-7 #### [facility] CLIA [id number] [address] [place] [address] [place] Hemoglobin (Bld) [Mass/Vol] 15.2 g/dL Normal 13.0-17.0 [facility] Comment on above: Order Comment: Speci men Type: BLOOD SPECIMEN Ordering Facility: [facility] Address: [address] [place] [address] Performed By: #### 4 537-7 #### [facility] CLIA [id number] [address] [place] [address] [place] Immature granulocytes (Bld) [#/Vol] 0.07 10*3/uL Normal <0.10 [facility] Comment on above: Order Comment: Speci men Type: BLOOD SPECIMEN Ordering Facility: [facility] Address: [address] [place] [address] Performed By: #### 4 537-7 #### [facility] CLIA [id number] [address] [place] [address] [place] Immature granulocytes/100 WBC (Bld) 1.3 % Normal [facility] Comment on above: Order Comment: Speci men Type: BLOOD SPECIMEN Ordering Facility: [facility] Address: [address] [place] [address] Performed By: #### 4 537-7 #### [facility] CLIA [id number] [address] [place] [address] [place] Lymphocytes (Bld) [#/Vol] 1.51 10*3/uL Normal 1.00-4.00 [facility] Comment on above: Order Comment: Speci men Type: BLOOD SPECIMEN Ordering Facility: [facility] Address: [address] [place] [address] Performed By: #### 4 537-7 #### [facility] CLIA [id number] [address] [place] [address] [place] Lymphocytes/100 WBC (Bld) 28.3 % Normal [facility] Comment on above: Order Comment: Speci men Type: BLOOD SPECIMEN Ordering Facility: [facility] Address: [address] [place] [address] Performed By: #### 4 537-7 #### [facility] CLIA [id number] [address] [place] [address] [place] MCH (RBC) [Entitic mass] 30.6 pg Normal 26.0-34.0 [facility] Comment on above: Order Comment: Speci men Type: BLOOD SPECIMEN Ordering Facility: [facility] Address: [address] [place] [address] Performed By: #### 4 537-7 #### [facility] CLIA [id number] [address] [place] [address] [place] MCHC (RBC) [Mass/Vol] 34.5 g/dL Normal 30.5-36.0 [facility] Comment on above: Order Comment: Speci men Type: BLOOD SPECIMEN Ordering Facility: [facility] Address: [address] [place] [address] Performed By: #### 4 537-7 #### [facility] CLIA [id number] [address] [place] [address] [place] MCV (RBC) [Entitic vol] 88.7 fL Normal 80.0-100.0 [facility] Comment on above: Order Comment: Speci men Type: BLOOD SPECIMEN Ordering Facility: [facility] Address: [address] [place] [address] Performed By: #### 4 537-7 #### [facility] CLIA [id number] [address] [place] [address] [place] Monocytes (Bld) [#/Vol] 0.36 10*3/uL Normal <0.87 [facility] Comment on above: Order Comment: Speci men Type: BLOOD SPECIMEN Ordering Facility: [facility] Address: [address] [place] [address] Performed By: #### 4 537-7 #### [facility] CLIA [id number] [address] [place] [address] [place] Monocytes/100 WBC (Bld) 6.7 % Normal [facility] Comment on above: Order Comment: Speci men Type: BLOOD SPECIMEN Ordering Facility: [facility] Address: [address] [place] [address] Performed By: #### 4 537-7 #### [facility] CLIA [id number] [address] [place] [address] [place] Neutrophils (Bld) [#/Vol] 3.27 10*3/uL Normal 1.45-7.50 [facility] Comment on above: Order Comment: Speci men Type: BLOOD SPECIMEN Ordering Facility: [facility] Address: [address] [place] [address] Performed By: #### 4 537-7 #### [facility] CLIA [id number] [address] [place] [address] [place] Neutrophils/100 WBC (Bld) 61.3 % Normal [facility] Comment on above: Order Comment: Speci men Type: BLOOD SPECIMEN Ordering Facility: [facility] Address: [address] [place] [address] Performed By: #### 4 537-7 #### [facility] CLIA [id number] [address] [place] [address] [place] Nucleated RBC (Bld) [#/Vol] 10*3/uL Normal <0.01 [facility] Comment on above: Order Comment: Speci men Type: BLOOD SPECIMEN Ordering Facility: [facility] Address: [address] [place] [address] Performed By: #### 4 537-7 #### [facility] CLIA [id number] [address] [place] [address] [place] Nucleated RBC/100 WBC (Bld) [Ratio] 0.0 /100 WBC Normal [facility] Comment on above: Order Comment: Speci men Type: BLOOD SPECIMEN Ordering Facility: [facility] Address: [address] [place] [address] Performed By: #### 4 537-7 #### [facility] CLIA [id number] [address] [place] [address] [place] Platelet mean volume (Bld) [Entitic vol] 11.9 fL Normal 9.0-12.7 [facility] Comment on above: Order Comment: Speci men Type: BLOOD SPECIMEN Ordering Facility: [facility] Address: [address] [place] [address] Performed By: #### 4 537-7 #### [facility] CLIA [id number] [address] [place] [address] [place] Platelets (Bld) [#/Vol] 205 10*3/uL Normal 150-400 [facility] Comment on above: Order Comment: Speci men Type: BLOOD SPECIMEN Ordering Facility: [facility] Address: [address] [place] [address] Performed By: #### 4 537-7 #### [facility] CLIA [id number] [address] [place] [address] [place] RBC (Bld) [#/Vol] 4.96 10*6/uL Normal 4.20-6.00 [facility] Comment on above: Order Comment: Speci men Type: BLOOD SPECIMEN Ordering Facility: [facility] Address: [address] [place] [address] Performed By: #### 4 537-7 #### [facility] CLIA [id number] [address] [place] [address] [place] WBC (Bld) [#/Vol] 5.34 10*3/uL Normal 3.70-11.00 [facility] Comment on above: Order Comment: Speci men Type: BLOOD SPECIMEN Ordering Facility: [facility] Address: [address] [place] [address] Performed By: #### 4 537-7 #### [facility] CLIA [id number] [address] [place] [address] [place] Comprehensive metabolic 2000 panelon 01-11-2025 Albumin [Mass/Vol] 4.7 g/dL Normal 3.9-4.9 [facility] Comment on above: Order Comment: Speci men Type: BLOOD SPECIMEN Ordering Facility: [facility] Address: [address] [place] [address] Performed By: #### 2 4323-8 #### [facility] CLIA [id number] [address] [place] [address] [place] ALP [Catalytic activity/Vol] 66 U/L Normal 38-113 [facility] Comment on above: Order Comment: Speci men Type: BLOOD SPECIMEN Ordering Facility: [facility] Address: [address] [place] [address] Performed By: #### 2 4323-8 #### [facility] CLIA [id number] [address] [place] [address] [place] ALT [Catalytic activity/Vol] 38 U/L Normal 10-54 [facility] Comment on above: Order Comment: Speci men Type: BLOOD SPECIMEN Ordering Facility: [facility] Address: [address] [place] [address] Performed By: #### 2 4323-8 #### [facility] CLIA [id number] [address] [place] [address] [place] Anion gap [Moles/Vol] 14 mmol/L Normal 8-15 [facility] Comment on above: Order Comment: Speci men Type: BLOOD SPECIMEN Ordering Facility: [facility] Address: [address] [place] [address] Performed By: #### 2 4323-8 #### [facility] CLIA [id number] [address] [place] [address] [place] AST [Catalytic activity/Vol] 27 U/L Normal 14-40 [facility] Comment on above: Order Comment: Speci men Type: BLOOD SPECIMEN Ordering Facility: [facility] Address: [address] [place] [address] Performed By: #### 2 4323-8 #### [facility] CLIA [id number] [address] [place] [address] [place] Bilirubin [Mass/Vol] 0.7 mg/dL Normal 0.2-1.[address] [facility] Comment on above: Order Comment: Speci men Type: BLOOD SPECIMEN Ordering Facility: [facility] Address: [address] [place], [place] [address] Performed By: #### 2 4323-8 #### [facility] CLIA [id number] [address] [place], [place] [address] [place] Calcium [Mass/Vol] 9.6 mg/dL Normal 8.5-10.2 [facility] Comment on above: Order Comment: Speci men Type: BLOOD SPECIMEN Ordering Facility: [facility] Address: [address] [place], [place] [address] Performed By: #### 2 4323-8 #### [facility] CLIA [id number] [address] [place] [address] [place] Chloride [Moles/Vol] 103 mmol/L Normal 98-[address] [facility] Comment on above: Order Comment: Speci men Type: BLOOD SPECIMEN Ordering Facility: [facility] Address: [address] [place] [address] Performed By: #### 2 4323-8 #### [facility] CLIA [id number] [address] [place] [address] [place] CO2 [Moles/Vol] 23 mmol/L Normal 22-30 [facility] Comment on above: Order Comment: Speci men Type: BLOOD SPECIMEN Ordering Facility: [facility] Address: [address] [place] [address] Performed By: #### 2 4323-8 #### [facility] CLIA [id number] [address] [place] [address] [place] Creatinine [Mass/Vol] 0.86 mg/dL Normal 0.73-1.22 [facility] Comment on above: Order Comment: Speci men Type: BLOOD SPECIMEN Ordering Facility: [facility] Address: [address] [place] [address] Performed By: #### 2 4323-8 #### [facility] CLIA [id number] [address] [place] [address] [place] [facility] [place] Creatinine and Glomerular filtration rate.predicted panel (S/P/Bld) 113 mL/min/1.73m??? Normal >=60 [facility] Comment on above: Order Comment: Speci men Type: BLOOD SPECIMEN Ordering Facility: [facility] Address: [address] [place] [address] Result Comment: Olinda mated Glomerular Filtration Rate [...] GFR. Performed By: #### 2 4323-8 #### [facility] CLIA [id number] [address] [place] [address] [place] Glucose [Mass/Vol] 116 mg/dL High 74-99 [facility] Comment on above: Order Comment: Yulia belcher Type: BLOOD SPECIMEN Ordering Facility: [facility] Address: [address] [place] [address] Result Comment: The [place] [employer] (ADA) provides guidance for cutoff [...] Standards of Medical Care in Diabetes 2016, [place] [employer]. Diabetes Care. 2016.39(Suppl 1). Performed By: #### 2 4323-8 #### [facility] CLIA [id number] [address] [place] [address] [place] Potassium [Moles/Vol] 3.9 mmol/L Normal 3.7-5.1 [facility] Comment on above: Order Comment: Yulia belcher Type: BLOOD SPECIMEN Ordering Facility: [facility] Address: [address] [place] [address] Performed By: #### 2 4323-8 #### [facility] CLIA [id number] [address] [place] [address] [place] Protein [Mass/Vol] 7.1 g/dL Normal 6.3-8.0 [facility] Comment on above: Order Comment: Yulia belcher Type: BLOOD SPECIMEN Ordering Facility: [facility] Address: [address] [place] [address] Performed By: #### 2 4323-8 #### [facility] CLIA [id number] [address] [place] [address] [place] Sodium [Moles/Vol] 140 mmol/L Normal 136-144 [facility] Comment on above: Order Comment: Speci men Type: BLOOD SPECIMEN Ordering Facility: [facility] Address: [address] [place] [address] Performed By: #### 2 4323-8 #### [facility] CLIA [id number] [address] [place] [address] [place] Urea nitrogen [Mass/Vol] 12 mg/dL Normal 9-24 [facility] Comment on above: Order Comment: Speci men Type: BLOOD SPECIMEN Ordering Facility: [facility] Address: [address] [place] [address] Performed By: #### 2 4323-8 #### [facility] CLIA [id number] [address] [place] [address] [place] OCT MACULA CIRRUS OU (BOTH E YES)on 01-11-2025 [facility] Radiology Study observation (narrative) Juan amaya [facility] CNOVon 01-10-2025 CNOV Office Visit (FAMPWS ) TORREY CAMPOS ([id number]) 1985 M Date Time Provider Department 01/10/25 [...] he's looking through a Kaleidoscope. Recording using [employer] software for draft documentation of the visit was discussed with the patient/authorized commercial representative; all questions welcomed and answered. 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 Colmenares-Second Watch Sergeant Infectious mononucleosis 2006 w/Hepatitis Overweight (BMI 25.0-29.9) [...] HIV Screen (more content not included)... Normal [facility] MR Brain WO contraston 01-10 IMPRESSION: No acute intracranial process. Mild chronic changes slightly greater than expected given patient's age, as detailed. Want Ad Supervisor: RANDY Transcribe Date/Time: Jan 10 2025 12:44P Dictated by : VICTORIANO MCMILLAN MD This examination was interpreted and the report reviewed and electronically signed by: VICTORIANO MCMILLAN MD on Jan 10 2025 12:46PM [facility] DIVISION OF RADIOLOGY * * *Final Report* * * DATE OF EXAM: Jan 10 2025 12:35PM [facility] 0294 - MRI BRAIN WO IVCON [...] within normal limits. DIVISION OF RADIOLOGY Provider, [facility] Abimael [facility] - 01/10/2025 * * *Final Report* * * DATE OF EXAM: Jan 10 2025 12:35PM [facility] 0294 - MRI BRAIN WO IVCON [...] than expected given patient's age, as detailed. Want Ad Supervisor: RANDY Transcribe Date/Time: Jan 10 2025 12:44P Dictated by : VICTOIRANO MCMILLAN MD This examination was interpreted and the report reviewed and electronically signed by: VICTORIANO MCMILLAN MD on Jan 10 2025 12:46PM [facility] Radiology Study observation (narrative) [facility] MR Brain WO contrastOrdered By: Ccf Provider on 01-10-2025 [facility] MRI BRAIN WO IVCONon 025 MRI BRAIN WO IVCON * * *Final Report* * * DATE OF EXAM: Jan 10 2025 12:35PM [facility] 0294 - MRI BRAIN WO IVCON [...] than expected given patient's age, as detailed. Want Ad Supervisor: PSCB Transcribe Date/Time: Jan 10 2025 12:44P Dictated by : VICTORIANO MCMILLAN MD This examination was interpreted and the report reviewed and electronically signed by: VICTORIANO MCMILLAN MD on Jan 10 2025 12:46PM EST [id number] Normal [facility] CAROTID ARTERIES [facility]ITA [facility]AS LABon 01-10-2025 [place] CAROTID ARTERIES [facility] Carotid Duplex Bilateral/Complete Date of service/time: [...] Interpreting physician: KEDAR Sequeira MD Final CC [employer] [facility] Image : [id number] amicsSISUID See Link below for Image Normal [facility] Carotid arteries - darek ecekrt 01-10-2025 Non-[facility]vasive [facility] Carotid Duplex Bilateral/Complete Date of service/time: [...] below for Image [facility] CNTHERAPYon 08-27-2024 CNTHERAPY OT/PT/Speech Visit (PTWS) BETHAMBIKAS Stan ([id number]) 1985 M Date Time Provider Department 08/27/24 7:45 AM JOSE ANTONIO CARL PTWS Date Time Provider Department Center 08/27/2024 7:45 AM [id number], BRENT PTWS Rowan Ding Reason for Visit: [...] Lactobacillus acidophilus (PROBIOTIC ORAL) Take by mouth. Technical Advisor: Therapy (PT/OT/Speech/Resp) ID: [id number] 08/27/2024 8:16 AM Author: JOSE ANTONIO CARL Signed by JOSE ANTONIO CARL PT on 08/27/2024 at 8:16 AM Document text: Program_ID:[id number] Access Code: [email or web address] URL: [email or web address] Date: 08-27-2024 Prepared By: Jose Antonio Carl [...] cc Posture Training Slouch Overcorrect ----- Normal [facility] THERAPY NTon 08-27-2024 THERAPY NT HNO ID: [id number] Author: JOSE ANTONIO CARL PT Service: ? Author Type: Physical Therapist Type: Therapy (PT/OT/Speech/Resp) Filed: 08/27/2024 08:16 Note Text: Program_ID:[id number] Access Code: [email or web address] URL: [email or web address]/ Date: 08-27-2024 Prepared By: Jose Antonio Carl [...] - cc Posture Training Slouch Overcorrect Normal [facility] CNTHERAPYon 08-13-2024 CNTHERAPY OT/PT/Speech Visit (PTWS) TORREY CAMPOS ([id number]) 1985 M Date Time Provider Department 08/13/24 9:30 AM YOLANDA ALVES PTWS Date Time Provider Department Center 08/13/2024 9:30 AM [id number], MARIAH PTWS Rowan Ding Reason for Visit: [...] Lactobacillus acidophilus (PROBIOTIC ORAL) Take by mouth. Technical Advisor: Therapy (PT/OT/Speech/Resp) ID: [id number] 08/13/2024 10:01 AM Author: YOLANDA ALVES Signed by YOLANDA ALVES DISPATCHER CHIEF COAL SLURRY on 08/13/2024 at 10:01 AM Document text: Program_ID:[id number] Access Code: [email or web address] URL: [email or web address] Date: 08-13-2024 Prepared By: Jose Antonio Carl [...] cc Posture Training Slouch Overcorrect ----- Normal [facility] THERAPY NTon 08-13-2024 THERAPY NT HNO ID: [id number] Author: YOLANDA ALVES PTA Service: ? Author Type: Buzzsaw Operator Helper Type: Therapy (PT/OT/Speech/Resp) Filed: 08/13/2024 10:01 Note Text: Program_ID:[id number] Access Code: [email or web address] URL: [email or web address]/ Date: 08-13-2024 Prepared By: Jose Antonio Carl [...] - cc Posture Training Slouch Overcorrect Normal [facility] CNTHERAPYon 08-06-2024 CNTHERAPY OT/PT/Speech Visit (PTWS) TORREY CAMPOS ([id number]) 1985 M Date Time Provider Department 2/3/25 8:00 AM YOLANDA ALVES PTWS Date Time Provider Department Center 08/06/2024 8:00 AM [id number], MARIAH PTJUAN Ding Reason for Visit: Physical [...] acidophilus (PROBIOTIC ORAL) Take by mouth. 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 Colmenares-Second Watch Sergeant Infectious mononucleosis 2006 w/Hepatitis Overweight (BMI 25.0-29.9) [...] t K/lyc (more content not included)... Normal [facility] CNTHERAPYon 07-30-2024 CNTHERAPY OT/PT/Speech Visit (PTWS) TORREY CAMPOS ([id number]) 1985 M Date Time Provider Department 07/30/24 8:30 AM JOSE ANTONIO CARL PTWS Date Time Provider Department Center 07/30/2024 8:30 AM [id number], BRENT PTWS Rowan Ding Reason for Visit: [...] Lactobacillus acidophilus (PROBIOTIC ORAL) Take by mouth. Technical Advisor: Therapy (PT/OT/Speech/Resp) ID: [id number] 07/30/2024 9:10 AM Author: JOSE ANTONIO CARL Signed by JOSE ANTONIO CARL PT on 07/30/2024 at 9:10 AM Document text: Program_ID:[id number] Access Code: [email or web address] URL: [email or web address] Date: 07-30-2024 Prepared By: Jose Antonio Carl [...] THERAPY NTon 07-30-2024 THERAPY NT HNO ID: [id number] Author: JOSE ANTONIO CARL PT Service: ? Author Type: Physical Therapist Type: Therapy (PT/OT/Speech/Resp) Filed: 07/30/2024 09:10 Note Text: Program_ID:[id number] Access Code: [email or web address] URL: [email or web address]/ Date: 07-30-2024 Prepared By: Jose Antonio Carl Program Notes Exercises - Corner Pec Major Stretch - 3 x daily - 7 x weekly - sets - 3 reps - Doorway Rhomboid Stretch - 2-3 x daily - 7 x weekly - sets - 3 reps Patient Education - cc Posture Training Slouch Overcorrect Normal [facility] CNOVon 07-23-2024 CNOV Office Visit (UCWSTR ) BEHTTORREY Stan ([id number]) 1985 M Date Time Provider Department 07/23/24 11:30 AM [facility] During your visit today, we recorded the following information about you: Temperature Pulse Respiration Blood pressure 98.6 degrees 102/minute 16/minute 142/74 Weight 99.6 kg Flores Beltran, RIANA.PHYSICS TECHNICIAN 07/23/2024 12:15 PM Signed Subjective Nasal Congestion [...] 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 Colmenares-Second Watch Sergeant Infectious mononucleosis 2006 w/Hepatitis Overweight (BMI 25.0-29.9) [...] 2V FRONTAL/LAT IMPRESSION: Right upper lobe pneumonia Want Ad Supervisor: RANDY Transcribe Date/Time: Jul 23 2024 11:55A [...] 2V FRONTAL/LAT IMPRESSION: Right upper lobe pneumonia Want Ad Supervisor: RANDY Transcribe Date/Time: Jul 23 2024 11:55A Dictated by : WOLF DHALIWAL MD 2. Bacterial pneumonia - ICD9: 482.9, ICD10: J15.9 - LYNETTE (more content not included)... Normal [facility] XR CHEST 2V FRONTAL/LATon XR CHEST 2V [...] tissues: Unremarkable. IMPRESSION: Right upper lobe pneumonia Want Ad Supervisor: PSCB Transcribe Date/Time: Jul 23 2024 11:55A Dictated by : WOLF DHALIWAL MD This examination was interpreted and the report reviewed and electronically signed by: WOLF DHALIWAL MD on Jul 23 2024 11:56AM EST [id number] Normal [facility] XR Chest PA and Lateralon IMPRESSION: Right upper lobe pneumonia Want Ad Supervisor: PSC Transcribe Date/Time: Jul 23 2024 11:55A [...] soft tissues: Unremarkable. DIVISION OF RADIOLOGY Provider, [facility] - 07/23/2024 * * *Final Report* * [...] Unremarkable. IMPRESSION IMPRESSION: Right upper lobe pneumonia Want Ad Supervisor: PSCB Transcribe Date/Time: Jul 23 2024 11:55A Dictated by : WOLF DHALIWAL MD This examination was interpreted and the report reviewed and electronically signed by: WOLF DHALIWAL MD on Jul 23 2024 11:56AM EST [facility] Radiology Study observation (narrative) Juan amaya [facility] XR Chest PA and LateralOrder ed By: Ccf Provider on 07-23-2024 [facility] 07-17-2024 [place] Telephone (FAMPWS) TORREY CAMPOS ([id number]) 1985 M Date Time Provider Department 07/17/24 [facility] During your visit today, we recorded [...] Status:Closed by EMMA MCCRACKEN on 07/24/24 Normal [facility] CBC W Auto Differential pane l (Bld)on 07-16-2024 Basophils (Bld) [#/Vol] 0.04 10*3/uL Normal <0.11 [facility] Comment on above: Order Comment: Speci men Type: BLOOD SPECIMENOrdering Facility: [facility] Address: [address] [place] [address] Performed By: #### 5 7021-8 ####[facility] LABCLIA [id number] [place] [address] [place] Basophils/100 WBC (Bld) 1.0 % Normal [facility] Comment on above: Order Comment: Speci men Type: BLOOD SPECIMENOrdering Facility: [facility] Address: [address] [place] [address] Performed By: #### 5 7021-8 ####[facility] LABCLIA [id number] [place] [address] [place] Differential cell count method Nom (Bld) Auto Normal [facility] Comment on above: Order Comment: Speci men Type: BLOOD SPECIMENOrdering Facility: [facility] Address: [address] [place] [address] Performed By: #### 5 7021-8 ####[facility] LABCLIA [id number] [place] [address] [place] Eosinophils (Bld) [#/Vol] 0.09 10*3/uL Normal <0.46 [facility] Comment on above: Order Comment: Speci men Type: BLOOD SPECIMENOrdering Facility: [facility] Address: [address] [place] [address] Performed By: #### 5 7021-8 ####[facility] LABCLIA [id number] [place] [address] [place] Eosinophils/100 WBC (Bld) 2.2 % Normal [facility] Comment on above: Order Comment: Speci men Type: BLOOD SPECIMENOrdering Facility: [facility] Address: [address] [place] [address] Performed By: #### 5 7021-8 ####[facility] LABIA [id number] [place] [address] [place] Erythrocyte distribution width (RBC) [Ratio] 12.3 % Normal 11.5-15.0 [facility] Comment on above: Order Comment: Speci men Type: BLOOD SPECIMENOrdering Facility: [facility] Address: [address] [place] [address] Performed By: #### 5 7021-8 ####[facility] LABIA [id number] [place] [address] [place] Hematocrit (Bld) [Volume fraction] 43.9 % Normal 39.0-51.0 [facility] Comment on above: Order Comment: Speci men Type: BLOOD SPECIMENOrdering Facility: [facility] Address: [address] [place] [address] Performed By: #### 5 7021-8 ####[facility] LABCLIA [id number] [place] [address] [place] Hemoglobin (Bld) [Mass/Vol] 15.2 g/dL Normal 13.0-17.0 [facility] Comment on above: Order Comment: Speci men Type: BLOOD SPECIMENOrdering Facility: [facility] Address: [address] [place] [address] Performed By: #### 5 7021-8 ####[facility] LABCLIA [id number] [place] [address] [place] Immature granulocytes (Bld) [#/Vol] 0.03 10*3/uL Normal <0.10 [facility] Comment on above: Order Comment: Speci men Type: BLOOD SPECIMENOrdering Facility: [facility] Address: [address] [place] [address] Performed By: #### 5 7021-8 ####[facility] LABCLIA [id number] [place] [address] [place] Immature granulocytes/100 WBC (Bld) 0.7 % Normal [facility] Comment on above: Order Comment: Speci men Type: BLOOD SPECIMENOrdering Facility: [facility] Address: [address] [place] [address] Performed By: #### 5 7021-8 ####[facility] LABCLIA [id number] [place] [address] [place] Lymphocytes (Bld) [#/Vol] 1.34 10*3/uL Normal 1.00-4.00 [facility] Comment on above: Order Comment: Speci men Type: BLOOD SPECIMENOrdering Facility: [facility] Address: [address] [place] [address] Performed By: #### 5 7021-8 ####[facility] LABCLIA [id number] [place] [address] [place] Lymphocytes/100 WBC (Bld) 32.3 % Normal [facility] Comment on above: Order Comment: Speci men Type: BLOOD SPECIMENOrdering Facility: [facility] Address: [address] [place] [address] Performed By: #### 5 7021-8 ####[facility] [id number] [place] [address] [place] MCH (RBC) [Entitic mass] 30.7 pg Normal 26.0-34.0 [facility] Comment on above: Order Comment: Speci men Type: BLOOD SPECIMENOrdering Facility: [facility] Address: [address] [place] [address] Performed By: #### 5 7021-8 ####[facility] [id number] [place] [address] [place] MCHC (RBC) [Mass/Vol] 34.6 g/dL Normal 30.5-36.0 [facility] Comment on above: Order Comment: Speci men Type: BLOOD SPECIMENOrdering Facility: [facility] Address: [address] [place] [address] Performed By: #### 5 7021-8 ####[facility] [id number] [place] [address] [place] MCV (RBC) [Entitic vol] 88.7 fL Normal 80.0-100.0 [facility] Comment on above: Order Comment: Speci men Type: BLOOD SPECIMENOrdering Facility: [facility] Address: [address] [place] [address] Performed By: #### 5 7021-8 ####[facility] [id number] [place] [address] [place] Monocytes (Bld) [#/Vol] 0.28 10*3/uL Normal <0.87 [facility] Comment on above: Order Comment: Speci men Type: BLOOD SPECIMENOrdering Facility: [facility] Address: [address] [place] [address] Performed By: #### 5 7021-8 ####[facility] [id number] [address] [address] [place] Monocytes/100 WBC (Bld) 6.7 % Normal [facility] Comment on above: Order Comment: Speci men Type: BLOOD SPECIMENOrdering Facility: [facility] Address: [address] [place] [address] Performed By: #### 5 7021-8 ####[facility] LABCLIA [id number] [place] [address] [place] Neutrophils (Bld) [#/Vol] 2.37 10*3/uL Normal 1.45-7.50 [facility] Comment on above: Order Comment: Speci men Type: BLOOD SPECIMENOrdering Facility: [facility] Address: [address] [place] [address] Performed By: #### 5 7021-8 ####[facility] LABCLIA [id number] [place] [address] [place] Neutrophils/100 WBC (Bld) 57.1 % Normal [facility] Comment on above: Order Comment: Speci men Type: BLOOD SPECIMENOrdering Facility: [facility] Address: [address] [place] [address] Performed By: #### 5 7021-8 ####[facility] LABCLIA [id number] [place] [address] [place] Nucleated RBC (Bld) [#/Vol] 10*3/uL Normal <0.01 [facility] Comment on above: Order Comment: Speci men Type: BLOOD SPECIMENOrdering Facility: [facility] Address: [address] [place] [address] Performed By: #### 5 7021-8 ####[facility] LABCLIA [id number] [place] [address] [place] Nucleated RBC/100 WBC (Bld) [Ratio] 0.0 /100 WBC Normal [facility] Comment on above: Order Comment: Speci men Type: BLOOD SPECIMENOrdering Facility: [facility] Address: [address] [place] [address] Performed By: #### 5 7021-8 ####[facility] LABCLIA [id number] [place] [address] [place] Platelet mean volume (Bld) [Entitic vol] 11.3 fL Normal 9.0-12.7 [facility] Comment on above: Order Comment: Speci men Type: BLOOD SPECIMENOrdering Facility: [facility] Address: [address] [place] [address] Performed By: #### 5 7021-8 ####[facility] LABCLIA [id number] [place] [address] [place] Platelets (Bld) [#/Vol] 206 10*3/uL Normal 150-400 [facility] Comment on above: Order Comment: Speci men Type: BLOOD SPECIMENOrdering Facility: [facility] Address: [address] [place] [address] Performed By: #### 5 7021-8 ####[facility] LABCLIA [id number] [place] [address] [place] RBC (Bld) [#/Vol] 4.95 10*6/uL Normal 4.20-6.00 [facility] Comment on above: Order Comment: Speci men Type: BLOOD SPECIMENOrdering Facility: [facility] Address: [address] [place] [address] Performed By: #### 5 7021-8 ####[facility] LABCLIA [id number] [place] [address] [place] WBC (Bld) [#/Vol] 4.15 10*3/uL Normal 3.70-11.00 [facility] Comment on above: Order Comment: Speci men Type: BLOOD SPECIMENOrdering Facility: [facility] Address: [address] [place] [address] Performed By: #### 5 7021-8 ####[facility] LABCLIA [id number] [address] [address] [place] [facility] CNOVon 07-16-2024 CNOV Office Visit (FAMPWS ) AMBIKA CAMPOSS Stan ([id number]) 1985 M Date Time Provider Department 07/16/24 8:00 AM [facility] During your visit today, we recorded [...] 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 Colmenares-Second Watch Sergeant Infectious mononucleosis 2006 w/Hepatitis Overweight (BMI 25.0-29.9) [...] Currently Comment: history of marijuana use in Access Information Management Review of Symptoms REVIEW OF SYSTEMS GENERAL: [...] of s (more content not included)... Normal [facility] Comprehensive metabolic 2000 panelon 07-16-2024 Albumin [Mass/Vol] 4.6 g/dL Normal 3.9-4.9 [facility] Comment on above: Order Comment: Speci men Type: BLOOD SPECIMENOrdering Facility: [facility] Address: [address] [place] [address] Performed By: #### 3 016-3, , ####[facility] LABCLIA [id number] [place] [address] [place] ALP [Catalytic activity/Vol] 65 U/L Normal 38-113 [facility] Comment on above: Order Comment: Speci men Type: BLOOD SPECIMENOrdering Facility: [facility] Address: [address] [place] [address] Performed By: #### 3 016-3, 91378-2, ####[facility] LABCLIA [id number] [place] [address] [place] ALT [Catalytic activity/Vol] 23 U/L Normal 10-54 [facility] Comment on above: Order Comment: Speci men Type: BLOOD SPECIMENOrdering Facility: [facility] Address: [address] [place] [address] Performed By: #### 3 016-3, 41393-7, 95516-8 ####[facility] LABCLIA [id number] [place] [address] [place] Anion gap [Moles/Vol] 12 mmol/L Normal 8-15 [facility] Comment on above: Order Comment: Speci men Type: BLOOD SPECIMENOrdering Facility: [facility] Address: [address] [place] [address] Performed By: #### 3 016-3, 14620-5, 81465-6 ####[facility] LABCLIA [id number] [place] [address] [place] AST [Catalytic activity/Vol] 19 U/L Normal 14-40 [facility] Comment on above: Order Comment: Speci men Type: BLOOD SPECIMENOrdering Facility: [facility] Address: [address] [place] [address] Performed By: #### 3 016-3, 45723-7, 00604-2 ####[facility] LABCLIA [id number] [place] [address] [place] Bilirubin [Mass/Vol] 0.8 mg/dL Normal 0.2-1.[address] [facility] Comment on above: Order Comment: Speci men Type: BLOOD SPECIMENOrdering Facility: [facility] Address: [address] [place] [address] Performed By: #### 3 016-3, 01197-5, 16363-5 ####[facility] LABCLIA [id number] [place] [address] [place] Calcium [Mass/Vol] 9.7 mg/dL Normal 8.5-10.2 [facility] Comment on above: Order Comment: Speci men Type: BLOOD SPECIMENOrdering Facility: [facility] Address: [address] [place] [address] Performed By: #### 3 016-3, 47152-4, 84749-2 ####[facility] LABCLIA [id number] [place] [address] [place] Chloride [Moles/Vol] 106 mmol/L Normal 98-[address] [facility] Comment on above: Order Comment: Speci men Type: BLOOD SPECIMENOrdering Facility: [facility] Address: [address] [place] [address] Performed By: #### 3 016-3, 39595-2, 13128-2 ####[facility] LABIA [id number] [place] [address] [place] CO2 [Moles/Vol] 25 mmol/L Normal 22-30 [facility] Comment on above: Order Comment: Speci men Type: BLOOD SPECIMENOrdering Facility: [facility] Address: [address] [place] [address] Performed By: #### 3 016-3, 91984-5, 99725-3 ####[facility] LABIA [id number] [place] [address] [place] Creatinine [Mass/Vol] 0.91 mg/dL Normal 0.73-1.22 [facility] Comment on above: Order Comment: Speci men Type: BLOOD SPECIMENOrdering Facility: [facility] Address: [address] [place] [address] Performed By: #### 3 016-3, 78672-8, 99706-3 ####[facility] LABIA [id number] [place] [address] [place] Creatinine and Glomerular filtration rate.predicted panel (S/P/Bld) 110 mL/min/1.73m??? Normal >=60 [facility] Comment on above: Order Comment: Speci men Type: BLOOD SPECIMENOrdering Facility: [facility] Address: [address] [place] [address] Result Comment: Olinda mated Glomerular Filtration Rate [...] actual GFR. Performed By: #### 3 016-3, 04278-8, ####[facility] LABCLIA [id number] [address] [address] [place] Glucose [Mass/Vol] 98 mg/dL Normal 74-99 [facility] Comment on above: Order Comment: Speci men Type: BLOOD SPECIMENOrdering Facility: [facility] Address: [address] [place] [address] Result Comment: The [place] [employer] (ADA) provides guidance for cutoff [...] Standards of Medical Care in Diabetes 2016, [place] [employer]. Diabetes Care. 2016.39(Suppl 1). Performed By: #### 3 016-3, , ####[facility] LABCLIA [id number] [place] [address] [place] Potassium [Moles/Vol] 3.8 mmol/L Normal 3.7-5.1 [facility] Comment on above: Order Comment: Speci men Type: BLOOD SPECIMENOrdering Facility: [facility] Address: [address] [place] [address] Performed By: #### 3 016-3, 07385-3, ####[facility] LABCLIA [id number] [address] [address] [place] Protein [Mass/Vol] 7.3 g/dL Normal 6.3-8.0 [facility] Comment on above: Order Comment: Speci men Type: BLOOD SPECIMENOrdering Facility: [facility] Address: [address] [place] [address] Performed By: #### 3 016-3, 24782-9, ####[facility] LABCLIA [id number] [address] [address] [place] Sodium [Moles/Vol] 143 mmol/L Normal 136-144 [facility] Comment on above: Order Comment: Speci men Type: BLOOD SPECIMENOrdering Facility: [facility] Address: [address] [place] [address] Performed By: #### 3 016-3, 18211-7, ####[facility] LABIA [id number] [place] [address] [place] Urea nitrogen [Mass/Vol] 13 mg/dL Normal 9-24 [facility] Comment on above: Order Comment: Speci men Type: BLOOD SPECIMENOrdering Facility: [facility] Address: [address] [place] [address] Performed By: #### 3 016-3, 87750-7, ####[facility] LABIA [id number] [place] [address] [place] HbA1c (Bld)on 07-16-2024 Average glucose Estimated from glycated hemoglobin (Bld) [Mass/Vol] 77 mg/dL Normal [facility] Comment on above: Order Comment: Speci men Type: BLOOD SPECIMENOrdering Facility: [facility] Address: [address] [place] [address] Result Comment: eAG: (Estimated average glucose) is a calculated value from HgbA1c and is commercial representative of the average blood glucose level in the last 2-3 month period. Performed By: #### 5 5454-3 ####[facility] LABIA [id number] [place] [address] [place] HbA1c (Bld) [Mass fraction] 4.3 % Normal 4.3-5.6 [facility] Comment on above: Order Comment: Yulia ye Type: BLOOD SPECIMENOrdering Facility: [facility] Address: [address] [place] [address] Result Comment: [place] Diabetes Association guidelines indicate that patients with HgbA1c in the range 5.7-6.4% are at increased risk for development of diabetes, and intervention by lifestyle modification may be beneficial. HgbA1c greater or equal to 6.5% is considered diagnostic of diabetes. Performed By: #### 5 5454-3 ####[facility] LABCLIA [id number] [place] [address] [place] Lipid 1996 panelon 5 Cholesterol [Mass/Vol] 182 mg/dL Normal <200 [facility] Comment on above: Order Comment: Yulia ye Type: BLOOD SPECIMENOrdering Facility: [facility] Address: [address] [place] [address] Result Comment: <200 mg/dL, Desirable 200-239 mg/dL, Borderline high >239 mg/dL, High Performed By: #### 3 016-3, 20108-5, 32863-3 ####[facility] LABCLIA [id number] [address] [place] Cholesterol in HDL [Mass/Vol] 42 mg/dL Normal >39 [facility] Comment on above: Order Comment: Yulia ye Type: BLOOD SPECIMENOrdering Facility: [facility] Address: [address] [place] [address] Result Comment: 40-5 9 mg/dL, Acceptable >59 mg/dL, High: Negative risk factor for coronary heart disease <40 mg/dL, Low: Positive risk factor for coronary heart disease Performed By: #### 3 016-3, 67335-1, 96538-7 ####[facility] LABCLIA [id number] [address] [place] Cholesterol in LDL [Mass/Vol] 124 mg/dL High <100 [facility] Comment on above: Order Comment: Speci men Type: BLOOD SPECIMENOrdering Facility: [facility] Address: [address] [place] [address] Result Comment: <100 mg/dL, Optimal 100-129 mg/dL, Near optimal/above optimal 130-159 mg/dL, Borderline high 160-189 mg/dL, High >189 mg/dL, Very high Secondary prevention optimal LDL Cholesterol levels are recommended to be < 70 mg/dL Performed By: #### 3 016-3, 59371-6, ####[facility] LABCLIA [id number] [place] [address] [place] Cholesterol in LDL/Cholesterol in HDL [Mass ratio] 2.95 {ratio} High <2.54 [facility] Comment on above: Order Comment: Yulia men Type: BLOOD SPECIMENOrdering Facility: [facility] Address: [address] [place] [address] Result Comment: Aida fritz: 1. National Cholesterol Education Program ATP III Guideline At-A-Glance Quick Desk Reference: National Heart, Lung, and Blood [place]. National Institutes of Health. 2001: NIH Publication No. 01-3305. 2. An International Atherosclerosis Society position paper: global recommendations for the management of dyslipidemia: executive summary, Atherosclerosis. 2014: 232(2):410-413. Performed By: #### 3 016-3, 37497-3, ####[facility] LABCLIA [id number] [place] [address] [place] Cholesterol in VLDL [Mass/Vol] 16 mg/dL Normal <30 [facility] Comment on above: Order Comment: Raji ye Type: BLOOD SPECIMENOrdering Facility: [facility] Address: [address] [place] [address] Performed By: #### 3 016-3, 86017-6, ####[facility] LABCLIA [id number] [address] [address] [place] Cholesterol non HDL [Mass/Vol] 140 mg/dL High <130 [facility] Comment on above: Order Comment: Speci men Type: BLOOD SPECIMENOrdering Facility: [facility] Address: [address] [place] [address] Result Comment: <130 mg/dL, Optimal 130-159 mg/dL, Near optimal/above optimal 160-189 mg/dL, Borderline high 190-219 mg/dL, High >219 mg/dL, Very high Secondary prevention optimal non HDL Cholesterol levels are recommended to be <100 mg/dL Performed By: #### 3 016-3, 32491-7, ####[facility] LABCLIA [id number] [place] [address] [place] Cholesterol.total/Choles terol in HDL [Mass ratio] 4.33 {ratio} Normal <5.10 [facility] Comment on above: Order Comment: Speci men Type: BLOOD SPECIMENOrdering Facility: [facility] Address: [address] [place] [address] Performed By: #### 3 016-3, 71963-6, ####[facility] LABCLIA [id number] [place] [address] [place] FASTING TIME 10 hrs Normal [facility] Comment on above: Order Comment: Speci men Type: BLOOD SPECIMENOrdering Facility: [facility] Address: [address] [place] [address] Performed By: #### 3 016-3, 82984-1, ####[facility] LABCLIA [id number] [place] [address] [place] Triglyceride [Mass/Vol] 82 mg/dL Normal <150 [facility] Comment on above: Order Comment: Speci men Type: BLOOD SPECIMENOrdering Facility: [facility] Address: [address] [place] [address] Result Comment: <150 mg/dL, Normal 150-199 mg/dL, Borderline high 200-499 mg/dL, High >499 mg/dL, Very high Performed By: #### 3 016-3, 41915-6, ####[facility] LABCLIA [id number] [place] [address] [place] TSH SerPl-aCncon 07-16-2024 TSH Qn 2.180 m[IU]/L Normal 0.270-4.200 [facility] Comment on above: Order Comment: Speci men Type: BLOOD SPECIMENOrdering Facility: [facility] Address: [address] [place] [address] Performed By: #### 3 016-3, 50427-1, 36075-7 ####[facility] LABIA [id number] [address] [place] Jose 06-11-2024 [facility] TORREY CAMPOS ([id number]) 1985 Date Time Provider Department 06/11/24 ALEX MUNIZ [facility] During your visit today, we recorded the [...] Status:Closed by EMMA MCCRACKEN on 07/24/24 [facility] TORREY CAMPOS ([id number]) 1985 M Date Time Provider Department 02/23/24 ALEX MUNIZ [facility] During your visit today, we recorded the [...] Status:Closed by EMMA MCCRACKEN on 07/24/24 Normal [facility] Urinalysis complete panel (U )on 02-22-2024 Bacteria LM.HPF (Urine sed) [#/Area] Negative Normal Negative [facility] Comment on above: Order Comment: Speci men Type: URINE SPECIMENOrdering Facility: [facility] Address: [address] [place] [address] Performed By: #### 2 4356-8 ####[facility] LABCLIA [id number] [place] [address] [place] Bilirubin Ql (U) Negative Normal Negative [facility] Comment on above: Order Comment: Speci men Type: URINE SPECIMENOrdering Facility: [facility] Address: [address] [place] [address] Performed By: #### 2 4356-8 ####[facility] LABCLIA [id number] [place] [address] [place] Clarity (Unsp spec) Clear Normal Clear [facility] Comment on above: Order Comment: Speci men Type: URINE SPECIMENOrdering Facility: [facility] Address: [address] [place] [address] Performed By: #### 2 4356-8 ####[facility] LABCLIA [id number] [place] [address] [place] Color (U) Yellow Normal Yellow [facility] Comment on above: Order Comment: Speci men Type: URINE SPECIMENOrdering Facility: [facility] Address: [address] [place] [address] Performed By: #### 2 4356-8 ####[facility] LABCLIA [id number] [place] [address] [place] Epithelial cells LM.HPF (Urine sed) [#/Area] None Seen Normal [facility] Comment on above: Order Comment: Speci men Type: URINE SPECIMENOrdering Facility: [facility] Address: [address] [place] [address] Performed By: #### 2 4356-8 ####[facility] LABCLIA [id number] [place] [address] [place] Glucose Test strip (U) [Mass/Vol] Negative Normal Negative [facility] Comment on above: Order Comment: Speci men Type: URINE SPECIMENOrdering Facility: [facility] Address: [address] [place] [address] Performed By: #### 2 4356-8 ####[facility] LABCLIA [id number] [place] [address] [place] Hemoglobin Ql (U) Negative Normal Negative [facility] Comment on above: Order Comment: Speci men Type: URINE SPECIMENOrdering Facility: [facility] Address: [address] [place] [address] Performed By: #### 2 4356-8 ####[facility] LABCLIA [id number] [place] [address] [place] Hyaline casts (Urine sed) [#/Area] 0 /[LPF] Normal 0 /LPF [facility] Comment on above: Order Comment: Speci men Type: URINE SPECIMENOrdering Facility: [facility] Address: [address] [place] [address] Performed By: #### 2 4356-8 ####[facility] LABCLIA [id number] [place] [address] [place] Ketones Ql (U) Negative Normal Negative [facility] Comment on above: Order Comment: Speci men Type: URINE SPECIMENOrdering Facility: [facility] Address: [address] [place] [address] Performed By: #### 2 4356-8 ####[facility] LABCLIA [id number] [place] [address] [place] Leukocyte esterase Test strip Ql (U) Negative Normal Negative [facility] Comment on above: Order Comment: Speci men Type: URINE SPECIMENOrdering Facility: [facility] Address: [address] [place] [address] Performed By: #### 2 4356-8 ####[facility] LABCLIA [id number] [place] [address] [place] Nitrite Ql (U) Negative Normal Negative [facility] Comment on above: Order Comment: Speci men Type: URINE SPECIMENOrdering Facility: [facility] Address: [address] [place] [address] Performed By: #### 2 4356-8 ####[facility] LABCLIA [id number] [place] [address] [place] pH (U) 6.5 [pH] Normal <8.5 [facility] Comment on above: Order Comment: Speci men Type: URINE SPECIMENOrdering Facility: [facility] Address: [address] [place] [address] Performed By: #### 2 4356-8 ####[facility] LABCLIA [id number] [place] [address] [place] Protein (U) [Mass/Vol] Negative Normal Negative [facility] Comment on above: Order Comment: Speci men Type: URINE SPECIMENOrdering Facility: [facility] Address: [address] [place] [address] Performed By: #### 2 4356-8 ####[facility] LABCLIA [id number] [place] [address] [place] RBC LM.HPF (Urine sed) [#/Area] 0-2 /HPF Normal 0-2 /HPF [facility] Comment on above: Order Comment: Speci men Type: URINE SPECIMENOrdering Facility: [facility] Address: [address] [place] [address] Performed By: #### 2 4356-8 ####[facility] [id number] [place] [address] [place] Specific gravity (U) [Rel density] 1.010 Normal 1.005-1.030 [facility] Comment on above: Order Comment: Speci men Type: URINE SPECIMENOrdering Facility: [facility] Address: [address] [place] [address] Performed By: #### 2 4356-8 ####[facility] [id number] [place] [address] [place] Urobilinogen Ql (U) 0.2 EU/dL Normal 0.2-1.0 EU/dL Cl [facility] Comment on above: Order Comment: Speci men Type: URINE SPECIMENOrdering Facility: [facility] Address: [address] [place] [address] Performed By: #### 2 4356-8 ####[facility] [id number] [place] [address] [place] WBC LM.HPF (Urine sed) [#/Area] 0-5 /HPF Normal 0-5 /HPF [facility] Comment on above: Order Comment: Speci men Type: URINE SPECIMENOrdering Facility: [facility] Address: [address] [place] [address] Performed By: #### 2 4356-8 ####[facility] [id number] [place] [address] [place] CNOVon 02-09-2024 CNOV Office Visit (FAMPWS ) TORREY CAMPOS ([id number]) 1985 M Date Time Provider Department 02/09/24 [...] to go from here. Additional testing? HPI Torery Campos is a 38 year old male [...] a f (more content not included)... Normal [facility] CRP [Mass/Vol] 0.6 mg/dL Normal <0.9 [facility] Comment on above: Order Comment: Speci men Type: BLOOD SPECIMENOrdering Facility: [facility] Address: [address] [place] [address] Performed By: #### 1 988-5 ####[facility] LABCLIA [id number] [place] [address] [place] ESR Westergren method (Bld) [Velocity]on 02-09-2024 ESR (Bld) [Velocity] 2 mm/h Normal 0-15 [facility] Comment on above: Order Comment: Speci men Type: BLOOD SPECIMEN [facility] Address: [address] [place] [address] Performed By: #### 4 537-7 #### [facility] LAB CLIA [id number] [address] [place] [address] [place] Nuclear Ab IA Ql (S)on 02-08 DEVIN SCR QUAL Negative Normal Negative [facility] Comment on above: Order Comment: Speci men Type: BLOOD SPECIMENOrdering Facility: [facility] Address: [address] [place] [address] Result Comment: The qualitative antinuclear antibody screen test performed using the following antigens: dsDNA, Chromatin, Ribosomal P, SS-A 60, SS-A 52, SS-B, Sm, SmRNP, FRUIT GRADER OPERATOR A, FRUIT GRADER OPERATOR 68, Scl-70, Maryan-1, and Centromere B. Methodology: Multiplex flow immunoassay. Performed By: #### 4 7383-5 ####[facility] LABCLIA [id number] [place] [address] [place] CNPNon 01-20-2024 CNPN Telephone ([employer]) TORREY CAMPOS ([id number]) 1985 Date Time Provider Department 01/20/24 ALEX [...] AM Signed Pt notified of results via [employer]. Briseida Montaño Ma Allergies As of Date: 01/20/2024 (No Known Allergies) Date Reviewed: 01/19/2024 Reviewed by: Laughery, Emma, FINANCIAL SERVICES ASSISTANT - Fully Assessed Reason for Visit: Results [95] Prescriptions as of 01/20/2024 - omeprazole (PRILOSEC) 40 mg capsule take 1 capsule by mouth every morning - multivit-min/folic/vi t K/lycop (MEN'S MULTIVITAMIN ORAL) Take by mouth. - Lactobacillus acidophilus (PROBIOTIC ORAL) Take by mouth. Problem List As Of Date: 01/20/2024 (None) Encounter Status:Closed by BRISEIDA MONTAÑO on 01/20/24 Normal [facility] CBC W Auto Differential pane l (Bld)on 01-19-2024 Basophils (Bld) [#/Vol] 0.03 10*3/uL Normal <0.11 [facility] Comment on above: Order Comment: Speci men Type: BLOOD SPECIMENOrdering Facility: [facility] Address: [address] [place] [address] Performed By: #### 5 7021-8 ####[facility] LABCLIA [id number] [place] [address] [place] Basophils/100 WBC (Bld) 0.7 % Normal [facility] Comment on above: Order Comment: Speci men Type: BLOOD SPECIMENOrdering Facility: [facility] Address: [address] [place] [address] Performed By: #### 5 7021-8 ####[facility] LABCLIA [id number] [place] [address] [place] Differential cell count method Nom (Bld) Auto Normal [facility] Comment on above: Order Comment: Speci men Type: BLOOD SPECIMENOrdering Facility: [facility] Address: [address] [place] [address] Performed By: #### 5 7021-8 ####[facility] LABCLIA [id number] [place] [address] [place] Eosinophils (Bld) [#/Vol] 0.05 10*3/uL Normal <0.46 [facility] Comment on above: Order Comment: Speci men Type: BLOOD SPECIMENOrdering Facility: [facility] Address: [address] [place] [address] Performed By: #### 5 7021-8 ####[facility] LABCLIA [id number] [place] [address] [place] Eosinophils/100 WBC (Bld) 1.2 % Normal [facility] Comment on above: Order Comment: Speci men Type: BLOOD SPECIMENOrdering Facility: [facility] Address: [address] [place] [address] Performed By: #### 5 7021-8 ####[facility] LABCLIA [id number] [place] [address] [place] Erythrocyte distribution width (RBC) [Ratio] 12.2 % Normal 11.5-15.0 [facility] Comment on above: Order Comment: Speci men Type: BLOOD SPECIMENOrdering Facility: [facility] Address: [address] [place] [address] Performed By: #### 5 7021-8 ####[facility] LABIA [id number] [place] [address] [place] Hematocrit (Bld) [Volume fraction] 44.1 % Normal 39.0-51.0 [facility] Comment on above: Order Comment: Speci men Type: BLOOD SPECIMENOrdering Facility: [facility] Address: [address] [place] [address] Performed By: #### 5 7021-8 ####[facility] LABCLIA [id number] [place] [address] [place] Hemoglobin (Bld) [Mass/Vol] 15.5 g/dL Normal 13.0-17.0 [facility] Comment on above: Order Comment: Speci men Type: BLOOD SPECIMENOrdering Facility: [facility] Address: [address] [place] [address] Performed By: #### 5 7021-8 ####[facility] LABCLIA [id number] [place] [address] [place] Immature granulocytes (Bld) [#/Vol] 0.03 10*3/uL Normal <0.10 [facility] Comment on above: Order Comment: Speci men Type: BLOOD SPECIMENOrdering Facility: [facility] Address: [address] [place] [address] Performed By: #### 5 7021-8 ####[facility] LABCLIA [id number] [place] [address] [place] Immature granulocytes/100 WBC (Bld) 0.7 % Normal [facility] Comment on above: Order Comment: Speci men Type: BLOOD SPECIMENOrdering Facility: [facility] Address: [address] [place] [address] Performed By: #### 5 7021-8 ####[facility] LABCLIA [id number] [place] [address] [place] Lymphocytes (Bld) [#/Vol] 1.18 10*3/uL Normal 1.00-4.00 [facility] Comment on above: Order Comment: Speci men Type: BLOOD SPECIMENOrdering Facility: [facility] Address: [address] [place] [address] Performed By: #### 5 7021-8 ####[facility] LABCLIA [id number] [place] [address] [place] Lymphocytes/100 WBC (Bld) 28.6 % Normal [facility] Comment on above: Order Comment: Speci men Type: BLOOD SPECIMENOrdering Facility: [facility] Address: [address] [place] [address] Performed By: #### 5 7021-8 ####[facility] LABCLIA [id number] [place] [address] [place] MCH (RBC) [Entitic mass] 30.8 pg Normal 26.0-34.0 [facility] Comment on above: Order Comment: Speci men Type: BLOOD SPECIMENOrdering Facility: [facility] Address: [address] [place] [address] Performed By: #### 5 7021-8 ####[facility] LABCLIA [id number] [place] [address] [place] MCHC (RBC) [Mass/Vol] 35.1 g/dL Normal 30.5-36.0 [facility] Comment on above: Order Comment: Speci men Type: BLOOD SPECIMENOrdering Facility: [facility] Address: [address] [place] [address] Performed By: #### 5 7021-8 ####[facility] LABCLIA [id number] [place] [address] [place] MCV (RBC) [Entitic vol] 87.7 fL Normal 80.0-100.0 [facility] Comment on above: Order Comment: Speci men Type: BLOOD SPECIMENOrdering Facility: [facility] Address: [address] [place] [address] Performed By: #### 5 7021-8 ####[facility] LABCLIA [id number] [place] [address] [place] Monocytes (Bld) [#/Vol] 0.27 10*3/uL Normal <0.87 [facility] Comment on above: Order Comment: Speci men Type: BLOOD SPECIMENOrdering Facility: [facility] Address: [address] [place] [address] Performed By: #### 5 7021-8 ####[facility] LABCLIA [id number] [place] [address] [place] Monocytes/100 WBC (Bld) 6.6 % Normal [facility] Comment on above: Order Comment: Speci men Type: BLOOD SPECIMENOrdering Facility: [facility] Address: [address] [place] [address] Performed By: #### 5 7021-8 ####[facility] LABCLIA [id number] [place] [address] [place] Neutrophils (Bld) [#/Vol] 2.56 10*3/uL Normal 1.45-7.50 [facility] Comment on above: Order Comment: Speci men Type: BLOOD SPECIMENOrdering Facility: [facility] Address: [address] [place] [address] Performed By: #### 5 7021-8 ####[facility] LABCLIA [id number] [place] [address] [place] Neutrophils/100 WBC (Bld) 62.2 % Normal [facility] Comment on above: Order Comment: Speci men Type: BLOOD SPECIMENOrdering Facility: [facility] Address: [address] [place] [address] Performed By: #### 5 7021-8 ####[facility] LABCLIA [id number] [place] [address] [place] Nucleated RBC (Bld) [#/Vol] 10*3/uL Normal <0.01 [facility] Comment on above: Order Comment: Speci men Type: BLOOD SPECIMENOrdering Facility: [facility] Address: [address] [place] [address] Performed By: #### 5 7021-8 ####[facility] LABCLIA [id number] [place] [address] [place] Nucleated RBC/100 WBC (Bld) [Ratio] 0.0 /100 WBC Normal [facility] Comment on above: Order Comment: Speci men Type: BLOOD SPECIMENOrdering Facility: [facility] Address: [address] [place] [address] Performed By: #### 5 7021-8 ####[facility] LABCLIA [id number] [place] [address] [place] Platelet mean volume (Bld) [Entitic vol] 11.2 fL Normal 9.0-12.7 [facility] Comment on above: Order Comment: Speci men Type: BLOOD SPECIMENOrdering Facility: [facility] Address: [address] [place] [address] Performed By: #### 5 7021-8 ####[facility] LABIA [id number] [place] [address] [place] Platelets (Bld) [#/Vol] 204 10*3/uL Normal 150-400 [facility] Comment on above: Order Comment: Speci men Type: BLOOD SPECIMENOrdering Facility: [facility] Address: [address] [place] [address] Performed By: #### 5 7021-8 ####[facility] LABIA [id number] [place] [address] [place] RBC (Bld) [#/Vol] 5.03 10*6/uL Normal 4.20-6.00 [facility] Comment on above: Order Comment: Speci men Type: BLOOD SPECIMENOrdering Facility: [facility] Address: [address] [place] [address] Performed By: #### 5 7021-8 ####[facility] LABIA [id number] [place] [address] [place] WBC (Bld) [#/Vol] 4.12 10*3/uL Normal 3.70-11.00 [facility] Comment on above: Order Comment: Speci men Type: BLOOD SPECIMENOrdering Facility: [facility] Address: [address] [place] [address] Performed By: #### 5 7021-8 ####[facility] LABIA [id number] [place] [address] [place] CNOVon 01-19-2024 CNOV Office Visit (FAMPWS ) TORREY CAMPOS ([id number]) 1985 M Date Time Provider Department 01/19/24 [...] 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 Normal [facility] Comprehensive metabolic 2000 panelon 01-19-2024 Albumin [Mass/Vol] 4.8 g/dL Normal 3.9-4.9 [facility] Comment on above: Order Comment: Speci men Type: BLOOD SPECIMEN [facility] Address: [address] [place] [address] Performed By: #### 4 537-7 #### [facility] LAB CLIA [id number] [address] [place] [address] [place] ALP [Catalytic activity/Vol] 68 U/L Normal 38-113 [facility] Comment on above: Order Comment: Speci men Type: BLOOD SPECIMEN [facility] Address: [address] [place] [address] Performed By: #### 4 537-7 #### [facility] CLIA [id number] [address] [place] [address] [place] ALT [Catalytic activity/Vol] 31 U/L Normal 10-54 [facility] Comment on above: Order Comment: Speci men Type: BLOOD SPECIMEN [facility] Address: [address] [place] [address] Performed By: #### 4 537-7 #### [facility] CLIA [id number] [address] [place] [address] [place] Anion gap [Moles/Vol] 11 mmol/L Normal 8-15 [facility] Comment on above: Order Comment: Speci men Type: BLOOD SPECIMEN [facility] Address: [address] [place] [address] Performed By: #### 4 537-7 #### [facility] CLIA [id number] [address] [place] [address] [place] AST [Catalytic activity/Vol] 23 U/L Normal 14-40 [facility] Comment on above: Order Comment: Speci men Type: BLOOD SPECIMEN [facility] Address: [address] [place] [address] Performed By: #### 4 537-7 #### [facility] CLIA [id number] [address] [place] [address] [place] Bilirubin [Mass/Vol] 0.8 mg/dL Normal 0.2-1.[address] [facility] Comment on above: Order Comment: Speci men Type: BLOOD SPECIMEN [facility] Address: [address] [place] [address] Performed By: #### 4 537-7 #### [facility] CLIA [id number] [address] [place] [address] [place] Calcium [Mass/Vol] 9.8 mg/dL Normal 8.5-10.2 [facility] Comment on above: Order Comment: Speci men Type: BLOOD SPECIMEN [facility] Address: [address] [place] [address] Performed By: #### 4 537-7 #### [facility] CLIA [id number] [address] [place] [address] [place] Chloride [Moles/Vol] 102 mmol/L Normal 98-[address] [facility] Comment on above: Order Comment: Speci men Type: BLOOD SPECIMEN [facility] Address: [address] [place] [address] Performed By: #### 4 537-7 #### [facility] CLIA [id number] [address] [place] [address] [place] CO2 [Moles/Vol] 25 mmol/L Normal 22-30 [facility] Comment on above: Order Comment: Speci men Type: BLOOD SPECIMEN [facility] Address: [address] [place] [address] Performed By: #### 4 537-7 #### [facility] CLIA [id number] [address] [place] [address] [place] Creatinine [Mass/Vol] 0.91 mg/dL Normal 0.73-1.22 [facility] Comment on above: Order Comment: Speci men Type: BLOOD SPECIMEN [facility] Address: [address] [place] [address] Performed By: #### 4 537-7 #### [facility] CLIA [id number] [address] [place] [address] [place] Creatinine and Glomerular filtration rate.predicted panel (S/P/Bld) 111 mL/min/1.73m??? Normal >=60 [facility] Comment on above: Order Comment: Speci men Type: BLOOD SPECIMEN [facility] Address: [address] [place] [address] Result Comment: Olinda mated Glomerular Filtration Rate [...] GFR. Performed By: #### 4 537-7 #### [facility] CLIA [id number] [address] [place] [address] [place] Glucose [Mass/Vol] 90 mg/dL Normal 74-99 [facility] Comment on above: Order Comment: Speci men Type: BLOOD SPECIMEN [facility] Address: [address] [place] [address] Result Comment: The [place] [employer] (ADA) provides guidance for cutoff [...] Standards of Medical Care in Diabetes 2016, [place] [employer]. Diabetes Care. 2016.39(Suppl 1). Performed By: #### 4 537-7 #### [facility] CLIA [id number] [address] [place] [address] [place] Potassium [Moles/Vol] 3.9 mmol/L Normal 3.7-5.1 [facility] Comment on above: Order Comment: Speci men Type: BLOOD SPECIMEN [facility] Address: [address] [place] [address] Performed By: #### 4 537-7 #### [facility] CLIA [id number] [address] [place] [address] [place] Protein [Mass/Vol] 7.3 g/dL Normal 6.3-8.0 [facility] Comment on above: Order Comment: Speci men Type: BLOOD SPECIMEN [facility] Address: [address] [place] [address] Performed By: #### 4 537-7 #### [facility] CLIA [id number] [address] [place] [address] [place] Sodium [Moles/Vol] 138 mmol/L Normal 136-144 [facility] Comment on above: Order Comment: Speci men Type: BLOOD SPECIMEN [facility] Address: [address] [place] [address] Performed By: #### 4 537-7 #### [facility] CLIA [id number] [address] [place] [address] [place] Urea nitrogen [Mass/Vol] 12 mg/dL Normal 9-24 [facility] Comment on above: Order Comment: Speci men Type: BLOOD SPECIMEN [facility] Address: [address] [place] [address] Performed By: #### 4 537-7 #### [facility] CLIA [id number] [address] [place] [address] [place] US KIDNEY/BLADDERon 01-19-20 [...] sonographic exam of the kidneys and bladder. Want Ad Supervisor: RANDY Transcribe Date/Time: Jan 19 2024 5:03P Dictated by : SOFY PRIETO MD This examination was interpreted and the report reviewed and electronically signed by: SOFY PRIETO MD on Jan 19 2024 5:05PM EST [id number] Normal [facility] US Kidney - bilateral and Ur inary bladderon 01-19-2024 IMPRESSION: Unremarkable sonographic exam of the kidneys and bladder. Want Ad Supervisor: RANDY Transcribe Date/Time: Jan 19 2024 5:03P Dictated by : SOFY PRIETO MD This examination was interpreted and the report reviewed and electronically signed by: SOFY PRIETO MD on Jan 19 2024 5:05PM [facility] DIVISION OF RADIOLOGY * * *Final Report* * * DATE OF EXAM: Jan 19 2024 1:55PM [place] [id number] - US KIDNEY/BLADDER / PROCEDURE REASON: Gross [...] jets were visualized. DIVISION OF RADIOLOGY Provider, [facility] - 01/19/2024 * * *Final Report* * * DATE OF EXAM: Jan 19 2024 1:55PM [facility] 1055 - US KIDNEY/BLADDER / PROCEDURE REASON: [...] sonographic exam of the kidneys and bladder. Want Ad Supervisor: RANDY Transcribe Date/Time: Jan 19 2024 5:03P Dictated by : SOFY PRIETO MD This examination was interpreted and the report reviewed and electronically signed by: SOFY PRIETO MD on Jan 19 2024 5:05PM EST [facility] Radiology Study observation (narrative) [facility] US Kidney - bilateral and Ur inary bladderOrdered By: Ccf Provider on 01-19-2024 [facility] UA DIP, URINE (POC)on 2023 BILIRUBIN UA (POCT) Negative Negative [facility] CLARITY UA (POCT) Clear [facility] COLOR UA (POCT) Yellow [facility] GLUCOSE UA (POCT) Negative Negative mg/dL [facility] Hemoglobin Ql (U) Trace-intact Abnormal Negative [facility] Interpretation and review of laboratory results Abnormal [facility] KETONE UA (POCT) Negative Negative mg/dL [facility] LEUKOCYTES U[facility] (POCT) Negative [facility] NITRITE UA (POCT) Negative Negative [facility] PH UA (POCT) 6.0 4.5 - 8.0 [facility] Protein Ql (U) Negative Negative mg/dL [facility] SPECIFIC GRAVITY UA (POCT) <=1.005 Abnormal 1.005 - 1.030 [facility] UROBILINOGEN UA (POCT) 0.2 Jeannette l E.U./dL [facility] Location:[address], [place], [place], [id number] [place] [address] POINT OF CARE [facility] US DOPPLER COMPLETEon 2023 US DOPPLER COMPLETE [...] Small left varicocele. Tiny right epididymal cyst. Want Ad Supervisor: [facility] Transcribe Date/Time: Jan 01 2024 5:55P Dictated by : ENMANUEL RODRIGUEZ MD This examination was interpreted and the report reviewed and electronically signed by: ENMANUEL RODRIGUEZ MD on Jan 01 2024 5:56PM EST [id number] Normal [facility] US SCROTUM AND CONTENTSon US SCROTUM [...] Small left varicocele. Tiny right epididymal cyst. Want Ad Supervisor: [employer] Transcribe Date/Time: Jan 01 2024 5:55P Dictated by : ENMANUEL RODRIGUEZ MD This examination was interpreted and the report reviewed and electronically signed by: ENMANUEL RODRIGUEZ MD on Jan 01 2024 5:56PM EST [id number] Normal [facility] SURGICAL PATHOLOGYOrdered By : Rayshawn Quinn on 07-18-2023 Case Report Surgical Pathology Report Case: [id number] Authorizing Provider: Ashley Melgoza MD Collected: 07/15/2023 01:42 PM Ordering Location: Ambulatory Surgery Received: 07/15/2023 07:53 PM Pathologist: Rayshawn Quinn MD Specimens: A) - DUODENUM BIOPSY, r/o celiac B) - STOMACH BIOPSY, r/o H-pylori C) - ESOPHAGOGASTRIC JUNCTION BIOPSY D) - COLON RIGHT BIOPSY E) - ASCENDING COLON POLYP F) - COLON LEFT BIOPSY [facility] Work Phone: Diagnosis Comment j3zxqOXnSCGpmDRxCCRi N MecxdLsFLMyaSIuH5Ffgg wxKQgvOB1vWY3qpEcktAV hkDZoXUCwUoZkp8nlz100 iUVyp2xwBMKGxuuvzNz4h QkgM85yw8P3JoamK04abQ ZqWXP6FMBzIIQzgXGgJTZ gLJV7ZFYbbILnR9xpJCJu LH3sspkeFNnjIYvcIQIxc XP3GJXoxHHbF9JlRJJwXD dpRLTxwgw4MeBxQr2syQT yeTcyMFxwYXJkXHBsYWlu WGUqFyUlXo2fHd9oiWneq h8uvotcuxpygEAdrC3gfF pxpL4unXWvuLv9MNBvsUU txGlhcEZfm3r3kFXWXRzz Y24lJCB0RWOcVMjao4JyW Xbdp4Iqd6ZfCC3gj40wJI FyZSBpZGVudGlmaWVkIGJ 9LYZoeHDxayAhLVVVLXO0 FNxaCGMze9UshTkzuwMjB HBhciBELEYuIFRoZXJlIG qyKZ5aHGW9mYXilfNdNT7 fXZBinJOqSL2vBHIgbj6u kXJjJ64srMSgrbryfY6el IRhaJ8bIQb5rOZei5H8jF spLE6aHUZgcTdjH4Kvk8A fITMgbXr3sQW2DU2sD6H4 aXZlIGZvciBkeXNwbGFza MHgu7YsiDBrfTdhRP0ptG 5ccGFyfQ== [facility] Work Phone: FINAL DIAGNOSIS z9hpsUXaPVUroFRgGXSo N MjqxrNjIHUuzZKqC2Pehl mgIKacWC8kCT1sxFyigVM fqSCcHNTtEmIcn5ojb010 oMHdx1aaQDEFerhunJv5f AdzF77sy4E4RwglS43rbV RwHRZ2ILOhYVJxmSScPUQ zHWJ6GPUrbUFdG6ziAUQb PB3ilprhYWjqUKykWGOlu KO0ZXLmuEDtB1HuZVTqSL rpUOVpvrh0NoPrTo1ziRL yeTcyMFxwYXJkXHBsYWlu QPTfBkAxMO6cBBQ3w6Itv bNzYWAbpF3hh7g6BRFbre GeHHH4f0BgvhQgCJ78I61 yNKR4vYDdRP0xZNLkpYeh pW0umCCwSFkoC90yg3PiR aSaCm8llf0hiXo9gBshkt JlEVOperJxNy2fFRLjnJc hYyBkaXNlYXNlLCBncmFu rHlibTEmIZ4vBNU4x0OjK PDyRK1ckXMmDTTgjzCFWc WvT7IioNMxcFddFyydeJJ 9NzoaWPCfWQSQWCX6unmo RPO9jxArSxQ0uBRsUL88P 62bKAX2tPJdPP1fVQNooF ipzX2bjYHjTLmnW77zx4O mXtZpAc3uno0peTa0jDyp b1SpFGAqeG6empHnRIRsd lnzQKDwUt3ySCBpa9BvMO pjO3BswMRvFdAvvM4aaAv hlckuLgligEP0GfpdFDCa TUNHcVHdzB25jwNsyiCwD 4OowTNpInHwtJZsr2Knv1 n4zUVnalAnOSRvf9bpR1n kWQOuYWbti4N1aKXrSRAm d2HqZMacnBg6RN2vU8O2z XZlIGZvciBpbnRyYWVwaX SgZYalDSkuLJ7krB9stFl pbHMsIGludGVzdGluYWwg jKZ1DVUuSBOjEJPfzkAgj XNwbGFzaWEuXHBhclxwYX HcBW0tWLUenV0uBQKijWy ziLapAxqqpOH9LyvgJCQk GCMOq7riqgocRA25R06fB JL3zYJpFT3pYOOcfKnduC 6pbIUuYXqnG71hb9SaYbW xKg6gsv3orKc9eOgow8Jv SYVadF9ezsOcKOUqkawxV ZSyZH5tLERsV5HmXJskWd Dsc6xevoTeu3s1xLxlLle fnNH8JodvEMNqGNVMrUS1 dITlOCLfYJ3iwTKpHHPrg zwzBBKpHf4oTEVcyP4kMQ GpGLV1YHMymL7fe2c1SGX impVdUCMdnG6nbUSxjVCj m2WeZLceyOnuvs6icET8b X3pm0ntEwJqlJPllt2mlU tdMOTjsw4hjOTvlWA5TfU dYYSpA52cbGTyrL7eoPHx fQ== [facility] Work Phone: Gross Description e5gvvRJnRSTlaRYJSYR4 M RHhDK2imBheiNs0nDacUC YbahO1eGBsUTgdu9eqFOI 6r3jgrnKUZngvXUAzQP6v LMzhRAEnKM7aBlMjVELbJ mYxXHBhcGVydzEyMjQwXH ScbQWqtAO7YNIxCQ6xdif wZKvyYYzzZTZgxcQ1GBRf nNEbP9RoIOPyLA7vcxrgV GQ3PRXTVzllQe8lvJPywL tcZjFcZmNoYXJzZXQwXGZ zxLmmBCVlENv6qI8FToqq GIF1UOYOEwkgYxwxrFyfu 2VjdCBcXHNnIFxcaWQgNT EwMDAgXFxkYiBPVlIgIiA 7QhEdNDX1YEGwKGv1EBxe CeWPFDEpZDurIFA4OEx0Z Jw0ZIqleeauFNa0AMMzHB xwmIPgKO8kuZwdHwqptUr kv9HndZAxXZGeMZqhoWTv NTEwMDIgXFxkYiBPVlIgI wH5WoLsLDH7TVQuCYj7EM zxD4DULHMsQPG4DJJeLpd 9OqE3JVw7KBZBHf9pVBJ0 GXygMLOrRGdsWRP3BIPwL Bj8BJYqUPxhxhJqMFjqUz elQPxnI02coLMaTLYYTyq wbGFpblxmczIyIEEuIERV N2PXAlQSPRGBY5FQAOkau HJjaFxwYXIgDQpccGFyZC ANClxwbGFpblxsdHJjaFx ubbMdBZStkMZZJJO7EA9g NQEQLspvcVXyTSQyc6FiV FxlcGljWHNhMzAgDQpcZn MyMCBSZWNlaXZlZCBpbiB kj6RoSYcfieEwdlRjpYMr hJawaIMzmWrgY7AzWO7jX IXkeb5exu91rllvk93muH H7jRRqlPRoGGnimrOeXQH lnxgvfX2aNY0jBXmrPV9i XDylDE6hSOJuXcEZx9Uvs Pr9FUM5Ej0rnULdGYWhwy XdhhAeD4Iwy5T3nNMuMNu eFYLiF75ww1NNs9Xrx5gt pLqgd6IayQUnSI1taBSuY T1Mj1yrVXZnbMMtZNN8CQ wzb0ytXUcpCNG6IIUoDzT hFOXjOQ7FOcVjHQZjNPV3 OAh9NjG4KEi8UFFEZiFsN bLlVHT0XZP8UUblIRr1IR i5OXtBFiHjGJe8JwV9AWF 1VSV5LCV5PHPhKVZtSpFz ZVGmXCVcWTzgzPFcCN1ux LcyELHsCFYkXQH9TSQouD MFu7DqJUFzHHjpDdCgIiO SXxHDTK1IPMBFWJWEB1PN WVxwYXIgDQpccGFyZCANC lxwbGFpblxsdHJjaFxmcz OaMPHbrBRCTHO3WI0bYNW XTioyvEAbOLOug6SnBUzr fKibMRIxJdSpw3QpQDvos GljWHNhMzAgDQpcZnMyMC XLMEUuePKoZMErogIqt4F tYWxpbiBhcmUgbXVsdGlw tLCjtNzbI4PaAT5cYKUgc mgxb53kwDM6fFOdmEKaEG rkkxAfXQLgfftdbD0wMc1 gFHnxCU0zWFtrGQ3jARBd MsDKr2WyiXt1VJV6Aw0ml MYtHTRefvXozjZoZ0Bit0 T4sIUbMJvsHLHlQ64zl7M Ep3Icn2pdfRmit8BtdDJy CX1fcZQfGW3Yn1udKPQsq WBgFFM1ZBosk5gpJPfpRJ Q5ABMzHeGyLIOaMM5EKqY zKQIpCNA9GIl9SmT7ESj7 WRWEReXbLbPiUVW7CYQ6K uBgCGw0WIr0FEzWCfQlOL g0PmM8VRC7FRN6WTR7QMY cXHQgMiBcXHNzIDMgXFxm sLQqRS5jpOauGQAsGPRbE NJ6PQHkuMTAx6UkJVGbFF odBqPkEuVHEpVPC05MKLI YD6sTO6ZPGAOeUaWTZ9DY P86rCblLGQWNIWSdxjQJT wwiRPTmEF7DOCIaBGovHK r0uhPfTXGjWaSaDMWbF08 yp8IQm8ZwFN5JBBl5nuIu pdmwYoKjFFBycWASb6RdX GfiQWOoAPSgpMOIm3FnNB RBZqjaflFsPVTmV9VnkuH jBWvqVCPvxp0ixMtmIKex RW4gEAUweHAcWRIoVeE0O Q4eg2dtjPWrRPJwClVhiL ugt5IlFP6mGNA3kqscBfO wLjUgeCAwLjIgeCAwLjIg M79aISFffHWqfXdnk3Rxf Au0lDMwXIjqAQ3zYJIcFE NiCXY3WE1PScjxiSiqJpE dqCQdPyN1MQOvbVJjVTF1 FO9gcEukZRKwHWx8FFtyK ABaR6AoJ1QfGFuvBjEzEL ghPUKdQGUnDHwmVJQxB4W MMDGoUFLmRAy0OFQwESw6 DBb0JD6LLdHjXHZ6SSIqU zJrGwYtGMv2AWnpUS5OQX CpMMD1YIG3HoD0HVT7Xdg cBYinrXDhADqzd2LwGkQw DVQuHVbwklZ9NLIheaTih 7IaMKJwIHZnC7yoXyZqVC ANClxmczIyIEQuIENPTE9 KMTLEI5iORZDDW4GRVPvk YXIgDQpccGFyZCANClxwb GFpblxsdHJjaFxmczIyXG YrcOJXJMK2AN4cLOUPUal osQTnSRFzy1WhXDuimThp EPDaJdFtr0NlZSrmhHbkB HNhMzAgDQpcZnMyMCBSZW AbrFQuFMAafoZej2CvPIp pbiBhcmUgbXVsdGlwbGUg eRpkQ3XbUI1yFYGoidjtj 51mtKW8tZFdnXHaKBoqoq YfEAJvlbxbbH7iKN54VZn vWA78YCbjCM8iHMFtDpUR w9VyyNc3XOH2Sn4fbCIeA GDkvtS0e51zN9Leb2Y4xY WdOn6CYMGqlQZTFKI7WT9 eVUfdUHPtP9EkV7AnicL1 XHBhciANCntcKlxlcGljc 2VjdCBcXHNnIFxcaWQgNT EwMDIgXFxkYiBPVlIgIiA 7UjPzKGC1ALBgUWx4NUas T0QJGTWfHBU7UOMyQeFqN nP1QTg9YOJDFw5fSOS8BE caJNW4AtQtGGE5ZSMgHFv 0IDIgXFxzcyAzIFxcZmwg CMlrS44grDDgNQajNuJxA AjxfQbpURDpPKY1CK1LFK CzFlDgJP7aTJMBZT2EHA0 XVBWRXO6CSVTCYGuOZCOq olRWGcfgDCIwNO5THBKmS LqlQMh7gaHsLRYwWkLeDL JiY85qi7SSp7WmED7MBVk 0cnBhclxzYjMwXGVwaWNY j2RdRYkfLSBcBZMusZRYp 7KhJAGITdclziOkUBTrF5 YpdjBtZZymHJCrnh8gxBe lSJiaKW2dVYJaeQTdJBFg WkA2DR0mAKRmXxMqeMtzq 9VgRF2rHSW7ndyqObXzCz OnyUIoWiPvqXJiHeHrK44 zNUAnaIAkmYzai2KgrQd6 dPUbUKivXO0tSYZxUOLnU FY5MH1ULtaqvEqjUbTacI BgSdI9PRSmrIUbWYT5TZ6 tpWlbMTNsSZw7PLupEUVa U8EfQ8GnQCwyXeCgYOieU LWuUBXdTLelTGLoJ6AOWX MiSCGaCSw6DBBhEFj5IMg 1YQ7UJeHaGOK0OZBwYbb7 YKPaGYj0PQliDW9ULLElK JN8UDG7JmjoIQO1IvhrTL ojtSByHNphi5TuDfRcPIX dWYqoarZ2ZMHizgQll5Cn SDSoRWKfR6hhNfGiJDGJV slaiyMfVANmRXBHUE7UVM xFRlQgQklPUFNZXHBhciA OBkuiNVOeCS9SWKMlZIkh OKh3dbMqFJJcMrJzCPIcW 01ui7INs4GbNM0SZYk8er NxgknzGbCnXORcpMPEc0C tXAJWKiinwuNjOLQoJ3Ms qmOlWTnkKBIgih4afOodO YDtRBCtbCg0yQBqPOKsxR OyVKPko7GzaLAhQQJfz9Y 5EEOco2M5DWWcX8vjSQbi uGkzAhF0daQmJqlsxHTkP pZxmTOlNdMvR28xQJCqdV KgkWhab7HzjPn0bSWeOOn dQI4vGHMkDXFsKMM6SI7i NDGgsxNQCuucFADvNZk3h nBhciANClxwYXIgDQpHcm 4iccTqcURtbV1pgVmjpqO lSFQks7WyKAVnPWHwR0yf oyMjAH8cEZYyxI6hIhovZ TUwMCBFdWNsaWQgQXZlLi viY9gskcItXD1vNBDHKUB 3QXK8FLusUWQzOEkozRHa BB3VUiNbADYyHGMfJsWwX WY7NaWbTOJSUQAennJYXa avWPWkNQJttBHQq3UsDDL NClxlcGljTmVzdERvYzB7 JGIbqEKsOEP9ZO5bwXztR AVdL7IoP5JetaR9QUSkhy OYWutpALWcAA8XZLXjYnO gDQp9 [facility] [place] Work Phone: Performing Lab m8wedQNcMFDvcADnCsQl M GLvZESdt5sdCAShiPMkEc EwMzNcZnRuYmpcdWMxXGR bDhDjw0pay081eMHvm0pt XUXcJnO7gLUxUQJfyHZgD 456YOHtKRybl1oej7QpVD WpgUXbs1J4VJGIrugkfTm 9aPqvS44fd3E1LokgA0qe OUKaAYMlO0WaRD0vVHQtB zm3XKZ2CPH1UYZbISPzX3 XuAE1xAOMygGBoFHe9q9a cxDhfJDOkEDG8c9zfWAre klNuSY5vpe2urSe6k9ffi zEgRGVmYXVsdCBQYXJhZ3 HocRhePb1oiMk2kOygGsq yVSW0Xjp0GK0cdu58fda9 hPhpFNGewnnyJvA8LFrrB VUuawatIEt4GCplKWCrhH B7JTDhjVWcR2LcVBLbUA0 fmvl4VCJ1UNlhHXCnQhL0 NDBcaGVhZGVyeTcyMFxmb 017KJG9GyTdOI6yE2Irp6 F3qL2bnNXrHOBjwNUkCzQ oTSBppc1woLShRHqdc9Lb AQP3lcF5dINguIGpXXGpJ S52Gvtkj5ScLndry0MrB9 6gjEC4CObvb0vhSU3lAyL 5jhBkMFiwo8hjnW3uWgK8 AQqbUG3aWQ8lPCQmsS1ii mxjXHBnYnJkcmhlYWRccG ggzvYuOq6ymFioOWR9RUn lM9walY6kMqC4HAipI4lc yD3vNWb0VNbgsPH5YKJun Y7aZQ4qhzgdj5ufAAqzBH bhRCQdcbQ4isP6DKOkyEG mK2JjbS2bAXLpNH3nqpyd b9djZZD9WLhpYTXaVXC7X xDiHPHib8Cbcym7FbRnw1 HqeYMoZEumF72jh500AQY fgeWoM1skvYSysfxzoNRg sujzZQgundX1JMXaDVBbN WluXGYxXGZzMjJcbGFuZz EwMzNcaGljaFxmMVxkYmN eACYpERlvC6mrKzFmVvUj WcMMsTDrxu9sbTiaZRdcv JJfoOCaqNY4nA4uWUAjan Dvbd5wGVRkmQZIiQX9YHo nfvLzP5dwcwwtCPMnpXUe EDTzqT83HHRPs1TkhHXkp CwgMjAwMDAgSGFydmFyZC hwJ3LgmrGsw3XvgDokDYl 8avQZGEU0CDAlScSjMZBI HDxRRnOpSyTvQbV8IyPkP HBhclxwYXJccGFyZFxwbG YymdibYNcmvlT7RMFdJHk uXGYxXGZzMjJcbGFuZzEw MzNcaGljaFxmMVxkYmNoX RFqHDdsV1vsRhXqE4XoKA ZbTiQhrWFnA7qrQSYxu4G aoF9muROgsLidqH7gTbQs OdRxMhamHK1zACYrC5fdv JNgVSEuIREdM2tdBlRdlG 9jaFxmMVxmczIyIERpcmV owM6lXiNCDGOwrKfwZ5Q5 cmFraWFuLCBNLkQuXHBhc n0= [facility] [place] Work Phone: [facility] [place] Work Phone: EGD Study observation Narrat judah 07-15-2023 [facility] G[facility]intestinal [facility] Patient Name: Torrey Campos Procedure Date: 07/15/2023 1:29 PM Date of : 1985 Admit Type: Outpatient Age: 38 Room: [place] [id number] Gender: Male Note Status: Finalized Attending MD: Ashley Melgoza MD, [id number] Procedure: Upper GI endoscopy Indications: Epigastric abdominal [...] pathology resu (more content not included)... [employer] [facility] [place] Radiology Study observation (narrative) [facility] Flexible sigmoidoscopy study on 07-15-2023 [facility] G[facility]intestinal [facility] Patient Name: Torrey Campos Procedure Date: 07/15/2023 1:29 PM Date of : 1985 Admit Type: Outpatient Age: 38 Room: [place] [id number] Gender: Male Note Status: Finalized Attending MD: Ashley Melgoza MD, [id number] Procedure: Colonoscopy Indications: Change in bowel habits [...] colon, removed (more content not included)... [employer]ATION [facility] [place] Radiology Study observation (narrative) [facility] EXERCISE STRESS ECG (WITHOUT IMAGING)on 06-09-2023 EXERCISE STRESS ECG (WITHOUT IMAGING) Stress Clinical Nursing Intern Report: Exercise Stress ECG (without Imaging) [facility] [facility] Date of service: 06/09/2023 12:32:26 PM Supervising physician: Vargas Thakkar DO PATIENT: Name: MR. TORREY CAMPOS Age: 37 years Gender: M The supervising physician was in the department and immediately available. Final -------- Stress ECG Report: Exercise Stress ECG (without Imaging) [facility] Date of service: 06/09/2023 12:32:26 PM Ordering physician: KIM CESPEDES floor specialist: Svitlana Ferreira Documentation Consultant: Opal Carey Interpreting physician: Fernando Granados MD [...] 184/84 mmHg. The double product achieved was [address]. Medications: Last Used PEPCID Resting ECG: Normal [...] (HRR): 20 bpm Rate Pressure Product (RPP): 30009 Campbell Treadmill Score: 11.0 Stress Exercise Observations: [...] equation for determining estimated MET values for [facility] stress tests changed. Comparison of test results before and after that date may show a change in estimated MET values for peak/max exercise despite a test duration that is similar in length. The validity of the new FRIEND equation for exercise METS is endorsed by the [place] [employer]. Mar P, Keith LA, Teo R, Jose J, Carmela Perez. New Generalized Equation for Predicting Maximal Oxygen Uptake (from the Fitness Registry and the Importance of Exercise National Database). The [place] Journal of Cardiology. 2017;120(4):688-692). Final CC [employer] Medical Image : [id number]. [id number] namicsSISUID See Link below for Image Normal [facility] CNPKatelyn 06-08-2023 CNPN Telephone (CDLBME) TORREY CAMPOS ([id number]) 1985 M Date Time Provider Department 06/08/23 [...] Fully Assessed Reason for Visit: Reminder Call [[id number]] Prescriptions as of 06/08/2023 - famotidine (PEPCID) 20 mg tablet Take 1 tablet by mouth two times a day. - calcium phosphate dibas/vit D3 (VITAMIN D, WITH CALCIUM, ORAL) Take by mouth. Problem List As Of Date: 06/08/2023 (None) Encounter Status:Closed by OPAL CAREY on 06/08/23 [facility] Absolute lymphocyte countOrd ered By: Felipe Valera on 05-26-2023 Lymphocytes Auto (Unsp spec) [#/Vol] 1.12 10*3/uL 0.83-4.51 [facility] Basic Metabolic Profile (BMP )on 05-26-2023 BUN/CRE 14.3 RATIO Normal - [facility] Comment on above: Order Comment: 'TROP ' Serial specimen #1, #2 or #3: 1 Performed By: #### L 501.4020, L100.0100, L500.2500 #### [facility] [address] [place], [address] CA,Total 8.8 mg/dL Normal 8.5-10.1 [facility] Comment on above: Order Comment: 'TROP ' Serial specimen #1, #2 or #3: 1 Performed By: #### L 501.4020, L100.0100, L500.2500 #### [facility] [address] [place], [address] Chloride [Moles/Vol] 105 mmol/L Normal 98-107 [facility] Comment on above: Order Comment: 'TROP ' Serial specimen #1, #2 or #3: 1 Performed By: #### L 501.4020, L100.0100, L500.2500 #### [facility] [address] [place], [address] CO2 [Moles/Vol] 27.0 mmol/L Normal 21.0-32.0 [facility] Comment on above: Order Comment: 'TROP ' Serial specimen #1, #2 or #3: 1 Performed By: #### L 501.4020, L100.0100, L500.2500 #### [facility] [facility] [address] [place], [address] Creatinine [Mass/Vol] 0.98 mg/dL Normal 0.70-1.30 [facility] Comment on above: Order Comment: 'TROP ' Serial specimen #1, #2 or #3: 1 Result Comment: The validity of the calculated GFR GFRAA in patients over 70 years has not been determined. Clinical correlation is essential. Performed By: #### L 501.4020, L100.0100, L500.2500 #### [facility] [address] [place], [address] ECRCL 113.28 ml/min Normal [facility] Comment on above: Order Comment: 'TROP ' Serial specimen #1, #2 or #3: 1 Performed By: #### L 501.4020, L100.0100, L500.2500 #### [facility] [address] [place], [address] EST GFR - AA 110 mL/min Normal >60 [facility] Comment on above: Order Comment: 'TROP ' Serial specimen #1, #2 or #3: 1 Result Comment: Afri can [place] GFR Calc Performed By: #### L 501.4020, L100.0100, L500.2500 #### [facility] [address] [place], [address] GAP 7 Normal 5-15 [facility] Comment on above: Order Comment: 'TROP ' Serial specimen #1, #2 or #3: 1 Performed By: #### L 501.4020, L100.0100, L500.2500 #### [facility] [address] [place], [address] GFR/1.73 sq M.predicted among non-blacks MDRD (S/P/Bld) [Vol rate/Area] 91 mL/min/{1.73_m2} Normal >60 [facility] Comment on above: Order Comment: 'TROP ' Serial specimen #1, #2 or #3: 1 Result Comment: Non- GFR Calc Performed By: #### L 501.4020, L100.0100, L500.2500 #### [facility] [address] [place] [place], [address] Glucose [Mass/Vol] 142 mg/dL High 74-106 [facility] Comment on above: Order Comment: 'TROP ' Serial specimen #1, #2 or #3: 1 Result Comment: Fast ing Glucose result greater than or equal to 126 mg/dL suggests DIABETES MELLITUS per A.D.A. criteria. Performed By: #### L 501.4020, L100.0100, L500.2500 #### [facility] [address] [place], [address] Potassium [Moles/Vol] 3.6 mmol/L Normal 3.5-5.1 [facility] Comment on above: Order Comment: 'TROP ' Serial specimen #1, #2 or #3: 1 Performed By: #### L 501.4020, L100.0100, L500.2500 #### [facility] [address] [place], [address] Sodium [Moles/Vol] 139 mmol/L Normal 136-145 [facility] Comment on above: Order Comment: 'TROP ' Serial specimen #1, #2 or #3: 1 Performed By: #### L 501.4020, L100.0100, L500.2500 #### [facility] [address] [place], [address] Urea nitrogen [Mass/Vol] 14 mg/dL Normal 7-18 [facility] Comment on above: Order Comment: 'TROP ' Serial specimen #1, #2 or #3: 1 Performed By: #### L 501.4020, L100.0100, L500.2500 #### [facility] [address] [place], [address] Basophil percentageOrdered B y: Felipe Valera on 05-26-2023 Basophils/100 WBC (Bld) 0.9 % 0-1 [facility] Chloride [Moles/Vol] 105 mmol/L 98-107 [facility] Eosinophils/100 WBC (Bld) 1.5 % 0-5 [facility] Glucose [Mass/Vol] 142 mg/dL 74-106 [facility] Comment on above: Fasting Glucose resu lt greater than or equal to 126 mg/dL suggests DIABETES MELLITUS per A.D.A. criteria. Neutrophils (Bld) [#/Vol] 3.1 10*3/uL 2.0-7.7 [facility] Neutrophils/100 WBC (Bld) 65.8 % 47-70 [facility] Potassium [Moles/Vol] 3.6 mmol/L 3.5-5.1 [facility] Sodium [Moles/Vol] 139 mmol/L 136-145 [facility] WBC (Bld) [#/Vol] 4.6 10*3/uL 4.4-11.0 [facility] Blood erythrocytes count (nu mber/volume)Ordered By: Felipe Valera on 05-26-2023 RBC (Bld) [#/Vol] 4.88 10*6/uL 4.6-6.2 [facility] Blood hemoglobin measurement (mass/volume)Ordered By: Felipe Valera on 05-26-2023 Hemoglobin (Bld) [Mass/Vol] 14.9 g/dL 13.0-16.5 [facility] Blood lymphocytes/100 leukoc ytesOrdered By: Felipe Valera on 05-26-2023 Lymphocytes/100 WBC (Bld) 24.1 % 19-41 [facility] Blood monocytes/100 leukocyt esOrdered By: Felipe Valera on 05-26-2023 Monocytes/100 WBC (Bld) 7.1 % 0-10 [facility] Blood platelet mean volumeOr dered By: Felipe Valera on 05-26-2023 Platelet mean volume (Bld) [Entitic vol] 10.4 fL 6.2-12.0 [facility] CBC W/Diff, Automatedon 05-05 Absolute Lymph 1.12 X10 3/uL Normal 0.83-4.51 [facility] Comment on above: Performed By: #### L 501.4020, L100.0100, L500.2500 #### [facility] [address] [place], [address] Absolute Neut 3.1 X10 3/uL Normal 2.0-7.7 [facility] Comment on above: Performed By: #### L 501.4020, L100.0100, L500.2500 #### [facility] [address] [place], [address] Basophils/100 WBC (Bld) 0.9 % Normal 0-1 [facility] Comment on above: Performed By: #### L 501.4020, L100.0100, L500.2500 #### [facility] [address] [place], [address] Eosinophils/100 WBC (Bld) 1.5 % Normal 0-5 [facility] Comment on above: Performed By: #### L 501.4020, L100.0100, L500.2500 #### [facility] [address] [place], [address] Erythrocyte distribution width (RBC) [Ratio] 12.9 % Normal 11.6-14.6 [facility] Comment on above: Performed By: #### L 501.4020, L100.0100, L500.2500 #### [facility] [address] [place], [address] Hematocrit (Bld) [Volume fraction] 43.0 % Normal 40-54 [facility] Comment on above: Performed By: #### L 501.4020, L100.0100, L500.2500 #### [facility] [address] [place], [address] Hemoglobin (Bld) [Mass/Vol] 14.9 g/dL Normal 13.0-16.5 [facility] Comment on above: Performed By: #### L 501.4020, L100.0100, L500.2500 #### [facility] [address] [place], [address] IG% 0.600 Normal 0.0-0.9 [facility] Comment on above: Result Comment: IG% - Immature Granulocytes (promyelocytes, myelocytes and metamyelocytes) > 1% indicates that a LEFT SHIFT is Present. Performed By: #### L 501.4020, L100.0100, L500.2500 #### [facility] [address] [place], [address] Lymphocytes/100 WBC (Bld) 24.1 % Normal 19-41 [facility] Comment on above: Performed By: #### L 501.4020, L100.0100, L500.2500 #### [facility] [address] [place], [address] MCH (RBC) [Entitic mass] 30.5 pg Normal 27.0-32.0 [facility] Comment on above: Performed By: #### L 501.4020, L100.0100, L500.2500 #### [facility] [address] [place], [address] MCHC (RBC) [Mass/Vol] 34.7 g/dL Normal 32-36 [facility] Comment on above: Performed By: #### L 501.4020, L100.0100, L500.2500 #### [facility] [address] [place], [address] MCV (RBC) [Entitic vol] 88.1 fL Normal 80-94 [facility] Comment on above: Performed By: #### L 501.4020, L100.0100, L500.2500 #### [facility] [address] [place], [address] Monocytes/100 WBC (Bld) 7.1 % Normal 0-10 [facility] Comment on above: Performed By: #### L 501.4020, L100.0100, L500.2500 #### [facility] [address] [place], [address] Neutrophils/100 WBC (Bld) 65.8 % Normal 47-70 [facility] Comment on above: Performed By: #### L 501.4020, L100.0100, L500.2500 #### [facility] [address] [place], [address] Nucleated RBC (Bld) [#/Vol] 0 10*3/uL Normal 0-5 [facility] Comment on above: Performed By: #### L 501.4020, L100.0100, L500.2500 #### [facility] [address] [place], [address] Platelet mean volume (Bld) [Entitic vol] 10.4 fL Normal 6.2-12.0 [facility] Comment on above: Performed By: #### L 501.4020, L100.0100, L500.2500 #### [facility] [address] [place], [address] Platelets (Bld) [#/Vol] 213 10*3/uL Normal 150-450 [facility] Comment on above: Performed By: #### L 501.4020, L100.0100, L500.2500 #### [facility] [address] [place], [address] RBC (Bld) [#/Vol] 4.88 10*6/uL Normal 4.6-6.2 [facility] Comment on above: Performed By: #### L 501.4020, L100.0100, L500.2500 #### [facility] [address] [place], [address] RDW SD 41.3 fl Normal 35.1-43.9 [facility] Comment on above: Performed By: #### L 501.4020, L100.0100, L500.2500 #### [facility] [address] [place], [address] WBC (Bld) [#/Vol] 4.6 10*3/uL Normal 4.4-11.0 [facility] Comment on above: Performed By: #### L 501.4020, L100.0100, L500.2500 #### [facility] [address] [place], [address] Chest 1 View (Portable)on Chest 1 View (Portable) [facility] Imaging Services [address] [place] [address] Chest 1 View (Portable) MR#: [id number] Acct: [id number] Name: TORREY CAMPOS Rep #: [id number] : 1985 M 37 From: Barak Tabor MD PCP: Care Physician,No Primary Status: REG ER Study: Chest 1 View (Portable) Date of Exam: 05/26/23 Exam# [id number] Ordering Dr: Felipe Valera DO [id number] STUDY: X-RAY CHEST REASON FOR EXAM: Male, [...] Felipe Valera, DO; No Primary Care Physician Want Ad Supervisor: Signed Normal [facility] Determination of erythrocyte mean corpuscular volume (MCV)Ordered By: Felipe Valera on 05-26-2023 MCV (RBC) [Entitic vol] 88.1 fL 80-94 [facility] Emergency Department Summary on 05-26-2023 Emergency Department Summary [facility] Medical Records Department [address] [place] [address] Emergency Department Summary 05/26/23 MR#: [id number] Acct: [id number] Name: TORREY CAMPOS Rep #: [id number] : 1985 37 From: Felipe Valera DO [...] decision making narrative: HISTORY OF PRESENT ILLNESS: 33-rojm[age]jzg-year-old male presents with chest pain. Notes intermittent [...] injury. High-sensit (more content not included)... Normal [facility] Hematocrit Auto (Bld) [Volum e fraction]Ordered By: Felipe Valera on 05-26-2023 Hematocrit (Bld) [Volume fraction] 43.0 % 40-54 [facility] L501.4020on 05-26-2023 TROPONIN-I HS 6 pg/mL Normal 3.0-78.0 [facility] Comment on above: Order Comment: 'TROP ' Serial specimen #1, #2 or #3: 2 Result Comment: Plea se Note: New Test Units and Gender Specific Reference Ranges. For more information see Policy Stat Procedure [place] High Sensitivity Troponin (TNIH) and attachments. Performed By: #### L 501.4020 #### [facility] [address] [place], [place], [address] TROPONIN-I HS 6 pg/mL Normal 3.0-78.0 [facility] Comment on above: Order Comment: 'TROP ' Serial specimen #1, #2 or #3: 1 Result Comment: Plea se Note: New Test Units and Gender Specific Reference Ranges. For more information see Policy Stat Procedure [place] High Sensitivity Troponin (TNIH) and attachments. Performed By: #### L 501.4020, L100.0100, L500.2500 #### [facility] [address] [place], [address] Laboratory - Chemistry and C hemistry - challengeOrdered By: Felipe Valera on 05-26-2023 CO2 [Moles/Vol] 27.0 mmol/L 21.0-32.0 [facility] Urea nitrogen/Creatinine [Mass ratio] 14.3 mg/mg 10-20 [facility] Laboratory - Hematology and Cell countsOrdered By: Felipe Valera on 05-26-2023 Erythrocyte distribution width (RBC) [Entitic vol] 41.3 fL 35.1-43.9 [facility] Erythrocyte distribution width (RBC) [Ratio] 12.9 % 11.6-14.6 [facility] Immature granulocytes/100 WBC (Bld) 0.600 % 0.0-0.9 [facility] Comment on above: IG% - Immature Granu locytes (promyelocytes, myelocytes and metamyelocytes) > 1% indicates that a LEFT SHIFT is Present. MCH (RBC) [Entitic mass] 30.5 pg 27.0-32.0 [facility] Nucleated RBC/100 WBC (Bld) [Ratio] 0 % 0-5 [facility] MCHC Auto (RBC) [Mass/Vol]Or dered By: Felipe Valera on 05-26-2023 MCHC (RBC) [Mass/Vol] 34.7 g/dL 32-36 [facility] No Panel InformationOrdered By: Felipe Valera on 05-26-2023 Troponin I High Sensitivity 6 pg/mL 3.0-78.0 [facility] Comment on above: Please Note: New Jaida t Units and Gender Specific Reference Ranges. For more information see Policy Stat Procedure [place] High Sensitivity Troponin (TNIH) and attachments. Estimated Creatinine Clearance Calc 113.28 ml/min [facility] Estimated GFR (MDRD) Amer 110 mL/min >60 [facility] Comment on above: GFR Calc Estimated GFR (MDRD) Non-Af Amer 91 mL/min >60 [facility] Comment on above: Non- GFR Calc Platelets bldOrdered By: Radha Valera on 05-26-2023 Platelets (Bld) [#/Vol] 213 10*3/uL 150-450 [facility] Serum or plasma calcium cece urement (mass/volume)Ordered By: Felipe Valera on 05-26-2023 Calcium [Mass/Vol] 8.8 mg/dL 8.5-10.1 [facility] Serum or plasma creatinine m easurement (mass/volume)Ordered By: Felipe Valera on 05-26-2023 Creatinine [Mass/Vol] 0.98 mg/dL 0.70-1.30 [facility] Comment on above: The validity of the calculated GFR & GFRAA in patients over 70 years has not been determined. Clinical correlation is essential. Serum or plasma urea nitroge n measurement (mass/volume)Ordered By: Felipe Valera on 05-26-2023 Urea nitrogen [Mass/Vol] 14 mg/dL 7-18 [facility] Thin prep Papanicolaou smear with manual screeningOrdered By: Felipe Valera on 05-26-2023 Thin prep Papanicolaou smear with manual screening 7 5-15 [facility] NURSING PROGon 03-02-2023 NURSING PROG HNO ID: [id number] Author: Jaycee Tavera RN Service: Nursing Author Type: Registered Nurse Type: Nursing Progress Note Filed: 03/02/2023 2:01 PM Note Text: Dr. Lion at bedside for right middle finger local injection. RN at bedside, pt monitored throughout, BP 151/92 Temp 36.8 ?C (98.2 ?F) (Temporal Artery) Resp 18 SpO2 97% .Pt tolerated procedure without difficulty. [facility] OPERATIVE NOon 03-02-2023 OPERATIVE NO HNO ID: [id number] Author: Jasson Lion MD Service: Orthopaedic Surgery Author Type: Physician Type: Operative Report Filed: 03/11/2023 5:57 PM Note Text: OPERATIVE/PROCEDURE REPORT LOG ID: [id number] SURGERY/PROCEDURE DATE: 03/02/2023 INCISION/PROCEDURE START TIME: 1:58 PM INCISION CLOSE/PROCEDURE END TIME: 2:06 PM SURGEON(S)/PROCEDURAL IST(S) AND PRODUCTION GEAR CUTTER(S): Surgeon(s) and Role: * Jasson Lion MD - Primary Physician Documentation Consultant: Kaylee Soria PA-C Registered Nurse Drug Abuse Social Worker: Ines Bal RN SURGERY/PROCEDURE(S): Excision soft tissue [...] DATE: March 11, 2023 TIME: 5:53 PM [facility] SURGICAL PATHOLOGYon 023 CASE REPORT [facility] Comment on above: Order Comment: Speci men Type: TISSUE SPECIMEN Ordering Facility: [facility] Address: [address] [place] [id number] Result Comment: Surg ica Pathology Report Case: [id number] Authorizing Provider: Jasson Lion MD Collected: 03/02/2023 02:00 PM Ordering Location: [facility] Surgery Received: 03/02/2023 03:04 PM Pathologist: Maria Alejandra Sands MD Specimen: SOFT TISSUE MASS RESECTION, 1. right middle finger mass Performed By: #### S #### [facility] CLIA [id number] [address] [place] [address] [place] CLINICAL HISTORY Normal [facility] Comment on above: Order Comment: Speci men Type: TISSUE SPECIMEN Ordering Facility: [facility] Address: [address] [place] [address] Result Comment: Pre- op diagnosis: Mass of finger of right hand [R22.31] Performed By: #### S #### [facility] CLIA [id number] [address] [place] [address] [place] FINAL DIAGNOSIS Normal [facility] Comment on above: Order Comment: Speci men Type: TISSUE SPECIMEN Ordering Facility: [facility] Address: [address] [place] [address] Result Comment: A. S oft tissue, right middle finger, excision: - Tenosynovial giant cell tumor. Performed By: #### S #### [facility] CLIA [id number] [address] [place] [address] [place] FINAL PERFORMING LAB Normal [facility] Comment on above: Order Comment: Speci men Type: TISSUE SPECIMEN Ordering Facility: [facility] Address: [address] [place] [address] Result Comment: Diag nostic interpretation performed at [facility], [facility] [place] [address] CLIA# [id number] Barbed Wire Machine Operator: Romel Bess M.D. Performed By: #### S #### [facility] CLIA [id number] [address] [place] [address] [place] GROSS DESCRIPTION Normal [facility] Comment on above: Order Comment: Speci men Type: TISSUE SPECIMEN Ordering Facility: [facility] Address: [address] [place] [address] Result Comment: A. S OFT TISSUE MASS RESECTION Received in formalin designated right middle finger mass is a infante-white nodule measuring 0.6 x 0.5 x 0.4 cm. The specimen is bisected revealing a solid cut surface. The specimen is totally submitted in 1 cassette. BF March 03, 2023 9:54 AM Gross examination performed at [facility], [facility] [place] [address] Performed By: #### S #### [facility] CLIA [id number] [address] [place] [id number] XR Hand - right PA and Later al and Obliqueon 06-01-2022 IMPRESSION: Unremarkable right hand Want Ad Supervisor: RANDY Transcribe Date/Time: Jun 01 2022 1:38P Dictated by : VICTORIANO OMALLEY MD This examination was interpreted and the report reviewed and electronically signed by: VICTORIANO OMALLEY MD on Jun 01 2022 1:39PM [facility] DIVISION OF RADIOLOGY * * *Final Report* [...] soft tissue abnormality. DIVISION OF RADIOLOGY Provider, [facility] - 06/01/2022 * * *Final Report* * [...] tissue abnormality. IMPRESSION IMPRESSION: Unremarkable right hand Want Ad Supervisor: PSCB Transcribe Date/Time: Jun 01 2022 1:38P Dictated by : VICTORIANO OMALLEY MD This examination was interpreted and the report reviewed and electronically signed by: VICTORIANO OMALLEY MD on Jun 01 2022 1:39PM EST [facility] Radiology [facility]ative[facility] Hand - right PA and Later al and ObliqueOrdered By: Ccf Provider on 06-01-2022 [facility] Fructose challenge (hydrogen breath test) panel (Exhl gas) [facility] Vital Signs Date Time Vital Sign Value Performing Clinician Facility 01-15-2025 15:39-0400 Body temperature 98.2 [degF] Dr. Joshua Wright DO Work Phone: [facility] 01-15-2025 15:39-0400 Diastolic blood pressure 96 mm[Hg] Dr. Joshua Wright DO Work Phone: [facility] 01-15-2025 15:39-0400 Heart rate 85 /min Dr. Joshua Wright DO Work Phone: [facility] 01-15-2025 15:39-0400 Respiratory rate 20 /min Dr. Joshua Wright DO Work Phone: [facility] 01-15-2025 15:39-0400 SaO2% (BldA) [Mass fraction] 100 % Dr. Joshua Wright DO Work Phone: [facility] 01-15-2025 15:39-0400 Systolic blood pressure 144 mm[Hg] Dr. Joshua Wright DO Work Phone: [facility] 01-15-2025 12:25-0400 Body height 182.[address] Joshua Wright DO Work Phone: [facility] 01-15-2025 12:25-0400 Body mass index (BMI) [Ratio] 30.9 kg/m2 Dr. Joshua Wright DO Work Phone: [facility] 01-15-2025 12:25-0400 Body weight 103.[address] Joshua Wright DO Work Phone: [facility] 01-10-2025 08:46-0400 Diastolic blood pressure 85 mm[Hg] Alex Muniz MD Work Phone: [facility] 01-10-2025 08:46-0400 Systolic blood pressure 131 mm[Hg] Alex Muniz MD Work Phone: [facility] 01-10-2025 08:04-0400 Body height 182.2 cm Alex Muniz MD Work Phone: [facility] 01-10-2025 08:04-0400 Body mass index (BMI) [Ratio] 31.82 kg/m2 Alex Muniz MD Work Phone: [facility] 01-10-2025 08:04-0400 Body weight 105.69 kg Alex Muniz MD Work Phone: [facility] 01-10-2025 08:04-0400 Heart rate 91 /min Alex Muniz MD Work Phone: [facility] 08-01-2024 08:06-0500 Diastolic blood pressure 78 mm[Hg] Alex Muniz MD Work Phone: [facility] Comment on above: Ernesto BP 08-01-2024 08:06-0500 Systolic blood pressure 114 mm[Hg] Alex Muniz MD Work Phone: [facility] Comment on above: Ernesto BP 08-01-2024 07:22-0500 Body mass index (BMI) [Ratio] 29.83 kg/m2 Alex Muniz MD Work Phone: [facility] 08-01-2024 07:22-0500 Body weight 99.07 kg Alex Muniz MD Work Phone: [facility] 08-01-2024 07:22-0500 Heart rate 104 /min Alex Muniz MD Work Phone: [facility] 08-01-2024 07:22-0500 Respiratory rate 16 /min Alex Muniz MD Work Phone: [facility] 08-01-2024 07:22-0500 SaO2% (BldA) [Mass fraction] 98 % Alex Muniz MD Work Phone: [facility] 07-30-2024 08:00-0500 Diastolic blood pressure 108 mm[Hg] Jose Antonio Golias PT Work Phone: [facility] 07-30-2024 08:00-0500 Heart rate 79 /min Jose Antonio Golias PT Work Phone: [facility] 07-30-2024 08:00-0500 Systolic blood pressure 153 mm[Hg] Jose Antonio Golias PT Work Phone: [facility] 07-23-2024 11:31-0500 Body mass index (BMI) [Ratio] 29.99 kg/m2 Flores Praisler-Wood X RAY INSPECTOR.PHYSICS TECHNICIAN Work Phone: [facility] 07-23-2024 11:31-0500 Body temperature 98.6 [degF] Flores Praisler-Wood X RAY INSPECTOR.PHYSICS TECHNICIAN Work Phone: [facility] 07-23-2024 11:31-0500 Body weight 99.6 kg Flores Praisler-Wood X RAY INSPECTOR.PHYSICS TECHNICIAN Work Phone: [facility] 07-23-2024 11:31-0500 Diastolic blood pressure 74 mm[Hg] Flores Praisler-Wood X RAY INSPECTOR.PHYSICS TECHNICIAN Work Phone: [facility] 07-23-2024 11:31-0500 Heart rate 102 /min Flores Praisler-Wood X RAY INSPECTOR.PHYSICS TECHNICIAN Work Phone: [facility] 07-23-2024 11:31-0500 Respiratory rate 16 /min Flores Praisler-Wood X RAY INSPECTOR.PHYSICS TECHNICIAN Work Phone: [facility] 07-23-2024 11:31-0500 SaO2% (BldA) [Mass fraction] 96 % Floresnomi Beltran X RAY INSPECTOR.PHYSICS TECHNICIAN Work Phone: [facility] 07-23-2024 11:31-0500 Systolic blood pressure 142 mm[Hg] Flores Beltran X RAY INSPECTOR.PHYSICS TECHNICIAN Work Phone: [facility] 07-16-2024 07:55-0500 Body mass index (BMI) [Ratio] 30.05 kg/m2 Alex Muniz MD Work Phone: [facility] 07-16-2024 07:55-0500 Body weight 99.79 kg Alex Muniz MD Work Phone: [facility] 07-16-2024 07:55-0500 Diastolic blood pressure 72 mm[Hg] Alex Muniz MD Work Phone: [facility] 07-16-2024 07:55-0500 Heart rate 85 /min Alex Muniz MD Work Phone: [facility] 07-16-2024 07:55-0500 Respiratory rate 16 /min Alex Muniz MD Work Phone: [facility] 07-16-2024 07:55-0500 SaO2% (BldA) [Mass fraction] 99 % Alex Muniz MD Work Phone: [facility] 07-16-2024 07:55-0500 Systolic blood pressure 130 mm[Hg] Alex Muniz MD Work Phone: [facility] 02-09-2024 08:26-0400 Body mass index (BMI) [Ratio] 29.05 kg/m2 Alex Muniz MD Work Phone: [facility] 02-09-2024 08:26-0400 Body temperature 97.81 [degF] Alex Muniz MD Work Phone: [facility] 02-09-2024 08:26-0400 Body weight 96.5 kg Alex Muniz MD Work Phone: [facility] 02-09-2024 08:26-0400 Diastolic blood pressure 74 mm[Hg] Alex Muniz MD Work Phone: [facility] 02-09-2024 08:26-0400 Heart rate 91 /min Alex Muniz MD Work Phone: [facility] 02-09-2024 08:26-0400 Respiratory rate 16 /min Alex Muniz MD Work Phone: [facility] 02-09-2024 08:26-0400 SaO2% (BldA) [Mass fraction] 97 % Alex Muniz MD Work Phone: [facility] 02-09-2024 08:26-0400 Systolic blood pressure 132 mm[Hg] Alex Muniz MD Work Phone: [facility] 01-19-2024 08:59-0400 Diastolic blood pressure 82 mm[Hg] Alex Muniz MD Work Phone: [facility] Comment on above: recheck 01-19-2024 08:59-0400 Systolic blood pressure 132 mm[Hg] Alex Muniz MD Work Phone: [facility] Comment on above: recheck 01-19-2024 08:05-0400 Body mass index (BMI) [Ratio] 29.5 kg/m2 Alex Muniz MD Work Phone: [facility] 01-19-2024 08:05-0400 Body weight 97.98 kg Alex Muniz MD Work Phone: [facility] 01-19-2024 08:05-0400 Heart rate 86 /min Alex Muniz MD Work Phone: [facility] 01-19-2024 08:05-0400 Respiratory rate 16 /min Alex Muniz MD Work Phone: [facility] 01-19-2024 08:05-0400 SaO2% (BldA) [Mass fraction] 97 % Alex Muniz MD Work Phone: [facility] 01-14-2024 12:19-0400 Body mass index (BMI) [Ratio] 29.81 kg/m2 Ad Pollard APRN.PHYSICS TECHNICIAN Work Phone: [facility] 01-14-2024 12:19-0400 Body temperature 98.6 [degF] Ad Pollard X RAY INSPECTOR.PHYSICS TECHNICIAN Work Phone: [facility] 01-14-2024 12:19-0400 Body weight 99 kg Adcarlos Pollard X RAY INSPECTOR.PHYSICS TECHNICIAN Work Phone: [facility] 01-14-2024 12:19-0400 Diastolic blood pressure 104 mm[Hg] Ad Pollard X RAY INSPECTOR.PHYSICS TECHNICIAN Work Phone: [facility] Comment on above: checked x 2 whit coat 01-14-2024 12:19-0400 Heart rate 119 /min Ad Pollard X RAY INSPECTOR.PHYSICS TECHNICIAN Work Phone: [facility] 01-14-2024 12:19-0400 Respiratory rate 20 /min Ad Pollard X RAY INSPECTOR.PHYSICS TECHNICIAN Work Phone: [facility] 01-14-2024 12:19-0400 SaO2% (BldA) [Mass fraction] 99 % Ad Pollard X RAY INSPECTOR.PHYSICS TECHNICIAN Work Phone: [facility] 01-14-2024 12:19-0400 Systolic blood pressure 148 mm[Hg] Ad Pollard X RAY INSPECTOR.PHYSICS TECHNICIAN Work Phone: [facility] Comment on above: checked x 2 whit coat 12-29-2023 14:46-0400 Body mass index (BMI) [Ratio] 28.99 kg/m2 Valerie Franco X RAY INSPECTOR.PHYSICS TECHNICIAN Work Phone: [facility] 12-29-2023 14:46-0400 Body weight 96.3 kg Valerie Franco X RAY INSPECTOR.PHYSICS TECHNICIAN Work Phone: [facility] 12-29-2023 14:46-0400 Diastolic blood pressure 97 mm[Hg] Valreie Franco X RAY INSPECTOR.PHYSICS TECHNICIAN Work Phone: [facility] 12-29-2023 14:46-0400 Heart rate 93 /min Valerie Franco X RAY INSPECTOR.PHYSICS TECHNICIAN Work Phone: [facility] 12-29-2023 14:46-0400 Systolic blood pressure 145 mm[Hg] Valerie Franco X RAY INSPECTOR.PHYSICS TECHNICIAN Work Phone: [facility] 07-15-2023 14:24-0500 Diastolic blood pressure 81 mm[Hg] Ashley Melgoza MD Work Phone: [facility] 07-15-2023 14:24-0500 Heart rate 75 /min Ashley Melgoza MD Work Phone: [facility] 07-15-2023 14:24-0500 Respiratory rate 16 /min Ashley Melgoza MD Work Phone: [facility] 07-15-2023 14:24-0500 SaO2% (BldA) [Mass fraction] 96 % Ashley Melgoza MD Work Phone: [facility] 07-15-2023 14:24-0500 Systolic blood pressure 130 mm[Hg] Ashley Melgoza MD Work Phone: [facility] 07-15-2023 14:10-0500 Body temperature 97.5 [degF] Ashley Melgoza MD Work Phone: [facility] 07-15-2023 13:15-0500 Body height 182.2 cm Ashley Melgoza MD Work Phone: [facility] 07-15-2023 13:15-0500 Body mass index (BMI) [Ratio] 28.68 kg/m2 Ashley Melgoza MD Work Phone: [facility] 07-15-2023 13:15-0500 Body weight 95.25 kg Ashley Melgoza MD Work Phone: [facility] 05-30-2023 08:48-0500 Body weight 96.53 kg Kim Cespedes X RAY INSPECTOR.PHYSICS TECHNICIAN Work Phone: [facility] 05-30-2023 08:48-0500 Diastolic blood pressure 88 mm[Hg] Kim Podlogar X RAY INSPECTOR.PHYSICS TECHNICIAN Work Phone: [facility] 05-30-2023 08:48-0500 Heart rate 86 /min Kim Podlogar X RAY INSPECTOR.PHYSICS TECHNICIAN Work Phone: [facility] 05-30-2023 08:48-0500 Respiratory rate 18 /min Kim Podlogar X RAY INSPECTOR.PHYSICS TECHNICIAN Work Phone: [facility] 05-30-2023 08:48-0500 SaO2% (BldA) [Mass fraction] 99 % Kim Podlogar X RAY INSPECTOR.PHYSICS TECHNICIAN Work Phone: [facility] 05-30-2023 08:48-0500 Systolic blood pressure 133 mm[Hg] Kim Podlogar X RAY INSPECTOR.PHYSICS TECHNICIAN Work Phone: [facility] 05-26-2023 15:00-0500 Diastolic blood pressure 96 mm[Hg] [facility] 05-26-2023 15:00-0500 Heart rate 95 /min [facility] 05-26-2023 15:00-0500 Respiratory rate 15 /min [facility] 05-26-2023 15:00-0500 SaO2% (BldA) [Mass fraction] 96 % [facility] 05-26-2023 15:00-0500 Systolic blood pressure 164 mm[Hg] [facility] 05-26-2023 13:09-0500 Body height 182.88 cm [facility] 05-26-2023 13:09-0500 Body mass index (BMI) [Ratio] 29.5 kg/m2 [facility] 05-26-2023 13:09-0500 Body temperature 97 [degF] [facility] 05-26-2023 13:09-0500 Body weight 98.56 kg [facility] Encounters Encounter Date Encounter Type Care Provider Facility Start: 01-15-2025 End: 01-15-2025 Emergency department patient visit Dr. Joshua Wright DO Work Phone: -Emergency Department Work Phone: Start: 01-14-2025 End: 01-14-2025 ambulatory Alex Muniz MD Work Phone: [facility] Comment on above: making sense of test s results Start: 01-11-2025 End: 01-11-2025 Patient encounter procedure Ashu Eden Mckeer OD Work Phone: Ophthalmology Comment on above: Blurred vision (Prim daljit Dx); Subjective visual disturbance Start: 01-11-2025 End: 01-11-2025 ambulatory ALEX MUNIZ Facility:[facility] Start: 01-10-2025 End: 01-10-2025 Follow-up encounter Alex Muniz MD Work Phone: [facility] Start: 01-10-2025 End: 01-10-2025 ambulatory ALEX MUNIZ Facility:[facility] Start: 01-10-2025 End: 01-10-2025 Subsequent hospital visit by physician [facility] (I-Stat/1.5t) Work Phone: Radiology Comment on above: Amaurosis fugax [G45 .3] Start: 01-10-2025 End: 01-10-2025 Patient encounter procedure Alex Muniz MD Work Phone: [facility] Comment on above: Amaurosis fugax (Alysa jacques Dx); Transient visual loss of both eyes Start: 01-10-2025 End: 01-10-2025 ambulatory ALEX MUNIZ Facility:[facility] Start: 08-27-2024 End: 08-27-2024 ambulatory Jose Antonio Carl PT Work Phone: [facility] Comment on above: Chronic upper back p ain (Primary Dx) Start: 08-13-2024 End: 08-13-2024 ambulatory Yolanda Kashuba [employer]ER [employer] Work Phone: [facility] Comment on above: Chronic upper back p ain (Primary Dx) Start: 08-06-2024 End: 08-06-2024 ambulatory Yolanda Kashuba [employer]ER [employer] Work Phone: [facility] Comment on above: Chronic upper back p ain (Primary Dx) Start: 08-01-2024 End: 08-01-2024 ambulatory ALEX MUNIZ Facility:[facility] Start: 08-01-2024 End: 08-01-2024 Patient encounter procedure Alex Muniz MD Work Phone: [facility] Comment on above: Elevated BP without diagnosis of hypertension (Primary Dx) Start: 07-30-2024 End: 07-30-2024 ambulatory Jose Antonio Carl PT Work Phone: [facility] Comment on above: Chronic upper back p ain Start: 07-23-2024 End: 07-23-2024 Subsequent hospital visit by physician [facility] Work Phone: Radiology Comment on above: Acute cough [R05.1] Start: 07-23-2024 End: 07-23-2024 ambulatory ALEX MUNIZ Facility:[facility] Start: 07-23-2024 End: 07-23-2024 Patient encounter procedure Flores Beltran APRN.CNP Work Phone: [facility] Comment on above: Acute cough (Primary Dx); Bacterial pneumonia Start: 07-17-2024 End: 07-24-2024 Telephone encounter Alex Muniz MD Work Phone: [facility] Comment on above: Results Start: 07-16-2024 End: 07-16-2024 ambulatory ALEX MUNIZ Facility:[facility] Start: 07-16-2024 End: 07-16-2024 Patient encounter procedure Alex Muniz MD Work Phone: [facility] Comment on above: Annual physical exam (Primary Dx); Chronic upper back pain; Gastroesophageal reflux disease without esophagitis; Alcohol consumption binge drinking Start: 07-05-2024 End: 07-05-2024 Refill Hansa Delaney PA-C Work Phone: [facility]enter[facility] [place] Comment on above: Refill Request Start: 06-11-2024 End: 07-24-2024 Telephone encounter Alex Muniz MD Work Phone: [facility] [place] Start: 02-23-2024 End: 07-24-2024 Telephone encounter Alex Muniz MD Work Phone: [facility] [place] Comment on above: Results Start: 02-22-2024 End: 02-22-2024 ambulatory ALEX MUNIZ Facility:[facility] Start: 02-09-2024 End: 02-09-2024 Patient encounter procedure Alex Muniz MD Work Phone: [facility] [place] Comment on above: Left flank pain (Alysa jacques Dx); Upper back pain; Other chest pain; Generalized abdominal pain; Gross hematuria Start: 02-09-2024 End: 02-09-2024 ambulatory ALEX MUNIZ Facility:[facility] Start: 01-20-2024 Telephone encounter Esteban Muniz MD Work Phone: [facility] [place] Comment on above: Results Start: 01-19-2024 End: 01-19-2024 ambulatory ALEX MUNIZ Facility:[facility] Start: 01-19-2024 End: 01-19-2024 Subsequent hospital visit by physician [facility] Work Phone: Radiology Comment on above: Gross hematuria [R31 .0] Start: 01-19-2024 End: 01-19-2024 ambulatory ALEX MUNIZ Facility:[facility] Start: 01-19-2024 End: 01-19-2024 Patient encounter procedure Alex Muniz MD Work Phone: [facility] [place] Comment on above: Gross hematuria (Alysa jacques Dx) Start: 01-19-2024 End: 01-19-2024 ambulatory ALEX MUNIZ Facility:[facility] Start: 01-15-2024 Telephone encounter Logan Francis PA Work Phone: [facility] Comment on above: Results Start: 01-14-2024 End: 01-14-2024 Patient encounter procedure Ad Pollard APRN.CNP Work Phone: [facility] Comment on above: Microscopic hematuri a (Primary Dx) Start: 01-01-2024 Refill Hansa Sourav on PA-C Work Phone: [facility] [place] Comment on above: Refill Request Start: 12-30-2023 ambulatory VALERIEDavid CHOISON Facilit y:[facility] Start: 12-30-2023 End: 12-30-2023 Subsequent hospital visit by physician [facility] Comment on above: Testicular swelling, right [N50.89] Start: 12-29-2023 End: 12-29-2023 Patient encounter procedure Valerie Franco X RAY INSPECTOR.PHYSICS TECHNICIAN Work Phone: Urology Comment on above: Testicular [...] Nursing evaluation of patient and report Nurse Bilims Work Phone: [facility] Comment on above: LUQ pain; Diarrhea, unspecified type Start: 08-16-2023 End: 08-16-2023 ambulatory Stoney Farias MD Work Phone: Gastroenterology Comment on above: Gas Start: 08-16-2023 End: 08-16-2023 Patient encounter procedure Stoney Farias MD Work Phone: [place] Start: 08-15-2023 End: 08-15-2023 Nursing evaluation of patient and report Nurse Bilims Work Phone: [facility] Comment on above: LUQ pain; Diarrhea, unspecified type Start: 07-15-2023 End: 07-15-2023 Subsequent hospital visit by physician Ashley Melgoza MD Work Phone: Ambulatory Surgery Comment on above: Other chest pain [R0 7.89] Start: 06-10-2023 Telephone encounter Kim skaggs APRN.PHYSICS TECHNICIAN Work Phone: [facility] Comment on above: Patient Update Start: 06-09-2023 ambulatory ALEX MUNIZ Facility:[facility] Start: 06-09-2023 End: 06-09-2023 Subsequent hospital visit by physician [facility] Work Phone: Cardiology Lab Comment on above: Chest pain, unspecif ied type [R07.9] Start: 06-08-2023 Telephone encounter Opal honeycutt [facility] Comment on above: Reminder Call Start: 06-03-2023 ambulatory Kim Cespedes APRN.PHYSICS TECHNICIAN Work Phone: [facility] Comment on above: echo test result que stion Start: 06-02-2023 Telephone encounter Esteban Muniz MD Work Phone: [facility] Start: 05-30-2023 End: 05-30-2023 Patient encounter procedure Kim Cespedes APRN.PHYSICS TECHNICIAN Work Phone: [facility] Comment on above: Chest pain, unspecif ied type (Primary Dx); Screening for hyperlipidemia Start: 05-26-2023 End: 05-26-2023 Emergency department patient visit Felipe Soto Facility:[facility] Start: 05-26-2023 End: 05-26-2023 Emergency department patient visit [facility]-Emergency Department Work Phone: Start: 04-11-2023 End: [...] by physician Kendra Dickerson (1.5t) [facility] Comment on above: Finger mass, right [ R22.31] Start: 12-02-2022 End: 12-02-2022 Patient encounter procedure Codi Dolanmaria luisaermias DO Work Phone: Orthopaedics Comment on above: Finger mass, right Start: 11-30-2022 Telephone encounter Lashae valerio APRN.PHYSICS TECHNICIAN Work Phone: [facility] [place] Comment on above: Consult Start: 06-27-2022 [facility] (Vis it Summary) [place] [facility] Provider External-[facility] Comment on above: COVID-19 Start: 06-27-2022 External Contact [place] [facility] Provider EXTERNAL-NON [facility] Start: 06-11-2022 Telephone encounter Lashae valerio APRN.PHYSICS TECHNICIAN Work Phone: [facility] [place] Comment on above: Results Start: 06-08-2022 End: 06-08-2022 Subsequent hospital visit by physician [facility] Comment on above: Deformity of finger of right hand [M20.001] Start: 06-01-2022 End: 06-01-2022 Subsequent hospital visit by physician [facility] [place] Work Phone: Radiology Comment on above: [...] Radiologic exam chest 2 views Flores Espino X RAY INSPECTOR.PHYSICS TECHNICIAN Work Phone: Start: 07-16-2024 Lipid 1996 panel - Serum or Plasma Flores Beltran X RAY INSPECTOR.PHYSICS TECHNICIAN Work Phone: Start: 01-19-2024 Us retroperitoneal real time w/image complete Alex Muniz MD Work Phone: Start: 01-14-2024 Urnls dip stick/tablet rgnt auto w/o microscopy Ad Pollard X RAY INSPECTOR.PHYSICS TECHNICIAN Work Phone: Start: 08-22-2023 Breath hydrogen/methane test Hansa lai PA-C Work Phone: Start: 08-16-2023 Breath hydrogen/methane test Hansa lai PA-C Work Phone: Start: 07-15-2023 Level iv surg pathology gross&microscopic exam Ashley Melgoza MD Work Phone: Start: 07-15-2023 Esophagogastroduodenoscopy transoral diagnostic Hansa Delaney PA-C Work Phone: Start: 07-15-2023 Colonoscopy flx dx w/collj spec when pfrmd Hansa Delaney PA-C Work Phone: Start: 07-15-2023 Colonoscopy Nurse [facility] Work Phone: Start: 06-09-2023 Cv strs tst xers&/or rx cont ecg trcg only Kim Cespedes X RAY INSPECTOR.PHYSICS TECHNICIAN Work Phone: Start: 06-01-2023 Lipid 1996 panel - Serum or Plasma Tyrone Muniz MD Work Phone: Start: 05-26-2023 Plain chest X-ray Start: 06-01-2022 Radex hand minimum 3 views Lashae coy APRN.PHYSICS TECHNICIAN Work Phone: Plan of Treatment Date Care Activity Detail Author Start: 07-15-2030 Screening for malignant neoplasm of colon [facility] Start: 07-16-2029 Lipid panel Lipid Screening [facility] Start: 07-15-2028 Screening for malignant neoplasm of colon [facility] Start: 06-01-2028 Lipid 1996 panel - Serum or Plasma Lipid Screening [facility] Start: 06-01-2028 Lipid panel [facility] [facility] Start: 03-27-2028 Urine microalbumin profile [facility] Start: 01-13-2026 End: 01-13-2026 Patient encounter procedure 01/13/2026 10:15 AM EDT Office Visit [facility] [address] [place] [address] Ashu Dupree, OD [address] [place] [address] Diagnostics, [facility] [address] [address] 1 yr-complete eye exam. Ophthalmology Comment on above: 1 yr-complete eye exam. Start: 07-16-2025 Anxiety Screening Anxiety Screening [facility] Comment on above: Postponed from 2003 (Declined at t his time) Start: 03-04-2025 Influenza vaccination Influ[facility] Vacc[facility] Start: 01-15-2025 [facility] Start: 01-11-2025 End: 01-11-2025 Patient encounter procedure 01/11/2025 10:30 AM EDT Office Visit [facility] [address] [place] [address] Ashu Dupree, OD [address] [place] [address] Diagnostics, [facility] [address] [address] complete eye exam Ophthalmology Comment on above: complete eye exam Start: 01-11-2025 End: 01-11-2025 ambulatory 01/11/2025 9:30 AM EDT Results Only [facility] [address] [place] [address] [facility] Start: 01-10-2025 End: 04-11-2025 CBC W Auto Differential panel - Blood COMPLETE BLOOD COUNT AND DIFFERENTIAL Lab Routine Amaurosis fugax Expected: 01/10/2025, Expires: 04/11/2025 [facility] Work Phone: Comment on above: Expected: 01/10/2025, Expires: Start: 01-10-2025 End: 04-11-2025 Comprehensive metabolic 2000 panel - Serum or Plasma COMPREHENSIVE METABOLIC PANEL Lab Routine Amaurosis fugax Expected: 01/10/2025, Expires: 04/11/2025 [facility] Comment on above: Expected: 01/10/2025, Expires: Start: 08-27-2024 End: 08-27-2024 ambulatory 08/27/2024 7:45 AM EST OT/PT/Speech Visit [facility] [address] [place] [address] Golias, Jose Antonio, PT [address] [place] [address] Chronic upper back pain [M54.9, G89.29] [facility] Comment on above: Chronic upper back pain [M54.9, G89.29] Start: 08-20-2024 End: 08-20-2024 ambulatory 08/20/2024 7:45 AM EST OT/PT/Speech Visit [facility] [address] [place] [address] Golias, Jose Antonio, PT [address] [place] [address] Chronic upper back pain [M54.9, G89.29] [facility] Comment on above: Chronic upper back pain [M54.9, G89.29] Start: 08-13-2024 End: 08-13-2024 ambulatory 08/13/2024 9:30 AM EST OT/PT/Speech Visit [facility] [address] [place] [address] Yolanda Alves, DISPATCHER [employer]F [employer] [address] [place] [address] Chronic upper back pain [M54.9, G89.29] [facility] Comment on above: Chronic upper back pain [M54.9, G89.29] Start: 08-06-2024 End: 08-06-2024 ambulatory 08/06/2024 8:00 AM EST OT/PT/Speech Visit [facility] [address] [place] [address] Yolanda Alves, DISPATCHER [employer] [address] [place] [address] Chronic upper back pain [M54.9, G89.29] [facility] Comment on above: Chronic upper back pain [M54.9, G89.29] Start: 07-30-2024 End: 07-30-2024 ambulatory 07/30/2024 8:30 AM EST OT/PT/Speech Visit [facility] [address] [place] [address] Jose Antonio Carl, PT [address] [place] [address] Chronic upper back pain [M54.9, G89.29] [facility] Comment on above: Chronic upper back pain [M54.9, G89.29] Start: 07-16-2024 End: 10-15-2024 CBC W Auto Differential panel - Blood [facility] Comment on above: Expected: 07/16/2024, Expires: Start: 07-16-2024 End: 10-15-2024 Comprehensive metabolic 2000 panel - Serum or Plasma [facility] Work Phone: Comment on above: Expected: 07/16/2024, Expires: Start: 07-16-2024 Depression Screening Depression Screening [facility] Comment on above: Postponed from 2003 (Declined at t his time) Start: 07-16-2024 End: 10-15-2024 Hemoglobin A1c in Blood [facility] Comment on above: Expected: 07/16/2024, Expires: Start: 07-16-2024 End: 10-15-2024 Lipid 1996 panel - Serum or Plasma [facility] Comment on above: Expected: 07/16/2024, Expires: Start: 07-16-2024 End: 10-15-2024 Thyrotropin [Units/volume] in Serum or Plasma [facility] Comment on above: Expected: 07/16/2024, Expires: Start: 07-09-2024 End: 07-09-2024 Patient encounter procedure 07/09/2024 11:20 AM EST Office Visit [facility] [place] [address] [place] [address] Alex Muniz MD [address] [place] [address] Physical [facility] [place] Comment on above: Physical Start: 06-11-2024 End: 06-11-2024 Patient encounter procedure 06/11/2024 8:40 AM EST Office Visit [facility] [place] [address] [place] [address] Alex Muniz MD [address] [place], [place] [address] annual physical [facility] [place] Comment on above: annual physical Start: 03-04-2024 Covid-19 Vaccine ( season) Covid-19 Vaccine () [facility] Start: 03-04-2024 Influenza vaccination Influenza Vaccine (#1) [facility] Start: 02-19-2024 End: 04-19-2024 Urinalysis complete panel - Urine URINALYSIS, WITH MICROSCOPIC Lab Routine Gross hematuria Expected: 02/19/2024, Expires: 04/19/2024 [facility] Comment on above: Expected: 02/19/2024, Expires: Start: 02-09-2024 End: 05-10-2024 C reactive protein [Mass/volume] in Serum or Plasma [facility] Comment on above: Expected: 02/09/2024, Expires: Start: 02-09-2024 End: 05-10-2024 Erythrocyte sedimentation rate [facility] Work Phone: Comment on above: Expected: 02/09/2024, Expires: Start: 02-09-2024 End: 05-10-2024 Nuclear Ab [Presence] in Serum by Immunoassay [facility] Comment on above: Expected: 02/09/2024, Expires: Start: 02-09-2024 End: 02-09-2024 Patient encounter procedure 02/09/2024 8:40 AM EDT Office Visit [facility] [place] [address] [place] [address] Alex Muniz MD [address] [place] [address] follow up [facility] [place] Comment on above: follow up Start: 01-19-2024 End: 04-19-2024 CBC W Auto Differential panel - Blood [facility] Comment on above: Expected: 01/19/2024, Expires: Start: 01-19-2024 End: 04-19-2024 Comprehensive metabolic 2000 panel - Serum or Plasma [facility] Comment on above: Expected: 01/19/2024, Expires: Start: 01-19-2024 End: 01-19-2024 Patient encounter procedure 01/19/2024 8:20 AM EDT Office Visit [facility] [place] [address] [place] [address] Alex Muniz MD [address] [place] [address] er follow up [facility] [place] Comment on above: er follow up Start: 01-06-2024 End: 01-06-2024 Follow-up encounter 01/06/2024 8:00 AM EDT [facility] [address] [place] [address] Valerie Franco, X RAY INSPECTOR.PHYSICS TECHNICIAN [address] [place] [address] follow up Urology Comment on above: follow up Start: 12-30-2023 End: 12-30-2023 Patient encounter procedure 12/30/2023 4:00 PM EDT Appointment [facility] [address] [facility] [place] [address] Testicular swelling, right [N50.89] [facility] Comment on above: Testicular swelling, right [N50.89] Start: 12-29-2023 End: 03-29-2024 Bacteria identified in Urine by Culture URINE CULTURE Microbiology Routine Testicular swelling, right Testicular discomfort Urinary tract infection without hematuria, site unspecified Expected: 12/29/2023, Expires: 03/29/2024 [facility] Comment on above: Expected: 12/29/2023, Expires: Start: 12-29-2023 End: 03-29-2024 Urinalysis complete panel - Urine URINALYSIS, WITH MICROSCOPIC Lab Routine Testicular swelling, right Testicular discomfort Urinary tract infection without hematuria, site unspecified Expected: 12/29/2023, Expires: 03/29/2024 [facility] Comment on above: Expected: 12/29/2023, Expires: Start: 08-23-2023 End: 11-22-2023 BILE ACIDS, TOTAL BILE ACIDS, TOTAL Lab Routine Bloating Diarrhea, unspecified type Elevated fecal calprotectin Expected: 08/23/2023, Expires: 11/22/2023 [facility] Work Phone: Comment on above: Expected: 08/23/2023, Expires: 4 Start: 07-04-2023 Behavioral Health Screening Behavioral Health Screening [facility] Start: 07-04-2023 Depression Assessment Depression Assessment [facility] Start: 05-30-2023 End: 08-29-2023 Lipid 1996 panel - Serum or Plasma LIPID PANEL BASIC Lab Routine Screening for hyperlipidemia Expected: 05/30/2023, Expires: 08/29/2023 [facility] Work Phone: Comment on above: Expected: 05/30/2023, Expires: Start: 05-26-2023 [facility] Start: 05-26-2023 [facility] Start: 03-04-2023 Covid-19 Vaccine () Covid-19 Vaccine () [facility] Start: 03-04-2023 Influenza vaccination [facility] Start: 07-04-2022 DEPRESSION ASSESSMENT DEPRESSION ASSESSMENT [facility] Start: 07-04-2021 DEPRESSION ASSESSMENT DEPRESSION ASSESSMENT [facility] Start: 2020 Lipid 1996 panel - Serum or Plasma Lipid Screening [facility] Start: 2020 LIPID SCREEN LIPID SCREEN [facility] Start: 2004 Hepatitis B Vaccine (1 of 3 - 19+ 3-dose series) Hepatitis B Vaccine (1 of 3 - 19+ 3-dose series) [facility] Start: 2003 Anxiety Screening Anxiety Screening [facility] Start: 2003 Depression Screening Depression Screening [facility] Start: 2003 HIV SCREENING HIV SCREENING [facility] Start: 2003 HIV screening HIV Screening [facility] Start: 1985 HEPATITIS B (1 of 3 - 3-dose series) HEPATITIS B (1 of 3 - 3-dose series) [facility] Start: 1985 Hepatitis B Vaccine (1 of 3 - 3-dose series) Hepatitis B Vaccine (1 of 3 - 3-dose series) [facility] Start: 1985 Screening for malignant neoplasm of colon [facility] Bacteria identified in Urine by Culture URINE CULTURE Microbiology Routine Microscopic hematuria Ordered: 01/14/2024 [facility] Work Phone: Comment on above: Ordered: 01/14/2024 Breath hydrogen/meth ane test BREATH TEST - LACTULOSE Procedures Routine LUQ pain Diarrhea, unspecified type 08/22/2023 4:40 PM EST [facility] Work Phone: Calprotectin [Mass/m ass] in Stool CALPROTECTIN,FECAL Lab Routine Bloating Diarrhea, unspecified type Elevated fecal calprotectin Ordered: 08/23/2023 [facility] Work Phone: Comment on above: Ordered: 08/23/2023 End: 05-30-2024 Echocardiography ECHO Cardiology Routine Chest pain, unspecified type 1 Occurrences starting 05/30/2023 until 05/30/2024 [facility] Work Phone: Comment on above: 1 Occurrences starting 05/30/2023 until 05/30/2024 End: 05-30-2024 EXERCISE STRESS ECG (WITHOUT IMAGING) EXERCISE STRESS ECG (WITHOUT IMAGING) Cardiology Routine Chest pain, unspecified type 1 Occurrences starting 05/30/2023 until 05/30/2024 [facility] Work Phone: Comment on above: 1 Occurrences starting 05/30/2023 until 05/30/2024 FAT, FECAL QUAL FAT, FECAL QUAL Lab Routine Bloating Diarrhea, unspecified type Elevated fecal calprotectin Ordered: 08/23/2023 [facility] Work Phone: Comment on above: Ordered: 08/23/2023 End: 01-01-2024 MRI HAND WO IVCON RIGHT MRI HAND WO IVCON RIGHT Radiology Routine Finger mass, right 1 Occurrences starting 12/02/2022 until 01/01/2024 [facility] Work Phone: Comment on above: 1 Occurrences starting 12/02/2022 until 01/01/2024 End: 12-15-2022 MRI HAND WO IVCON RIGHT [facility] Work Phone: Comment on above: 1 Occurrences starting 12/15/2022 until 12/15/2022 Patient Education [facility] Work Phone: Patient referral [facility] Work Phone: End: 02-17-2025 US Kidney - bilateral and Urinary bladder US KIDNEY/BLADDER Radiology Routine Gross hematuria 1 Occurrences starting 01/19/2024 until 02/17/2025 [facility] Work Phone: Comment on above: 1 Occurrences starting 01/19/2024 until 02/17/2025 US Kidney - bilatera l and Urinary bladder US KIDNEY/BLADDER Radiology Routine Gross hematuria 01/19/2024 1:23 PM EDT [facility] End: 06-08-2022 Us lmtd joint/oth nonvasc xtr strux r-t w/img [facility] Work Phone: Comment on above: 1 Occurrences starting 06/08/2022 until 06/08/2022 End: 01-27-2025 US.doppler Scrotum and testicle US SCROTUM AND CONTENTS Radiology Routine Testicular swelling, right Testicular discomfort 1 Occurrences starting 12/29/2023 until 01/27/2025 [facility] Work Phone: Comment on above: 1 Occurrences starting 12/29/2023 until 01/27/2025 US.doppler Scrotum a nd testicle US SCROTUM AND CONTENTS Radiology Routine Testicular swelling, right Testicular discomfort 12/30/2023 4:17 PM EDT [facility] Work Phone: End: 01-27-2025 US.doppler Unspecified body region US DOPPLER COMPLETE Radiology Routine Testicular swelling, right Testicular discomfort 1 Occurrences starting 12/29/2023 until 01/27/2025 [facility] Comment on above: 1 Occurrences starting 12/29/2023 until 01/27/2025 US.doppler Unspecifi ed body region US DOPPLER COMPLETE Radiology Routine Testicular swelling, right Testicular discomfort 12/30/2023 4:17 PM EDT [facility] Immunizations Immunization Date Immunization Notes Care Provider Leticia carlson 05-18-2024 COVID-19 vaccine, ag e 12+ yr (MODERNA) Alex Muniz MD Work Phone: [facility] 05-18-2024 influenza, injectabl e, madin robin canine kidney, preservative free Alex Muniz MD Work Phone: [facility] 05-18-2024 influenza virus vaccine, unspecified formulation Alex Muniz MD Work Phone: [facility] 06-13-2023 COVID-19 vaccine, ag e 12+ yr, season ([employer]) Nurse [facility] Work Phone: [facility] 06-13-2023 influenza, injectabl e, quadrivalent, contains preservative Nurse [facility] Work Phone: [facility] 06-13-2023 influenza virus vaccine, unspecified formulation Hansa Delaney PA-C Work Phone: [facility] 04-16-2022 Influenza, injectabl e, Madin [place] Canine Kidney, preservative free, quadrivalent Alex Muniz MD Work Phone: [facility] 04-16-2022 influenza virus vaccine, unspecified formulation Jasson Lion MD Work Phone: [facility] 03-27-2018 tetanus toxoid, redu shena diphtheria toxoid, and acellular pertussis vaccine, adsorbed [facility] Payers Date Payer Category Payer Self-pay 2021 [employer] Blue [facility] BLUE ACCE PPO [id number] 2021 Unknown ZEINA FABIAN ACCE PPO [id number] 2021-Present [phone] [place], [place] [id number] PPO [id number] 2021 Unknown [id number] Unknown [id number] Social History Date Type Detail Facility Start: 10-19-2017 End: 01-15-2025 Tobacco smoking status NHIS Never smoked tobacco [facility] Start: 10-19-2017 End: 03-14-2023 Tobacco use and exposure Smokeless tobacco non-user [facility] Start: 06-01-2022 End: 01-11-2025 Alcohol intake Current drinker of alcohol (finding) [facility] Start: 06-01-2022 End: 12-02-2022 Alcohol intake [facility] Start: 06-01-2022 History SDOH Alcohol Frequency 4 [facility] Start: 06-01-2022 History SDOH Alcohol Std Drinks 2 [facility] Start: 06-01-2022 History SDOH Alcohol Binge 3 [facility] Start: 06-01-2022 History SDOH Social Connections [facility] 1 [facility] Start: 03-27-2018 Alcohol Comment 2-3 cans at a time [facility] Start: 1985 Sex Assigned At Male [facility] Start: 06-01-2022 End: 12-02-2022 Social connection and isolation panel [facility] Do you belong to any clubs or organizations such as jew groups, unions, fraternal or athletic groups, or school groups? No [facility] Are you now , , , , never or living with a partner? [facility] How often to you hav e a drink containing alcohol? 2-3 time sa week [facility] How many standard dr inks containing alcohol do you have on a typical day? 3 or 4 [facility] How often do you hav e 6 or more drinks on 1 occasion? Monthly [facility] Adult Depression Screening Assessment 0 [facility] Do you feel stress - tense, restless, nervous, or anxious, or unable to sleep at night because your mind is troubled all the time - these days [OSQ] To some extent [facility] (I/We) worried wheth er (my/our) food would run out before (I/we) got money to buy more. Never true [facility] Start: 05-29-2022 Gender identity Identifies as male gender (finding) [facility] How often do you hav e 6 or more drinks on 1 occasion? Monthly [facility] Start: 05-26-2023 Tobacco smoking stat us NHIS Unknown if ever smoked [facility] Do you feel stress - tense, restless, nervous, or anxious, or unable to sleep at night because your mind is troubled all the time - these days [OSQ] Not at all [facility] Start: 06-29-2023 Alcohol Comment 2-3 times per week, varies- admits to binge drinking [facility] Do you feel stress - tense, restless, nervous, or anxious, or unable to sleep at night because your mind is troubled all the time - these days [OSQ] Only a little [facility] Mental Status Date Assessment Result Facility 01-15-2025 Cognitive function Awake;Alert;A ppropriate;Fol lows Commands [facility] Work Phone: 05-26-2023 Cognitive function Awake;Alert;Appropriat e [facility] Work Phone: Clinical Notes 06-01-2022 to 01-15-2025 Note Date & Type Note Facility 01-15-2025 Discharge summary [facility] 01-15-2025 Radiology Diagnostic study note [facility] Services [address] [place], [place] [address] Brain/Head without Contrast MR#: [id number] Acct: [id number] Name: TORREY CAMPOS Rep #: [id number] : 1985 M 39 From: Dejah Coy MD PCP: Dr. Esteban Muniz MD Status: REG ER Study:Brain/Head without Contrast Date of Exa m: 01/15/25 Exam# [id number] Ordering Dr: Joshua Taylor DO EXAM: CT [...] evaluation with MRI is recommended. Reading Location: [facility] CC: Dr. Joshua Wright DO; Dr. Esteban Muniz MD ~ Want Ad Supervisor: Signed [facility] 01-15-2025 Discharge summary Note Date/Time January 15, 2025 3:19pm [facility] Medical Records Department [address] [place] [address] Emergency Department Summary 01/15/25 MR#: [id number] Acct: [id number] Name: TORREY CAMPOS Rep #:[id number] : 1985 39 From: Joshua zavala DO [...] except for a cyst. States that the art psychotherapist or therapist felt that he was having ocular migraines. [...] unremarkable except for cyst. 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 Patient states [...] 74.9 H Lymph % (Auto) 17.6 L [place] % (Auto) 5.5 Eos % (Auto) 0.6 [...] evaluation with MRI is recommended. Reading Location: [facility] Discharge Plan Triage Chief Complaint: Numb/Ting ED Provider: Joshua Wright Dx/Rx/DC Orders Primary Care Provider: Esteban Muniz Referrals: Esteban Muniz MD [Primary Care Provider] - Print Language: Brazilian What to do if you have Problems For any increased pain, shortness of breath, bleeding, nausea or vomiting, chestpain, or any unexpected problems, contact your Primary Care Provider. Call [facility] ([phone]) or report to the closest Emergency Room. Call 911 if necessary. 01/15/25 [id number] <Electronically signed by Joshua Wright DO> Cosigner Signature (if applicable): CC: Dr. Esteban Muniz MD ~ Signed [facility] Work Phone: [phone]) 616-152907-11-2025 NoteDate of Procedure 01/11/2025. Biometric Screener Information Top And Seat Cover Fitter: BP. Start time: 11:06 AM. OCT Macula Interpretation Right Eye Normal without fluid. Left Eye Normal without fluid. Interval Change Right Eye Initial. Left Eye Initial.[id number] NoteHNO ID: [id number] Author: ASHU DUPREE, OD Service: ? Author Type: DATA ENTRY COORDINATOR Type: Progress Notes Filed: 01/11/2025 13:33 Note Text: 1. Blurred vision (Primary) 2. 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 Blurred vision (Primary) 2. 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 [facility] [facility] [place]07-10-2025 Miscellaneous Notes* Telephone Encounter - Fabiola Deng MA - 01/10/2025 1:46 PM EDT ----- Message from Alex Muniz MD sent at 01/10/2025 11:23 AM EDT ----- Patient's carotids are normal bilaterally. documented in this encounterSelect Medical [facility] [place] History of Present illness Narrative* [address] [...] PATIENT PRESENTS WITH AN IMPLANTABLE OR ATTACHED DEER FARMER: No RADIOLOGY DEPARTMENT: MR; Exam(s) Completed: Head: Routine Brain. Aromatherapy Administered: No PERIPHERAL IV DATA: Not applicable SIGNED BY: RT Gordo(Marvin) January 10, 2025 12:26 PM documented in this encounterSelect Medical [facility] [place]25 NoteHNO ID: [id number] Author: HELENA WAY RT(R) Service: ? Author [...] PATIENT PRESENTS WITH AN IMPLANTABLE OR ATTACHED DEER FARMER: No RADIOLOGY DEPARTMENT: MR; Exam(s) Completed: Head: Routine Brain. Aromatherapy Administered: No PERIPHERAL IV DATA: Not applicable SIGNED BY: CARMINE Caro) January 10, 2025 12:26 [facility]07-10-2025 Instructions* Patient Instructions* Alex Muniz MD - 01/10/2025 8:42 AM EDT - You have a referral for an ophthalmology evaluation at the [facility] on [address]; pleaseschedule this as soon as possible. - [...] the emergency department immediately. documented in this encounterSelect Medical [facility] [place]25 NoteHNO ID: [id number] Author: ALEX MUNIZ MD Service: ? Author [...] he's looking through a Kaleidoscope. Recording using [employer] software for draft documentation of the visit was discussed with the patient/authorized commercial representative; all questions welcomed and answered. 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 Colmenares-Second Watch Sergeant Infectious mononucleosis 2007 w/Hepatitis Overweight (BMI 25.0-29.9) [...] associated headaches, slurred speech, (more content not included)...[facility]07-10-2025 History of Present illness Narrative* Alex Muniz [...] he's looking through a Kaleidoscope. Recording using [employer] software for draft documentation of the visit was discussed with the patient/authorized commercial representative; all questions welcomed and answered. 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 Colmenares-Second Watch Sergeant Infectious mononucleosis 2006 w/Hepatitis Overweight (BMI 25.0-29.9) [...] develop. Alex Muniz MD documented in this encounterSelect Medical [facility] [place]-[facility]25 NoteHNO ID: [id number] Author: JOSE ANTONIO CARL PT Service: ? [...] and treatment included: Therapeutic exercise, Manual therapy, Self-retirement management, Patient/Family/Caregiver Education, and Body mechanics training. [...] cues and updated his exercise list in [employer]. He has 7 exercises on his HEP list in [employer] that he is able to access. 2: [...] and tactile cuing. Patient education as noted. Self-Senior Care Management: 1: Postural correction was reviewed and emphasized. Recommendations were made on how to correct posture at work and with leisure activities. His questions about etiology of symptoms were answered and recommendations made. Skilled Intervention: (more content not included)...[facility] 08-27-2024 History of Present illness Narrative* Jose [...] and treatment included: Therapeutic exercise, Manual therapy, Self-retirement management, Patient/Family/Caregiver Education, and Body mechanics training. [...] cues and updated his exercise list in [facility]. He has 7 exercises on his HEP list in [facility] that he is able to access. 2: [...] and tactile cuing. Patient education as noted. Self-Senior Care Management: 1: Postural correction was reviewed and [...] Carl PT - 08/27/2024 8:16 AM EST Program_ID:[id number] Access Code: [email or web address] URL: [email or web address] Date: 08-27-2024 Prepared By: Jose Antonio Carl [...] Posture Training Slouch Overcorrect documented in this encounterSelect Medical [facility] [place] History of Present illness Narrative* Yolanda Alves PTA - 08/13/2024 10:01 AM EST Program_ID:[id number] Access Code: [email or web address] URL: [email or web address] Date: 08-13-2024 Prepared By: Jose Antonio Carl [...] Session Stop Time : 100 Yolanda Alves, DISPATCHER CHIEF COAL SLURRY Jose Antonio Carl PT documented in this encounterSelect Medical [facility] [place]-2025 NoteHNO ID: [id number] Author: JOSE ANTONIO CARL PT Service: ? [...] Time : 100 Yolandaadelita Alves, JODI Carl, [facility]02-03-2025 NoteHNO ID: [id number] Author: JOSE ANTONIO CARL, CASI Service: ? [...] Session Stop Time : 08 Yolanda Macduc, DISPATCHER CHIEF COAL SLURRY Jose Antonio Carl, [facility]02-03-2025 History of Present illness Narrative* Jose Antonio [...] 837 JODI Mcdaniel PT documented in this encounterSelect Medical [facility] [place]01-29-2025 NoteHNO ID: [id number] Author: ALEX MUNIZ MD Service: ? 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 Colmenares-Second Watch Sergeant Infectious mononucleosis 2006 w/Hepatitis Overweight (BMI 25.0-29.9) [...] Currently Comment: history of marijuana use in [employer] Review of Symptoms REVIEW OF SYSTEMS GENERAL: [...] <140/90 Alex Muniz MD documented in this encounterSelect Medical [facility] [place]01-27-2025 NoteHNO ID: [id number] Author: JOSE ANTONIO CARL PT Service: ? 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[employer] Recreation / Current Exercise: stepping exercise, running [...] Change PROMIS Scales 1 (more content not included)...[facility]01-27-2025 History of Present illness Narrative* Jose Antonio [...] Planned: 6 Planned Treatment Interventions: Therapeutic exercise (69522), Neuromuscular re- education (63379), Manual therapy (55779), Self-retirement management (74337), Patient/Family/Caregiver Education, Body Mechanics Training PLAN FOR [...] History Right or Left Handed: Right 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 Patient education as noted. Self-Senior Care Management: 1: Pt was educated extensively on [...] Carl PT - 07/30/2024 9:10 AM EST Program_ID:[id number] Access Code: [email or web address] URL: [email or web address] Date: 07-30-2024 Prepared By: Jose Antonio Carl Program Notes Exercises - Corner Pec Major Stretch - 3 x daily - 7 x weekly - sets - 3 reps - Doorway Rhomboid Stretch - 2-3 x daily - 7 x weekly - sets - 3 reps Patient Education - cc Posture Training Slouch Overcorrect documented in this encounterSelect Medical [facility] [place]-20-2025 Instructions* Patient Instructions* Flores Beltran APRN.PHYSICS TECHNICIAN - 07/23/2024 12:14 PM EST ASSESSMENT/PLAN: 1. Acute cough - ICD9: 786.2, ICD10: R05.1 (primary diagnosis) - XR CHEST 2V FRONTAL/LAT IMPRESSION: Right upper lobe pneumonia Want Ad Supervisor: RANDY Transcribe Date/Time: Jul 23 2024 11:55A [...] Discussed expected course of illness Flores Beltran APRN.[facility] PATIENT INFO PNEUMONIA OVERVIEW Pneumonia [...] the community, rather than in a hospital, shelter, or assisted-living facility. About four million cases [...] respiratory secretions, people with pneumonia should limit gdxo-gr-lscd contact with uninfected family and friends. The mouth and nose should be covered while coughing or sneezing, and tissues should be disposed of immediately. Sneezing/coughing into the sleeve of one's clothing (at the inner elbow) is another means of containing sprays of saliva and secretions and has the advantage of not contaminating the hands. documented in this encounterSelect Medical [facility] [place]01-20-2025 History of Present illness Narrative* Casandra Smalls [...] PATIENT PRESENTS WITH AN IMPLANTABLE OR ATTACHED DEER FARMER: No RADIOLOGY DEPARTMENT: General X-ray: Exam(s) Completed: Chest X-Ray PERIPHERAL IV DATA: Not applicable SIGNED BY: RT Latasha(R) July 23, 2024 11:42 AM documented in this encounterSelect Medical [facility] [place]-20-2025 NoteHNO ID: [id number] Author: CASANDRA SMALLS RT(R) Service: Radiology Author [...] PATIENT PRESENTS WITH AN IMPLANTABLE OR ATTACHED DEER FARMER: No RADIOLOGY DEPARTMENT: General X-ray: Exam(s) Completed: Chest X-Ray PERIPHERAL IV DATA: Not applicable SIGNED BY: RT Latasha(R) July 23, 2024 11:42 [facility]01-20-2025 NoteHNO ID: [id number] Author: FLORES BELTRAN APRN.PHYSICS TECHNICIAN Service: ? 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 Colmenares-Second Watch Sergeant Infectious mononucleosis 2006 w/Hepatitis Overweight (BMI 25.0-29.9) [...] 2V FRONTAL/LAT IMPRESSION: Right upper lobe pneumonia Want Ad Supervisor: RANDY Transcribe Date/Time: Jul 23 2024 11:55A Dictated by : WOLF DHALWIAL MD 2. Bacterial pneumonia - ICD9: 482.9, [...] Discussed expected course of illness Flores Beltran APRN.PHYSICS TECHNICIAN documented in this encounterSelect Medical [facility] [place]-14-2025 Telephone encounter Note * Telephone Encounter - Emma Mccracken LPN - 07/17/2024 7:40 AM EST ----- Message from Alex Muniz MD sent at 07/17/2024 7:03 AM EST ----- Normal labs. No change in regimen. [facility] [place]01-14-2025 Miscellaneous Notes* Telephone Encounter - Emma Mccracken LPN - 07/17/2024 7:40 AM EST ----- Message from Alex Muniz MD sent at 07/17/2024 7:03 AM EST ----- Normal labs. No change in regimen. documented in this encounterSelect Medical [facility] [place]01-13-2025 NoteHNO ID: [id number] Author: ALEX MUNIZ MD Service: ? 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 Colmenares-Second Watch Sergeant Infectious mononucleosis 2006 w/Hepatitis Overweight (BMI 25.0-29.9) [...] No masses, organomegaly. 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 Colmenares-Second Watch Sergeant Infectious mononucleosis 2006 w/Hepatitis Overweight (BMI 25.0-29.9) [...] Abs Lymph 1.00 - 4.00 k/uL 1.18 [place]% % 6.6 Abs [place] <0.87 k/uL 0.27 Eosin% % 1.2 Abs Eosin <0.46 k/uL 0.05 Baso% % 0.7 Abs Baso <0.11 k/uL 0.03 Immature Gran % % 0.7 IMMATURE GRANS (ABS) <0.10 k/uL 0.03 NRBC /100 WBC 0.0 Absolute nRBC <0.01 k/uL <0.01 DTYPE Auto Color Yellow Yellow Clarity Clear Clear Glucose, Urine Negative Negative Bilirubin, Urine Negative Negative Ketones, Urine Negative Negative Specific [place], Ur 1.005 - 1.030 1.010 Hemoglobin/Blood,Ur Negative [...] results. Alex Muniz MD documented in this encounterSelect Medical [facility] [place]-2024 Telephone encounter Note * Telephone Encounter - Emma Mccracken LPN - 02/23/2024 12:59 PM EDT Please review both messages with patient. Emma Mccracken LPN [facility] [place]08-22-2024 Telephone encounter Note* Telephone Encounter - Emma Mccracken LPN - 02/23/2024 12:59 PM EDT ----- Message from Alex Muniz MD sent at 02/23/2024 10:20 AM EDT ----- No further workup needed. [facility] [place]08-22-2024 Telephone encounter Note* Telephone Encounter - Emma Mccracken LPN - 02/23/2024 12:59 PM EDT ----- Message from Alex Muniz MD sent at 02/23/2024 10:20 AM EDT ----- Repeat UA normal. Protein has cleared up. [facility] [place]08-22-2024 Miscellaneous Notes* Telephone Encounter - Emma Mccracken [...] Protein has cleared up. documented in this encounterSelect Medical [facility] [place]-08-2024 NoteHNO ID: [id number] Author: ALEX MUNIZ MD Service: ? Author [...] or your family (more content not included)... [facility]08-08-2024 History of Present illness Narrative* Alex Muniz [...] middle finger No date: Hives Comment: Dr. Colmenares-Second Watch Sergeant 2007: Infectious mononucleosis Comment: w/Hepatitis No date: [...] Abs Lymph 1.00 - 4.00 k/uL 1.18 [place]% % 6.6 Abs [place] <0.87 k/uL 0.27 Eosin% % 1.2 Abs [...] month. Alex Muniz MD documented in this encounterSelect Medical [facility] [place]-19-2024 Telephone encounter Note * Telephone Encounter - Briseida Montaño MA - 01/20/2024 9:13 AM EDT Pt notified of results via [employer]. Briseida Montaño Ma [facility] [place]07-19-2024 Miscellaneous Notes* Telephone Encounter - Briseida Montaño MA - 01/20/2024 9:13 AM EDT Pt notified of results via [employer]. Briseida Montaño Ma * Telephone Encounter - Briseida Montaño MA - 01/20/2024 9:12 AM EDT ----- Message from Alex Muniz MD sent at 01/20/2024 8:05 AM EDT ----- Normal labs to work up blood in the urine. Normal ultrasound of the kidneys and bladder. Recheck UAin 1 month as ordered. Call with recurrent blood in urine. documented in this encounterSelect Medical [facility] [place]-19-2024 Telephone encounter Note * Telephone Encounter - Briseida Montaño MA - 01/20/2024 9:12 AM EDT ----- Message from Alex Muniz MD sent at 01/20/2024 8:05 AM EDT ----- Normal labs to work up blood in the urine. Normal ultrasound of the kidneys and bladder. Recheck UAin 1 month as ordered. Call with recurrent blood in urine. [facility] [place]07-18-2024 History of Present illness Narrative* Nemo Gonzalez [...] PATIENT PRESENTS WITH AN IMPLANTABLE OR ATTACHED DEER FARMER: No RADIOLOGY DEPARTMENT: Ultrasound PERIPHERAL IV DATA: Not applicable SIGNED BY: Nemo Gonzalez RDMS January 19, 2024 1:56 PM documented in this encounterSelect Medical [facility] [place]-18-2024 NoteHNO ID: [id number] Author: NEMO GONZALEZ RDMS Service: ? Author Type: Biometric Screener Type: Progress Notes Filed: 01/19/2024 13:56 Note Text: Radiology Service Progress Note PATIENT NAME: Torrey Capmos DATE OF SERVICE: January 19, 2024 TIME: [...] PATIENT PRESENTS WITH AN IMPLANTABLE OR ATTACHED DEER FARMER: No RADIOLOGY DEPARTMENT: Ultrasound PERIPHERAL IV DATA: Not applicable SIGNED BY: Nemo Gonzalez RDMS January 19, 2024 1:56 [facility]07-18-2024 NoteHNO ID: [id number] Author: ALEX MUNIZ MD Service: ? 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 Colmenares-Second Watch Sergeant Infectious mononucleosis 2006 w/Hepatitis Overweight (BMI 25.0-29.9) [...] PANEL Alex Muniz MD documented in this encounterSelect Medical [facility] [place]-14-2024 Telephone encounter Note * Telephone Encounter - Kay Merlos MA - 01/15/2024 12:56 PM EDT Patient given results and verbalized understanding of instructions given. Kay Merlos MA [facility] [place]07-14-2024 Miscellaneous Notes* Telephone Encounter - Kay Merlos MA - 01/15/2024 12:56 PM EDT Patient given results and verbalized understanding of instructions given. Kay Merlos MA * Telephone Encounter - Logan Francis PA - 01/15/2024 12:21 PM EDT Please let patient know urine culture did not reveal UTI. Follow-up with PCP as discussed at visit. documented in this encounterSelect Medical [facility] [place]-14-2024 Telephone encounter Note * Telephone Encounter - Logan Francis PA - 01/15/2024 12:21 PM EDT Please let patient know urine culture did not reveal UTI. Follow-up with PCP as discussed at visit. 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 Colmenares-Second Watch Sergeant Infectious mononucleosis 2006 w/Hepatitis Overweight (BMI 25.0-29.9) [...] Currently Comment: history of marijuana use in Access Information [employer] Review of Systems Constitutional: Negative for chills, [...] URINE (POC) - URINE CULTURE Ad Pollard APRN.PHYSICS TECHNICIAN documented in this encounterSelect Medical [facility] [place]07-01-2024 Telephone encounter Note * Telephone Encounter - Lorie Pino MA - 01/02/2024 8:25 AM EDT Patient phones requesting refills as follows: Requested Prescriptions Pending Prescriptions Disp Refills omeprazole (PRILOSEC) 40 mg capsule [Pharmacy Med Name: OMEPRAZOLE DR 40 MG CAPSULE] 90 capsule 1 Sig: take 1 capsule by mouth every morning Please review and advise. Lorie Pino MA [facility] [place]07-01-2024 Miscellaneous Notes* Telephone Encounter - Lorie Pino MA - 01/02/2024 8:25 AM EDT Patient phones requesting refills as follows: Requested Prescriptions Pending Prescriptions Disp Refills omeprazole (PRILOSEC) 40 mg capsule [Pharmacy Med Name: OMEPRAZOLE DR 40 MG CAPSULE] 90 capsule 1 Sig: take 1 capsule by mouth every morning Please review and advise. Lorie Pino MA documented in this encounterSelect Medical [facility] [place]-28-2024 History of Present illness Narrative* Estefany Gonzales [...] PATIENT PRESENTS WITH AN IMPLANTABLE OR ATTACHED DEER FARMER: No RADIOLOGY DEPARTMENT: Ultrasound PERIPHERAL IV DATA: Not applicable SIGNED BY: TECHNOLOGIST Flores December 30, 2023 4:17 PM documented in this encounterSelect Medical [facility] [place]-2024 NoteHNO ID: [id number] Author: ESTEFANY GONZALES TECHNOLOGIST Service: ? Author [...] PATIENT PRESENTS WITH AN IMPLANTABLE OR ATTACHED DEER FARMER: No RADIOLOGY DEPARTMENT: Ultrasound PERIPHERAL IV DATA: Not applicable SIGNED BY: TECHNOLOGIST Flores December 30, 2023 4:17 [facility]06-27-2024 History of Present illness Narrative* Valerie Franco, RIANA.PHYSICS TECHNICIAN - 12/29/2023 3:00 PM EDT Torrey Campos [address] [facility] [address] is a 38 year old male and [...] No acute intra-abdominal or pelvic process identified. [employer] [facility] SYMPTOMS SCORE. 1. 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 Colmenares-Second Watch Sergeant Infectious mononucleosis 2006 w/Hepatitis Overweight (BMI 25.0-29.9) [...] Making Level: 4 - Moderate Valerie Franco APRN.PHYSICS TECHNICIAN documented in this encounterSelect Medical [facility] [place]-20-2024 Miscellaneous Notes* Telephone Encounter - Hansa Delaney PA-C - 08/23/2023 2:17 PM EST Stool testing and bile acid testing orders placed. documented in this encounterSelect Medical [facility] [place]-20-[facility]24 History of Present illness Narrative* Stoney Farias MD - 08/23/2023 1:40 PM EST Rev'd documented in this encounterSelect Medical [facility] [place]02-19-2024 History of Present illness Narrative* Axel Coburn [...] patient): pending NINO Rasmussen documented in this encounterSelect Medical [facility] [place]02-13-2024 History of Present illness Narrative* Stoney Farias MD - 08/16/2023 10:57 AM EST Rev'd documented in this encounterSelect Medical [facility] [place]-13-2024 History of Present illness Narrative* Axel Coburn [...] positive for Fructose Intolerance documented in this encounterSelect Medical [facility] [place]01-12-2024 Nurse Note* Kaity English RN - 07/15/2023 2:26 PM EST Physician at bedside to disucss procedure/findngs with patient. [facility] [place]01-12-2024 Nurse Note* Kaity English RN - 07/15/2023 2:26 PM EST Physician at bedside to disucss procedure/findngs with patient. documented in this encounterSelect Medical [facility] [place]01-12-2024 History and physical note * Ashley Melgoza [...] MAC Additional Comments: None Ashley Melgoza MD [facility] [place] Work Phone: 1(246) 839-839301-12-2024 History and physical note* Ashley Melgoza MD [...] None Ashley Melgoza MD documented in this encounterSelect Medical [facility] [place]12-08-2023 Miscellaneous Notes* Telephone Encounter - Rut Wang LPN - 06/10/2023 1:31 PM EST Patient scheduled for the upcoming Tuesday06/13/2023. Rut Wang LPN * Telephone Encounter - Kim Cespedes APRN.CNP - 06/10/2023 9:25 AM EST Yes if he has a concern he would need to be seen Kim Cespedes APRN.PHYSICS TECHNICIAN * Telephone Encounter - Bridgett Blanco RN [...] symptoms checked out further. documented in this encounterSelect Medical [facility] [place]12-06-2023 Miscellaneous Notes* Telephone Encounter - Opal Carey RN - 06/08/2023 2:05 PM EST Spoke with patient regarding reminder for stress test tomorrow and given instructions. documented in this encounterSelect Medical [facility] [place]12-01-2023 Miscellaneous Notes* Telephone Encounter - Beth Joy Ma - 06/03/2023 10:45 AM EST See pt message and advise. Beth Joy Ma documented in this encounterSelect Medical [facility] [place]-[facility]-2023 Miscellaneous Notes* Telephone Encounter - Briseida Montaño Ma - 06/03/2023 10:05 AM EST Pt notified of results via [employer]. Briseida Montaño Ma * Telephone Encounter - Emma Mccracken LPN - 06/02/2023 11:13 AM EST Message left for patient to return call to review results and recommendations. * Telephone Encounter - Emma Mccracken LPN - 06/02/2023 11:12 AM EST ----- Message from Kim Cespedes APRN.PHYSICS TECHNICIAN sent at 06/02/2023 7:33 AM EST ----- Near optimal LDL ( bad cholesterol). Total cholesterol in normal range.Recommend low saturated fat diet and aim for at least 150 minutes of exercise per week. Kim Cespedes APRN.LORI documented [facility] encounter[facility] [place] History of Present illness Narrative* Kim Cespedes APRN.LORI - 05/30/2023 8:48 AM EST 05/30/2023 Patient presents with: Hospital F/U: Was seen 05/26 at [facility] for consistent chest pain x1 week, hospital ran labs, troponin,EKG and Chest XR, patient states physician said all testing was normal and to follow up with PCP SUBJECTIVE: This is a 37 year old that is here today for Above Complaints. HOSPITAL/ER FOLLOW UP: Reason for visit: chest pain Which facility: [facility] Date of visit: 05/26/2023 Diagnosis: chest pain. [...] reviewed PAST MEDICAL HISTORY Diagnosis Date Cedrick Colmenares-Second Watch Sergeant Infectious mononucleosis 2006 w/Hepatitis Overweight (BMI 25.0-29.9) [...] which included preparing to see the patient, axql-ze-ndty patient care, completing clinical documentation, obtaining and/or reviewing separately obtained history, performing a medically appropriate examination, counseling and educating the pat ient/family/caregiver, and ordering medications, tests, or procedures. documented in this encounter[facility] [place] Discharge summary Author Felipe Valera [facility] May 26, 2023 3:23pm Note Date/Time May 26, 2023 1:15pm [facility] Medical Records Department [address] [place] [id number] Emergency Department Summary 05/26/23 MR#: [id number] Acct: [id number] Name: TORREY CAMPOS Rep #:[id number] : 1985 37 From: Felipe Garrett PCP: [...] decision making narrative: HISTORY OF PRESENT ILLNESS: 05-stor-xhw-year-old male presents with chest pain. Notes intermittent [...] History obtained from others: Patient's Consults: none [facility] Narrative: Patient is initially tachycardic and hypertensive [...] pathognomonic EKG changes (no diffuse ST elevations, WV depressions). GI etiology (i.e. Boerhaave syndrome) less [...] % (Auto) 65.8 Lymph % (Auto) 24.1 [place] % (Auto) 7.1 Eos % (Auto) 1.5 [...] your Primary Care Provider. Call [facility] ([phone]) or report to the closest Emergency Room. Call 911 if necessary. 05/26/23 1523 <Electronically signed by Felipe Valera DO> Cosigner Signature (if applicable): CC: No Primary Care Physician ~ Signed [facility] Work Phone: 1(783) 439-206110-09-2023 History of Present illness Narrative* Jasson Lion MD - 04/11/2023 4:06 PM EDT Jasson Lion MD Department of Orthopaedics Orthopaedics [address] [facility] [address] Dept: [phone] Dept April CHIEF COMPLAINT: Established Patient and [...] allergies. Jasson Lion MD documented in this encounter[facility] [place] History of Present illness Narrative* Kaylee Soria PA-C - 03/14/2023 7:57 AM EDT Kaylee Soria PA-C Department of Orthopaedics Orthopaedics [address] [facility] [address] Dept: [phone] Dept March 14, 2023 CHIEF COMPLAINT: Post [...] allergies. This note was partially generated using [employer] voice recognition system, and there may be [...] No redness or drainage. documented in this encounterSelect [facility] [place]08-21-2023 Miscellaneous Notes* Telephone Encounter - Tonie Cruz Ma - 02/21/2023 1:51 PM EDT Surgery has been scheduled as requested. * Telephone Encounter - Tonie Cruz Ma - 02/21/2023 11:32 AM EDT Surgical request completed for right middle finger excision soft tissue mass at [facility] on 03/02/2023 with local anesthesia. Post op appointments have been scheduled and mailed to the patient. documented in this encounterSelect [facility] [place]08-21-2023 History of Present illness Narrative* Jasson Lion MD - 02/21/2023 10:51 AM EDT Jasson Lion MD Department of Orthopaedics Orthopaedics [address] [place] [address] Dept: [phone] Dept February 21, 2023 CHIEF COMPLAINT: New [...] physical exam and repeat imaging as indicated. Want Ad Supervisor: RANDY Transcribe Date/Time: Dec 16 2022 11:09A [...] anxiety) Jasson Lion MD documented in this encounter[facility] [place]23 History of Present illness Narrative* Codi Oglesby, [...] Results XR HAND GENERAL 3V PA/LAT/OBL RIGHT ([id number]) (Order [id number]) Patient Info Patient Name Sex Torrey Mullins ([id number]) Male 1985 06/01/2022 1:42 PM - Radiology, [place] In Impression IMPRESSION: Unremarkable right hand Want Ad Supervisor: Sr.Pago Transcribe Date/Time: Jun 01 2022 1:38P Dictated by : VICTORIANO OMALLEY MD Impression IMPRESSION: Solid nodule noted at site of palpable abnormality. Findings are nonspecific. Considerations would include fibroma of the tendon sheath or possibly developing fibrosis which might indicate developing Dupuytren's contracture. Correlate clinically. MRI may be helpful to further evaluate. Want Ad Supervisor: Sr.Pago Transcribe Date/Time: Jun 11 2022 8:21A Dictated [...] preop plan Codi AyalaP.H. documented in this encounterSelect [facility] [place]05-30-2023 Miscellaneous Notes* Telephone Encounter - Selam Martin Cma - 11/30/2022 3:14 PM EDT Schedulers please assist patient with setting up ortho consult Selam Martin Cma * Telephone Encounter - Lashae Kaba [...] for this. Please advise documented in this encounterSelect [facility] [place]12-25-2022 History of Present illness Narrative* Moroccan [facility] Provider - 06/27/2022 4:48 PM EST null ( ) Visit Summary for Torrey Campos - Gender: Male - Date of : 1985 Date: [id number]- Duration: 2 minutes Patient: Torrey Campos Provider: Zehra Gomez Patient Contact Information Address [address]; [place] [address] [phone] Visit Topics covid diagnosis, paxlovid because of [...] important in case of a medical emergency.Answer [[address] [place], [place]] Please enter a number I can contact you in the event we are disconnected.Answer[[phone]] Conversation Transcripts [Notification] You are connected with Zehra Gomez Family Physician.[Notification] AmbikaAdrianna is located in [place].[Notification] Torrey Campos has shared health history...[Notification] Zehra Gomez has added a note.[Notification] Zehra Gomez has added a prescription. Diagnosis COVID-19 Value: U07.1 Code: ICD-10-CM Procedures Value: 25388 Code: CPT-4 OFFICE O/P EST SF 10-19 MIN Value: 21963 Code: CPT-4 OL DIG E/M SVC 11-20 [...] have a question or problem please call [phone] for prescription assistance Please print a copy of this note andsend it to your regular doctor, or take it to your next visit so it may be included in your medicalrecord Please see your primary care provider on an annual basis or more frequently if directed The patient voiced understanding and agreement with plan. Electronically signed by: Zehra Gomez( ) documented in this encounterSelect [facility] [place]12-09-2022 Miscellaneous Notes* Telephone Encounter - Lashae Kaba APRN.CNP - 06/11/2022 8:31 AM EST Please let patient know that his ultrasound was inconclusive but warrants a referral to orthopedics. Please find out if patient has preference on where he would like to follow up. documented in this encounterSelect [facility] [place]12-06-2022 History of Present illness Narrative* CARMINE Ballesteros) [...] 08, 2022 2:16 PM documented in this encounterSelect [facility] [place]11-29-2022 History of Present illness Narrative* Roopa Pierre [...] 01, 2022 1:19 PM documented in [facility]* Diagnosis Deformity of finger of right hand Unspecified deformity of finger [facility]* Diagnosis Finger mass, right Localized superficial swelling, mass, or lump documented [facility] this encounter [facility]* Diagnosis Finger mass, right Localized superficial swelling, mass, or lump documented [facility]* Diagnosis Finger mass, right- Primary Localized superficial swelling, mass, or lump documented [facility] this encounter [facility]* Diagnosis Mass of finger of right hand- Primary Localized superficial swelling, mass, or lump Mass of finger of right hand Localized superficial swelling, mass, or lump documented in this encounter [facility]* Diagnosis Finger mass, right- Primary Localized superficial swelling, mass, or lump documented [facility] this encounter [facility]* Diagnosis Mass of finger of right hand- Primary Localized superficial swelling, mass, or lump documented [facility] this encounter [facility]* Diagnosis Mass of finger of right hand- Primary Localized superficial swelling, mass, or lump documented in this encounter [facility] noteNo assessment information availableWThe [facility] Work Phone: [facility] note* Diagnosis Chest pain, unspecified type- Primary Screening for hyperlipidemia Screening for lipoid disorders documented in this encounter [facility]* Diagnosis Chest pain, unspecified type documented in this encounter [facility] note* Diagnosis LUQ pain Abdominal pain, left upper quadrant Diarrhea, unspecified type documented [facility] this encounter [facility]* Diagnosis Bloating- Primary Flatulence, eructation, and gas pain documented [facility] this encounter [facility]* Diagnosis LUQ pain Abdominal pain, left upper quadrant Diarrhea, unspecified type documented [facility]* Diagnosis Bloating- Primary Flatulence, eructation, and gas pain Diarrhea, unspecified type Elevated fecal calprotectin documented [facility] this encounter [facility]* Diagnosis Testicular swelling, right- Primary Edema of male genital organs Testicular discomfort Unspecified disorder of male genital organs Urinary tract infection without hematuria, site unspecified documented in this encounter [facility] note* Diagnosis Testicular swelling, right Edema of male genital organs Testicular discomfort Unspecified disorder of male genital organs documented [facility] this encounter [facility]* Diagnosis LUQ pain Abdominal pain, left upper quadrant Other chest pain documented in this encounter [facility]* Diagnosis Microscopic hematuria- Primary documented in this encounter [facility]* Diagnosis Gross hematuria- Primary documented [facility] encounter [facility]* Diagnosis Gross hematuria documented in this encounter [facility]* Diagnosis Left flank pain- Primary Abdominal pain, unspecified site Upper back pain Other chest pain Generalized abdominal pain Abdominal pain, generalized Gross hematuria documented [facility] this encounter [facility]* Diagnosis Chest pain, unspecified type LUQ pain Abdominal pain, left upper quadrant Diarrhea, unspecified type documented in this encounter [facility] note* Diagnosis Deformity of finger of right hand Unspecified deformity of finger documented [facility]* Diagnosis LUQ pain Abdominal pain, left upper quadrant Other chest pain documented in this encounter [facility]* Diagnosis Annual physical exam- Primary Routine general medical examination at a health care facility Chronic upper back pain Backache, unspecified Gastroesophageal reflux disease without esophagitis Esophageal reflux Alcohol consumption binge drinking Alcohol abuse, unspecified documented [facility] this encounter [facility]* Diagnosis Acute cough- Primary Bacterial pneumonia Bacterial pneumonia, unspecified Acute cough documented [facility]* Diagnosis Acute cough [facility] this [facility]* Diagnosis Chronic upper back pain Backache, unspecified documented [facility]* Diagnosis Elevated BP without diagnosis of hypertension- Primary [facility]* Diagnosis Chronic upper back pain- Primary Backache, unspecified documented in this encounter [facility]* Diagnosis Chronic upper back pain- Primary Backache, unspecified documented in this encounter [facility]* Diagnosis Chronic upper back pain- Primary Backache, unspecified documented in this encounter [facility]* Diagnosis 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 Additional Instructions Thank you [...] care physician for further outpatient evaluation and management.[facility] Work Phone: Hospital Discharge instructionsAdditional Instructions No clear reason for your symptoms at this time. Follow-up with your primary care physician and neurology. Return back to the ED if symptoms change or worsen.[facility] Work Phone: Reason for referral (narrative)* Diagnostic Procedure Only (Routine) - Closed Specialty Diagnoses / Procedures Referred By Daria t Referred To Contact US IMAGING Diagnoses Deformity of finger of right hand Procedures US EXTREMITY MASS/FLUID COLLECTION RT Lashae Kaba APRN.[facility] [address] [place] [address] Us Imaging Referral ID Status Reason Start Date Expiration Date V isits Requested Visits Authorized [id number] Closed Auto-Generate d Referral 06/03/2022 07/03/2023 1 1 [facility] for referral (narrative)* Outpatient Procedure (Routine) - Authorized Specialty Diagnoses / Procedures Referred By Contac t Referred To Contact [facility] Diagnoses Chest pain, unspecified type Procedures ECHO ECHO TTHRC R-T 2D W/WOM-MODE COMPL SPEC&COLR D PodlogKim jaramillo APRN.PHYSICS TECHNICIAN [address] [place] [address] [facility] [place] [address] [place] [address] Referral ID Status Reason Start Date Expiration Date Visits Requested Visits Authorized [id number] Authorized Auto-Generat ed Referral 3 05/29/2024 1 1 [facility] for referral (narrative)* Diagnostic Procedure Only (Routine) - Authorized Specialty Diagnoses / Procedures Referred By Contac t Referred To Contact US IMAGING Diagnoses Testicular swelling, right Testicular discomfort Procedures US DOPPLER COMPLETE DUP-SCAN ARTL ROXANA ABDL/PEL/SCROT&/RPR ORGN COM Valerie Franco APRN.PHYSICS TECHNICIAN [address] [place] [address] [place] [address] Referral ID Status Reason Start Date Expiration Date Visits Requested Visits Authorized [id number] Authorized Auto-Generat ed Referral 12/29/2023 01/27/2025 1 1 * Diagnostic Procedure Only (Routine) - Authorized Specialty Diagnoses / Procedures Referred By Contac t Referred To Contact US IMAGING Diagnoses Testicular swelling, right Testicular discomfort Procedures US SCROTUM AND CONTENTS US SCROTUM & CONTENTS Valerie Franco, X RAY INSPECTOR.PHYSICS TECHNICIAN [address] [place] [address] [place] [address] Referral ID Status Reason Start Date Expiration Date Visits Requested Visits Authorized [id number] Authorized Auto-Generat ed Referral 12/29/2023 01/27/2025 1 1 [facility] for referral (narrative)* Diagnostic Procedure Only (Routine) - Closed Specialty Diagnoses / Procedures Referred By Contac t Referred To Contact US IMAGING Diagnoses Gross hematuria Procedures US KIDNEY/BLADDER US RETROPERITONEAL REAL TIME W/IMAGE COMPLETE Alex Muniz MD [facility] [place] [address] [place] [address] Referral ID Status Reason Start Date Expiration Date V isits Requested Visits Authorized [id number] Closed Auto-Generate d Referral 01/19/2024 02/17/2025 1 1 [facility] for referral (narrative)* Diagnostic Procedure Only (Routine) - Closed Specialty Diagnoses / Procedures Referred By Contac t Referred To Contact US IMAGING Diagnoses Gross hematuria Procedures US KIDNEY/BLADDER US RETROPERITONEAL REAL TIME W/IMAGE COMPLETE Alex Muniz MD [address] [place] [address] [place] [address] Referral ID Status Reason Start Date Expiration Date V isits Requested Visits Authorized [id number] Closed Auto-Generate d Referral 01/19/2024 02/17/2025 1 1 [facility] for referral (narrative)* Outpatient Procedure (Routine) - Closed Specialty Diagnoses / Procedures Referred By Contac t Referred To Contact [facility] Diagnoses Diarrhea, unspecified type Procedures COLONOSCOPY DIAGNOSTIC COLONOSCOPY FLX DX W/COLLJ SPEC WHEN Hansa Tello PA-C [address] [place] [address] [facility] [address] [place] [address] Referral ID Status Reason Start Date Expiration Date V isits Requested Visits Authorized [id number] Closed Auto-Generate d Referral 07/12/2023 07/12/2024 1 1 * Outpatient Procedure (Routine) - Closed Specialty Diagnoses / Procedures Referred By Contac t Referred To Contact [facility] Diagnoses Other chest pain LUQ pain Procedures EGD DIAGNOSTIC ESOPHAGOGASTRODUODENOS COPY TRANSORAL DIAGNOSTIC Hansa Delaney PA-C [address] [place] [address] [facility] [address] [place] [address] Referral ID Status Reason Start Date Expiration Date V isits Requested Visits Authorized [id number] Closed Auto-Generate d Referral 07/12/2023 07/12/2024 1 1 [facility] Diagnostic Procedure Only (Urgent) - Closed Specialty Diagnoses / Procedures Referred By Contac t Referred To Contact XR IMAGING Diagnoses Deformity of finger of right hand Procedures XR HAND GENERAL 3V PA/LAT/OBL RIGHT RADEX HAND MINIMUM 3 VIEWS Lashae Kaba APRN.PHYSICS TECHNICIAN [address] [place] [address] [place] [address] Referral ID Status Reason Start Date Expiration Date V isits Requested Visits Authorized [id number] Closed Auto-Generate d Referral 06/01/2022 07/01/2023 1 1 [facility] for referral (narrative)No reason for referral information availableWThe [facility] Work Phone: Reason for visit Narrative* Diagnostic Procedure Only (Routine) - Closed Specialty Diagnoses / Procedures Referred By Contac t Referred To Contact US IMAGING Diagnoses Deformity of finger of right hand Procedures US EXTREMITY MASS/FLUID COLLECTION RT Lashae Kaba APRN.PHYSICS TECHNICIAN [address] [place] [address] Us Imaging Referral ID Status Reason Start Date Expiration Date V isits Requested Visits Authorized [id number] Closed Auto-Generate d Referral 06/03/2022 07/03/2023 1 1 [facility] for visit Narrative* Diagnostic Procedure Only (Routine) - Closed Specialty Diagnoses / Procedures Referred By Contac t Referred To Contact Cardiology / CARD LAB [facility] Diagnoses Chest pain, unspecified EXERCISE STRESS ECG (WITHOUT IMAGING); Chest pain, unspecified type [R07.9]; PT WT 212lbs Procedures CV STRS TST XERS&/OR RX CONT ECG TRCG ONLY STRESS TEST Podlogar, Kim, X RAY INSPECTOR.PHYSICS TECHNICIAN [address] [place] [address] [facility] [address] [place] [address] Referral ID Status Reason Start Date Expiration Date Visits Re quested Visits Authorized [id number] Closed 05/30/2023 07/03/2023 1 1 [facility] for visit Narrative* Diagnostic Procedure Only (Routine) - Closed Specialty Diagnoses / Procedures Referred By Contac t Referred To Contact US IMAGING Diagnoses Testicular swelling, right Testicular discomfort Procedures US DOPPLER COMPLETE DUP-SCAN ARTL ROXANA ABDL/PEL/SCROT&/RPR ORGN COM Valerie Franco, X RAY INSPECTOR.PHYSICS TECHNICIAN [address] [place] [address] [place] [address] Referral ID Status Reason Start Date Expiration Date V isits Requested Visits Authorized [id number] Closed Auto-Generate d Referral 12/29/2023 01/27/2025 1 1 [facility] for visit Narrative* Outpatient Procedure (Routine) - Closed Specialty Diagnoses / Procedures Referred By Contac t Referred To Contact [facility] Diagnoses Diarrhea, unspecified type Procedures COLONOSCOPY DIAGNOSTIC COLONOSCOPY FLX DX W/COLLJ SPEC WHEN Hansa Tello PA-C [address] [place] [address] [facility] [address] [place] [address] Referral ID Status Reason Start Date Expiration Date V isits Requested Visits Authorized [id number] Closed Auto-Generate d Referral 07/12/2023 07/12/2024 1 1 [facility] for visit Narrative* Diagnostic Procedure Only (Urgent) - Closed Specialty Diagnoses / Procedures Referred By Contac t Referred To Contact XR IMAGING Diagnoses Deformity of finger of right hand Procedures XR HAND GENERAL 3V PA/LAT/OBL RIGHT RADEX HAND MINIMUM 3 VIEWS Lashae Kaba, RIANA.PHYSICS TECHNICIAN [address] [place] [phone] [place] [address] Referral ID Status Reason Start Date Expiration Date V isits Requested Visits Authorized [id number] Closed Auto-Generate d Referral 06/01/2022 07/01/2023 1 1 [facility] for visit Narrative* MRI/CT (Urgent) - Closed Specialty Diagnoses / Procedures Referred By Contac t Referred To Contact MR IMAGING Diagnoses Amaurosis fugax Procedures MRI BRAIN WO IVCON MRI BRAIN BRAIN STEM W/O CONTRAST MATERIAL Alex Muniz MD [address] [place] [id number] Phone: tel: fax: [facility] [place] [address] Referral ID Status Reason Start Date Expiration Date V isits Requested Visits Authorized [id number] Closed Auto-Generate d Referral 01/10/2025 02/09/2026 1 1 [facility] Reason for Referral Specialty Diagnoses / Procedures Referred By Contac t Referred To Contact MR IMAGING Diagnoses Finger mass, right Procedures MRI HAND WO IVCON RIGHT MRI UPPER EXTREMITY OTH THAN JT W/O CONTR Codi Severino, [address] [facility] [address] [place] [phone] Mr Imaging Referral ID Status Reason Start Date Expiration Date Visits Requested Visits Authorized [id number] Authorized Auto-Generat ed Referral 12/02/2022 01/01/2024 1 1 Referral ID Status Reason Start Date Expiration Date V isits Requested Visits Authorized [id number] Closed Auto-Generate d Referral 12/02/2022 01/01/2024 1 1 Specialty Diagnoses / Procedures Referred By Contac t Referred To Contact Orthopedics Diagnoses Finger mass, right Procedures CONSULT TO ORTHOPAEDICS OFFICE/OUTPATIENT [facility] MDM 60-74 MINUTES Lashae Kaba APRN.PHYSICS TECHNICIAN [address] [place] [address] Referral ID Status Reason Start Date Expiration Date V isits Requested Visits Authorized [id number] Closed PCP Requested Referral 11/30/2022 11/30/2023 1 1 Specialty Diagnoses / Procedures Referred By Daria t Referred To Contact [facility] Diagnoses Chronic upper back pain Procedures CONSULT TO PHYSICAL THERAPY PHYSICAL THERAPY EVALUATION [facility] COMPLEX 45 MINS Alex Muniz MD [address] [place] [address] [facility] [place] [address] [place] [address] Referral ID Status Reason Start Date Expiration Date Visits Requested Visits Authorized [id number] Pending Review Auto-Generat ed Referral 07/16/2024 07/16/2025 1 1 Chief Complaint and Reason for Visit Chief Complaint CHEST PAIN Chief Complaint Admit Date NUMBNESS January 15, 2025 12:2 4pm Advance Directives Advance Directive Response Recorded Date/ Time Living Will No May 26 023 1:15pm Power of Tnt Powder Worker No May 26, 2023 1:15pm Advance Directive Response Recorded Date/ Time Do you have a Healthcare Power of Tnt Powder Worker? No January 15, 2025 1:08pm Summary Purpose [...] or prosecute any alcohol or drug abuse patient.[facility], [place]onIn the event this information is protected by the Federal Confidentiality of Alcohol and Drug Abuse Patient Records regulations: The Federal rules restrict any use of the information to criminally investigate or prosecute any alcohol or drug abuse patient.[facility], [place]onIn the event this information is protected by the Federal Confidentiality of Alcohol and Drug Abuse Patient Records regulations: The Federal rules restrict any use of the information to criminally investigate or prosecute any alcohol or drug abuse patient.[facility], [place]onIn the event this information is protected by the Federal Confidentiality of Alcohol and Drug Abuse Patient Records regulations: The Federal rules restrict any use of the information to criminally investigate or prosecute any alcohol or drug abuse patient.[facility], [place]onIn the event this information is protected by the Federal Confidentiality of Alcohol and Drug Abuse Patient Records regulations: The Federal rules restrict any use of the information to criminally investigate or prosecute any alcohol or drug abuse patient.[facility], [place]onIn the event this information is protected by the Federal Confidentiality of Alcohol and Drug Abuse Patient Records regulations: The Federal rules restrict any use of the information to criminally investigate or prosecute any alcohol or drug abuse patient.[facility], [place]onIn the event this information is protected by the Federal Confidentiality of Alcohol and Drug Abuse Patient Records regulations: The Federal rules restrict any use of the information to criminally investigate or prosecute any alcohol or drug abuse patient.[facility], [place]onIn the event this information is protected by the Federal Confidentiality of Alcohol and Drug Abuse Patient Records regulations: The Federal rules restrict any use of the information to criminally investigate or prosecute any alcohol or drug abuse patient.[facility], [place]onIn the event this information is protected by the Federal Confidentiality of Alcohol and Drug Abuse Patient Records regulations: The Federal rules restrict any use of the information to criminally investigate or prosecute any alcohol or drug abuse patient.[facility], [place]onIn the event this information is protected by the Federal Confidentiality of Alcohol and Drug Abuse Patient Records regulations: The Federal rules restrict any use of the information to criminally investigate or prosecute any alcohol or drug abuse patient.[facility], [place]onIn the event this information is protected by the Federal Confidentiality of Alcohol and Drug Abuse Patient Records regulations: The Federal rules restrict any use of the information to criminally investigate or prosecute any alcohol or drug abuse patient.[facility], [place]onIn the event this information is protected by the Federal Confidentiality of Alcohol and Drug Abuse Patient Records regulations: The Federal rules restrict any use of the information to criminally investigate or prosecute any alcohol or drug abuse patient.[facility], [place]onIn the event this information is protected by the Federal Confidentiality of Alcohol and Drug Abuse Patient Records regulations: The Federal rules restrict any use of the information to criminally investigate or prosecute any alcohol or drug abuse patient.[facility], [place]onIn the event this information is protected by the Federal Confidentiality of Alcohol and Drug Abuse Patient Records regulations: The Federal rules restrict any use of the information to criminally investigate or prosecute any alcohol or drug abuse patient.[facility], [place]onIn the event this information is protected by the Federal Confidentiality of Alcohol and Drug Abuse Patient Records regulations: The Federal rules restrict any use of the information to criminally investigate or prosecute any alcohol or drug abuse patient.[facility], [place]onIn the event this information is protected by the Federal Confidentiality of Alcohol and Drug Abuse Patient Records regulations: The Federal rules restrict any use of the information to criminally investigate or prosecute any alcohol or drug abuse patient.[facility], [place]onIn the event this information is protected by the Federal Confidentiality of Alcohol and Drug Abuse Patient Records regulations: The Federal rules restrict any use of the information to criminally investigate or prosecute any alcohol or drug abuse patient.[facility], [place]onIn the event this information is protected by the Federal Confidentiality of Alcohol and Drug Abuse Patient Records regulations: The Federal rules restrict any use of the information to criminally investigate or prosecute any alcohol or drug abuse patient.[facility], [place]onIn the event this information is protected by the Federal Confidentiality of Alcohol and Drug Abuse Patient Records regulations: The Federal rules restrict any use of the information to criminally investigate or prosecute any alcohol or drug abuse patient.[facility], [place]onIn the event this information is protected by the Federal Confidentiality of Alcohol and Drug Abuse Patient Records regulations: The Federal rules restrict any use of the information to criminally investigate or prosecute any alcohol or drug abuse patient.[facility], [place]onIn the event this information is protected by the Federal Confidentiality of Alcohol and Drug Abuse Patient Records regulations: The Federal rules restrict any use of the information to criminally investigate or prosecute any alcohol or drug abuse patient.[facility], [place]onIn the event this information is protected by the Federal Confidentiality of Alcohol and Drug Abuse Patient Records regulations: The Federal rules restrict any use of the information to criminally investigate or prosecute any alcohol or drug abuse patient.[facility], [place]onIn the event this information is protected by the Federal Confidentiality of Alcohol and Drug Abuse Patient Records regulations: The Federal rules restrict any use of the information to criminally investigate or prosecute any alcohol or drug abuse patient.[facility], [place]onIn the event this information is protected by the Federal Confidentiality of Alcohol and Drug Abuse Patient Records regulations: The Federal rules restrict any use of the information to criminally investigate or prosecute any alcohol or drug abuse patient.[facility], [place]onIn the event this information is protected by the Federal Confidentiality of Alcohol and Drug Abuse Patient Records regulations: The Federal rules restrict any use of the information to criminally investigate or prosecute any alcohol or drug abuse patient.[facility], [place]onIn the event this information is protected by the Federal Confidentiality of Alcohol and Drug Abuse Patient Records regulations: The Federal rules restrict any use of the information to criminally investigate or prosecute any alcohol or drug abuse patient.[facility], [place]onIn the event this information is protected by the Federal Confidentiality of Alcohol and Drug Abuse Patient Records regulations: The Federal rules restrict any use of the information to criminally investigate or prosecute any alcohol or drug abuse patient.[facility], [place]onIn the event this information is protected by the Federal Confidentiality of Alcohol and Drug Abuse Patient Records regulations: The Federal rules restrict any use of the information to criminally investigate or prosecute any alcohol or drug abuse patient.[facility], [place]onIn the event this information is protected by the Federal Confidentiality of Alcohol and Drug Abuse Patient Records regulations: The Federal rules restrict any use of the information to criminally investigate or prosecute any alcohol or drug abuse patient.[facility], [place]onIn the event this information is protected by the Federal Confidentiality of Alcohol and Drug Abuse Patient Records regulations: The Federal rules restrict any use of the information to criminally investigate or prosecute any alcohol or drug abuse patient.[facility], [place]onIn the event this information is protected by the Federal Confidentiality of Alcohol and Drug Abuse Patient Records regulations: The Federal rules restrict any use of the information to criminally investigate or prosecute any alcohol or drug abuse patient.[facility], [place]onIn the event this information is protected by the Federal Confidentiality of Alcohol and Drug Abuse Patient Records regulations: The Federal rules restrict any use of the information to criminally investigate or prosecute any alcohol or drug abuse patient.[facility], [place]onIn the event this information is protected by the Federal Confidentiality of Alcohol and Drug Abuse Patient Records regulations: The Federal rules restrict any use of the information to criminally investigate or prosecute any alcohol or drug abuse patient.[facility], [place]onIn the event this information is protected by the Federal Confidentiality of Alcohol and Drug Abuse Patient Records regulations: The Federal rules restrict any use of the information to criminally investigate or prosecute any alcohol or drug abuse patient.[facility], [place]onIn the event this information is protected by the Federal Confidentiality of Alcohol and Drug Abuse Patient Records regulations: The Federal rules restrict any use of the information to criminally investigate or prosecute any alcohol or drug abuse patient.[facility], [place]onIn the event this information is protected by the Federal Confidentiality of Alcohol and Drug Abuse Patient Records regulations: The Federal rules restrict any use of the information to criminally investigate or prosecute any alcohol or drug abuse patient.[facility], [place]In the event this information is protected by the Federal Confidentiality of Alcohol and Drug Abuse Patient Records regulations: The Federal rules restrict any use of the information to criminally investigate or prosecute any alcohol or drug abuse patient.[facility], [place]onIn the event this information is protected by the Federal Confidentiality of Alcohol and Drug Abuse Patient Records regulations: The Federal rules restrict any use of the information to criminally investigate or prosecute any alcohol or drug abuse patient.[facility], [place]onIn the event this information is protected by the Federal Confidentiality of Alcohol and Drug Abuse Patient Records regulations: The Federal rules restrict any use of the information to criminally investigate or prosecute any alcohol or drug abuse patient.[facility], [place]onIn the event this information is protected by the Federal Confidentiality of Alcohol and Drug Abuse Patient Records regulations: The Federal rules restrict any use of the information to criminally investigate or prosecute any alcohol or drug abuse patient.[facility], [place]onIn the event this information is protected by the Federal Confidentiality of Alcohol and Drug Abuse Patient Records regulations: The Federal rules restrict any use of the information to criminally investigate or prosecute any alcohol or drug abuse patient.[facility], [place]onIn the event this information is protected by the Federal Confidentiality of Alcohol and Drug Abuse Patient Records regulations: The Federal rules restrict any use of the information to criminally investigate or prosecute any alcohol or drug abuse patient.[facility], [place]onIn the event this information is protected by the Federal Confidentiality of Alcohol and Drug Abuse Patient Records regulations: The Federal rules restrict any use of the information to criminally investigate or prosecute any alcohol or drug abuse patient.[facility], [place]onIn the event this information is protected by the Federal Confidentiality of Alcohol and Drug Abuse Patient Records regulations: The Federal rules restrict any use of the information to criminally investigate or prosecute any alcohol or drug abuse patient.[facility], [place]onIn the event this information is protected by the Federal Confidentiality of Alcohol and Drug Abuse Patient Records regulations: The Federal rules restrict any use of the information to criminally investigate or prosecute any alcohol or drug abuse patient.[facility], [place]onIn the event this information is protected by the Federal Confidentiality of Alcohol and Drug Abuse Patient Records regulations: The Federal rules restrict any use of the information to criminally investigate or prosecute any alcohol or drug abuse patient.[facility], [place]onIn the event this information is protected by the Federal Confidentiality of Alcohol and Drug Abuse Patient Records regulations: The Federal rules restrict any use of the information to criminally investigate or prosecute any alcohol or drug abuse patient.[facility], [place]onIn the event this information is protected by the Federal Confidentiality of Alcohol and Drug Abuse Patient Records regulations: The Federal rules restrict any use of the information to criminally investigate or prosecute any alcohol or drug abuse patient.[facility], [place]onIn the event this information is protected by the Federal Confidentiality of Alcohol and Drug Abuse Patient Records regulations: The Federal rules restrict any use of the information to criminally investigate or prosecute any alcohol or drug abuse patient.[facility] [place] Care Teams (unrecognized sec tion and content) Senior Mortgage Underwriter Relationship Specialty Start Date End Date Alex Muniz MD [address] [place] [address] PCP - General Family Medicine 11/23/18 Senior Mortgage Underwriter Relationship Specialty Start Date End Date Alex Muniz MD [address] [place] [address] PCP - General Family Medicine 11/23/18 Senior Mortgage Underwriter Relationship Specialty Start Date End Date Alex Muniz MD [address] [place] [address] PCP - General Family Medicine 11/23/18 Senior Mortgage Underwriter Relationship Specialty Start Date End Date Alex Muniz MD [address] [place] [address] PCP - General Family Medicine 11/23/18 Senior Mortgage Underwriter Relationship Specialty Start Date End Date Alex Muniz MD [address] [place] [address] PCP - General Family Medicine 11/23/18 Senior Mortgage Underwriter Relationship Specialty Start Date End Date Alex Muniz MD [address] [place] [address] PCP - General Family Medicine 11/23/18 Senior Mortgage Underwriter Relationship Specialty Start Date End Date Alex Muniz MD [address] [place] [address] PCP - General Family Medicine 11/23/18 Senior Mortgage Underwriter Relationship Specialty Start Date End Date Alex Muniz MD [address] [place] [address] PCP - General Family Medicine 11/23/18 Senior Mortgage Underwriter Relationship Specialty Start Date End Date Alex Muniz MD [address] [place] [address] PCP - General Family Medicine 11/23/18 Team Status: Active Member Role Status Dates No Primary Care Physician Primary Care Provider Active Team Status: Inactive Member Role Status Dates Dr. Felipe Valera , DO Emergency Provider Active No Primary Care Physician Primary Care Provider Active Senior Mortgage Underwriter Relationship Specialty Start Date End Date Alex Muniz MD [address] [place] [address] PCP - General Family Medicine 11/23/18 Senior Mortgage Underwriter Relationship Specialty Start Date End Date Alex Muniz MD [address] [place] [address] PCP - General Family Medicine 11/23/18 Senior Mortgage Underwriter Relationship Specialty Start Date End Date Alex Muniz MD [address] [place] [address] PCP - General Family Medicine 11/23/18 Senior Mortgage Underwriter Relationship Specialty Start Date End Date Alex Muniz MD [address] [place] [address] PCP - General Family Medicine 11/23/18 Senior Mortgage Underwriter Relationship Specialty Start Date End Date Alex Muniz MD [address] [place] [address] PCP - General Family Medicine 11/23/18 Senior Mortgage Underwriter Relationship Specialty Start Date End Date Alex Muniz MD [address] [place] [address] PCP - General Family Medicine 11/23/18 Senior Mortgage Underwriter Relationship Specialty Start Date End Date Alex Muniz MD [address] [place] [address] PCP - General Family Medicine 11/23/18 Senior Mortgage Underwriter Relationship Specialty Start Date End Date Alex Muniz MD [address] [place] [address] PCP - General Family Medicine 11/23/18 Senior Mortgage Underwriter Relationship Specialty Start Date End Date Alex Muniz MD [address] [place] [address] PCP - General Family Medicine 11/23/18 Senior Mortgage Underwriter Relationship Specialty Start Date End Date Alex Muniz MD [address] [place] [address] PCP - General Family Medicine 11/23/18 Senior Mortgage Underwriter Relationship Specialty Start Date End Date Alex Muniz MD [address] [place] [address] PCP - General Family Medicine 11/23/18 Senior Mortgage Underwriter Relationship Specialty Start Date End Date Alex Muniz MD [address] [place] [address] PCP - General Family Medicine 11/23/18 Senior Mortgage Underwriter Relationship Specialty Start Date End Date Alex Muniz MD [address] [place] [address] PCP - General Family Medicine 11/23/18 Senior Mortgage Underwriter Relationship Specialty Start Date End Date Alex Muniz MD [address] [place] [address] PCP - General Family Medicine 11/23/18 Podlogar, Kim, X RAY INSPECTOR.PHYSICS TECHNICIAN [address] [place] [address] Concrete Pipe Machine Operator Family Medicine 06/09/24 Senior Mortgage Underwriter Relationship Specialty Start Date End Date Alex Muniz MD [address] [place] [address] PCP - General Family Medicine 11/23/18 Podlogar, Kim, X RAY INSPECTOR.PHYSICS TECHNICIAN [address] [place] [address] Concrete Pipe Machine Operator Family Medicine 06/09/24 Senior Mortgage Underwriter Relationship Specialty Start Date End Date Alex Muniz MD [address] [place] [address] PCP - General Family Medicine 11/23/18 Podlogar, Kim, X RAY INSPECTOR.PHYSICS TECHNICIAN [address] [place] [address] Concrete Pipe Machine Operator Family Medicine 06/09/24 Senior Mortgage Underwriter Relationship Specialty Start Date End Date Alex Muniz MD [address] [place] [address] PCP - General Family Medicine 11/23/18 Podlogar, Kim, X RAY INSPECTOR.PHYSICS TECHNICIAN [address] [place] [address] Concrete Pipe Machine Operator Family Medicine 06/09/24 Senior Mortgage Underwriter Relationship Specialty Start Date End Date Alex Muniz MD [address] [place] [address] PCP - General Family Medicine 11/23/18 Podlogar, Kim, X RAY INSPECTOR.PHYSICS TECHNICIAN [address] [place] [address] Concrete Pipe Machine Operator Family Medicine 06/09/24 Senior Mortgage Underwriter Relationship Specialty Start Date End Date Alex Muniz MD [address] [place] [address] PCP - General Family Medicine 11/23/18 Podlogar, Kim, X RAY INSPECTOR.PHYSICS TECHNICIAN [address] [place] [address] Concrete Pipe Machine Operator Family Medicine 06/09/24 Senior Mortgage Underwriter Relationship Specialty Start Date End Date Alex Muniz MD [address] [place] [address] PCP - General Family Medicine 11/23/18 Podlogar, Kim, X RAY INSPECTOR.PHYSICS TECHNICIAN [address] [facility], [place] [address] Concrete Pipe Machine [facility] 06/09/24 Senior Mortgage Underwriter Relationship Specialty Start Date End Date Alex Muniz MD [address] [facility], [place] [address] PCP - General Family Medicine 11/23/18 Podlogar, Kim X RAY INSPECTOR.PHYSICS TECHNICIAN [address] [place] [address] [facility] Medicine 06/09/24 Senior Mortgage Underwriter Relationship Specialty Start Date End Date Alex Muniz MD [address] [place] [address] PCP - General Family Medicine 11/23/18 Podlogar, Kim, X RAY INSPECTOR.PHYSICS TECHNICIAN [address] [place] [address] [facility] Medicine 06/09/24 Lashae Kaba X RAY INSPECTOR.PHYSICS TECHNICIAN [address] [place], [place] [address] Counts Include 234 B[facility] 12/13/24 Senior Mortgage Underwriter Relationship Specialty Start Date End Date Alex Muniz MD [address] [facility], [place] [address] PCP - General Family Medicine 11/23/18 Podlogar, Kim, X RAY INSPECTOR.PHYSICS TECHNICIAN [address] [place] [address] [facility] Family Medicine 06/09/24 Lashae Kaba X RAY INSPECTOR.PHYSICS TECHNICIAN [address] [facility] [place] [address] Concrete Pipe Machine Operator Family Medicine 12/13/24 Senior Mortgage Underwriter Relationship Specialty Start Date End Date Alex Muniz MD [address] [place] [address] PCP - General Family Medicine 11/23/18 PodlogarKim APRN.PHYSICS TECHNICIAN [address] [place] [address] Concrete Pipe Machine Operator Family Medicine 06/09/24 Lashae Kaba APRN.PHYSICS TECHNICIAN [address] [place] [address] Concrete Pipe Machine [facility]Bu[facility] 12/13/24 Senior Mortgage Underwriter Relationship Specialty Start Date End Date Alex Muniz MD [address] [place] [address] PCP - General Family Medicine 11/23/18 PodlogarKim X RAY INSPECTOR.PHYSICS TECHNICIAN [address] [place] [address] Concrete Pipe Machine Operator Family Medicine 06/09/24 Lashae Kaba APRN.PHYSICS TECHNICIAN [address] [place] [address] Concrete Pipe Machine Operator Family Medicine 12/13/24 Senior Mortgage Underwriter Relationship Specialty Start Date End Date Alex Muniz MD [address] [place] [address] PCP - General Family Medicine 11/23/18 PodlogarKim X RAY INSPECTOR.PHYSICS TECHNICIAN [address] [place] [address] Concrete Pipe Machine Operator Family Medicine 06/09/24 Lashae Kaba APRN.PHYSICS TECHNICIAN [address] [place], [place] [id number] Concrete Pipe Machine Operator Family Medicine 12/13/24 Team Status: Active Member [...] HIGH COMPLEX 45 MINS Alex Muniz MD [address] [place], [place] [id number] [facility] [place] [address] [place] [address] Referral ID Status Reason Start Date Expiration Date Visits Requested Visits Authorized [id number] Authorized Auto-Generat ed Referral 07/04/2024 07/03/2025 99 99 Reason Comments Results Reason Comments New Patient Mass Specialty Diagnoses / Procedures Referred By Contac t Referred To Contact Orthopedics Diagnoses Finger mass, right Procedures CONSULT TO ORTHOPAEDICS OFFICE/OUTPATIENT [facility] MDM 60-74 MINUTES Lashae Kaba, X RAY INSPECTOR.PHYSICS TECHNICIAN [address] [place] [address] Referral ID Status Reason Start Date Expiration Date V isits Requested Visits Authorized [id number] Closed PCP Requested Referral 11/30/2022 11/30/2023 1 1 Specialty Diagnoses / Procedures Referred By Contac t Referred To Contact MR IMAGING Diagnoses Finger mass, right Procedures MRI HAND WO IVCON RIGHT MRI UPPER EXTREMITY OTH THAN JT W/O CONTR MATRL Codi Oglesbye, DO [address] [facility] [address] [place] [address] Mr Imaging Referral ID Status Reason Start Date Expiration Date V isits Requested Visits Authorized [id number] Closed Auto-Generate d Referral 12/02/2022 01/01/2024 1 [...] Comments Hospital F/U Was seen 05/26 at [facility] for consistent chest pain x1 week, hospital [...] REAL TIME W/IMAGE COMPLETE Alex Muniz MD [address] [place] [address] [place] [address] Referral ID Status Reason Start Date Expiration Date V isits Requested Visits Authorized [id number] Closed Auto-Generate d Referral 01/19/2024 02/17/2025 1 [...] HIGH COMPLEX 45 MINS Alex Muniz MD [address] [place] [address] Phone: tel: fax: [facility] [address] [place] [address] Referral ID Status Reason Start Date Expiration Date Visits Requested Visits Authorized [id number] Authorized Auto-Generat ed Referral 07/04/2024 07/03/2025 99 99 Reason Comments Physical Therapy PT Discharge Specialty Diagnoses / Procedures Referred By Daria t Referred To Contact [facility] Diagnoses Chronic upper back pain Procedures CONSULT TO PHYSICAL THERAPY PHYSICAL THERAPY EVALUATION HIGH COMPLEX 45 MINS Alex Muniz MD [address] [place] [address] Phone: tel: fax: [facility] [address] [place] [address] Referral ID Status Reason Start Date Expiration Date Visits Requested Visits Authorized [id number] Authorized Auto-Generat ed Referral 07/04/2024 07/03/2025 99 [...] Amaurosis fugax Procedures CONSULT TO OPHTHALMOLOGY OFFICE/OUTPATIENT [facility] MDM 60 MINUTES Alex Muniz MD [address] [place] [address] Phone: tel: fax: Referral ID Status Reason Start Date Expiration Date V isits Requested Visits Authorized [id number] Closed PCP Requested Referral 01/10/2025 01/10/2026 1 1 Goals (unrecognized section and content) Goals may be documented in a n alternate sectionGoals may be documented in an alternate section (unrecognized sect ion and content) No Status Records FoundNo Status Records FoundNo Status Records FoundNo Status Records Found INFORMATION SOURCE (unrecogn ized section and content) DATE CREATED AUTHOR 06/02/2023 [facility] DATE CREATED AUTHOR AUTHOR'S ORGANIZ ATION 06/10/2023 [facility] DATE CREATED AUTHOR AUTHOR'S ORGANIZ ATION 01/02/2024 [facility] DATE CREATED AUTHOR AUTHOR'S ORGANIZ ATION 01/14/2025 [facility] FOR RECORDS PERTAINING TO PATIENTS WHO ARE [...] BE BASED ON THE PRIMARY CLINICAL RECORDS. [facility] [employer] provides no warranty or guarantee of the accuracy or completeness of information in this document.
== END 2025-01-15 15:40 | disposition home or self-care (01) ==
PROVIDERS: Emergency Provider Surgery; PCP Family Medicine; Visit Provider Surgery
DX: G43.909 Migraine, unspecified, not intractable, without status migrainosus (principal); R20.2 Paresthesia of skin; R20.0 Anesthesia of skin
CPT/HCPCS: 70450; 80048; 83735; 85025; 99283